=== PATIENT | male | born 1935 | race Caucasian/White ===

== ENCOUNTER 2019-11-30 08:57 | Outpatient (CLI) | payer MEDICARE, SELFPAY ==
[2019-11-30 09:27] LABS: Basophils Absolute Auto 0.01 K/mm3 (0.00-0.10); Basophils Percent Auto 0.2 % (0.0-1.0); Eosinophils Absolute Auto 0.15 K/mm3 (0.02-0.50); Eosinophils Percent Auto 2.6 % (1.0-6.0); Hematocrit 38.4 % (37.0-46.0); Hemoglobin 12.9 g/dL (12.4-15.3); Immature Granulocyte Absolute 0.02 K/mm3 (0.00-0.00); Immature Granulocyte Percent A 0.3 % (0.0-0.0); Immature Reticulocyte Fraction 14.8 % (2.0-16.52); Lymphocytes Absolute Auto 1.24 K/mm3 (1.10-4.50); Lymphocytes Percent Auto 21.1 % (18.0-42.0); Mean Corpuscular HGB Conc 33.6 g/dL (32.0-36.0); Mean Corpuscular Hemoglobin 32.3 pg (27.0-31.0); Mean Platelet Volume 9.5 fl (8.7-11.0); Monocytes Absolute Auto 0.65 K/mm3 (0.10-0.90); Monocytes Percent Auto 11.1 % (2.0-11.0); Neutrophils Absolute Auto 3.8 K/mm3 (1.7-7.2); Neutrophils Percent Auto 64.7 % (50.0-70.0); Platelet Count Result 236 K/mm3 (150-420); Red Cell Distribution Width 13.4 % (11.6-14.4); Reticulocyte Hemoglobin Conten 37.6 pg (28.0-35.0); Reticulocyte Percent 2.13 % (0.50-1.50); Reticulocytes Absolute 0.09 M/mm3 (0.02-0.1); White Blood Count 5.9 K/mm3 (4.8-10.8)
[2019-11-30 10:08] LABS: Anion Gap 14.8 mmol/L (7-16); Blood Urea Nitrogen 18 mg/dL (7-18); Calcium 8.7 mg/dL (8.5-10.1); Carbon Dioxide 24 mmol/L (21-32); Chloride 107 mmol/L (98-108); Estimated Glomerular Filt Rate > 60; Ferritin 73 ng/mL (26-388); Glucose 115 mg/dL (70-99); Iron 73 ug/dL (65-175); Osmolality Calculated 294 mOsm/kg (285-295); Percent Iron Saturation 25 % (12-57); Potassium 4.8 mmol/L (3.5-5.1); Sodium 141 mmol/L (136-145)
[2019-11-30 10:09] LABS: CRP < 0.2 mg/dL (0.0-0.9)
[2019-11-30 12:43] LABS: Erythrocyte Sedimentation Rate 25 mm/hr (0-20)
== END 2019-11-30 08:58 | disposition home or self-care (01) ==
LOC: CHSLAB 08:59
PROVIDERS: PCP Internal Medicine; Visit Provider Internal Medicine
DX: M10.9 Gout, unspecified (principal); D69.6 Thrombocytopenia, unspecified; N18.2 Chronic kidney disease, stage 2 (mild)
CPT/HCPCS: 36415; 80048; 82728; 83540; 83550; 84550; 85025; 85046; 85652; 86140

== ENCOUNTER 2019-12-17 11:05 | Outpatient (CLI) | payer MEDICARE, SELFPAY ==
[2019-12-17 11:57] LABS: Anion Gap 13.8 mmol/L (7-16); Blood Urea Nitrogen 24 mg/dL (7-18); Calcium 8.9 mg/dL (8.5-10.1); Carbon Dioxide 24 mmol/L (21-32); Chloride 108 mmol/L (98-108); Estimated Glomerular Filt Rate 60; Glucose 130 mg/dL (70-99); Osmolality Calculated 298 mOsm/kg (285-295); Potassium 4.8 mmol/L (3.5-5.1); Sodium 141 mmol/L (136-145); Uric Acid 5.2 mg/dL (3.5-7.2)
== END 2019-12-17 11:06 | disposition home or self-care (01) ==
PROVIDERS: PCP Internal Medicine; Visit Provider Internal Medicine
DX: E79.0 Hyperuricemia without signs of inflammatory arthritis and tophaceous disease (principal)
CPT/HCPCS: 36415; 80048; 84550

== ENCOUNTER 2020-01-08 17:45 | Observation (INO) | payer MEDICARE, OTHER, SELFPAY ==
--- NOTE | ~2020-01-08 | XR_ITS ---
EXAMINATION: XR chest 1V portable DATE: 01/08/2020 18:23 INDICATION: Fever TECHNIQUE: frontal view of the chest was obtained. COMPARISON: 08/15/2014 FINDINGS: Increased predominantly interstitial opacities in the bilateral lower lung zones. No pleural effusion or pneumothorax. Calcified pleural plaque projecting over the right lower lung zone. The cardiomedia stinal silhouette is normal. Atherosclerotic aorta. Mild scattered degenerative skeletal changes. IMPRESSION: 1. Mild increased opacities in the bilateral lower lung zones which could be due to bronchitis or ear ly pneumonia pneumonia, mild pulmonary edema or atelectasis. Reviewed, dictated and finalized at location A. IMPRESSION: 1. Mild increased opacities in the bilateral lower lung zones which could be du e to bronchitis or early pneumonia pneumonia, mild pulmonary edema or atelectas is.
--- NOTE | ~2020-01-08 | CT_ITS ---
EXAMINATION: CT chest high resolution wo co DATE: 01/08/2020 19:44 INDICATION: fever, Covid test pending possible pna on Cxr TECHNIQUE: Computed tomography (CT) of the chest was performed without intravenous contrast. Addition al 3D reconstructions utilizing coronal maximum intensity projection (MIP) were performed. Automated exposure control and iterative reconstruction technique were employed. The dose-length product was 23 4.82 mGy-cm. COMPARISON: None FINDINGS: There is some respiratory motion at the lung bases which limits evaluation of fine pulmonary parenchy mal detail. There is moderate emphysema with upper lung predominance which likely accounts for the re latively increased interstitial pattern in the lower lungs. No focal airspace disease to suggest pneu monia. No pulmonary edema, pleural effusion or pneumothorax. Unilateral calcified pleural plaques in the right hemithorax which suggests sequela of prior exudative effusion. Borderline heart size with a therosclerotic coronary artery calcifications. No pericardial lesion. Additional atherosclerotic calc ification is along the normal caliber thoracic aorta. No pathologically enlarged thoracic lymphadenop athy. Cholecystectomy clips the gallbladder fossa. Bridging syndesmophytes and bridging osteophytes a long the spinous processes throughout much of the thoracic spine consistent with ankylosing spondylit is. IMPRESSION: 1. Moderate emphysema. No evident acute cardiopulmonary disease. 2. Skeletal changes in the thoracic spine consistent with ankylosing spondylitis. Reviewed, dictated and finalized at location A. IMPRESSION: 1. Moderate emphysema. No evident acute cardiopulmonary disease. 2. Skeletal changes in the thoracic spine consistent with ankylosing spondyliti s.
--- NOTE | 2020-01-08 17:50 | ECG_ITS ---
Measurements Intervals [place] Rate: 103 P: 42 VT: 203 QRS: 55 QRSD: 141 T: 25 QT: 338 QTc: 444 Interpretive Statements SINUS TACHYCARDIA BORDERLINE AV CONDUCTION DELAY RIGHT BUNDLE BRANCH BLOCK BASELINE WANDER- II, III, AVR, AVF ABNORMAL ECG Electronically Signed On 01-10-2020 7:28:16 CDT by Elbert Golden D.O.
[2020-01-08 17:59] VITALS: BP 166/70; PULSE 106; RESP 18; TEMP 38; O2SAT 97
--- NOTE | 2020-01-08 18:40 | ED.GENADULT ---
HPI - General Adult General Chief complaint: Weakness Stated complaint: ambulance Source: family (Sons Dayday and Tom) Mode of arrival: EMS Limitations: altered mental status History of Present Illness HPI narrative: This 84-year-old male with a history of hypertension, type 2 diabetes, CVA, BPH, hyperlipidemia and gout lives at home by himself. He contacted his family this afternoon when he was not feeling well. At about 4:30 PM they arrived at his home finding him very weak, covered with a blanket shivering. He was confused and became more confused the longer they were with him, prompting his being brought to the E.D. He lives independently by himself, drives, cooks dresses himself etc.. His son Dayday spent an hour with him yesterday noticed no unusual behaviors or complaints. Tom knows he is at the hospital but does not know why. He denies complaints, but his confusion brings into question the reliability of ROS. Related Data Home Medications Medication Instructions Recorded Confirmed allopurinol 100 mg PO DAILY 01/08/20 01/08/20 aspirin [Adult Low Dose Aspirin] 81 mg PO DAILY 01/08/20 01/08/20 carvedilol 12.5 mg PO BID 01/08/20 01/08/20 clopidogrel [Plavix] 75 mg PO DAILY 01/08/20 01/08/20 enalapril maleate 20 mg PO BID 01/08/20 01/08/20 metformin 500 mg PO DAILY 01/08/20 01/08/20 pravastatin 80 mg PO DAILY 01/08/20 01/08/20 tamsulosin 0.4 mg PO DAILY 01/08/20 01/08/20 tamsulosin 0.4 mg PO DAILY 01/08/20 01/08/20 temazepam 15 mg PO HS PRN 01/08/20 01/08/20 Allergies Allergy/AdvReac Type Severity Reaction Status Date / Time No Known Allergies Allergy Verified 01/08/20 21:52 Review of Systems Review of Systems: Narrative: Review of systems is limited by patient's difficulty with recall. ENT: Denies sore throat Cardiovascular: Cardiovascular: Denies chest pain Respiratory: Respiratory: Denies no additional respiratory complaints and Denies cough Gastrointestinal: Gastrointestinal: Denies constipation and Denies diarrhea Comments: He states he vomited once earlier today Genitourinary: Genitourinary: Reports urinary incontinence Musculoskeletal: Comments: he states he had body aches earlier today but not presently Integumentary/Breasts: Skin/Breast: Denies rash Neurologic: Denies headache(s) Endocrine: Endocrine: Reports polydipsia Hematologic/Lymphatic: Hematologic/Lymphatic: Denies easy bleeding Allergic/Immunologic: Allergic/Immunologic: Denies lip swelling PMFSH Past Medical History Medical History (Updated 01/08/20 @ 20:29 by Dayday Banda MD) CVA (cerebral vascular accident) Diabetes Gout Hyperlipidemia Hypertension Family History Family History (Updated 01/08/20 @ 22:30 by Guido Maier RN) Father Parkinsons disease Mother Cancer Social History Social History (Updated 01/08/20 @ 18:58 by Dayday Banda MD) Social History: lives alone, . Sons live nearby, check on him regularly. No living will or designated MPOA Smoking status: Former smoker Tobacco type: cigarettes Second hand tobacco smoke exposure: No Alcohol intake: former Substance use: never Gender identity (if verbalized by the patient): Male Exam Const: General: no acute distress and alert; No diaphoretic Limitations: altered mental status Other: does not appear ill. Has trouble recalling recent events. HENMT: Head: no hematomas Face and sinus: sinuses nontender Mouth: Yes moist mucous membranes Eyes: EOM: EOMs intact bilaterally Neck: Neck: no lymphadenopathy Chest: Chest palpation & inspection: normal inspection of the chest Resp: Other: RR=24 respirations not labored Cardio: Rate: regular rate Rhythm: regular rhythm Heart sounds: no murmurs GI: GI Palp: Yes Soft to palpation, No Tenderness to palpation present (GI), No Guarding due to palpation present (GI) and No Rigid due to palpation Back/Spine/Pelvis: Back: no CVA tenderness Skin: General
[2020-01-08 18:45] LABS: Hematocrit 36.5 % (37.0-46.0); Hemoglobin 12.2 g/dL (12.4-15.3); Mean Corpuscular HGB Conc 33.4 g/dL (32.0-36.0); Mean Corpuscular Hemoglobin 32.5 pg (27.0-31.0); Mean Corpuscular Volume 97.3 fL (78.0-102.0); Mean Platelet Volume 9.8 fl (8.7-11.0); Platelet Count Result 246 K/mm3 (150-420); Red Blood Count 3.75 M/mm3 (4.70-6.10); Red Cell Distribution Width 14.2 % (11.6-14.4)
[2020-01-08 19:08] LABS: Appearance Urine Clear (Clear); Bilirubin Urine Negative (Negative); Color Urine Yellow (Yellow); Glucose Urine UA Negative (Negative); Ketones Urine Trace (Negative); Leukocyte Esterase Ur Negative LEU/UL (Negative); Nitrate Urine Negative (Negative); Protein Urine Trace (Negative); Specific Grav Ur 1.025 (1.010-1.020); Urobilinogen Urine 0.2 mg/dL (0.2-1.0); pH Urine 5.5 (5.0-8.0)
[2020-01-08 19:09] LABS: Alanine Aminotransferase 14 U/L (16-63); Albumin Level 3.4 g/dL (3.4-5.0); Alkaline Phosphatase 66 U/L (46-116); Anion Gap 17.3 mmol/L (7-16); Aspartate Amino Transferase 17 U/L (15-37); Bilirubin,Total 0.6 mg/dL (0.00-1.00); Blood Urea Nitrogen 24 mg/dL (7-18); Calcium 8.9 mg/dL (8.5-10.1); Carbon Dioxide 20 mmol/L (21-32); Chloride 107 mmol/L (98-108); Estimated Glomerular Filt Rate 58; Glucose 153 mg/dL (70-99); Osmolality Calculated 297 mOsm/kg (285-295); Potassium 4.3 mmol/L (3.5-5.1); Sodium 140 mmol/L (136-145); Total Protein 6.7 g/dL (6.4-8.2)
[2020-01-08 19:14] LABS: Add Urine Microscopic? YES; Blood Urine Trace-Intact (Negative); Magnesium 1.3 mg/dL (1.8-2.4); RBC Urine 0-2 /hpf (0-2); Troponin I 0.04 ng/mL (0.00-0.056); WBC Urine None seen /hpf (0-3)
[2020-01-08 19:15] LABS: Bacteria Urine Trace /hpf; Mucus Urine None seen /lpf; Squamous Epithelial Cell Urine None seen /hpf (Few)
[2020-01-08 19:27] LABS: BNP 100 pg/mL (0-100)
[2020-01-08 19:35] LABS: Lactic Acid 1.8 mmol/L (0.4-2.0)
[2020-01-08] MEDS: SODIUM CHLORIDE 0.9% IV 1,000 ML 125 ML IV CONT (19:40)
[2020-01-08 20:07] VITALS: BP 159/68; PULSE 100; O2SAT 98
[2020-01-08 21:19] VITALS: BP 131/61; PULSE 95; O2SAT 99
--- NOTE | 2020-01-08 21:25 | PC.NURSE ---
NURSE NOT READY FOR REPORT, PATIENT UPDATED ON PLAN OF CARE
[2020-01-08 21:53] VITALS: BP 143/59; PULSE 90; RESP 15; O2SAT 99
[2020-01-08 22:00] VITALS: BP 115/49; PULSE 92; RESP 16; TEMP 37.7; O2SAT 98
[2020-01-08 22:17] VITALS: BMI 26.4
--- NOTE | 2020-01-08 22:19 | PC.NURSE ---
[facility] [phone] AND [facility] [phone]
[2020-01-09] VITALS (11 sets, daily range): BP systolic 115–155; BP diastolic 49–66; PULSE 70–92; RESP 12–22; TEMP 36.9–37.7; O2SAT 92–98
[2020-01-09] MEDS: SODIUM CHLORIDE 0.9% IV 1,000 ML 125 ML IV CONT (04:24)
[2020-01-09] MEDS: MAGNESIUM SULF 2 GM/WATER 50ML 2 GM/50 ML BAG IVPB (06:27)
--- NOTE | 2020-01-09 08:55 | PM.IMHP ---
H&P: HPI History of Present Illness Chief complaint: ambulance Narrative: Tom Fontana is a 84 year old male admitted through the ED after the patient called his son Marin and his son called the ambulance. Tom is a 84-year-old male with a history of hypertension, type 2 diabetes, CVA, BPH, hyperlipidemia and gout. He lives at home by himself. He lives independently by himself, drives, cooks dresses himself etc.. He contacted his family yesterday afternoon when he was not feeling well. At about 4:30 PM they arrived at his home finding him very weak, covered with a blanket shivering. He was confused and became more confused the longer they were with him, prompting his being brought to the E.D. His son Dayday spent an hour with him yesterday noticed no unusual behaviors or complaints. The patient Tom knows he is at the hospital but does not know why. He denies complaints, but his confusion brings into question the reliability of ROS. He was admitted for weakness, fever, dehydration, and altered mental status. Today when I went to see the patient, he told me that he had gone downstairs in his basement to take a shower as that is the only basement that has a shower and he likes to use that. After the shower he had to go back up stairs, and was unable to do so, having trouble on the stairs, with severe pain in his legs that came on suddenly. At times he admits his right knee will give out, as he states that he needs knee replacement to the right side , and had a knee replacement to the left knee. He stated that for the most part his 2 sons Marin and Dayday are the children that frequently check on him and stop over to his house. He stated that Marin was his POA. The patient Tom currently denies any pain to his legs, while at rest, or with deep palpation, or with his physical therapy evaluation or home O2 study today. His son Marin told me that the patient has smoked for many years, but quit a little over 30 years ago when he had his heart attack. His son Marin also told me that the patient's smoked for many years and had severe emphysema. His white count was 10.0 at admission yesterday around 6:30 p.m., his UA was without concern, he was COVID tested and that remains pending since the machine broke at [facility] and his test has been sent to [facility] the results may take a few days. His magnesium admission was 1.3, today Mag level was 2.0. his troponin was within normal limits, EKG was normal sinus rhythm. I spoke with the radiologist today that read the patient's chest x-ray and high resolution CT scan. The radiologist confirmed after our discussion of both of those, the patient did not have pneumonia or atelectasis or pleural effusions, but did have moderate emphysema. Tom was alert and oriented times 3-4 with today, anxious to get home today, and felt like he was back to his baseline. I did inform him that I wanted physical therapist to evaluate him as well as a home O2 study completed today prior to discharge. He was agreeable. I then spoke to his son Jose over the phone and updated him as to the plan of care and the CT results. Physical therapy did recommend the patient participating outpatient therapy, so I have ordered that at discharge. Review of Systems Review of Systems: All systems reviewed & are unremarkable except as noted in HPI and below Constitutional: Constitutional: Reports as per HPI, Denies body ache(s), Reports chills, Denies fatigue, Denies lethargy and Reports weakness Eyes: Eyes: Reports as per HPI, Denies blurry vision and Denies photophobia ENT: Reports as per HPI, Reports Normal hearing present, Denies dysphagia, Denies epistaxis, Denies nasal congestion, Denies nasal discharge and Denies tinnitus Cardiovascular: Cardiovascular: Reports as per HPI, Denies chest pain, Denies diaphoresis, Reports pedal edema, Reports leg edema, Denies lightheadedness and Denies palpitations Respiratory: Respiratory: Reports as per HPI, Denies ch
[2020-01-09] MEDS: ENOXAPARIN 40 MG/0.4 ML SYRINGE SUB-Q (08:59)
[2020-01-09 09:52] LABS: Basophils Absolute Auto 0.01 K/mm3 (0.00-0.10); Basophils Percent Auto 0.1 % (0.0-1.0); Eosinophils Absolute Auto 0.04 K/mm3 (0.02-0.50); Eosinophils Percent Auto 0.4 % (1.0-6.0); Hematocrit 32.9 % (37.0-46.0); Hemoglobin 10.6 g/dL (12.4-15.3); Immature Granulocyte Absolute 0.02 K/mm3 (0.00-0.00); Immature Granulocyte Percent A 0.2 % (0.0-0.0); Lymphocytes Absolute Auto 0.74 K/mm3 (1.10-4.50); Lymphocytes Percent Auto 7.9 % (18.0-42.0); Mean Corpuscular HGB Conc 32.2 g/dL (32.0-36.0); Mean Corpuscular Hemoglobin 32.6 pg (27.0-31.0); Mean Corpuscular Volume 101.2 fL (78.0-102.0); Mean Platelet Volume 9.7 fl (8.7-11.0); Monocytes Absolute Auto 0.85 K/mm3 (0.10-0.90); Monocytes Percent Auto 9.1 % (2.0-11.0); Neutrophils Absolute Auto 7.7 K/mm3 (1.7-7.2); Neutrophils Percent Auto 82.3 % (50.0-70.0); Platelet Count Result 212 K/mm3 (150-420); Red Blood Count 3.25 M/mm3 (4.70-6.10); Red Cell Distribution Width 14.6 % (11.6-14.4); White Blood Count 9.3 K/mm3 (4.8-10.8)
[2020-01-09 10:07] LABS: Anion Gap 16.2 mmol/L (7-16); Blood Urea Nitrogen 19 mg/dL (7-18); Calcium 8.4 mg/dL (8.5-10.1); Carbon Dioxide 20 mmol/L (21-32); Chloride 109 mmol/L (98-108); Estimated CRCL calculation 53 ml/min; Estimated Glomerular Filt Rate > 60; Glucose 166 mg/dL (70-99); Osmolality Calculated 298 mOsm/kg (285-295); Potassium 4.2 mmol/L (3.5-5.1); Sodium 141 mmol/L (136-145)
[2020-01-09] MEDS: allopurinoL 100 MG TABLET PO ×2 (10:15→10:18)
[2020-01-09] MEDS: ASPIRIN 81 MG ENTERIC TABLET PO (10:15)
[2020-01-09] MEDS: TAMSULOSIN HCL 0.4 MG CAPSULE PO (10:15)
[2020-01-09] MEDS: ENALAPRIL MALEATE 5 MG TABLET 20 MG PO (10:16)
[2020-01-09] MEDS: CLOPIDOGREL BISULFATE 75 MG TABLET PO (10:17)
[2020-01-09] MEDS: PRAVASTATIN SODIUM 20 MG TABLET 80 MG PO (10:17)
[2020-01-09] MEDS: carvediloL 12.5 MG TABLET PO (10:18)
[2020-01-09] MEDS: metFORMIN HCL 500 MG TABLET PO (10:19)
[2020-01-09 11:48] LABS: Glucose Point of Care 126 (65-105)
[2020-01-09 12:33] LABS: Phosphorus 2.9 mg/dL (2.6-4.7)
[2020-01-09 12:45] LABS: Thyroid Stimulating Hormone Reflex 0.82 u/IU/mL (0.36-3.74)
[2020-01-09 14:35] LABS: Uric Acid 4.5 mg/dL (3.5-7.2)
[2020-01-09] MEDS: CEPHALEXIN 500 MG CAPSULE PO (14:37)
[2020-01-09] MEDS: SALMET XINAFT/FLUTIC PROPIN 250 MCG/50 MCG INH CAP 1 PUFF INHALATION (14:40)
--- NOTE | 2020-01-09 15:04 | PM.DS ---
DS: Diagnosis Admitting Diagnosis Admitting Diagnosis: Other instability, unspecified knee Discharge Diagnosis (1) Ankle cellulitis: Code(s): L03.119 - Cellulitis of unspecified part of limb Status: Acute Assessment and Plan: Left medial Ankle Abrasion with small scrap injury with scabs in place, no redness/drainage, pinkened area with warmth and tenderness, pt. withdrew to the touch due to pain. Fevers noted at admission 38.0, 37.7, 37.7, then no fevers after midnight. no drianage to culture blood cultures pending , UA clear. no redness noted. started on 500mg oral Keflex and continued at discharge Follow-up with his primary care physician Dr. Caruso may use Tylenol or ice for comfort elevate extremities to continue to avoid any inflammation (2) Fever and chills: Code(s): R50.9 - Fever, unspecified Status: Acute Assessment and Plan: Fevers noted at admission 38.0, 37.7, 37.7, then no fevers after midnight. possibly due to COVID, COVID testing pending possibly due to dehydration, resolved due to IV fluids possibly due to ankle cellulitis, treated with Keflex and he is to follow-up with his PCP Dr. Caruso within 1-14 days UA was completed and found to be clear blood cultures collected and pending discussed radiology studies including his chest x-ray and high resolution CT scan with the radiologist that read them to confirm there was indeed no pneumonia or acute disease at this time possibly due to COPD exacerbation or untreated COPD including moderate emphysema (3) COVID-19 ruled out: Code(s): Z03.818 - Encounter for observation for suspected exposure to other biological agents ruled out Status: Acute Assessment and Plan: COVID rule out due to fevers no cough, no chest congestion, Chest imaging without active pneumonia COVID testing machine at [facility] out of order, so testing sent to [facility] and will take an additional 24-48 hours so results remain pending. continue antibiotics for other diagnoses. (4) Acute dehydration: Code(s): E86.0 - Dehydration Status: Acute Assessment and Plan: fall precautions orthostatic blood pressures and vital signs checked and found to be without acute changes blood pressures are not low and patient is not tachycardic neuro checks ordered and completed without deficits receiving IV fluids renal labs normal encourage patient to stay hydrated encouraged to son Marin to monitor him by checking in at least once a day to visualize and assist him with ADLs as a way to monitor him for any changes or concerns (5) Acute alteration in mental status: Code(s): R41.82 - Altered mental status, unspecified Status: Acute Assessment and Plan: alert and oriented times 3-4 likely improved in the ED due to IV hydration COVID testing in process fall precautions orthostatic blood pressures and vital signs checked and found to be without acute changes home medications evaluated and vital signs checked after administered, especially blood pressure meds and blood pressures neuro checks ordered and completed without deficits no unilateral weakness or numbness her complaints of tingling at this time no sign of an acute stroke not requiring a DME at this time per PT evaluation patient tolerated his home oxygen study well which includes plenty of ambulating and is not requiring additional oxygen while at rest or with ambulation patient tolerated his physical therapy evaluation and is not requiring rehab at this time but would greatly benefit from outpatient physical therapy (6) Weakness generalized: Code(s): R53.1 - Weakness Status: Acute Assessment and Plan: fall precautions orthostatic blood pressures and vital signs checked and found to be without acute changes home medications evaluated and vital signs checked after administered, especially blood pressure meds and blood pressures neuro
--- NOTE | 2020-01-09 15:11 | PC.NURSE ---
numerical control programmer has finished discharge, son maria del carmen called and is bringing change of clothes and will take pt home, to be here in about 45 minutes
--- NOTE | 2020-01-10 00:06 | PM.EVENT ---
Event Note Event Note Event Note: Patient states he feels much better today. He denies shortness of breath, chills, fever and cough. Alert and oriented. No acute distress.Lungs are clear to auscultation. No rales or rhonchi. Regular rate and rhythm without murmur. Distal pulses are full and symmetric. No edema. Extremities are warm dry and pink. Responded well to hydration. May need some help at home to manage stairs etc. I have examined the patient reviewed the chart. I discussed the patient's care with A Valentino STINSON and agree with her assessment and plan.
== END 2020-01-09 16:15 | disposition home or self-care (01) ==
LOC: CHSED 20:29 → CHS2ND 20:33
PROVIDERS: Nurse Practitioner; Admitting Provider Family Medicine; Emergency Provider Family Medicine; PCP Internal Medicine; Visit Provider Family Medicine
DX: E86.0 Dehydration (principal); R53.1 Weakness; R50.9 Fever, unspecified; L03.116 Cellulitis of left lower limb; I10 Essential (primary) hypertension; E11.9 Type 2 diabetes mellitus without complications; E78.5 Hyperlipidemia, unspecified; N40.0 Benign prostatic hyperplasia without lower urinary tract symptoms; M10.9 Gout, unspecified; J44.9 Chronic obstructive pulmonary disease, unspecified; Z20.828 Contact with and (suspected) exposure to other viral communicable diseases; Z86.73 Personal history of transient ischemic attack (TIA), and cerebral infarction without residual deficits
CPT/HCPCS: 36415; 71045; 71250; 80048; 80053; 81001; 83605; 83735; 83880; 84100; 84443; 84484; 84550; 85025; 85027; 87040; 87635; 93005; 94618; 96361; 96365; 96372; 97161; 99283; 99285; A9270; C9803; G0378; J1650; J3475; J7030; U0003

== ENCOUNTER 2020-01-20 08:57 | Outpatient (CLI) | payer MEDICARE, SELFPAY ==
[2020-01-20 09:10] LABS: Basophils Absolute Auto 0.01 K/mm3 (0.00-0.10); Basophils Percent Auto 0.2 % (0.0-1.0); Eosinophils Absolute Auto 0.18 K/mm3 (0.02-0.50); Eosinophils Percent Auto 2.9 % (1.0-6.0); Hematocrit 38.8 % (37.0-46.0); Hemoglobin 12.8 g/dL (12.4-15.3); Immature Granulocyte Absolute 0.03 K/mm3 (0.00-0.00); Immature Granulocyte Percent A 0.5 % (0.0-0.0); Lymphocytes Absolute Auto 1.05 K/mm3 (1.10-4.50); Lymphocytes Percent Auto 16.9 % (18.0-42.0); Mean Corpuscular Hemoglobin 32.8 pg (27.0-31.0); Mean Corpuscular Volume 99.5 fL (78.0-102.0); Mean Platelet Volume 9.1 fl (8.7-11.0); Monocytes Absolute Auto 0.48 K/mm3 (0.10-0.90); Monocytes Percent Auto 7.7 % (2.0-11.0); Neutrophils Absolute Auto 4.5 K/mm3 (1.7-7.2); Neutrophils Percent Auto 71.8 % (50.0-70.0); Platelet Count Result 269 K/mm3 (150-420); Red Cell Distribution Width 14.4 % (11.6-14.4); White Blood Count 6.2 K/mm3 (4.8-10.8)
[2020-01-20 09:16] LABS: Add Urine Microscopic? NO; Appearance Urine Clear (Clear); Bilirubin Urine Negative (Negative); Blood Urine Negative (Negative); Color Urine Yellow (Yellow); Glucose Urine UA Negative (Negative); Ketones Urine Negative (Negative); Leukocyte Esterase Ur Negative (Negative); Nitrate Urine Negative (Negative); Protein Urine Negative (Negative); Urobilinogen Urine 0.2 mg/dL (0.2-1.0); pH Urine 5.5 (5.0-8.0)
[2020-01-20 09:25] LABS: Hemoglobin A1C 6.5 % (<5.7)
[2020-01-20 10:42] LABS: Alanine Aminotransferase 18 U/L (16-63); Albumin Level 3.6 g/dL (3.4-5.0); Alkaline Phosphatase 63 U/L (46-116); Anion Gap 15.9 mmol/L (7-16); Aspartate Amino Transferase 17 U/L (15-37); Bilirubin,Total 0.5 mg/dL (0.00-1.00); Blood Urea Nitrogen 16 mg/dL (7-18); Calcium 8.8 mg/dL (8.5-10.1); Carbon Dioxide 25 mmol/L (21-32); Chloride 106 mmol/L (98-108); Cholesterol 129 mg/dL (0-200); Creatine Kinase 42 U/L (39-308); Estimated Glomerular Filt Rate > 60; Glucose 123 mg/dL (70-99); HDL Direct 39 mg/dL (40-60); LDL Cholesterol Calculated 69 mg/dL (<130); Osmolality Calculated 296 mOsm/kg (285-295); Potassium 4.9 mmol/L (3.5-5.1); Prostate Specific Antigen 6.3 ng/mL (< OR = 4.0); Sodium 142 mmol/L (136-145); Total Protein 6.8 g/dL (6.4-8.2); Triglycerides 106 mg/dL (0-150); Uric Acid 4.8 mg/dL (3.5-7.2)
== END 2020-01-20 08:58 | disposition home or self-care (01) ==
LOC: CHSLAB 08:59
PROVIDERS: PCP Internal Medicine; Visit Provider Internal Medicine
DX: E79.0 Hyperuricemia without signs of inflammatory arthritis and tophaceous disease (principal); E11.59 Type 2 diabetes mellitus with other circulatory complications; E78.2 Mixed hyperlipidemia; R97.20 Elevated prostate specific antigen [PSA]
CPT/HCPCS: 36415; 80053; 80061; 81003; 82550; 83036; 84153; 84550; 85025

== ENCOUNTER 2020-02-16 13:07 | Outpatient (CLI) | payer MEDICARE, SELFPAY ==
[2020-02-16 13:23] LABS: Basophils Absolute Auto 0.01 K/mm3 (0.00-0.10); Basophils Percent Auto 0.1 % (0.0-1.0); Eosinophils Absolute Auto 0.16 K/mm3 (0.02-0.50); Eosinophils Percent Auto 1.5 % (1.0-6.0); Hematocrit 40.8 % (37.0-46.0); Hemoglobin 13.7 g/dL (12.4-15.3); Immature Granulocyte Absolute 0.03 K/mm3 (0.00-0.00); Immature Granulocyte Percent A 0.3 % (0.0-0.0); Lymphocytes Absolute Auto 0.92 K/mm3 (1.10-4.50); Lymphocytes Percent Auto 8.4 % (18.0-42.0); Mean Corpuscular HGB Conc 33.6 g/dL (32.0-36.0); Mean Corpuscular Hemoglobin 33.1 pg (27.0-31.0); Mean Corpuscular Volume 98.6 fL (78.0-102.0); Mean Platelet Volume 9.7 fl (8.7-11.0); Monocytes Absolute Auto 0.74 K/mm3 (0.10-0.90); Monocytes Percent Auto 6.8 % (2.0-11.0); Neutrophils Percent Auto 82.9 % (50.0-70.0); Platelet Count Result 219 K/mm3 (150-420); Red Blood Count 4.14 M/mm3 (4.70-6.10); Red Cell Distribution Width 13.8 % (11.6-14.4); White Blood Count 10.9 K/mm3 (4.8-10.8)
[2020-02-16 14:04] LABS: Anion Gap 15.5 mmol/L (7-16); Blood Urea Nitrogen 24 mg/dL (7-18); Carbon Dioxide 26 mmol/L (21-32); Chloride 104 mmol/L (98-108); Estimated Glomerular Filt Rate 50; Glucose 131 mg/dL (70-99); Osmolality Calculated 298 mOsm/kg (285-295); Potassium 4.5 mmol/L (3.5-5.1); Sodium 141 mmol/L (136-145)
== END 2020-02-16 13:08 | disposition home or self-care (01) ==
LOC: CHSLAB 13:09
PROVIDERS: PCP Internal Medicine; Visit Provider Internal Medicine
DX: L03.116 Cellulitis of left lower limb (principal)
CPT/HCPCS: 36415; 80048; 85025

== ENCOUNTER 2020-02-23 09:49 | Outpatient (CLI) | payer MEDICARE, SELFPAY ==
[2020-02-23 10:08] LABS: Add Urine Microscopic? NO; Appearance Urine Clear (Clear); Bilirubin Urine Negative (Negative); Blood Urine Negative (Negative); Color Urine Straw (Yellow); Glucose Urine UA Negative (Negative); Ketones Urine Negative (Negative); Leukocyte Esterase Ur Negative (Negative); Nitrate Urine Negative (Negative); Protein Urine Negative (Negative); Specific Grav Ur <= 1.005 (1.010-1.020); Urobilinogen Urine 0.2 mg/dL (0.2-1.0)
[2020-02-23 11:22] LABS: Alanine Aminotransferase 14 U/L (16-63); Albumin Level 3.5 g/dL (3.4-5.0); Alkaline Phosphatase 64 U/L (46-116); Anion Gap 12.7 mmol/L (7-16); Aspartate Amino Transferase 17 U/L (15-37); Bilirubin,Total 0.5 mg/dL (0.00-1.00); Blood Urea Nitrogen 21 mg/dL (7-18); Calcium 8.9 mg/dL (8.5-10.1); Carbon Dioxide 25 mmol/L (21-32); Chloride 106 mmol/L (98-108); Estimated Glomerular Filt Rate 60; Glucose 132 mg/dL (70-99); Osmolality Calculated 293 mOsm/kg (285-295); Potassium 4.7 mmol/L (3.5-5.1); Sodium 139 mmol/L (136-145); Total Protein 6.8 g/dL (6.4-8.2)
[2020-02-23 11:53] LABS: Prostate Specific Antigen 6.1 ng/mL (< OR = 4.0)
== END 2020-02-23 09:50 | disposition home or self-care (01) ==
LOC: CHSLAB 09:51
PROVIDERS: PCP Internal Medicine; Visit Provider Internal Medicine
DX: R97.20 Elevated prostate specific antigen [PSA] (principal); I10 Essential (primary) hypertension
CPT/HCPCS: 36415; 80053; 81003; 84153

== ENCOUNTER 2020-03-06 13:51 | Outpatient (CLI) | payer MEDICARE, OTHER, SELFPAY ==
--- NOTE | ~2020-03-06 | US_ITS ---
EXAMINATION: US venous doppler [facility] DATE: 03/06/2020 16:26 INDICATION: Left lower limb swelling. TECHNIQUE: Grayscale ultrasound images without and with compression and Doppler ultrasound images of the left lower extremity veins were obtained. COMPARISON: None. FINDINGS: The visualized portions of left common femoral vein, profunda (deep) femoral vein, femoral vein, popl iteal vein, peroneal veins, posterior tibial veins, and greater saphenous vein outflow are patent. IMPRESSION: 1. No deep venous thrombosis. Reviewed, dictated and finalized at location A.
--- NOTE | ~2020-03-06 | US_ITS ---
EXAMINATION: US arterial ankle brachial ind DATE: 03/06/2020 16:26 INDICATION: Peripheral arterial disease. TECHNIQUE: Segmental pressures and plethysmographic and Doppler waveforms of the brachial and lower e xtremity arteries were obtained. COMPARISON: None. FINDINGS: Right and left brachial artery pressures of 165 mm Hg and 156 mm Hg, respectively, are concordant (no rmal difference <= 30 mmHg). The right ankle-brachial index (PRINCE) is 0.80 (normal >= 0.9-1.0). The right great toe-brachial index (TBI) is 0.58 (normal >= 0.65). Arterial Doppler waveforms are biphasic in posterior tibial artery an d monophasic in dorsalis pedis. The left PRINCE is 0.84. The left TBI is 0.41. Arterial Doppler waveforms are monophasic at the ankle. IMPRESSION: 1. Mildly decreased ABIs, consistent with arterial occlusive disease. Reviewed, dictated and finalized at location A.
[2020-03-06 14:06] LABS: Basophils Absolute Auto 0.01 K/mm3 (0.00-0.10); Basophils Percent Auto 0.1 % (0.0-1.0); Eosinophils Absolute Auto 0.06 K/mm3 (0.02-0.50); Eosinophils Percent Auto 0.7 % (1.0-6.0); Hematocrit 37.2 % (37.0-46.0); Hemoglobin 12.4 g/dL (12.4-15.3); Immature Granulocyte Absolute 0.05 K/mm3 (0.00-0.00); Immature Granulocyte Percent A 0.6 % (0.0-0.0); Lymphocytes Absolute Auto 0.98 K/mm3 (1.10-4.50); Mean Corpuscular HGB Conc 33.3 g/dL (32.0-36.0); Mean Corpuscular Hemoglobin 33.6 pg (27.0-31.0); Mean Corpuscular Volume 100.8 fL (78.0-102.0); Mean Platelet Volume 9.7 fl (8.7-11.0); Monocytes Absolute Auto 0.95 K/mm3 (0.10-0.90); Monocytes Percent Auto 10.7 % (2.0-11.0); Neutrophils Absolute Auto 6.9 K/mm3 (1.7-7.2); Neutrophils Percent Auto 76.9 % (50.0-70.0); Platelet Count Result 205 K/mm3 (150-420); Red Blood Count 3.69 M/mm3 (4.70-6.10); White Blood Count 8.9 K/mm3 (4.8-10.8)
[2020-03-06 14:29] LABS: Alanine Aminotransferase 16 U/L (16-63); Albumin Level 3.5 g/dL (3.4-5.0); Alkaline Phosphatase 49 U/L (46-116); Anion Gap 11.4 mmol/L (7-16); Aspartate Amino Transferase 17 U/L (15-37); Blood Urea Nitrogen 35 mg/dL (7-18); Calcium 8.7 mg/dL (8.5-10.1); Carbon Dioxide 26 mmol/L (21-32); Chloride 101 mmol/L (98-108); Estimated Glomerular Filt Rate 43; Glucose 115 mg/dL (70-99); Osmolality Calculated 287 mOsm/kg (285-295); Potassium 4.4 mmol/L (3.5-5.1); Sodium 134 mmol/L (136-145); Total Protein 7.5 g/dL (6.4-8.2); Uric Acid 5.5 mg/dL (3.5-7.2)
== END 2020-03-06 13:52 | disposition home or self-care (01) ==
LOC: CHSLAB 13:54
PROVIDERS: PCP Internal Medicine; Visit Provider Internal Medicine
DX: I73.9 Peripheral vascular disease, unspecified (principal); L03.90 Cellulitis, unspecified; M10.9 Gout, unspecified; M79.89 Other specified soft tissue disorders
CPT/HCPCS: 36415; 80053; 84550; 85025; 93922; 93971

== ENCOUNTER 2020-03-21 09:26 | Outpatient (CLI) | payer MEDICARE, SELFPAY ==
[2020-03-21 10:17] LABS: Anion Gap 11.6 mmol/L (7-16); Blood Urea Nitrogen 21 mg/dL (7-18); Calcium 8.6 mg/dL (8.5-10.1); Carbon Dioxide 27 mmol/L (21-32); Chloride 107 mmol/L (98-108); Estimated Glomerular Filt Rate 46; Glucose 161 mg/dL (70-99); Osmolality Calculated 298 mOsm/kg (285-295); Potassium 4.6 mmol/L (3.5-5.1); Sodium 141 mmol/L (136-145)
== END 2020-03-21 09:27 | disposition home or self-care (01) ==
LOC: CHSLAB 09:27
PROVIDERS: PCP Internal Medicine; Visit Provider Internal Medicine
DX: N18.2 Chronic kidney disease, stage 2 (mild) (principal)
CPT/HCPCS: 36415; 80048

== ENCOUNTER 2020-04-04 09:20 | Outpatient (CLI) | payer MEDICARE, SELFPAY ==
[2020-04-04 10:00] LABS: Anion Gap 8 mmol/L (8-16); Blood Urea Nitrogen 19 mg/dL (7-18); Calcium 8.7 mg/dL (8.5-10.1); Carbon Dioxide 25 mmol/L (21-32); Chloride 107 mmol/L (98-108); Estimated Glomerular Filt Rate 55; Glucose 117 mg/dL (70-99); Osmolality Calculated 293 mOsm/kg (285-295); Potassium 4.6 mmol/L (3.5-5.1); Sodium 140 mmol/L (136-145)
== END 2020-04-04 09:21 | disposition home or self-care (01) ==
LOC: CHSLAB 09:21
PROVIDERS: PCP Internal Medicine; Visit Provider Internal Medicine
DX: R79.89 Other specified abnormal findings of blood chemistry (principal)
CPT/HCPCS: 36415; 80048

== ENCOUNTER 2020-05-10 10:02 | Outpatient (CLI) | payer MEDICARE, SELFPAY ==
[2020-05-10 11:40] LABS: Anion Gap 8 mmol/L (8-16); Blood Urea Nitrogen 24 mg/dL (7-18); Calcium 8.7 mg/dL (8.5-10.1); Carbon Dioxide 25 mmol/L (21-32); Chloride 107 mmol/L (98-108); Estimated Glomerular Filt Rate > 60; Glucose 111 mg/dL (70-99); Osmolality Calculated 295 mOsm/kg (285-295); Potassium 4.8 mmol/L (3.5-5.1); Sodium 140 mmol/L (136-145); Uric Acid 5.2 mg/dL (3.5-7.2)
== END 2020-05-10 10:03 | disposition home or self-care (01) ==
LOC: CHSLAB 10:03
PROVIDERS: PCP Internal Medicine; Visit Provider Internal Medicine
DX: E79.0 Hyperuricemia without signs of inflammatory arthritis and tophaceous disease (principal); I10 Essential (primary) hypertension; R97.20 Elevated prostate specific antigen [PSA]
CPT/HCPCS: 36415; 80048; 84153; 84550

== ENCOUNTER 2020-08-10 10:08 | Outpatient (CLI) | payer MEDICARE, SELFPAY ==
[2020-08-10 10:39] LABS: Add Urine Microscopic? YES; Appearance Urine Clear (Clear); Bilirubin Urine Negative (Negative); Blood Urine Negative (Negative); Color Urine Yellow (Yellow); Glucose Urine UA Negative (Negative); Ketones Urine Negative (Negative); Leukocyte Esterase Ur Negative (Negative); Nitrate Urine Negative (Negative); Protein Urine Trace (Negative); Specific Grav Ur >= 1.030 (1.010-1.020); Urobilinogen Urine 0.2 mg/dL (0.2-1.0); pH Urine 5.5 (5.0-8.0)
[2020-08-10 10:55] LABS: Hemoglobin A1C 6.2 % (<5.7)
[2020-08-10 10:58] LABS: Bacteria Urine Trace /hpf; RBC Urine 0-2 /hpf (0-2); WBC Urine 0-3 /hpf (0-3)
[2020-08-10 11:38] LABS: Alanine Aminotransferase 14 U/L (16-63); Albumin Level 3.6 g/dL (3.4-5.0); Alkaline Phosphatase 79 U/L (46-116); Anion Gap 9 mmol/L (8-16); Aspartate Amino Transferase 11 U/L (15-37); Blood Urea Nitrogen 27 mg/dL (7-18); Calcium 8.9 mg/dL (8.5-10.1); Carbon Dioxide 25 mmol/L (21-32); Chloride 104 mmol/L (98-108); Estimated Glomerular Filt Rate 51; Glucose 111 mg/dL (70-99); Osmolality Calculated 292 mOsm/kg (285-295); Potassium 4.5 mmol/L (3.5-5.1); Prostate Specific Antigen 7.4 ng/mL (< OR = 4.0); Sodium 138 mmol/L (136-145); Total Protein 6.9 g/dL (6.4-8.2); Uric Acid 5.3 mg/dL (3.5-7.2)
== END 2020-08-10 10:09 | disposition home or self-care (01) ==
LOC: CHSLAB 10:09
PROVIDERS: PCP Internal Medicine; Visit Provider Internal Medicine
DX: E79.0 Hyperuricemia without signs of inflammatory arthritis and tophaceous disease (principal); I10 Essential (primary) hypertension; E11.59 Type 2 diabetes mellitus with other circulatory complications; R97.20 Elevated prostate specific antigen [PSA]
CPT/HCPCS: 36415; 80053; 81001; 83036; 84153; 84550

== ENCOUNTER 2020-09-19 09:29 | Outpatient (CLI) | payer MEDICARE, SELFPAY ==
[2020-09-19 10:19] LABS: Anion Gap 7 mmol/L (8-16); Blood Urea Nitrogen 24 mg/dL (7-18); Calcium 8.6 mg/dL (8.5-10.1); Carbon Dioxide 29 mmol/L (21-32); Chloride 104 mmol/L (98-108); Estimated Glomerular Filt Rate 55; Glucose 116 mg/dL (70-99); Osmolality Calculated 295 mOsm/kg (285-295); Potassium 5.1 mmol/L (3.5-5.1); Sodium 140 mmol/L (136-145)
== END 2020-09-19 09:30 | disposition home or self-care (01) ==
LOC: CHSLAB 09:31
PROVIDERS: PCP Internal Medicine; Visit Provider Internal Medicine
DX: N18.2 Chronic kidney disease, stage 2 (mild) (principal)
CPT/HCPCS: 36415; 80048

== ENCOUNTER 2021-01-19 09:14 | Outpatient (CLI) | payer MEDICARE, SELFPAY ==
[2021-01-19 09:28] LABS: Basophils Absolute Auto 0.01 K/mm3 (0.00-0.10); Basophils Percent Auto 0.2 % (0.0-1.0); Eosinophils Absolute Auto 0.21 K/mm3 (0.02-0.50); Hematocrit 37.2 % (37.0-46.0); Hemoglobin 12.4 g/dL (12.4-15.3); Immature Granulocyte Absolute 0.01 K/mm3 (0.00-0.00); Immature Granulocyte Percent A 0.2 % (0.0-0.0); Lymphocytes Absolute Auto 1.15 K/mm3 (1.10-4.50); Lymphocytes Percent Auto 21.7 % (18.0-42.0); Mean Corpuscular HGB Conc 33.3 g/dL (32.0-36.0); Mean Corpuscular Hemoglobin 33.2 pg (27.0-31.0); Mean Corpuscular Volume 99.5 fL (78.0-102.0); Mean Platelet Volume 9.6 fl (8.7-11.0); Monocytes Absolute Auto 0.49 K/mm3 (0.10-0.90); Monocytes Percent Auto 9.3 % (2.0-11.0); Neutrophils Absolute Auto 3.4 K/mm3 (1.7-7.2); Neutrophils Percent Auto 64.6 % (50.0-70.0); Platelet Count Result 192 K/mm3 (150-420); Red Blood Count 3.74 M/mm3 (4.70-6.10); Red Cell Distribution Width 13.6 % (11.6-14.4); White Blood Count 5.3 K/mm3 (4.8-10.8)
[2021-01-19 09:36] LABS: Add Urine Microscopic? NO; Appearance Urine Clear (Clear); Bilirubin Urine Negative (Negative); Blood Urine Negative (Negative); Color Urine Yellow (Yellow); Glucose Urine UA Negative (Negative); Ketones Urine Negative (Negative); Leukocyte Esterase Ur Negative LEU/UL (Negative); Nitrate Urine Negative (Negative); Protein Urine Negative (Negative); Urobilinogen Urine 0.2 mg/dL (0.2-1.0)
[2021-01-19 09:50] LABS: Hemoglobin A1C 6.2 % (<5.7)
[2021-01-19 09:52] LABS: Creatinine Urine 71.96 mg/dL (40-278); MALB Creatinine Ratio 59.1 mg/g (0-30); Microalbumin Urine Random 42.6 mg/L
[2021-01-19 10:31] LABS: Alanine Aminotransferase 18 U/L (16-63); Albumin Level 3.6 g/dL (3.4-5.0); Alkaline Phosphatase 72 U/L (46-116); Anion Gap 8 mmol/L (8-16); Aspartate Amino Transferase 12 U/L (15-37); Bilirubin,Total 0.5 mg/dL (0.00-1.00); Blood Urea Nitrogen 24 mg/dL (7-18); Calcium 9.1 mg/dL (8.5-10.1); Carbon Dioxide 26 mmol/L (21-32); Chloride 107 mmol/L (98-108); Cholesterol 127 mg/dL (0-200); Creatine Kinase 26 U/L (39-308); Estimated Glomerular Filt Rate 59; Glucose 114 mg/dL (70-99); HDL Direct 46 mg/dL (40-60); LDL Cholesterol Calculated 69 mg/dL (<130); Osmolality Calculated 297 mOsm/kg (285-295); Sodium 141 mmol/L (136-145); Total Protein 6.6 g/dL (6.4-8.2); Triglycerides 62 mg/dL (0-150); Uric Acid 4.4 mg/dL (3.5-7.2)
== END 2021-01-19 09:15 | disposition home or self-care (01) ==
LOC: CHSLAB 09:16
PROVIDERS: PCP Internal Medicine; Visit Provider Internal Medicine
DX: E11.9 Type 2 diabetes mellitus without complications (principal); E78.5 Hyperlipidemia, unspecified; I10 Essential (primary) hypertension; E79.0 Hyperuricemia without signs of inflammatory arthritis and tophaceous disease; R97.20 Elevated prostate specific antigen [PSA]
CPT/HCPCS: 36415; 80053; 80061; 81003; 82043; 82550; 83036; 84153; 84550; 85025

== ENCOUNTER 2021-03-09 09:45 | Outpatient (CLI) | payer MEDICARE, SELFPAY ==
[2021-03-09 11:26] LABS: Alanine Aminotransferase 18 U/L (16-63); Albumin Level 3.7 g/dL (3.4-5.0); Alkaline Phosphatase 69 U/L (46-116); Anion Gap 11 mmol/L (8-16); Aspartate Amino Transferase 13 U/L (15-37); Bilirubin,Total 0.7 mg/dL (0.00-1.00); Blood Urea Nitrogen 24 mg/dL (7-18); Calcium 8.6 mg/dL (8.5-10.1); Carbon Dioxide 24 mmol/L (21-32); Chloride 108 mmol/L (98-108); Estimated Glomerular Filt Rate > 60; Glucose 113 mg/dL (70-99); Osmolality Calculated 301 mOsm/kg (285-295); Potassium 4.9 mmol/L (3.5-5.1); Prostate Specific Antigen 6.3 ng/mL (< OR = 4.0); Sodium 143 mmol/L (136-145); Total Protein 6.5 g/dL (6.4-8.2)
== END 2021-03-09 09:46 | disposition home or self-care (01) ==
PROVIDERS: PCP Internal Medicine; Visit Provider Urology
DX: R97.20 Elevated prostate specific antigen [PSA] (principal)
CPT/HCPCS: 36415; 80053; 84153

== ENCOUNTER 2021-07-18 09:10 | Outpatient (CLI) | payer MEDICARE, SELFPAY ==
[2021-07-18 09:31] LABS: Add Urine Microscopic? NO; Appearance Urine Clear (Clear); Bilirubin Urine Negative (Negative); Blood Urine Negative (Negative); Color Urine Light Yellow (Yellow); Glucose Urine UA Negative (Negative); Ketones Urine Negative (Negative); Leukocyte Esterase Ur Negative (Negative); Nitrate Urine Negative (Negative); Protein Urine Negative (Negative); Specific Grav Ur 1.025 (1.010-1.020); Urobilinogen Urine 0.2 mg/dL (0.2-1.0)
[2021-07-18 09:43] LABS: MALB Creatinine Ratio 47.6 mg/g (0-30); Microalbumin Urine Random 49.7 mg/L
[2021-07-18 09:45] LABS: Hemoglobin A1C 6.4 % (<5.7)
[2021-07-18 10:48] LABS: Alanine Aminotransferase 17 U/L (16-63); Albumin Level 3.3 g/dL (3.4-5.0); Alkaline Phosphatase 74 U/L (46-116); Anion Gap 9 mmol/L (8-16); Aspartate Amino Transferase 13 U/L (15-37); Bilirubin,Total 0.7 mg/dL (0.00-1.00); Blood Urea Nitrogen 24 mg/dL (7-18); Calcium 8.3 mg/dL (8.5-10.1); Carbon Dioxide 24 mmol/L (21-32); Chloride 107 mmol/L (98-108); Cholesterol 120 mg/dL (0-200); Creatine Kinase 27 U/L (39-308); Estimated Glomerular Filt Rate 55; Glucose 108 mg/dL (70-99); HDL Direct 46 mg/dL (40-60); LDL Cholesterol Calculated 57 mg/dL (<130); Osmolality Calculated 295 mOsm/kg (285-295); Sodium 140 mmol/L (136-145); Total Protein 6.2 g/dL (6.4-8.2); Triglycerides 84 mg/dL (0-150); Uric Acid 4.5 mg/dL (3.5-7.2)
== END 2021-07-18 09:11 | disposition home or self-care (01) ==
LOC: CHSLAB 09:12
PROVIDERS: PCP Internal Medicine; Visit Provider Internal Medicine
DX: E11.9 Type 2 diabetes mellitus without complications (principal); I10 Essential (primary) hypertension; E78.2 Mixed hyperlipidemia; E79.0 Hyperuricemia without signs of inflammatory arthritis and tophaceous disease; R97.20 Elevated prostate specific antigen [PSA]
CPT/HCPCS: 36415; 80053; 80061; 81003; 82043; 82550; 83036; 84153; 84550; G0103

== ENCOUNTER 2021-09-18 13:32 | Outpatient (CLI) | payer MEDICARE, SELFPAY ==
[2021-09-18 14:27] LABS: Alanine Aminotransferase 18 U/L (16-63); Albumin Level 3.6 g/dL (3.4-5.0); Alkaline Phosphatase 68 U/L (46-116); Anion Gap 7 mmol/L (8-16); Aspartate Amino Transferase 15 U/L (15-37); Bilirubin,Total 0.4 mg/dL (0.00-1.00); Blood Urea Nitrogen 25 mg/dL (7-18); Calcium 8.5 mg/dL (8.5-10.1); Carbon Dioxide 27 mmol/L (21-32); Chloride 103 mmol/L (98-108); Estimated Glomerular Filt Rate 59; Glucose 130 mg/dL (70-99); Osmolality Calculated 290 mOsm/kg (285-295); Potassium 4.8 mmol/L (3.5-5.1); Prostate Specific Antigen 8.4 ng/mL (< OR = 4.0); Sodium 137 mmol/L (136-145); Total Protein 6.7 g/dL (6.4-8.2)
== END 2021-09-18 13:33 | disposition home or self-care (01) ==
LOC: CHSLAB 13:35
PROVIDERS: PCP Internal Medicine; Visit Provider Urology
DX: R97.20 Elevated prostate specific antigen [PSA] (principal)
CPT/HCPCS: 36415; 80053; 84153

== ENCOUNTER 2022-01-14 09:16 | Outpatient (CLI) | payer MEDICARE, SELFPAY ==
[2022-01-14 09:36] LABS: Basophils Absolute Auto 0.01 K/mm3 (0.00-0.10); Basophils Percent Auto 0.2 % (0.0-1.0); Eosinophils Absolute Auto 0.26 K/mm3 (0.02-0.50); Eosinophils Percent Auto 4.7 % (1.0-6.0); Hematocrit 38.9 % (37.0-46.0); Hemoglobin 12.8 g/dL (12.4-15.3); Immature Granulocyte Absolute 0.01 K/mm3 (0.00-0.00); Immature Granulocyte Percent A 0.2 % (0.0-0.0); Lymphocytes Absolute Auto 0.96 K/mm3 (1.10-4.50); Lymphocytes Percent Auto 17.3 % (18.0-42.0); Mean Corpuscular HGB Conc 32.9 g/dL (32.0-36.0); Mean Corpuscular Hemoglobin 33.4 pg (27.0-31.0); Mean Corpuscular Volume 101.6 fL (78.0-102.0); Monocytes Absolute Auto 0.48 K/mm3 (0.10-0.90); Monocytes Percent Auto 8.6 % (2.0-11.0); Neutrophils Absolute Auto 3.8 K/mm3 (1.7-7.2); Platelet Count Result 215 K/mm3 (150-420); Red Blood Count 3.83 M/mm3 (4.70-6.10); Red Cell Distribution Width 13.9 % (11.6-14.4); White Blood Count 5.6 K/mm3 (4.8-10.8)
[2022-01-14 09:45] LABS: Hemoglobin A1C 6.1 % (<5.7)
[2022-01-14 10:00] LABS: Add Urine Microscopic? NO; Appearance Urine Clear (Clear); Bilirubin Urine Negative (Negative); Blood Urine Negative (Negative); Color Urine Light Yellow (Yellow); Glucose Urine UA Negative (Negative); Ketones Urine Negative (Negative); Leukocyte Esterase Ur Negative (Negative); Nitrate Urine Negative (Negative); Protein Urine Negative (Negative); Specific Grav Ur 1.015 (1.010-1.020); Urobilinogen Urine 0.2 mg/dL (0.2-1.0)
[2022-01-14 10:05] LABS: Alanine Aminotransferase 13 U/L (16-63); Albumin Level 3.5 g/dL (3.4-5.0); Alkaline Phosphatase 72 U/L (46-116); Anion Gap 6 mmol/L (8-16); Aspartate Amino Transferase 20 U/L (15-37); Bilirubin,Total 0.7 mg/dL (0.00-1.00); Blood Urea Nitrogen 20 mg/dL (7-18); Calcium 8.7 mg/dL (8.5-10.1); Carbon Dioxide 27 mmol/L (21-32); Chloride 106 mmol/L (98-108); Cholesterol 118 mg/dL (0-200); Creatine Kinase 25 U/L (39-308); Estimated Glomerular Filt Rate > 60; Glucose 118 mg/dL (70-99); HDL Direct 49 mg/dL (40-60); LDL Cholesterol Calculated 56 mg/dL (<130); Osmolality Calculated 291 mOsm/kg (285-295); Potassium 4.4 mmol/L (3.5-5.1); Prostate Specific Antigen 7.7 ng/mL (< OR = 4.0); Sodium 139 mmol/L (136-145); Total Protein 6.9 g/dL (6.4-8.2); Triglycerides 66 mg/dL (0-150); Uric Acid 4.5 mg/dL (3.5-7.2)
[2022-01-14 10:31] LABS: Creatinine Urine 87.87 mg/dL (40-278)
[2022-01-14 10:32] LABS: MALB Creatinine Ratio 129.3 mg/g (0-30); Microalbumin Urine Random 113.7 mg/L
== END 2022-01-14 09:17 | disposition home or self-care (01) ==
LOC: CHSLAB 09:18
PROVIDERS: PCP Internal Medicine; Visit Provider Internal Medicine
DX: E78.2 Mixed hyperlipidemia (principal); E79.0 Hyperuricemia without signs of inflammatory arthritis and tophaceous disease; R97.20 Elevated prostate specific antigen [PSA]; E11.22 Type 2 diabetes mellitus with diabetic chronic kidney disease; I12.9 Hypertensive chronic kidney disease with stage 1 through stage 4 chronic kidney disease, or unspecified chronic kidney disease; N18.2 Chronic kidney disease, stage 2 (mild)
CPT/HCPCS: 36415; 80053; 80061; 81003; 82043; 82550; 83036; 84153; 84550; 85025

== ENCOUNTER 2022-03-13 08:08 | Outpatient (CLI) | payer MEDICARE, SELFPAY ==
[2022-03-13 09:04] LABS: Alanine Aminotransferase 15 U/L (16-63); Albumin Level 3.4 g/dL (3.4-5.0); Alkaline Phosphatase 70 U/L (46-116); Anion Gap 9 mmol/L (8-16); Aspartate Amino Transferase 12 U/L (15-37); Bilirubin,Total 0.6 mg/dL (0.00-1.00); Blood Urea Nitrogen 22 mg/dL (7-18); Calcium 8.5 mg/dL (8.5-10.1); Carbon Dioxide 23 mmol/L (21-32); Chloride 109 mmol/L (98-108); Estimated Glomerular Filt Rate 58; Glucose 111 mg/dL (70-99); Osmolality Calculated 296 mOsm/kg (285-295); Potassium 4.8 mmol/L (3.5-5.1); Prostate Specific Antigen 7.2 ng/mL (< OR = 4.0); Sodium 141 mmol/L (136-145); Total Protein 6.3 g/dL (6.4-8.2)
== END 2022-03-13 08:09 | disposition home or self-care (01) ==
LOC: CHSLAB 08:11
PROVIDERS: PCP Internal Medicine; Visit Provider Urology
DX: R97.20 Elevated prostate specific antigen [PSA] (principal)
CPT/HCPCS: 36415; 80053; 84153

== ENCOUNTER 2022-07-09 08:47 | Outpatient (CLI) | payer MEDICARE, SELFPAY ==
[2022-07-09 09:00] LABS: Basophils Absolute Auto 0.01 K/mm3 (0.00-0.10); Basophils Percent Auto 0.2 % (0.0-1.0); Eosinophils Absolute Auto 0.21 K/mm3 (0.02-0.50); Eosinophils Percent Auto 4.1 % (1.0-6.0); Hematocrit 41.6 % (37.0-46.0); Hemoglobin 13.3 g/dL (12.4-15.3); Immature Granulocyte Absolute 0.01 K/mm3 (0.00-0.00); Immature Granulocyte Percent A 0.2 % (0.0-0.0); Lymphocytes Absolute Auto 1.07 K/mm3 (1.10-4.50); Lymphocytes Percent Auto 20.7 % (18.0-42.0); Mean Corpuscular Volume 100.2 fL (78.0-102.0); Mean Platelet Volume 9.1 fl (8.7-11.0); Monocytes Absolute Auto 0.45 K/mm3 (0.10-0.90); Monocytes Percent Auto 8.7 % (2.0-11.0); Neutrophils Absolute Auto 3.4 K/mm3 (1.7-7.2); Neutrophils Percent Auto 66.1 % (50.0-70.0); Platelet Count Result 198 K/mm3 (150-420); Red Blood Count 4.15 M/mm3 (4.70-6.10); Red Cell Distribution Width 13.6 % (11.6-14.4); White Blood Count 5.2 K/mm3 (4.8-10.8)
[2022-07-09 09:06] LABS: Appearance Urine Clear (Clear); Bilirubin Urine Negative (Negative); Glucose Urine UA Negative (Negative); Ketones Urine Negative (Negative); Leukocyte Esterase Ur Negative (Negative); Nitrate Urine Negative (Negative); Protein Urine Trace (Negative); Urobilinogen Urine 0.2 mg/dL (0.2-1.0)
[2022-07-09 09:17] LABS: Hemoglobin A1C 5.9 % (<5.7)
[2022-07-09 09:25] LABS: Add Urine Microscopic? YES; Blood Urine Trace-Intact (Negative); Color Urine Light Yellow (Yellow); RBC Urine None seen /hpf (0-2); WBC Urine None seen /hpf (0-3)
[2022-07-09 09:26] LABS: Bacteria Urine None seen /hpf
[2022-07-09 10:35] LABS: Alanine Aminotransferase 15 U/L (16-63); Albumin Level 3.8 g/dL (3.4-5.0); Alkaline Phosphatase 73 U/L (46-116); Anion Gap 8 mmol/L (8-16); Aspartate Amino Transferase 15 U/L (15-37); Bilirubin,Total 0.7 mg/dL (0.00-1.00); Blood Urea Nitrogen 21 mg/dL (7-18); Calcium 8.6 mg/dL (8.5-10.1); Carbon Dioxide 27 mmol/L (21-32); Chloride 107 mmol/L (98-108); Cholesterol 141 mg/dL (0-200); Creatine Kinase 26 U/L (39-308); Estimated Glomerular Filt Rate > 60; Glucose 113 mg/dL (70-99); HDL Direct 53 mg/dL (40-60); LDL Cholesterol Calculated 73 mg/dL (<130); Osmolality Calculated 298 mOsm/kg (285-295); Potassium 4.5 mmol/L (3.5-5.1); Sodium 142 mmol/L (136-145); Total Protein 6.9 g/dL (6.4-8.2); Triglycerides 75 mg/dL (0-150)
[2022-07-11 14:51] LABS: Uric Acid 4.4 mg/dL (3.5-7.2)
== END 2022-07-09 08:48 | disposition home or self-care (01) ==
LOC: CHSLAB 08:49
PROVIDERS: PCP Internal Medicine; Visit Provider Internal Medicine
DX: E79.0 Hyperuricemia without signs of inflammatory arthritis and tophaceous disease (principal); I10 Essential (primary) hypertension; E78.2 Mixed hyperlipidemia; E11.9 Type 2 diabetes mellitus without complications; R97.20 Elevated prostate specific antigen [PSA]
CPT/HCPCS: 36415; 80053; 80061; 81001; 82550; 83036; 84153; 84550; 85025

== ENCOUNTER 2022-12-23 08:22 | Outpatient (CLI) | payer MEDICARE, SELFPAY ==
[2022-12-23 08:38] LABS: Basophils Absolute Auto 0.02 K/mm3 (0.00-0.10); Basophils Percent Auto 0.3 % (0.0-1.0); Eosinophils Absolute Auto 0.26 K/mm3 (0.02-0.50); Eosinophils Percent Auto 4.5 % (1.0-6.0); Hematocrit 39.2 % (37.0-46.0); Hemoglobin 13.1 g/dL (12.4-15.3); Immature Granulocyte Absolute 0.01 K/mm3 (0.00-0.00); Immature Granulocyte Percent A 0.2 % (0.0-0.0); Lymphocytes Absolute Auto 1.01 K/mm3 (1.10-4.50); Lymphocytes Percent Auto 17.5 % (18.0-42.0); Mean Corpuscular HGB Conc 33.4 g/dL (32.0-36.0); Mean Corpuscular Hemoglobin 33.5 pg (27.0-31.0); Mean Corpuscular Volume 100.3 fL (78.0-102.0); Mean Platelet Volume 9.7 fl (8.7-11.0); Monocytes Absolute Auto 0.39 K/mm3 (0.10-0.90); Monocytes Percent Auto 6.7 % (2.0-11.0); Neutrophils Absolute Auto 4.1 K/mm3 (1.7-7.2); Neutrophils Percent Auto 70.8 % (50.0-70.0); Platelet Count Result 190 K/mm3 (150-420); Red Blood Count 3.91 M/mm3 (4.70-6.10); White Blood Count 5.8 K/mm3 (4.8-10.8)
[2022-12-23 08:42] LABS: Appearance Urine Clear (Clear); Bilirubin Urine Negative (Negative); Blood Urine Negative (Negative); Color Urine Yellow (Yellow); Glucose Urine UA Negative (Negative); Ketones Urine Negative (Negative); Leukocyte Esterase Ur Negative (Negative); Nitrate Urine Negative (Negative); Protein Urine 1+ (Negative); Urobilinogen Urine 0.2 mg/dL (0.2-1.0)
[2022-12-23 08:47] LABS: Add Urine Microscopic? YES; RBC Urine None seen /hpf (0-2); WBC Urine None seen /hpf (0-3)
[2022-12-23 08:48] LABS: Bacteria Urine None seen /hpf
[2022-12-23 08:49] LABS: Hemoglobin A1C 5.6 % (<5.7)
[2022-12-23 08:56] LABS: Creatinine Urine 105.21 mg/dL (40-278)
[2022-12-23 08:58] LABS: MALB Creatinine Ratio 331.5 mg/g (0-30); Microalbumin Urine Random 348.8 mg/L
[2022-12-23 09:12] LABS: Alanine Aminotransferase 17 U/L (16-63); Albumin Level 3.6 g/dL (3.4-5.0); Alkaline Phosphatase 64 U/L (46-116); Anion Gap 8 mmol/L (8-16); Aspartate Amino Transferase 13 U/L (15-37); Bilirubin,Total 0.8 mg/dL (0.00-1.00); Blood Urea Nitrogen 21 mg/dL (7-18); Calcium 8.6 mg/dL (8.5-10.1); Carbon Dioxide 26 mmol/L (21-32); Chloride 108 mmol/L (98-108); Cholesterol 133 mg/dL (0-200); Creatine Kinase 27 U/L (39-308); Estimated Glomerular Filt Rate 60; Glucose 122 mg/dL (70-99); HDL Direct 53 mg/dL (40-60); LDL Cholesterol Calculated 63 mg/dL (<130); Osmolality Calculated 298 mOsm/kg (285-295); Potassium 4.5 mmol/L (3.5-5.1); Prostate Specific Antigen 7.8 ng/mL (< OR = 4.0); Sodium 142 mmol/L (136-145); Total Protein 6.7 g/dL (6.4-8.2); Triglycerides 85 mg/dL (0-150); Uric Acid 4.3 mg/dL (3.5-7.2)
== END 2022-12-23 08:23 | disposition home or self-care (01) ==
LOC: CHSLAB 08:24
PROVIDERS: PCP Internal Medicine; Visit Provider Internal Medicine
DX: R97.20 Elevated prostate specific antigen [PSA] (principal); E11.9 Type 2 diabetes mellitus without complications; I10 Essential (primary) hypertension; E79.0 Hyperuricemia without signs of inflammatory arthritis and tophaceous disease; E78.2 Mixed hyperlipidemia
CPT/HCPCS: 36415; 80053; 80061; 81001; 82043; 82550; 83036; 84153; 84550; 85025

== ENCOUNTER 2023-06-25 08:38 | Outpatient (CLI) | payer MEDICARE, SELFPAY ==
[2023-06-25 08:58] LABS: Basophils Absolute Auto 0.01 K/mm3 (0.00-0.10); Basophils Percent Auto 0.2 % (0.0-1.0); Eosinophils Absolute Auto 0.24 K/mm3 (0.02-0.50); Hematocrit 39.6 % (37.0-46.0); Hemoglobin 12.9 g/dL (12.4-15.3); Immature Granulocyte Absolute 0.01 K/mm3 (0.00-0.00); Immature Granulocyte Percent A 0.2 % (0.0-0.0); Lymphocytes Absolute Auto 0.96 K/mm3 (1.10-4.50); Mean Corpuscular HGB Conc 32.6 g/dL (32.0-36.0); Mean Corpuscular Hemoglobin 32.7 pg (27.0-31.0); Mean Corpuscular Volume 100.5 fL (78.0-102.0); Mean Platelet Volume 9.3 fl (8.7-11.0); Monocytes Absolute Auto 0.39 K/mm3 (0.10-0.90); Monocytes Percent Auto 8.1 % (2.0-11.0); Neutrophils Absolute Auto 3.2 K/mm3 (1.7-7.2); Neutrophils Percent Auto 66.5 % (50.0-70.0); Platelet Count Result 193 K/mm3 (150-420); Red Blood Count 3.94 M/mm3 (4.70-6.10); Red Cell Distribution Width 13.7 % (11.6-14.4); White Blood Count 4.8 K/mm3 (4.8-10.8)
[2023-06-25 09:00] LABS: Appearance Urine Clear (Clear); Bilirubin Urine Negative (Negative); Blood Urine Negative (Negative); Color Urine Light Yellow (Yellow); Glucose Urine UA Negative (Negative); Ketones Urine Negative (Negative); Leukocyte Esterase Ur Negative (Negative); Nitrate Urine Negative (Negative); Protein Urine Trace (Negative); Specific Grav Ur 1.015 (1.010-1.020); Urobilinogen Urine 0.2 mg/dL (0.2-1.0)
[2023-06-25 09:07] LABS: Hemoglobin A1C 6.3 % (<5.7)
[2023-06-25 09:15] LABS: Add Urine Microscopic? YES; Bacteria Urine Rare /hpf; RBC Urine None seen /hpf (0-2); WBC Urine None seen /hpf (0-3)
[2023-06-25 09:17] LABS: MALB Creatinine Ratio 308.6 mg/g (0-30); Microalbumin Urine Random 182.7 mg/L
[2023-06-25 10:02] LABS: Alanine Aminotransferase 18 U/L (16-63); Albumin Level 3.4 g/dL (3.4-5.0); Alkaline Phosphatase 70 U/L (46-116); Anion Gap 9 mmol/L (8-16); Aspartate Amino Transferase 11 U/L (15-37); Bilirubin,Total 0.7 mg/dL (0.00-1.00); Blood Urea Nitrogen 25 mg/dL (7-18); Carbon Dioxide 25 mmol/L (21-32); Chloride 107 mmol/L (98-108); Cholesterol 131 mg/dL (0-200); Creatine Kinase 29 U/L (39-308); Estimated Glomerular Filt Rate > 60; Glucose 106 mg/dL (70-99); HDL Direct 53 mg/dL (40-60); LDL Cholesterol Calculated 66 mg/dL (<130); Osmolality Calculated 296 mOsm/kg (285-295); Potassium 4.9 mmol/L (3.5-5.1); Prostate Specific Antigen 9.1 ng/mL (< OR = 4.0); Sodium 141 mmol/L (136-145); Total Protein 6.5 g/dL (6.4-8.2); Triglycerides 58 mg/dL (0-150)
== END 2023-06-25 08:39 | disposition home or self-care (01) ==
LOC: CHSLAB 08:40
PROVIDERS: PCP Internal Medicine; Visit Provider Internal Medicine
DX: E11.59 Type 2 diabetes mellitus with other circulatory complications (principal); I10 Essential (primary) hypertension; E78.2 Mixed hyperlipidemia; E79.0 Hyperuricemia without signs of inflammatory arthritis and tophaceous disease; M18.2 Bilateral post-traumatic osteoarthritis of first carpometacarpal joints; R97.20 Elevated prostate specific antigen [PSA]
CPT/HCPCS: 36415; 80053; 80061; 81001; 82043; 82550; 83036; 84153; 85025

== ENCOUNTER 2023-09-29 13:39 | Outpatient (CLI) | payer MEDICARE, SELFPAY ==
[2023-09-29 14:35] LABS: Prostate Specific Antigen 9.4 ng/mL (< OR = 4.0)
== END 2023-09-29 13:40 | disposition home or self-care (01) ==
LOC: CHSLAB 13:40
PROVIDERS: PCP Internal Medicine; Visit Provider Internal Medicine
DX: R97.20 Elevated prostate specific antigen [PSA] (principal)
CPT/HCPCS: 36415; 84153

== ENCOUNTER 2023-12-29 08:36 | Outpatient (CLI) | payer MEDICARE, SELFPAY ==
[2023-12-29 08:54] LABS: Basophils Absolute Auto 0.01 K/mm3 (0.00-0.10); Basophils Percent Auto 0.2 % (0.0-1.0); Eosinophils Absolute Auto 0.11 K/mm3 (0.02-0.50); Eosinophils Percent Auto 1.7 % (1.0-6.0); Hematocrit 37.4 % (37.0-46.0); Hemoglobin 12.1 g/dL (12.4-15.3); Immature Granulocyte Absolute 0.01 K/mm3 (0.00-0.00); Immature Granulocyte Percent A 0.2 % (0.0-0.0); Lymphocytes Absolute Auto 0.94 K/mm3 (1.10-4.50); Lymphocytes Percent Auto 14.9 % (18.0-42.0); Mean Corpuscular HGB Conc 32.4 g/dL (32-36); Mean Corpuscular Hemoglobin 32.2 pg (27.0-31.0); Mean Corpuscular Volume 99.5 fL (78.0-102.0); Mean Platelet Volume 9.8 fl (8.7-11.0); Monocytes Absolute Auto 0.56 K/mm3 (0.10-0.90); Monocytes Percent Auto 8.9 % (2.0-11.0); Neutrophils Absolute Auto 4.66 K/mm3 (1.70-7.20); Neutrophils Percent Auto 74.1 % (50.0-70.0); Platelet Count Result 189 K/mm3 (150-420); Red Blood Count 3.76 M/mm3 (4.70-6.10); Red Cell Distribution Width 14.1 % (11.6-14.4); White Blood Count 6.3 K/mm3 (4.8-10.8)
[2023-12-29 08:55] LABS: Appearance Urine Clear (Clear); Bilirubin Urine Negative (Negative); Blood Urine Negative (Negative); Color Urine Light Yellow (Yellow); Glucose Urine UA Negative (Negative); Ketones Urine Negative (Negative); Leukocyte Esterase Ur Negative (Negative); Nitrate Urine Negative (Negative); Protein Urine 1+ (Negative); Specific Grav Ur 1.015 (1.010-1.020); Urobilinogen Urine 0.2 mg/dL (0.2-1.0)
[2023-12-29 09:02] LABS: Add Urine Microscopic? YES; Bacteria Urine Rare /hpf; Mucus Urine Rare /lpf; RBC Urine None seen /hpf (0-2); WBC Urine None seen /hpf (0-3)
[2023-12-29 09:20] LABS: Hemoglobin A1C 6.3 % (<5.7)
[2023-12-29 10:03] LABS: Alanine Aminotransferase 15 U/L (16-63); Albumin Level 3.4 g/dL (3.4-5.0); Alkaline Phosphatase 66 U/L (46-116); Anion Gap 11 mmol/L (4-12); Aspartate Amino Transferase 14 U/L (15-37); Bilirubin,Total 0.9 mg/dL (0.00-1.00); Blood Urea Nitrogen 20 mg/dL (7-18); Calcium 8.8 mg/dL (8.5-10.1); Carbon Dioxide 25 mmol/L (21-32); Chloride 104 mmol/L (98-108); Cholesterol 128 mg/dL (0-200); Creatine Kinase 24 U/L (39-308); Estimated Glomerular Filt Rate 59; Glucose 108 mg/dL (70-99); HDL Direct 51 mg/dL (40-60); LDL Cholesterol Calculated 62 mg/dL (<130); Osmolality Calculated 293 mOsm/kg (285-295); Potassium 4.6 mmol/L (3.5-5.1); Prostate Specific Antigen 10.5 ng/mL (< OR = 4.0); Sodium 140 mmol/L (136-145); Total Protein 6.5 g/dL (6.4-8.2); Triglycerides 73 mg/dL (0-150); Uric Acid 4.1 mg/dL (3.5-7.2)
== END 2023-12-29 08:37 | disposition home or self-care (01) ==
LOC: CHSLAB 08:38
PROVIDERS: PCP Internal Medicine; Visit Provider Internal Medicine
DX: E79.0 Hyperuricemia without signs of inflammatory arthritis and tophaceous disease (principal); I10 Essential (primary) hypertension; E11.59 Type 2 diabetes mellitus with other circulatory complications; E11.40 Type 2 diabetes mellitus with diabetic neuropathy, unspecified; E78.2 Mixed hyperlipidemia; R97.20 Elevated prostate specific antigen [PSA]
CPT/HCPCS: 36415; 80053; 80061; 81001; 82550; 83036; 84153; 84550; 85025

== ENCOUNTER 2023-12-30 13:51 | Outpatient (CLI) | payer MEDICARE, SELFPAY ==
[2023-12-30 14:09] LABS: Basophils Absolute Auto 0.01 K/mm3 (0.00-0.10); Basophils Percent Auto 0.2 % (0.0-1.0); Eosinophils Absolute Auto 0.16 K/mm3 (0.02-0.50); Eosinophils Percent Auto 3.3 % (1.0-6.0); Hematocrit 37.2 % (37.0-46.0); Immature Granulocyte Absolute 0.02 K/mm3 (0.00-0.00); Immature Granulocyte Percent A 0.4 % (0.0-0.0); Immature Reticulocyte Fraction 11.3 % (2.0-16.52); Lymphocytes Absolute Auto 1.05 K/mm3 (1.10-4.50); Lymphocytes Percent Auto 21.4 % (18.0-42.0); Mean Corpuscular HGB Conc 32.3 g/dL (32-36); Mean Corpuscular Hemoglobin 32.2 pg (27.0-31.0); Mean Corpuscular Volume 99.7 fL (78.0-102.0); Mean Platelet Volume 9.3 fl (8.7-11.0); Monocytes Absolute Auto 0.56 K/mm3 (0.10-0.90); Monocytes Percent Auto 11.4 % (2.0-11.0); Neutrophils Percent Auto 63.3 % (50.0-70.0); Platelet Count Result 191 K/mm3 (150-420); Red Blood Count 3.73 M/mm3 (4.70-6.10); Red Cell Distribution Width 14.2 % (11.6-14.4); Reticulocyte Hemoglobin Conten 36.3 pg (28.0-35.0); Reticulocyte Percent 1.37 % (0.50-1.50); Reticulocytes Absolute 0.05 M/mm3 (0.02-0.10); White Blood Count 4.9 K/mm3 (4.8-10.8)
[2023-12-30 15:19] LABS: Vitamin B12 272 pg/mL (193-986)
[2024-01-01 17:43] LABS: Red Blood Cell Folate 541 ng/mL RBC (>280)
== END 2023-12-30 13:52 | disposition home or self-care (01) ==
LOC: CHSLAB 13:53
PROVIDERS: PCP Internal Medicine; Visit Provider Internal Medicine
DX: D64.9 Anemia, unspecified (principal)
CPT/HCPCS: 36415; 82607; 82747; 85025; 85046

== ENCOUNTER 2024-01-03 09:42 | Outpatient (CLI) | payer MEDICARE, SELFPAY ==
[2024-01-03 09:57] LABS: Occult Blood Negative (Negative)
[2024-01-03 09:57] LABS: Occult Blood Negative (Negative)
[2024-01-03 09:57] LABS: Occult Blood Negative (Negative)
== END 2024-01-03 09:43 | disposition home or self-care (01) ==
LOC: CHSLAB 09:44
PROVIDERS: PCP Internal Medicine; Visit Provider Internal Medicine
DX: D64.9 Anemia, unspecified (principal)
CPT/HCPCS: 82272

== ENCOUNTER 2024-02-13 08:41 | Outpatient (CLI) | payer MEDICARE, OTHER, SELFPAY ==
[2024-02-13 09:07] LABS: Basophils Absolute Auto 0.01 K/mm3 (0.00-0.10); Basophils Percent Auto 0.2 % (0.0-1.0); Eosinophils Absolute Auto 0.17 K/mm3 (0.02-0.50); Eosinophils Percent Auto 3.2 % (1.0-6.0); Hematocrit 37.1 % (37.0-46.0); Hemoglobin 12.2 g/dL (12.4-15.3); Immature Granulocyte Absolute 0.02 K/mm3 (0.00-0.00); Immature Granulocyte Percent A 0.4 % (0.0-0.0); Lymphocytes Absolute Auto 0.99 K/mm3 (1.10-4.50); Lymphocytes Percent Auto 18.7 % (18.0-42.0); Mean Corpuscular HGB Conc 32.9 g/dL (32-36); Mean Corpuscular Hemoglobin 32.9 pg (27.0-31.0); Monocytes Absolute Auto 0.51 K/mm3 (0.10-0.90); Monocytes Percent Auto 9.6 % (2.0-11.0); Neutrophils Percent Auto 67.9 % (50.0-70.0); Platelet Count Result 207 K/mm3 (150-420); Red Blood Count 3.71 M/mm3 (4.70-6.10); Red Cell Distribution Width 14.1 % (11.6-14.4); White Blood Count 5.3 K/mm3 (4.8-10.8)
== END 2024-02-13 08:42 | disposition home or self-care (01) ==
LOC: CHSLAB 08:43
PROVIDERS: PCP Internal Medicine; Visit Provider Internal Medicine
DX: D64.9 Anemia, unspecified (principal)
CPT/HCPCS: 36415; 85025

== ENCOUNTER 2024-03-01 08:54 | Outpatient (CLI) | payer MEDICARE, SELFPAY ==
[2024-03-01 09:17] LABS: Hematocrit 36.3 % (37.0-46.0); Hemoglobin 11.8 g/dL (12.4-15.3); Mean Corpuscular HGB Conc 32.5 g/dL (32-36); Mean Corpuscular Hemoglobin 32.5 pg (27.0-31.0); Mean Platelet Volume 9.3 fl (8.7-11.0); Platelet Count Result 189 K/mm3 (150-420); Red Blood Count 3.63 M/mm3 (4.70-6.10)
== END 2024-03-01 08:55 | disposition home or self-care (01) ==
LOC: CHSLAB 08:56
PROVIDERS: PCP Internal Medicine; Visit Provider Internal Medicine
DX: D64.0 Hereditary sideroblastic anemia (principal)
CPT/HCPCS: 36415; 85027

== ENCOUNTER 2024-05-03 09:03 | Outpatient (CLI) | payer MEDICARE, SELFPAY ==
[2024-05-03 09:17] LABS: Basophils Absolute Auto 0.01 K/mm3 (0.00-0.10); Basophils Percent Auto 0.2 % (0.0-1.0); Eosinophils Absolute Auto 0.17 K/mm3 (0.02-0.50); Eosinophils Percent Auto 2.7 % (1.0-6.0); Hematocrit 37.9 % (37.0-46.0); Hemoglobin 12.6 g/dL (12.4-15.3); Immature Granulocyte Absolute 0.02 K/mm3 (0.00-0.00); Immature Granulocyte Percent A 0.3 % (0.0-0.0); Lymphocytes Absolute Auto 0.97 K/mm3 (1.10-4.50); Lymphocytes Percent Auto 15.2 % (18.0-42.0); Mean Corpuscular HGB Conc 33.2 g/dL (32-36); Mean Corpuscular Hemoglobin 33.7 pg (27.0-31.0); Mean Corpuscular Volume 101.3 fL (78.0-102.0); Mean Platelet Volume 9.4 fl (8.7-11.0); Monocytes Percent Auto 7.8 % (2.0-11.0); Neutrophils Absolute Auto 4.73 K/mm3 (1.70-7.20); Neutrophils Percent Auto 73.8 % (50.0-70.0); Platelet Count Result 215 K/mm3 (150-420); Red Blood Count 3.74 M/mm3 (4.70-6.10); Red Cell Distribution Width 14.8 % (11.6-14.4); Reticulocyte Hemoglobin Conten 35.8 pg (28.0-35.0); Reticulocyte Percent 1.57 % (0.50-1.50); Reticulocytes Absolute 0.06 M/mm3 (0.02-0.10); White Blood Count 6.4 K/mm3 (4.8-10.8)
[2024-05-03 17:47] LABS: Ferritin 58 ng/mL (26-388); Iron 82 ug/dL (65-175)
== END 2024-05-03 09:04 | disposition home or self-care (01) ==
LOC: CHSLAB 09:04
PROVIDERS: PCP Internal Medicine; Visit Provider Internal Medicine
DX: D50.9 Iron deficiency anemia, unspecified (principal)
CPT/HCPCS: 36415; 82728; 83540; 85025; 85046

== ENCOUNTER 2024-05-14 14:42 | Emergency (ER) | payer MEDICARE, OTHER, SELFPAY ==
[2024-05-14] VITALS (40 sets, daily range): BP systolic 94–169; BP diastolic 47–94; PULSE 56–81; RESP 17–30; TEMP 36.8; O2SAT 91–100
--- NOTE | ~2024-05-14 | XR_ITS ---
EXAMINATION: XR chest 1V portable DATE: 05/14/2024 15:20 INDICATION: Shortness of breath. Fall. TECHNIQUE: A single frontal view of the chest was obtained. COMPARISON: Chest single view 01/08/20, chest CT 01/08/2020 FINDINGS: There are lucencies in the lungs, consistent with emphysema. There are calcified pleural pl aques on the right. A calcified left lung nodule is consistent with old granulomatous disease. No ple ural effusion or pneumothorax. The heart size is normal. IMPRESSION: 1. Emphysema. Reviewed, dictated and finalized at location A. IMPRESSION: 1. Emphysema.
--- NOTE | ~2024-05-14 | CT_ITS ---
CT brain wo con Ordering provider: Miller Hooper MD History: 89 years Male with . Fall, denies headache . Comparison: None. Technique: CT of the head without contrast. Radiation reduction technique utilized.The dose-length product was 605.33 mGy FINDINGS: BRAIN PARENCHYMA AND CSF SPACES: Mild leukoaraiosis and diffuse cortical atrophy. Mild atheromatous d isease. No midline shift, mass effect or hemorrhage. The brain parenchyma and CSF spaces are otherwi se normal. VISUALIZED PARANASAL SINUSES: Well aerated. MASTOIDS: Well aerated. BONES: The bones appear intact. SOFT TISSUES: Visualized nasopharynx is normal. Superficial soft tissues are normal. IMPRESSION: No acute intracranial findings. Reviewed, dictated and finalized at location A.
--- NOTE | 2024-05-14 14:44 | ECG_ITS ---
Test Date: 2024-05-14 14:54:41 Measurements Intervals [place] Rate: 62 P: 76 NC: 205 QRS: 89 QRSD: 149 T: 59 QT: 440 QTc: 449 Interpretive Statements SINUS RHYTHM BORDERLINE AV CONDUCTION DELAY RIGHT BUNDLE BRANCH BLOCK MINIMAL Q WAVES- INFERIOR LEADS ABNORMAL ECG No previous ECG available for comparison Electronically Signed On 05-14-2024 18:54:47 CDT by Elbert Golden D.O.
--- NOTE | 2024-05-14 14:48 | ED.FALL ---
HPI - Fall General Chief Complaint: Weakness Stated Complaint: FALL/WEAKNESS Source: patient Mode of arrival: wheelchair Limitations: no limitations History of Present Illness HPI Narrative: 89 year old male presents to the Emergency Department with family. Patient states he got up in the night to go to the bathroom and apparently had a syncopal episode. He found himself on the floor. Unsure how long he was on the floor. He was incontinent of urine. He sustained skin tear to left arm, but denies any other injury. He denies headache, visual changes. Denies any chest pain or shortness of breath now or then. Denies palpitations. MD complaint: fall Onset (ago): day(s) (last night) Fall from: standing Fall witnessed: no Place fall occurred: home Loss of consciousness: unsure Length of LOC: minutes(s) (unknown) Prolonged down time: unclear Symptoms prior to fall: none Context: other (had just got out of bed to go to the bathroom) Location of injury: other (skin tear left forearm) Related Data Home Medications Medication Instructions Recorded Confirmed allopurinol 100 mg tablet 200 mg PO DAILY 01/08/20 05/14/24 aspirin 81 mg tablet,delayed 81 mg PO DAILY 01/08/20 05/14/24 release (Adult Low Dose Aspirin) carvedilol 12.5 mg tablet 12.5 mg PO BID 01/08/20 05/14/24 clopidogrel 75 mg tablet (Plavix) 75 mg PO DAILY 01/08/20 05/14/24 enalapril maleate 20 mg tablet 20 mg PO BID 01/08/20 05/14/24 metformin 500 mg tablet 500 mg PO DAILY 01/08/20 05/14/24 pravastatin 80 mg tablet 80 mg PO DAILY 01/08/20 05/14/24 tamsulosin 0.4 mg capsule 0.4 mg PO DAILY 01/08/20 05/14/24 temazepam 15 mg capsule 15 mg PO HS PRN Sleep 01/08/20 05/14/24 Allergies Allergy/AdvReac Type Severity Reaction Status Date / Time No Known Allergies Allergy Verified 04/27/20 13:48 Review of Systems Review of Systems: All systems reviewed & are unremarkable except as noted in HPI and below Constitutional: Constitutional: Reports as per HPI, Denies chills, Denies fever(s) and Denies weakness Eyes: Eyes: Reports as per HPI and Denies change in vision ENT: Reports system reviewed and no additional complaints, except as documented, Denies vertigo and Denies dizziness Cardiovascular: Cardiovascular: Reports as per HPI, Denies chest pain, Denies rapid heart rate and Denies slow heart rate Respiratory: Respiratory: Reports as per HPI, Denies chest congestion, Denies cough and Denies dyspnea Gastrointestinal: Gastrointestinal: Reports as per HPI, Denies abdominal pain, Denies diarrhea, Denies nausea and Denies vomiting Genitourinary: Genitourinary: Reports no additional male genitourinary complaints, Denies oliguria and Denies urinary frequency Musculoskeletal: Musculoskeletal: Reports no additional musculoskeletal complaints, Denies back pain, Denies myalgias, Denies arthralgias and Denies joint swelling Integumentary/Breasts: Skin/Breast: Reports system reviewed and no additional complaints, except as docu Comments: skin tear left forearm Neurologic: Reports system reviewed and no additional complaints, except as documented, Denies confusion, Denies dizziness, Reports syncope (possibly), Denies headache(s), Denies focal weakness, Denies numbness and Denies weakness Psychiatric: Psychiatric: Reports no additional psychiatric complaints Endocrine: Endocrine: Reports no additional endocrine complaints Hematologic/Lymphatic: Hematologic/Lymphatic: Reports no additional hematologic/lymphatic complaints Allergic/Immunologic: Allergic/Immunologic: Reports no additional allergic/immunologic complaints [facility] Past Medical History Medical History CVA (cerebral vascular accident) Diabetes Gout Hyperlipidemia Hypertension Family History Family History Father Parkinsons disease Mother Cancer Social History Social History (Reviewed
[2024-05-14 15:13] LABS: Basophils Absolute Auto 0.01 K/mm3 (0.00-0.10); Basophils Percent Auto 0.1 % (0.0-1.0); Eosinophils Absolute Auto 0.04 K/mm3 (0.02-0.50); Eosinophils Percent Auto 0.3 % (1.0-6.0); Hematocrit 34.1 % (37.0-46.0); Hemoglobin 11.3 g/dL (12.4-15.3); Immature Granulocyte Percent A 0.8 % (0.0-0.0); Lymphocytes Percent Auto 9.5 % (18.0-42.0); Mean Corpuscular HGB Conc 33.1 g/dL (32-36); Mean Corpuscular Hemoglobin 32.8 pg (27.0-31.0); Mean Corpuscular Volume 99.1 fL (78.0-102.0); Mean Platelet Volume 9.1 fl (8.7-11.0); Monocytes Absolute Auto 0.87 K/mm3 (0.10-0.90); Monocytes Percent Auto 6.9 % (2.0-11.0); Neutrophils Absolute Auto 10.44 K/mm3 (1.70-7.20); Neutrophils Percent Auto 82.4 % (50.0-70.0); Platelet Count Result 205 K/mm3 (150-420); Red Blood Count 3.44 M/mm3 (4.70-6.10); Red Cell Distribution Width 14.6 % (11.6-14.4); White Blood Count 12.7 K/mm3 (4.8-10.8)
[2024-05-14] MEDS: NEOMYCIN/POLYMYXIN/BACITRACIN OINTMENT 15 GM TUBE 1 APPLIC TOPICAL (15:16)
[2024-05-14 15:32] LABS: Lactic Acid Reflex 1.3 mmol/L (0.4-2.0)
[2024-05-14 15:33] LABS: Alanine Aminotransferase 23 U/L (16-63); Albumin Level 3.1 g/dL (3.4-5.0); Alkaline Phosphatase 67 U/L (46-116); Anion Gap 8 mmol/L (4-12); Aspartate Amino Transferase 15 U/L (15-37); Blood Urea Nitrogen 27 mg/dL (7-18); Calcium 8.5 mg/dL (8.5-10.1); Carbon Dioxide 26 mmol/L (21-32); Chloride 102 mmol/L (98-108); Estimated CRCL calculation 35 ml/min; Estimated Glomerular Filt Rate 46; Glucose 114 mg/dL (70-99); Magnesium 2.1 mg/dL (1.8-2.4); Osmolality Calculated 288 mOsm/kg (285-295); Potassium 4.4 mmol/L (3.5-5.1); Sodium 136 mmol/L (136-145); Total Protein 6.3 g/dL (6.4-8.2)
[2024-05-14 15:41] LABS: Creatine Kinase 73 U/L (39-308)
[2024-05-14] MEDS: SODIUM CHLORIDE 0.9% IV 1,000 ML 999 ML IV CONT (15:42)
[2024-05-14 15:54] LABS: SARS-CoV-2 RNA PCR Negative (Negative)
[2024-05-14 15:55] LABS: Influenza A QL RT-PCR Negative (Negative); Influenza B QL RT-PCR Negative (Negative); RSV RNA, RT-PCR Negative (Negative)
[2024-05-14 16:27] LABS: Add Urine Microscopic? YES; Appearance Urine Clear (Clear); Bilirubin Urine Negative (Negative); Blood Urine Negative (Negative); Color Urine Yellow (Yellow); Glucose Urine UA Negative (Negative); Ketones Urine Negative (Negative); Leukocyte Esterase Ur Negative (Negative); Nitrate Urine Negative (Negative); Protein Urine Trace (Negative); Urobilinogen Urine 0.2 mg/dL (0.2-1.0)
[2024-05-14 16:34] LABS: Bacteria Urine None seen /hpf; RBC Urine None seen /hpf (0-2); Squamous Epithelial Cell Urine Rare /hpf (Few); WBC Urine None seen /hpf (0-3)
[2024-05-14] MEDS: SODIUM CHLORIDE 0.9% IV 500 ML 999 ML IV CONT (17:39)
== END 2024-05-14 18:17 | disposition home or self-care (01) ==
PROVIDERS: Emergency Provider Emergency Medicine; PCP Internal Medicine
DX: E78.5 Hyperlipidemia, unspecified (principal); I10 Essential (primary) hypertension; E11.9 Type 2 diabetes mellitus without complications; Z86.73 Personal history of transient ischemic attack (TIA), and cerebral infarction without residual deficits; Z79.82 Long term (current) use of aspirin; Z79.899 Other long term (current) drug therapy; Z79.84 Long term (current) use of oral hypoglycemic drugs; I95.1 Orthostatic hypotension; S51.812A Laceration without foreign body of left forearm, initial encounter; Z20.822 Contact with and (suspected) exposure to COVID-19; Z87.891 Personal history of nicotine dependence; W18.30XA Fall on same level, unspecified, initial encounter; Y92.009 Unspecified place in unspecified non-institutional (private) residence as the place of occurrence of the external cause
CPT/HCPCS: 36415; 70450; 71045; 80053; 81001; 82550; 83605; 83735; 84484; 85025; 87637; 93005; 96360; 99284; A9270; J7030; J7040

== ENCOUNTER 2024-06-30 09:23 | Outpatient (CLI) | payer MEDICARE, SELFPAY ==
[2024-06-30 09:45] LABS: Basophils Absolute Auto 0.01 K/mm3 (0.00-0.10); Basophils Percent Auto 0.1 % (0.0-1.0); Eosinophils Absolute Auto 0.18 K/mm3 (0.02-0.50); Eosinophils Percent Auto 2.5 % (1.0-6.0); Hematocrit 35.2 % (37.0-46.0); Hemoglobin 11.5 g/dL (12.4-15.3); Immature Granulocyte Absolute 0.02 K/mm3 (0.00-0.00); Immature Granulocyte Percent A 0.3 % (0.0-0.0); Mean Corpuscular HGB Conc 32.7 g/dL (32-36); Mean Corpuscular Hemoglobin 32.8 pg (27.0-31.0); Mean Corpuscular Volume 100.3 fL (78.0-102.0); Mean Platelet Volume 9.3 fl (8.7-11.0); Monocytes Absolute Auto 0.68 K/mm3 (0.10-0.90); Monocytes Percent Auto 9.4 % (2.0-11.0); Neutrophils Absolute Auto 5.58 K/mm3 (1.70-7.20); Neutrophils Percent Auto 76.7 % (50.0-70.0); Platelet Count Result 181 K/mm3 (150-420); Red Blood Count 3.51 M/mm3 (4.70-6.10); Red Cell Distribution Width 14.2 % (11.6-14.4); White Blood Count 7.3 K/mm3 (4.8-10.8)
[2024-06-30 09:46] LABS: Add Urine Microscopic? YES; Appearance Urine Clear (Clear); Bilirubin Urine Negative (Negative); Blood Urine Negative (Negative); Color Urine Yellow (Yellow); Glucose Urine UA Negative (Negative); Ketones Urine Negative (Negative); Leukocyte Esterase Ur Negative LEU/UL (Negative); Nitrate Urine Negative (Negative); Protein Urine Trace (Negative); Specific Grav Ur 1.015 (1.010-1.020)
[2024-06-30 09:56] LABS: RBC Urine None seen /hpf (0-2)
[2024-06-30 09:57] LABS: Bacteria Urine Rare /hpf; Squamous Epithelial Cell Urine Few /hpf (Few); WBC Urine None seen /hpf (0-3)
[2024-06-30 09:58] LABS: Hemoglobin A1C 6.4 % (<5.7)
[2024-06-30 11:07] LABS: Alanine Aminotransferase 20 U/L (16-63); Albumin Level 3.1 g/dL (3.4-5.0); Alkaline Phosphatase 83 U/L (46-116); Anion Gap 8 mmol/L (4-12); Aspartate Amino Transferase 16 U/L (15-37); Bilirubin,Total 0.9 mg/dL (0.00-1.00); Blood Urea Nitrogen 25 mg/dL (7-18); Calcium 8.8 mg/dL (8.5-10.1); Carbon Dioxide 28 mmol/L (21-32); Chloride 103 mmol/L (98-108); Cholesterol 124 mg/dL (0-200); Creatine Kinase 26 U/L (39-308); Estimated Glomerular Filt Rate 58; Ferritin 129 ng/mL (26-388); Glucose 112 mg/dL (70-99); HDL Direct 47 mg/dL (40-60); Iron 32 ug/dL (65-175); LDL Cholesterol Calculated 66 mg/dL (<130); Osmolality Calculated 293 mOsm/kg (285-295); Potassium 4.7 mmol/L (3.5-5.1); Sodium 139 mmol/L (136-145); Total Protein 6.3 g/dL (6.4-8.2); Triglycerides 53 mg/dL (0-150); Uric Acid 4.4 mg/dL (3.5-7.2)
[2024-06-30 13:07] LABS: Prostate Specific Antigen 8.8 ng/mL (< OR = 4.0)
== END 2024-06-30 09:24 | disposition home or self-care (01) ==
LOC: CHSLAB 09:26
PROVIDERS: PCP Internal Medicine; Visit Provider Internal Medicine
DX: R97.20 Elevated prostate specific antigen [PSA] (principal); E11.65 Type 2 diabetes mellitus with hyperglycemia; N39.0 Urinary tract infection, site not specified; I10 Essential (primary) hypertension; E79.0 Hyperuricemia without signs of inflammatory arthritis and tophaceous disease; D50.9 Iron deficiency anemia, unspecified; E78.2 Mixed hyperlipidemia
CPT/HCPCS: 36415; 80053; 80061; 81001; 82550; 82728; 83036; 83540; 84153; 84550; 85025

== ENCOUNTER 2024-07-01 14:02 | Outpatient (CLI) | payer MEDICARE, OTHER, SELFPAY ==
--- NOTE | ~2024-07-01 | XR_ITS ---
Left foot Technique: AP, oblique, and lateral views were obtained. Clinical History: Cellulitis Findings: No acute fracture or dislocation is seen. Osseous alignment is anatomic. Joint spaces are p reserved without erosive or degenerative change. There is mild soft tissue swelling of the dorsal for efoot. Impression: Soft tissue swelling of the dorsal forefoot. No acute osseous or articular abnormality. Reviewed, dictated and finalized at location . COORDINATOR Impression: Soft tissue swelling of the dorsal forefoot. No acute osseous or articular abnormality.
== END 2024-07-01 14:03 | disposition home or self-care (01) ==
LOC: CHSIMG 14:03
PROVIDERS: PCP Internal Medicine; Visit Provider Internal Medicine
DX: L03.116 Cellulitis of left lower limb (principal); M79.89 Other specified soft tissue disorders
CPT/HCPCS: 73630

== ENCOUNTER 2024-07-06 09:37 | Outpatient (CLI) | payer MEDICARE, OTHER, SELFPAY ==
--- NOTE | ~2024-07-06 | US_ITS ---
LEFT LOWER EXTREMITY VENOUS ULTRASOUND Ordering provider: Tavo Caruso MD History: . CELLULITIS LEFT FOOT . Comparison: None. FINDINGS: --COMMON FEMORAL: Patent and free of thrombus. Normal compressibility, phasic flow and augmentation. --PROXIMAL SUPERFICIAL FEMORAL: Patent and free of thrombus. Normal compressibility, phasic flow and augmentation. --DISTAL SUPERFICIAL FEMORAL: Patent and free of thrombus. Normal compressibility, phasic flow and au gmentation. --POPLITEAL: Patent and free of thrombus. Normal compressibility, phasic flow and augmentation. --POSTERIOR TIBIAL: Patent and free of thrombus. Normal compressibility, phasic flow and augmentation . IMPRESSION: Negative left lower extremity venous US. No deep vein thrombosis. Reviewed, dictated and finalized at location A. H SHRINKING TESTER
--- NOTE | ~2024-07-06 | CT_ITS ---
EXAMINATION: CT abdomen pelvis w con DATE: 07/06/2024 10:48 INDICATION: Left inguinal hernia. Weight loss. TECHNIQUE: Computed tomography (CT) of the abdomen and pelvis was performed with 100 mL Omnipaque 350 intravenous contrast. Automated exposure control and iterative reconstruction technique were employe d. The dose-length product was 497.29 mGy-cm. COMPARISON: CT abdomen 08/10/2013 FINDINGS: The visualized portions of the lung bases demonstrate mild emphysema and mild atelectasis. There is a small right hydropneumothorax. There are calcified pleural plaques on the right. The heart size is normal. There are coronary artery calcifications. There is a trace pericardial effusion. The liver and spleen are normal. There are changes of cholecystectomy. There are calcifications in the p ancreas, consistent with chronic pancreatitis. There is a 9 mm cyst in the uncinate process of the pa ncreas, likely a sebaceous cyst. The adrenal glands are normal. There is cortical thinning of the kid neys. There is mild left hydronephrosis. There is a 2 mm stone at right ureterovesicular junction. Th e prostate is severely enlarged. There is diverticulosis of the colon without evidence of diverticuli tis. There are no dilated loops of bowel. The appendix is not visualized. There is calcified atherosc lerosis of the aorta and many of the other arteries. 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 There is a left inguinal hernia containing fat. There are chronic bilateral L5 pars defects. There is a 10 mm anterolisthesis of L5 on S1. There is severe lumbar spondylosis. IMPRESSION: 1. Small right hydropneumothorax. 2. Left inguinal hernia containing fat. 3. 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 Reviewed, dictated and finalized at location A. SERVICE CONSULTANT
== END 2024-07-06 09:38 | disposition home or self-care (01) ==
PROVIDERS: PCP Internal Medicine; Visit Provider Internal Medicine
DX: R63.0 Anorexia (principal); K40.90 Unilateral inguinal hernia, without obstruction or gangrene, not specified as recurrent; L03.116 Cellulitis of left lower limb; M79.89 Other specified soft tissue disorders; J94.8 Other specified pleural conditions; I71.43 Infrarenal abdominal aortic aneurysm, without rupture
CPT/HCPCS: 74177; 93971; Q9967

== ENCOUNTER 2024-08-16 09:05 | Outpatient (CLI) | payer MEDICARE, OTHER, SELFPAY ==
--- NOTE | ~2024-08-16 | XR_ITS ---
XR chest 2V Ordering provider: Tavo Caruso MD History: 89 years Male with . F/U Hydropneumothorax, SOB, Difficulty w/ deep inspiration . Comparison: May 14, 2024 FINDINGS: MEDIASTINUM: The cardiac silhouette is not enlarged. LUNGS: Minimal lucency in the right apical area which may indicate pneumothorax. Minimal opacificatio n in the lung bases. Minimal right pleural effusion. OTHER: No free air under the diaphragm. Degenerative changes of the spine. IMPRESSION: Possible minimal right apical pneumothorax. Right basilar atelectasis versus pneumonia with minimal right pleural effusion Reviewed, dictated and finalized at location A. ING MACHINE ADJUSTER
[2024-08-16 09:46] LABS: Basophils Absolute Auto 0.01 K/mm3 (0.00-0.10); Basophils Percent Auto 0.2 % (0.0-1.0); Eosinophils Absolute Auto 0.27 K/mm3 (0.02-0.50); Eosinophils Percent Auto 5.2 % (1.0-6.0); Hematocrit 37.2 % (37.0-46.0); Hemoglobin 12.2 g/dL (12.4-15.3); Immature Granulocyte Absolute 0.01 K/mm3 (0.00-0.00); Immature Granulocyte Percent A 0.2 % (0.0-0.0); Lymphocytes Absolute Auto 0.96 K/mm3 (1.10-4.50); Lymphocytes Percent Auto 18.6 % (18.0-42.0); Mean Corpuscular HGB Conc 32.8 g/dL (32-36); Mean Corpuscular Hemoglobin 33.1 pg (27.0-31.0); Mean Corpuscular Volume 100.8 fL (78.0-102.0); Monocytes Absolute Auto 0.53 K/mm3 (0.10-0.90); Monocytes Percent Auto 10.3 % (2.0-11.0); Neutrophils Absolute Auto 3.37 K/mm3 (1.70-7.20); Neutrophils Percent Auto 65.5 % (50.0-70.0); Platelet Count Result 165 K/mm3 (150-420); Red Blood Count 3.69 M/mm3 (4.70-6.10); Red Cell Distribution Width 15.3 % (11.6-14.4); White Blood Count 5.2 K/mm3 (4.8-10.8)
[2024-08-16 10:42] LABS: Ferritin 64 ng/mL (26-388); Iron 76 ug/dL (65-175)
== END 2024-08-16 09:06 | disposition home or self-care (01) ==
PROVIDERS: PCP Internal Medicine; Visit Provider Internal Medicine
DX: D64.9 Anemia, unspecified (principal); R92.8 Other abnormal and inconclusive findings on diagnostic imaging of breast
CPT/HCPCS: 36415; 71046; 82728; 83540; 85025

== ENCOUNTER 2024-09-01 15:14 | Outpatient (CLI) | payer MEDICARE, SELFPAY ==
[2024-09-01 15:55] LABS: Hematocrit 38.9 % (37.0-46.0); Hemoglobin 12.3 g/dL (12.4-15.3); Mean Corpuscular HGB Conc 31.6 g/dL (32-36); Mean Corpuscular Hemoglobin 31.9 pg (27.0-31.0); Mean Corpuscular Volume 100.8 fL (78.0-102.0); Mean Platelet Volume 9.2 fl (8.7-11.0); Platelet Count Result 296 K/mm3 (150-420); Red Blood Count 3.86 M/mm3 (4.70-6.10); Red Cell Distribution Width 14.9 % (11.6-14.4); White Blood Count 7.4 K/mm3 (4.8-10.8)
[2024-09-01 16:12] LABS: Anion Gap 7 mmol/L (4-12); Blood Urea Nitrogen 23 mg/dL (7-18); CRP 0.8 mg/dL (0.0-0.9); Carbon Dioxide 29 mmol/L (21-32); Chloride 105 mmol/L (98-108); Estimated Glomerular Filt Rate 51; Glucose 104 mg/dL (70-99); Osmolality Calculated 295 mOsm/kg (285-295); Potassium 5.2 mmol/L (3.5-5.1); Sodium 141 mmol/L (136-145)
[2024-09-01 17:18] LABS: Erythrocyte Sedimentation Rate 24 mm/hr (0-30)
[2024-09-02 09:35] LABS: Uric Acid 4.5 mg/dL (3.5-7.2)
== END 2024-09-01 15:15 | disposition home or self-care (01) ==
LOC: CHSLAB 15:16
PROVIDERS: PCP Internal Medicine; Visit Provider Internal Medicine
DX: I73.9 Peripheral vascular disease, unspecified (principal); M10.9 Gout, unspecified; L03.90 Cellulitis, unspecified
CPT/HCPCS: 36415; 80048; 84550; 85027; 85652; 86140

== ENCOUNTER 2024-09-06 12:43 | Outpatient (CLI) | payer MEDICARE, SELFPAY ==
--- NOTE | ~2024-09-06 | US_ITS ---
EXAMINATION: US arterial ankle brachial ind DATE: 09/06/2024 13:20 INDICATION: Peripheral arterial disease. TECHNIQUE: Segmental pressures and plethysmographic and Doppler waveforms of the brachial and lower e xtremity arteries were obtained. COMPARISON: None. FINDINGS: Right and left brachial artery pressures of 160 mm Hg and 157 mm Hg, respectively, are concordant (no rmal difference <= 30 mmHg). The right ankle-brachial index (PRINCE) is 1.21 (normal >= 0.9-1.0). The right great toe-brachial index (TBI) is 0.81 (normal >= 0.65). Arterial Doppler waveforms are biphasic at the ankle. The left PRINCE is 1.21. The left TBI is 0.81. Arterial Doppler waveforms are biphasic at the ankle. IMPRESSION: 1. No significant arterial occlusive disease. Reviewed, dictated and finalized at location A. ORM CAP OPERATOR
== END 2024-09-06 12:44 | disposition home or self-care (01) ==
LOC: CHSIMG 12:44
PROVIDERS: PCP Internal Medicine; Visit Provider Internal Medicine
DX: I73.9 Peripheral vascular disease, unspecified (principal); M10.9 Gout, unspecified; L03.90 Cellulitis, unspecified
CPT/HCPCS: 93922

== ENCOUNTER 2024-09-08 11:00 | Outpatient (CLI) | payer MEDICARE, OTHER, SELFPAY ==
[2024-09-08 13:20] LABS: INR 1.2; Prothrombin Time 15.7 Seconds (11.1-14.7)
[2024-09-08 13:21] LABS: Partial Thromboplastin Time 33.5 Seconds (22.3-36.8)
== END 2024-09-08 11:01 | disposition home or self-care (01) ==
PROVIDERS: Anesthesiology; PCP Internal Medicine; Visit Provider Surgery
DX: K40.90 Unilateral inguinal hernia, without obstruction or gangrene, not specified as recurrent (principal); N18.9 Chronic kidney disease, unspecified
CPT/HCPCS: 36415; 85610; 85730; 86850; 86900; 86901

== ENCOUNTER 2024-09-12 12:59 | Outpatient (RCR) | payer MEDICARE, OTHER, SELFPAY ==
[2024-09-11] MEDS: cefTRIAXone 1 GM, LIDOCAINE 1% LOCAL INJ 2.1 ML IM (13:30)
[2024-09-11 13:40] VITALS: BMI 22.9
[2024-09-11 13:43] VITALS: BP 172/64; PULSE 84; RESP 18; TEMP 36.6; O2SAT 95
[2024-09-12] MEDS: cefTRIAXone 1 GM, LIDOCAINE 1% LOCAL INJ 2.1 ML IM (13:13)
[2024-09-12 13:35] VITALS: BP 154/72; PULSE 78; RESP 18; TEMP 36.6; O2SAT 93; BMI 22.9
== END 2024-09-12 13:00 | disposition home or self-care (01) ==
LOC: CHSTREATRM 12:59
PROVIDERS: PCP Internal Medicine; Visit Provider Internal Medicine
DX: L03.90 Cellulitis, unspecified (principal)
CPT/HCPCS: 96372; J0696; J2003

== ENCOUNTER 2024-09-15 01:00 | Day surgery (SDC) | payer MEDICARE, OTHER, SELFPAY ==
[2024-09-03 11:24] VITALS: BMI 23.0
--- NOTE | 2024-09-03 11:46 | PC.NURSE ---
Report to the Outpatient Waiting Room, entrance under the green pavilion located off [facility], at time __0730am on date _09/15/24 . Planned Procedure Time: _0930am .? Time changes happen often and if your time is changed the preop area will call you the afternoon before. - You and your visitor will be asked to self-screen and do not enter if you have any COVID symptoms. Please call surgeon if you need to reschedule. - A mask is optional within the hospital at this time. Patients may have clear liquids (water, carbonated beverages, clear teas, apple juice) until 3 hours prior to surgery with a maximum of 20 ounces. - No food from midnight until time of surgery and no smoking. This includes no chewing gum, candy or mints.( 0630am) Take only the following medications with a SIP of water on the morning of surgery: ___Coreg, Amoxicillin, and Tylenol if needed DO NOT STOP ANY OF YOUR OTHER PRESCRIPTION MEDICATIONS PRIOR TO SURGERY EXCEPT THE FOLLOWING Medications to discontinue per physician Hold the Plavix for 7 days before per _- date to take last dose is 09/07/24 Hold all vitamins, supplements, Probiotics for 3 days prior per Anesthesia. Date to take last dose_09/11/24 Please no make-up, nail marshallese, hairspray, perfume, deodorant, or body powder the day of surgery.? No jewelry (including any body piercings) or valuables the day of surgery, leave them at home.? Please take a shower or bath the night before, or the morning of, surgery with an antibacterial soap.? Wear comfortable, loose fitting clothing.? Scrub per Dr Bennett. - Jewelry must be removed prior to entering the operating room.? Rings and piercings that are not removed may be cut off. - The hospital will not accept responsibility for valuables.? - Please leave all valuables, including medications, at home the day of surgery. If you are going home after surgery, a licensed tractor driver must drive you home.? - NO public transportation without another adult if you receive anesthesia. - We recommend that an adult stay with you for 24 hours following discharge. - We also recommend that you do not drive, make important decision, drink alcoholic beverages, or take any drugs that were not prescribed by your health care provider for at least 24 hours after your discharge time. Follow any additional instructions given to you from your surgeon. Dr Bennett office called by me and aware pt was seen by PCP yesterday with cellutitis of Right Big toe and started on Amoxicillin-They will notify and see if ok to proceed on same date/time .. Telephone instructions given to _Patient and asked if any additional questions and then verbalized understanding. Patient advised to call surgeon office or pre surgery nurse liaison [phone] if any additional questions.
[2024-09-15] VITALS (13 sets, daily range): BP systolic 116–178; BP diastolic 48–60; PULSE 54–74; RESP 12–18; TEMP 36.1–36.9; O2SAT 93–100
[2024-09-15] MEDS: ACETAMINOPHEN 500 MG TABLET 1000 MG PO (07:55)
[2024-09-15] MEDS: LACTATED RINGERS 1,000 ML 30 ML IV CONT ×2 (08:00→10:44)
[2024-09-15 08:02] LABS: Glucose Point of Care 108 mg/dl (65-105)
[2024-09-15] MEDS: KETOROLAC 15 MG/ML VIAL (*BKC) IV PUSH (08:05)
[2024-09-15 08:20] LABS: INR 1.3; Prothrombin Time 16.3 Seconds (11.1-14.7)
--- NOTE | 2024-09-15 08:36 | PM.IMHP ---
H&P: HPI History of Present Illness Date/Time: 09/15/24 08:36 Chief Complaint: Left inguinal hernia Narrative: This is an 89-year-old man who presents for left inguinal hernia repair. He denies any changes since last seen in the office. Review of Systems Review of Systems: All systems reviewed & are unremarkable except as noted in HPI and below Constitutional: Constitutional: Denies chills, Denies fever(s), Denies headache(s) and Denies weight loss Eyes: Eyes: Denies change in vision ENT: Denies dizziness, Denies headache(s), Denies neck mass and Denies throat swelling Cardiovascular: Cardiovascular: Denies chest pain, Denies lightheadedness and Denies dyspnea Respiratory: Respiratory: Denies cough, Denies dyspnea and Denies wheezing Gastrointestinal: Gastrointestinal: Denies abdominal pain, Denies change in bowel habits, Denies nausea and Denies vomiting Genitourinary: Genitourinary: Denies hematuria and Denies dysuria Musculoskeletal: Musculoskeletal: Reports as per HPI Integumentary/Breasts: Skin/Breast: Reports as per HPI Neurologic: Denies dizziness and Denies headache(s) Allergic/Immunologic: Allergic/Immunologic: Denies throat swelling and Denies wheezing [facility] Past Medical History Medical History (Updated 09/14/24 @ 15:30 by Deniz Quispe DO) AAA (abdominal aortic aneurysm) 3.3 cm CAD (coronary artery disease) History of [place] (myocardial infarction) Hyperlipidemia Gout CVA (cerebral vascular accident) Diabetes Hypertension Surgical History Surgical History (Updated 09/14/24 @ 15:30 by Deniz Quispe DO) History of coronary artery stent placement History of right inguinal hernia repair History of left knee replacement H/O cataract extraction History of carotid endarterectomy History of knee surgery History of cholecystectomy Family History Family History Father Parkinsons disease Mother Cancer Social History Social History Social History: lives alone, . Sons live nearby, check on him regularly. No living will or designated MPOA Smoking packs per day: 1 Smoking cigarettes per day: 20.0 Years smoked: 40 Smoking pack-years: 40.00 Smoking status: Former smoker Tobacco type: cigarettes Second hand tobacco smoke exposure: No Smoking end date: 09/08/92 Alcohol intake: former Substance use: never Do You Feel Safe in your Home?: Yes Lack of Transportation: No Lack of Food: Never True Current Housing: I Have Housing Concerned About Future Housing: No Difficulty Paying Gas/Electric Bills: No Difficulty Paying for Meds: No Currently Unemployed: No Education: High School Diploma/GED Difficulty w/ Childcare or Family Care: No Living arrangements: alone Occupation/Education: retired Gender identity (if verbalized by the patient): Male Spiritual care concerns: No Meds Home Medications and Allergies Home Medications ?Medication ?Instructions ?Recorded ?Confirmed ?Type allopurinol 100 mg tablet 200 mg PO DAILY 01/08/20 09/15/24 History aspirin 81 mg tablet,delayed 81 mg PO DAILY 01/08/20 09/15/24 History release (Adult Low Dose Aspirin) carvedilol 12.5 mg tablet 12.5 mg PO BID 01/08/20 09/15/24 History clopidogrel 75 mg tablet (Plavix) 75 mg PO DAILY 01/08/20 09/15/24 History enalapril maleate 20 mg tablet 20 mg PO BID 01/08/20 09/15/24 History metformin 500 mg tablet 500 mg PO DAILY 01/08/20 09/15/24 History pravastatin 80 mg tablet 80 mg PO DAILY 01/08/20 09/11/24 History tamsulosin 0.4 mg capsule 0.4 mg PO DAILY 01/08/20 09/15/24 History temazepam 15 mg capsule 15 mg PO HS PRN Sleep 01/08/20 09/15/24 History acetaminophen 650 mg 650 mg PO Q12H 07/29/24 09/11/24 History tablet,extended release (Tylenol Arthritis Pain) cinnamon bark 500 mg capsule 500 mg PO DAILY 07/29/24 09/15/24 History (Cinnamon) hydrocodone 5 mg-acetaminophen 325 1 tablet PO QHS PRN pain 07/29/24 09/11/24 History mg tablet Bacillus coagulans 10 billion cell 10 cell PO DAILY PRN supplement 09/03/24 09/15/24 History capsule,delayed release (Probiotic (B. coagulans)) docusate calcium 240 mg capsule 240 mg PO DAILY 09/03/24 09/11/24 History (Stool Softener (docusate calcium)) multivitamin with minerals-folic 1 tablet PO DAILY 09/03/24 09/15/24 History acid 80 mcg chewable tablet (Centrum Adult 50 Plus) omega 5-suk-wln-fish oil 1,000 mg 1 cap PO DAILY 09/03/24 09/15/24 History (120 mg-180 mg) capsule (Fish Oil) Allergies Allergy/AdvReac Type Severity Reaction Status Date / Time No Known Allergies Allergy Verified 09/15/24 08:07 Vital Signs Vital Signs - 24 hr 09/15/24 08:05 Temperature 98.2 F Pulse Rate 58 L Respiratory Rate 18 Blood Pressure 178/60 H Pulse Oximetry 93 Oxygen Delivery Room Air Exam Const: General: no acute distress and alert Orientation/consciousness: patient oriented x3 HENMT: Head: normocephalic and atraumatic Ears: hearing grossly normal bilaterally Face/Nose/Sinus: Normal nares present Mouth: Yes Normal oral and palatal mucosa present Eyes: Periorbital: periorbital findings normal Sclera: sclerae normal EOM: EOMs intact bilaterally Neck: Neck: normal visual inspection, no lymphadenopathy and trachea midline Chest: Chest palpation & inspection: normal inspection of the chest Resp: Effort & Inspection: normal respiratory effort Auscultation: clear to auscultation bilaterally Cardio: Jugular venous distension: no JVD Rate: regular rate Rhythm: regular rhythm Heart sounds: S1 normal heart sound present and S2 normal heart sound present Peripheral pulses: Peripheral pulses 2+ throughout GI: Inspection: normal to inspection GI Palp: Yes Soft to palpation, No Tenderness to palpation present (GI), No Guarding due to palpation present (GI) and No Rebound tenderness present Percussion: Yes normal to percussion Auscultation: normal bowel sounds : General: Yes no CVA tenderness Scrotum: inguinal hernia on the left Back/Spine/Pelvis: Back: no CVA tenderness Neuro: General: patient oriented x3, no focal motor deficits and CN's II-XI intact bilaterally Cognition (Neuro): normal cognition Speech: normal speech Motor exam (neuro): 5/5 motor strength present throughout Extrem: General: capillary refill normal and no clubbing, cyanosis or edema Assessment and Plan Assessment and plan (1) Inguinal hernia without obstruction or gangrene: Qualifiers: Laterality: unilateral Recurrence: non-recurrent Qualified Code(s): K40.90 - Unilateral inguinal hernia, without obstruction or gangrene, not specified as recurrent Code(s): K40.90 - Unilateral inguinal hernia, without obstruction or gangrene, not specified as recurrent Status: Acute Assessment and Plan: I have recommended laparoscopic left inguinal hernia repair with mesh, da Francois assisted. I have discussed the procedure, risks, benefits, and alternatives with the patient. All questions answered. No changes since last seen in office.
--- NOTE | 2024-09-15 08:38 | WPDHPUPDATE1 ---
History and Physical Update Update Date/Time: 09/15/24 08:38 History and Physical has been reviewed, including an updated exam of the patient. There are NO changes in the patient's condition. Risks, benefits, and alternatives have been discussed and questions answered. Patient agrees to proceed with procedure.
[2024-09-15] MEDS: ceFAZolin 2 GM/D5W 50 ML 2 GM/50 ML BAG IVPB (09:06)
[2024-09-15] MEDS: BUPIVACAINE/EPINEPHRINE 0.5% 50 ML VIAL 30 ML INFILTRATE (09:33)
--- NOTE | 2024-09-15 09:36 | WPDANESEPPF ---
Anes - Initial Pre Proc Eval Procedure: Operation Date: 09/15/24 09:30 Proposed Procedures p Laparoscopic Left Inguinal Hernia Repair with Mesh, Davinci Assisted - Miller Bennett DO Date/Time: 09/15/24 09:36 Surgeon: Miller Bennett DO Pre Op Diagnosis: left inguinal hernia Patient Data Age: 89 Gender: M Height: 1.83 m Weight: 76.9 kg Last Vital Signs Temp 98.2 F 09/15/24 08:05 Pulse 58 L 09/15/24 08:05 Resp 18 09/15/24 08:05 BP 178/60 H 09/15/24 08:05 Pulse Ox 93 09/15/24 08:05 O2 Del Method Room Air 09/15/24 08:05 Allergies Allergy/AdvReac Type Severity Reaction Status Date / Time No Known Allergies Allergy Verified 09/15/24 08:07 Home Medications ?Medication ?Instructions ?Recorded ?Confirmed ?Type allopurinol 100 mg tablet 200 mg PO DAILY 01/08/20 09/15/24 History aspirin 81 mg tablet,delayed 81 mg PO DAILY 01/08/20 09/15/24 History release (Adult Low Dose Aspirin) carvedilol 12.5 mg tablet 12.5 mg PO BID 01/08/20 09/15/24 History clopidogrel 75 mg tablet (Plavix) 75 mg PO DAILY 01/08/20 09/15/24 History enalapril maleate 20 mg tablet 20 mg PO BID 01/08/20 09/15/24 History metformin 500 mg tablet 500 mg PO DAILY 01/08/20 09/15/24 History pravastatin 80 mg tablet 80 mg PO DAILY 01/08/20 09/11/24 History tamsulosin 0.4 mg capsule 0.4 mg PO DAILY 01/08/20 09/15/24 History temazepam 15 mg capsule 15 mg PO HS PRN Sleep 01/08/20 09/15/24 History acetaminophen 650 mg 650 mg PO Q12H 07/29/24 09/11/24 History tablet,extended release (Tylenol Arthritis Pain) cinnamon bark 500 mg capsule 500 mg PO DAILY 07/29/24 09/15/24 History (Cinnamon) hydrocodone 5 mg-acetaminophen 325 1 tablet PO QHS PRN pain 07/29/24 09/11/24 History mg tablet Bacillus coagulans 10 billion cell 10 cell PO DAILY PRN supplement 09/03/24 09/15/24 History capsule,delayed release (Probiotic (B. coagulans)) docusate calcium 240 mg capsule 240 mg PO DAILY 09/03/24 09/11/24 History (Stool Softener (docusate calcium)) multivitamin with minerals-folic 1 tablet PO DAILY 09/03/24 09/15/24 History acid 80 mcg chewable tablet (Centrum Adult 50 Plus) omega 3-umq-lvs-fish oil 1,000 mg 1 cap PO DAILY 09/03/24 09/15/24 History (120 mg-180 mg) capsule (Fish Oil) Laboratory Tests 09/15/24 09/15/24 07:47 07:54 PT 16.3 H Seconds (11.1-14.7) INR 1.3 POC Capillary Glucose 108 H mg/dl (65-105) Patient hx anesthesia problems: none Family hx anesthesia problems: none Results Review: All pre-operative results and documents have been reviewed as part of the pre-operative evaluation. [facility] Past Medical History Medical History AAA (abdominal aortic aneurysm) 3.3 cm CAD (coronary artery disease) History of [place] (myocardial infarction) Hyperlipidemia Gout CVA (cerebral vascular accident) Diabetes Hypertension Surgical History Surgical History History of coronary artery stent placement History of right inguinal hernia repair History of left knee replacement H/O cataract extraction History of carotid endarterectomy History of knee surgery History of cholecystectomy Family History Family History Father Parkinsons disease Mother Cancer Social History Social History Social History: lives alone, . Sons live nearby, check on him regularly. No living will or designated MPOA Smoking packs per day: 1 Smoking cigarettes per day: 20.0 Years smoked: 40 Smoking pack-years: 40.00 Smoking status: Former smoker Tobacco type: cigarettes Second hand tobacco smoke exposure: No Smoking end date: 09/08/92 Alcohol intake: former Substance use: never Do You Feel Safe in your Home?: Yes Lack of Transportation: No Lack of Food: Never True Current Housing: I Have Housing Concerned About Future Housing: No Difficulty Paying Gas/Electric Bills: No Difficulty Paying for Meds: No Currently Unemployed: No Education: High School Diploma/GED Difficulty w/ Childcare or Family Care: No Living arrangements: alone Occupation/Education: retired Gender identity (if verbalized by the patient): Male Spiritual care concerns: No Anes - Eval Final PreProcedure Day of Procedure 09/15/24 09:36 Patient weight: normal and thin Heart: regular rate and rhythm Lungs: normal air movement Airway: Mallampati scale and special considerations (edentulous.) Neurological: alert and oriented Last oral intake: >/= 8 hours ASA classification: III Emergent: no Anesthetic plan: proceed Anesthesia type and monitoring: general ETT and standard monitoring Results Review: All pre-operative results and documents have been reviewed as part of the pre-operative evaluation. Informed Consent: The patient's anesthetic plan and its attendant risks and benefits were discussed with the patient/family/POA. Questions were solicited and answers provided to the satisfaction of the patient/family/POA.
--- NOTE | 2024-09-15 10:09 | W.PM.PROC2 ---
Procedure Note - Detailed Date of Procedure 09/15/24 Pre-op Diagnosis left inguinal hernia Post-op Diagnosis Same (Indirect left inguinal hernia) Procedure Performed Laparoscopic left inguinal hernia repair with mesh, da Francois assisted Surgeon Miller Bennett DO Anesthesia General and Local (0.5% bupivacaine with epinephrine) Indications This is an 89-year-old man who presented with a left inguinal hernia. He 1st noticed a bulge about 4 months ago. He denies any significant pain associated with it. He was found to have a moderate-sized reducible left inguinal hernia on exam. There was no evidence of a right inguinal hernia on exam. Discussions were made with the patient about treatment options and decision was made to proceed with robotic assisted laparoscopic her left inguinal hernia repair with mesh. Findings Robotic assisted laparoscopic left inguinal hernia repair with mesh was performed. The patient was found to have a moderate-sized indirect left inguinal hernia. There was no evidence of a right inguinal hernia. He had some omental adhesions in the upper abdomen from prior surgery, but these did not obstruct my ability to place the ports in the typical locations. A robotic transabdominal preperitoneal approach was utilized for left inguinal hernia repair. Once a wide enough preperitoneal pocket was created and the hernia sac was reduced, I then placed a large left 3DMax mid mesh overlying the entire left myopectineal orifice. No specimens were obtained for pathology. Description of Procedure Procedure as well as risks, benefits, and alternatives were discussed with the patient. Written consent was obtained and placed in chart prior to procedure. Patient was brought back to surgical suite. He was placed supine on operating table. Time-out was done to confirm patient and procedure. He was then intubated by Anesthesia Department. His abdomen was prepped and draped in sterile fashion using chlorhexidine prep. 0.5% bupivacaine with epinephrine was infiltrated at each location for incision. An 8 mm incision was made in the left lateral abdomen, and a 5 mm Optiview trocar was advanced through the abdominal layers under direct visualization. Once inside the abdominal cavity, carbon dioxide insufflation was used to create a pneumoperitoneum. A camera was inserted and the abdominal cavity was inspected. The patient was placed in slight Trendelenburg position. An 8 millimeter incision was made on the right lateral abdomen and an 8 millimeter trocar was inserted under direct visualization. Another 8 millimeter incision was made just superior to the umbilicus and an 8 millimeter trocar was inserted under direct visualization. The 5 mm port was then removed and this was replaced with another 8 mm robotic port. The robotic arms were brought up to the patient's bedside and secured to the ports. The camera and instruments were inserted. I then moved over to the robotic console and took control of the camera and instruments. After careful inspection of the abdominal cavity, I began scoring the peritoneum along the left lower quadrant using scissors with electrocautery. The preperitoneal plane was entered and this was carefully dissected caudally along the inferior epigastric vessels. Careful dissection with scissors with electrocautery and blunt dissection was used to continue this dissection. I dissected far enough laterally to allow for mesh placement, and also dissected medially to identify the pubic arch and Torres's ligament. The hernia sac was identified and carefully dissected posteriorly. The cord contents were also identified and the peritoneum was carefully dissected far enough posteriorly to allow for mesh placement. Once an adequate pocket was created, I then placed the mesh within the preperitoneal pocket and carefully unfolded it. The mesh was centered on the hernia defect with adequate overlap circumferentially. The inferior edge of the mesh was inspected to ensure that it was far enough away from the peritoneal edge. The mesh appeared in proper position overlying the entire myopectineal orifice. The mesh was secured using 3-0 Vicryl simple interrupted sutures in Torres's ligament, the superior medial edge, and superior lateral edge of the mesh. The peritoneum was then closed over the mesh using a 3-0 V-lock running absorbable suture. The robotic instruments were removed. The robotic arms were disengaged from the ports and moved away from the bedside. The patient was flattened out in bed, the ports were removed under direct visualization, and the pneumoperitoneum was released. The skin of the incisions was approximated using 4-0 Monocryl subcuticular suture, and Exofin glue was applied on top. The patient was awakened from anesthesia, extubated, and transferred to recovery. Implants Large left 3DMax mid mesh Estimated Blood Loss 5 Complications No immediate complications Condition Stable Disposition Observation [facility] Billing Surgery - Charge Forward: Surgery Billing
[2024-09-15 10:34] LABS: Glucose Point of Care 129 mg/dl (65-105)
[2024-09-15] MEDS: fentaNYL CITRATE INJ (*CRX) 100 MCG/2 ML VIAL 25 MCG IV PUSH (10:47)
--- NOTE | 2024-09-15 12:14 | ADMGEN ---
This patient, Tmo Fontana, was admitted to 3 [facility] Surg Room 319-01. Patient/family oriented to hospital policies and general routines including ID bracelet, bed and alarms, visiting hours, pain management, procedures, bathroom and other care routines, personal items, smoking policy, room service/diet, and visiting hours. Information on how to activate the Rapid Response Team has been discussed. Patient/Family are encouraged to report perceived risks to care and to ask questions if they do not understand what they are told or what they should do.
[2024-09-15] MEDS: LACTATED RINGERS 1,000 ML 100 ML IV CONT (15:16)
[2024-09-15] MEDS: ENALAPRIL MALEATE 10 MG TABLET 20 MG PO (16:46)
[2024-09-15 16:52] LABS: Glucose Point of Care 173 mg/dl (65-105)
[2024-09-15] MEDS: SENNA/DOCUSATE SODIUM TABLET 2 TAB PO (21:12)
[2024-09-15] MEDS: carvediloL 12.5 MG TABLET PO (21:20)
[2024-09-15 21:47] LABS: Glucose Point of Care 184 mg/dl (65-105)
[2024-09-16] VITALS (10 sets, daily range): BP systolic 152–178; BP diastolic 54–77; PULSE 64–77; RESP 16–18; TEMP 36.2–37.1; O2SAT 87–92
[2024-09-16 08:23] LABS: Glucose Point of Care 114 mg/dl (65-105)
[2024-09-16] MEDS: TAMSULOSIN HCL 0.4 MG CAPSULE PO (09:40)
[2024-09-16] MEDS: PRAVASTATIN SODIUM 20 MG TABLET 80 MG PO (09:40)
[2024-09-16] MEDS: allopurinoL 100 MG TABLET 200 MG PO (09:41)
[2024-09-16] MEDS: ASPIRIN 81 MG ENTERIC TABLET PO (09:41)
[2024-09-16] MEDS: metFORMIN HCL 500 MG TABLET PO (09:41)
[2024-09-16] MEDS: ENALAPRIL MALEATE 10 MG TABLET 20 MG PO (09:41)
[2024-09-16] MEDS: carvediloL 12.5 MG TABLET PO (09:42)
[2024-09-16 11:49] LABS: Glucose Point of Care 113 mg/dl (65-105)
--- NOTE | 2024-09-16 13:05 | PM.PNGS ---
Progress Note: A&P Assessment and Plan (1) Inguinal hernia without obstruction or gangrene: Qualifiers: Laterality: unilateral Recurrence: non-recurrent Qualified Code(s): K40.90 - Unilateral inguinal hernia, without obstruction or gangrene, not specified as recurrent Code(s): K40.90 - Unilateral inguinal hernia, without obstruction or gangrene, not specified as recurrent Status: Acute Assessment and Plan: Doing well on postop day 1. He is still on supplemental oxygen per nasal cannula but will continue working on weaning this and discharged today if no significant hypoxia is noted. Discussed postoperative restrictions and what to watch for. Follow-up in office in 2 weeks as scheduled. (2) Osteomyelitis of toe of left foot: Code(s): M86.9 - Osteomyelitis, unspecified Status: Acute Assessment and Plan: Will give dose of ceftriaxone today prior to being discharged. Follow up with Dr. Caruso for continued treatment. 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 Pain controlled. No nausea or vomiting. Exam Const: General: no acute distress and alert Orientation/consciousness: patient oriented x3 Resp: Effort & Inspection: normal respiratory effort Auscultation: clear to auscultation bilaterally Cardio: Rate: regular rate Rhythm: regular rhythm GI: Inspection: non-distended and incision (Intact with glue) GI Palp: Yes Soft to palpation, No Tenderness to palpation present (GI) and No Guarding due to palpation present (GI) : Scrotum: no inguinal hernias Objective Data Vital Signs Vital Signs: Vital Signs - 24 hr 09/15/24 13:25 09/15/24 15:48 09/15/24 17:02 Temperature 98.5 F 97.0 F L Pulse Rate 55 L 61 Respiratory Rate 16 18 Blood Pressure 156/54 H 165/60 H Pulse Oximetry 99 94 Oxygen Delivery Room Air Oxygen Flow Rate 09/15/24 21:02 09/15/24 21:20 09/16/24 00:00 Temperature 98.1 F Pulse Rate 74 68 Respiratory Rate 16 Blood Pressure 160/60 H Pulse Oximetry 95 88 L Oxygen Delivery Room Air Oxygen Flow Rate 09/16/24 00:05 09/16/24 00:29 09/16/24 01:02 Temperature 98.8 F 98.4 F Pulse Rate 69 71 Respiratory Rate 16 18 Blood Pressure 163/72 H 178/77 H Pulse Oximetry 92 88 L 90 Oxygen Delivery Nasal Cannula Oxygen Flow Rate 2 09/16/24 05:02 09/16/24 06:20 09/16/24 09:02 Temperature 98.2 F 97.2 F L Pulse Rate 77 65 Respiratory Rate 18 16 Blood Pressure 152/72 H 154/55 H Pulse Oximetry 87 L 92 92 Oxygen Delivery Nasal Cannula Oxygen Flow Rate 2 09/16/24 09:42 09/16/24 10:11 Temperature Pulse Rate 65 Respiratory Rate Blood Pressure Pulse Oximetry 92 Oxygen Delivery Nasal Cannula Oxygen Flow Rate 2 Intake/Output Intake/Output: Intake & Output 09/13/24 09/14/24 09/15/24 09/16/24 23:59 23:59 23:59 23:59 Intake Total 420 240 Output Total 350 Balance 420 -110 Meds/Results Medications: Active Medications Generic Name Dose Route Start Last Admin Trade Name Freq PRN Reason Stop Dose Admin Acetaminophen 500 mg 09/15/24 11:17 Acetaminophen 500 Mg Tablet PO Q6H PRN Pain Rated 1-3 Hydrocodone Bitart/Acetaminophen 1 tab 09/15/24 11:17 Hydrocodone/Acetaminophen (*Crx) 5-325 Mg Tablet PO Q4H PRN Pain Rated 4-6 Hydrocodone Bitart/Acetaminophen 1 tab 09/15/24 11:17 Hydrocodone/Acetaminophen (*Crx) 7.5-325 Mg Tablet PO Q4H PRN Pain Rated 7-10 Allopurinol 200 mg 09/16/24 09:00 09/16/24 09:41 Allopurinol 100 Mg Tablet PO 200 mg DAILY STELLA Administration Aspirin 81 mg 09/16/24 09:00 09/16/24 09:41 Aspirin 81 Mg Enteric Tablet PO 81 mg DAILY STELLA Administration Carvedilol 12.5 mg 09/15/24 21:00 09/16/24 09:42 Carvedilol 12.5 Mg Tablet PO 12.5 mg Q12HR STELLA Administration Enalapril Maleate 20 mg 09/15/24 17:00 09/16/24 09:41 Enalapril Maleate 10 Mg Tablet PO 20 mg BID STELLA Administration Ceftriaxone Sodium 1 gm in 50 mls @ 100 mls/hr 09/16/24 13:05 Rocephin 1 Gm/Ns 50 Ml IVPB 09/16/24 13:34 ONCE ONE Metformin HCl 500 mg 09/16/24 08:00 09/16/24 09:41 Metformin Hcl 500 Mg Tablet PO 500 mg DAILY@0800 STELLA Administration Morphine Sulfate 2 mg 09/15/24 11:17 Morphine Sulfate (*Crx) 2 Mg/Ml Inj IV PUSH Q2H PRN Breakthrough Pain Rated 4-6 or NPO Morphine Sulfate 4 mg 09/15/24 11:17 Morphine Sulfate (*Crx) 4 Mg/Ml Inj IV PUSH Q2H PRN Breakthrough Pain Rated 7-10 or NPO Naloxone HCl 0.1 mg 09/15/24 11:17 Naloxone Hcl 0.4 Mg/Ml Vial IV PUSH Q2M PRN Opiate Reversal Ondansetron HCl 4 mg 09/15/24 11:17 Ondansetron Inj 4 Mg/2 Ml Vial IV PUSH Q4H PRN Nausea And Vomiting Pravastatin Sodium 80 mg 09/16/24 09:00 09/16/24 09:40 Pravastatin Sodium 20 Mg Tablet PO 80 mg DAILY STELLA Administration Senna/Docusate Sodium 2 tab 09/15/24 21:00 09/15/24 21:12 Senna/Docusate Sodium Tablet PO 2 tab HS STELLA Administration Tamsulosin HCl 0.4 mg 09/16/24 09:00 09/16/24 09:40 Tamsulosin Hcl 0.4 Mg Capsule PO 0.4 mg DAILY STELLA Administration Temazepam 15 mg 09/15/24 11:17 Temazepam (*Crx) 15 Mg Capsule PO HS PRN Sleep Labs Labs: Laboratory Results - last 24 hr 09/15/24 09/15/24 09/16/24 16:37 20:52 08:08 POC Capillary Glucose 173 H 184 H 114 H 09/16/24 11:45 POC Capillary Glucose 113 H
--- OUTSIDE RECORDS SUMMARY | 2024-09-16 21:00 | XMS_ITS | Clinical Summary ---
Author Organization [facility] Address [address] [place] [address] [place] [address] Care Team Providers Care Manager Environmental Health And Safety Name Role Phone Tavo Caruso MD Primary Care Provider [phone] Bartolome Lynn MD Unavailable Mario Blankenship DPM Unavailable [phone] Allergies Active Allergy Reactions Criticality Noted Date Comments Tramadol Angioedema 03/13/2020 Medications ASPIRIN 81 OR Take 81 mg by mouth daily. 5 Active clopidogrel (PLAVIX) 75 MG tablet Take 75 mg by mouth daily. 4 Active enalapril 20 MG tablet Take 20 mg by mouth 2 (two) times daily. 0 Active HYDROcodone-sugar taminophen 5-325 MG tablet Take 1 tablet by mouth every 6 (six) hours as needed. 0 Active metFORMIN 500 MG tablet Take 500 mg by mouth 2 (two) times daily. 7 Active temazepam 15 MG capsule Take 15 mg by mouth nightly as needed. 0 Active allopurinol 100 MG tablet Take 200 mg by mouth daily. Active tamsulosin 0.4 MG Cap Take 0.4 mg by mouth daily. Active pravastatin 80 MG tablet Take 80 mg by mouth nightly at bedtime. Active Cinnamon 500 MG Tab Take 1,000 mg by mouth 2 (two) times a day. Active omega-3 fatty acid 1000 MG capsule Take 1 tablet by mouth daily. Active COMPRESSION STOCKINGS 15-20 mmhg Knee High Compresson stocking Dx I83.893 1 Container 6 0 Active carvedilol 12.5 MG tablet Take 12.5 mg by mouth 2 (two) times daily. Active acetaminophen 325 MG tablet Take 650 mg by mouth every 6 (six) hours as needed for Pain. Active COMPRESSION STOCKINGS 15-20 MMHg Compression Stocking Knee High open or closed toe Dx I83.893 1 Container 6 1 Active Active Problems Problem Noted Date Diagnosed Date Carotid artery disease without cerebral infarcti on 11/28/2020 Acute gout of right elbow, unspecified cause Rupture of proximal biceps tendon, right, initia l encounter 08/23/2020 PAD (peripheral artery disease) 03/14/2020 Ulcer of left lower extremit y with fat layer exposed ([facility]) 03/14/2020 Leg edema 03/14/2020 Essential hypertension 03/14/2020 Mixed hyperlipidemia Immunizations Name Administration Dates Next Due Fluzone High Dose - >Age 65 (Prefilled Syringe) 05/17/2022,06/02/2017 Influenza (Generic) 06/15/2018 Influenza Adult (Generic) 06/09/2020,06/03/2019 Pneumococcal (Prevnar 13) 06/15/2018,07/31/2015 Family History Medical History Relation Comments Heart Disease Brother 1 COPD Brother 2 Parkinson's Disease Father Cancer Mother Emphysema Sister Lung Disease Sister Relation Status Comments Brother 1 Brother 2 Father Mother Sister Social History Tobacco Use Types Packs/Day Years Used Date Smoking Tobacco: Former Cigarettes 1.5 40 1 3 - 1992 Smokeless Tobacco: Former Chew Quit: 1994 Tobacco Cessation:Counseling Given: Not Answered Alcohol Use Standard Drinks/Week Comments Not Currently 0 (1 standard drink = 0.6 oz pur e alcohol) Sex and Gender Information Value Date Recorded Sex Assigned at Not on file Legal Sex Male 8:46 PM CDT Gender Identity Not on file Sexual Orientation Not on file Occupation Industry Job Start Date Job End Date retired Not on file Not on file Not on file Last Filed Vital Signs Vital Sign Reading Time Taken Comments Blood Pressure 150/58 12/09/2023 12:38 PM CDT Pulse 64 12/09/2023 12:37 PM CDT Temperature - - Respiratory Rate 14 12/09/2023 12:37 PM CDT Oxygen Saturation 96% 12/09/2023 12:37 PM CDT Inhaled Oxygen Concentration - - Weight 83 kg (183 lb) 12/09/2023 12:37 PM CDT Height 182.9 cm (6') 12/09/2023 12:37 PM CDT Body Mass Index 24.82 12/09/2023 12:37 PM CDT Plan of Treatment Upcoming Encounters Date Type Department Care Team (Late st Contact Info) Description 12/21/2024 1:00 PM CDT Appointment [facility] [address] [place] [address] [place] [address] Bartolome Lynn MD [address] [place], [place] [address] 12/28/2024 1:00 PM CDT Office Visit [facility] [place] [phone] Bartolome Lynn MD [address] [place], [place] [phone] Health Maintenance Due Date Last Done Comments ASCVD Statin 1936 DTaP, Tdap and Td Vaccines (1 - Tdap) 1955 Zoster Vaccines (1 of 2) 1986 Annual Medicare Wellness Visit 2001 ASCVD LDL 02/23/2010 02/23/2009 RSV Immunization or 60+ Years (1 - 1-dose 75+ series) 2011 Pneumococcal Vaccine: 65+ Years (2 of 2 - PPSV23 or PCV20) 08/10/2018 06/15/2018, 07/31/2015 COVID-19 Vaccine ( - season) 2024 Influenza Adult (#1) 2024 05/17/2022, 06/09/2020, 06/03/2019, Additional history exists Meningococcal B Vaccine Aged Out No l onger eligible based on patient's age to complete this topic Meningococcal Vaccine Aged Out No jelena ty eligible based on patient's age to complete this topic RSV Immunizations Under 20 Months Aged Out No longer eligible based on patient's age to complete this topic Procedures Procedure Name Priority Date/Time Associated Diagnosis Comments LIPID PANEL Routine 02/23/2009 11:20 AM CDT from Last 3 Months or Most Recently Relevant to Health Maintenance Results * (ABNORMAL) LIPID PANEL (02/23/2009 11:20 AM CDT) CHOLESTEROL 132 <200 mg/dL MEDINFORMATIX TO EPIC CONVERSION HDL 35(L) >39 mg/dL MEDINFORMA TIX TO EPIC CONVERSION LDL CONVERSION 73 <100 mg/dL MEDINFORMATIX TO EPIC CONVERSION TRIGLYCERIDES 229(H) <150 mg/dL MEDINFORMATIX TO EPIC CONVERSION 02/23/2009 11:2 0 AM CDT 02/23/2009 11:20 AM CDT us Generic Conversion [facility] Final R esult MEDINFORMATIX TO EPIC CONVERSION from Last 3 Months or Most Recently Relevant to Health Maintenance Insurance MEDICARE [facility] MEDICARE [facility] MEDICARE [facility] Care Teams Manager Environmental Health And Safety Relationship Specialty Start Date End Date Tavo Caruso MD [address] [place] [phone] PCP - General INTERNAL MEDICINE 03/15/17 Bartolome Lynn MD [address] [place] [address] Vascular/Public Interviewer INTERNAL MEDICINE 03/10/20 Mario Blankenship DPKaren [address] [place] [address] Referring Physician PODIATRY/SURGERY 05/28/21
--- OUTSIDE RECORDS SUMMARY | 2024-09-16 21:00 | XMS_ITS | CONTINUITY OF CARE DOCUMENT ---
Author Name alice, lelaser Address Unknown Organization [facility] Address [address] [place] [address] Phone [phone] Care Team Providers Care Otr Owner Operator Name Role Phone David BROOKE, Benny Unavailable [phone] RINA BROOKE, SHAWNEE F Unavailable SHAWNEE FLYNN MD Unavailable PROBLEMS Condition Status Date Provider Notes HTN active Benny Hernandez MD Carotid artery disease - S/P carotid endarectomy 2002 active Benny Hernandez MD Hypercholesterolemia active Benny Hernandez MD Diabetes mellitus active Benny Hernandez MD Hx of Stroke - 2000 active Benny Emanuel CAD/[place] 1993, angioplasty, stents x2 2009 active Benny Hernandez MD ENCOUNTERS Date Type Provider Location Encounter Diag nosis 6 - 9 In-person encounter Office Visit Benny Hernandez MD [place] [facility] CAD/VT 1993, angioplasty, stents x2 2009Hx of Stroke - 2000Diabetes mellitusHypercholesterolemiaCarotid artery disease - S/P carotid endarectomy 2002HTN VITAL SIGNS Date Observation Value Provider pulse rate 70 /min Benny Hernandez MD oxygen saturation, oximetry 97 % Benny Hernandez MD respiratory rate E&M 18 /min Trixie Hernandez MD Body Mass Index (Ratio) 25.90 kg/m2 Marycarmen Hernandez MD weight E&M 191 [lb_av] Benny Hernandez MD height E&M 72 [in_i] Benny Hernandez MD ALLERGIES No Known Drug Allergies HISTORY OF MEDICATION USE Medication Status Instructions Dates Provider Indications Com ments TYLENOL 8 HOUR 650 MG ORAL TABLET EXTENDED RELEASE active prn Benny Hernandez MD HYDROCODONE-ACETA MINOPHEN 5-325 MG ORAL TABLET active prn Benny Hernandez MD FISH OIL CONCENTRATE 1000 MG ORAL CAPSULE active One tab. twice daily Benny Hernandez MD TEMAZEPAM 15 MG ORAL CAPSULE active twice daily Benny Hernandez MD PRAVASTATIN SODIUM 40 MG ORAL TABLET active ONE TAB. DAILY Benny Hernandez MD METFORMIN HCL 500 MG ORAL TABLET active Benny Hernandez MD ENALAPRIL MALEATE 20 MG ORAL TABLET active ONE TAB. TWICE DAILY Benny Hernandez MD METOPROLOL TARTRATE 50 MG ORAL TABLET active one tab. twice daily Benny Hernandez MD CLOPIDOGREL BISULFATE 75 MG ORAL TABLET active Benny Hernandez MD SOCIAL HISTORY Date Observation Value Provider social history E&M S moking History: U nknown if patient has ever smoked. Benny Hernandez MD smoking status Unknown if ever smoked Tom Hernandez MD social history reviewed E&M revi ewed - no changes required Benny Hernandez MD INSURANCE PROVIDERS Payer name Policy type / Coverage type [place] red green party ID CELY [facility] [employer] [id number] [place] MEDICARE Medicare [id number] TREATMENT PLAN Date Name Performer Cardiology Faxed 08/08 0825:No carotid bruits are audible. 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 As he is short of breath, we will arrange for him to have a stress test. Benny Hernandez MD Cardiology Faxed 06/05/15 0825:B lood pressure is stable. Benny Hernandez MD Cardiology Faxed 06/05/15 0825:O n statins. Benny Hernandez MD Cardiology Faxed 08/08 0825:On Metformin which he continues. Benny Hernandez MD Date Name STR - Adenosine HISTORY OF PROCEDURES Procedure Date Procedure Name Provider Procedure Notes S tatus SNOMED-CT: 822852160 817790 Current Medications Documented Benny Hernandez MD completed SNOMED-CT: 541589233 Smoking Cessation Counseling Benny Hernandez MD completed SNOMED-CT: 37625724 Physical Exam, Performed: Pulse Exam of Foot Benny Hernandez MD completed
== END 2024-09-16 13:12 | disposition home or self-care (01) ==
LOC: ANHSURGERY 07:15 → ANH3MEDSUR 11:23
PROVIDERS: Nurse Anesthetist, Certified Registered; PCP Internal Medicine; Visit Provider Surgery
PROC: 8E0Y4CZ Robotic Assisted Procedure of Lower Extremity, Percutaneous Endoscopic Approach (ICD-10-PCS; CPT 49650; principal; 2024-09-15 09:30)
DX: K40.90 Unilateral inguinal hernia, without obstruction or gangrene, not specified as recurrent (principal); I71.40 Abdominal aortic aneurysm, without rupture, unspecified; I10 Essential (primary) hypertension; E11.9 Type 2 diabetes mellitus without complications; I25.10 Atherosclerotic heart disease of native coronary artery without angina pectoris; I25.2 Old myocardial infarction; Z86.73 Personal history of transient ischemic attack (TIA), and cerebral infarction without residual deficits; Z95.5 Presence of coronary angioplasty implant and graft; Z87.891 Personal history of nicotine dependence; Z79.84 Long term (current) use of oral hypoglycemic drugs; Z79.02 Long term (current) use of antithrombotics/antiplatelets; Z79.82 Long term (current) use of aspirin
CPT/HCPCS: 49650; S2900; 36415; 82948; 85610; A9270; C1781; J0330; J0461; J0690; J0696; J1100; J1885; J2003; J2405; J2704; J3010; J7120

== ENCOUNTER 2024-09-23 09:58 | Outpatient (CLI) | payer MEDICARE, OTHER, SELFPAY ==
--- NOTE | ~2024-09-23 | MR_ITS ---
EXAMINATION: MR foot LT wo/w con DATE: 09/23/2024 11:49 INDICATION: Left foot cellulitis suspicion for osteomyelitis TECHNIQUE: Magnetic resonance imaging (MRI) of the left fore/mid foot was performed without and with 15 mL Multihance intravenous contrast. Sequences included axial, sagittal and coronal T1-weighted FSE and T2-weighted FS FSE, axial T1-weighted FS FSE and postcontrast axial, sagittal and coronal T1-robb ghted FS FSE . COMPARISON: Left foot radiographs dated 07/01/2024 FINDINGS: There is skin thickening and underlying soft tissue edema in the fat pad plantar to the first metatar sophalangeal joint. There appears be skin ulceration with mild peripheral enhancement surrounding a l ow signal intensity possible sinus tract which extends deeper to the region of the first metatarsal t ibial sesamoid. There is nonspecific minimal marrow enhancement and mild edema at the tibial sesamoid . There is however no evident loss of T1 marrow fat signal to more specifically suggest osteomyelitis . Bone alignment is normal. 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 Otherwise normal marrow signal with no fracture or pathologic marrow replacing proces s. There is soft tissue edema in the subcutaneous tissues and intrinsic musculature of the forefoot. No abscess, joint effusions or other abnormal fluid collections. IMPRESSION: 1. Cellulitis with suggestion of a sinus tract extending deep from the skin ulceration plantar to the first metatarsophalangeal joint. This extends to the first metatarsal tibial sesamoid which demonstr ates mild marrow edema and enhancement but no geographic loss of T1 fat signal to more specifically s uggest osteomyelitis. This remains equivocal for reactive change versus early osteomyelitis. Reviewed, dictated and finalized at location B. PERSON IMPRESSION: 1. Cellulitis with suggestion of a sinus tract extending deep from the skin ulc eration plantar to the first metatarsophalangeal joint. This extends to the fir st metatarsal tibial sesamoid which demonstrates mild marrow edema and enhancem ent but no geographic loss of T1 fat signal to more specifically suggest osteom yelitis. This remains equivocal for reactive change versus early osteomyelitis.
--- OUTSIDE RECORDS SUMMARY | 2024-09-23 10:39 | XMS_ITS | Clinical Summary ---
Author Organization [facility] Address [address] [place] [address] [place] [address] Care Team Providers Care Superintendent Sales Name Role Phone Tavo Caruso MD Primary Care Provider [phone] Bartolome Lynn MD Unavailable Mario Blankenship DPM Unavailable [phone] Allergies Active Allergy Reactions Criticality Noted Date [...] lower extremit y with fat layer exposed ([facility]) 03/14/2020 Leg edema 03/14/2020 Essential hypertension 03/14/2020 [...] Info) Description 12/21/2024 1:00 PM CDT Appointment [facility] [address] [place] [address] [place] [address] Bartolome Lynn MD [address] [place], [place] [address] 12/28/2024 1:00 PM CDT Office Visit [facility] [place] [phone] Bartolome Lynn MD [address] [place], [place] [phone] Health Maintenance Due Date Last Done Comments [...] Recently Relevant to Health Maintenance Insurance MEDICARE [facility] MEDICARE [facility] MEDICARE [facility] Care Teams Superintendent Sales Relationship Specialty Start Date End Date Tavo Caruso MD [address] [place] [phone] PCP - General INTERNAL MEDICINE 03/15/17 Bartolome Lynn MD [address] [place] [address] Vascular/Deep Well Contractor INTERNAL MEDICINE 03/10/20 Mario Blankenship DPKaren [address] [place] [address] Referring Physician PODIATRY/SURGERY 05/28/21
--- OUTSIDE RECORDS SUMMARY | 2024-09-23 10:39 | XMS_ITS | CONTINUITY OF CARE DOCUMENT ---
Author Name alice, lelaser Address Unknown Organization [facility] Address [address] [place] [address] Phone [phone] Care Team Providers Care Greenhouse Superintendent Name Role Phone David BROOKE, Benny Unavailable RINA BROOKE, SHAWNEE F Unavailable SHAWNEE FLYNN MD F Unavailable [phone] PROBLEMS Condition Status Date Provider Notes Carotid artery disease - S/P carotid endarectomy 2002 active Benny Hernandez MD HTN active Benny Hernandez MD Hypercholesterolemia active Benny Hernandez MD Diabetes mellitus active Benny Hernandez MD Hx of Stroke - 2000 active Benny Emanuel CAD/[place] 1993, angioplasty, stents x2 2009 active Benny Hernandez MD ENCOUNTERS Date Type Provider Location Encounter Diag nosis 6 - 9 In-person encounter Office Visit Benny Hernandez MD [place] [facility] CAD/[place] 1993, angioplasty, stents x2 2009Hx of Stroke - 2000Diabetes mellitusHypercholesterolemiaCarotid artery disease - S/P carotid endarectomy 2002HTN VITAL SIGNS Date Observation Value Provider pulse rate 70 /min Benny Hernandez MD oxygen saturation, oximetry 97 % Bneny Hernandez MD respiratory rate E&M 18 /min [...] Payer name Policy type / Coverage type [place] red republican ID CELY [facility] [employer] [id number] [place] MEDICARE Medicare [id number] TREATMENT PLAN Date Name Performer Cardiology Faxed [...] Name Provider Procedure Notes S tatus SNOMED-CT: 959684742 378888 Current Medications Documented Benny Hernandez MD completed SNOMED-CT: 840538327 Smoking Cessation Counseling Benny Hernandez MD completed SNOMED-CT: 19901809 Physical Exam, Performed: Pulse Exam of Foot Benny Hernandez MD completed
== END 2024-09-23 09:59 | disposition home or self-care (01) ==
LOC: CHSIMG 10:01
PROVIDERS: PCP Internal Medicine; Visit Provider Internal Medicine
DX: L03.116 Cellulitis of left lower limb (principal)
CPT/HCPCS: 73720; A9577

== ENCOUNTER 2024-10-04 09:08 | Outpatient (CLI) | payer MEDICARE, OTHER, SELFPAY ==
--- NOTE | ~2024-10-04 | XR_ITS ---
EXAMINATION: XR foot LT min 3V DATE: 10/04/2024 09:44 INDICATION: Left foot nonhealing wounds. TECHNIQUE: 4 views of left foot including weight-bearing views were obtained. COMPARISON: Left foot radiographs 07/01/2024 FINDINGS: Alignment is normal. No fracture. There is mild osteoarthritis of first metatarsophalangeal joint and some of the interphalangeal joints and midfoot joints. There are enthesophytes at the post erior and plantar aspects of calcaneal tuberosity. IMPRESSION: 1. No evidence of osteomyelitis. 2. Polyarticular osteoarthritis. Reviewed, dictated and finalized at location A. HEMICAL LABORATORY TECHNICIAN
--- OUTSIDE RECORDS SUMMARY | 2024-10-04 09:32 | XMS_ITS | Clinical Summary ---
Author Organization [facility] Address [address] [place] [address] Care Team Providers Care Fiber Product Cutting Machine Operator Name Role Phone Tavo Caruso MD Primary Care Provider [phone] Bartolome Lynn MD Unavailable Mario Blankenship DPM Unavailable [phone] Allergies Active Allergy Reactions Criticality Noted Date [...] lower extremit y with fat layer exposed ([facility]) 03/14/2020 Leg [...] Smoking Tobacco: Former Cigarettes 1.5 40 1 953 - 1992 Smokeless Tobacco: Former Chew Quit: [...] Info) Description 12/21/2024 1:00 PM CDT Appointment [facility] [address] [place], [place] [address] [address] Bartolome yLnn MD [address] [place], [place] [phone] 12/28/2024 1:00 PM CDT Office Visit [facility] [address] [place] [phone] Bartolome Lynn MD [address] [place], [place] [phone] Health Maintenance Due Date Last Done Comments [...] Recently Relevant to Health Maintenance Insurance MEDICARE [facility] MEDICARE [facility] MEDICARE [facility] Care Teams Fiber Product Cutting Machine Operator Relationship Specialty Start Date End Date Tavo Caruso MD [address] [place] [phone] PCP - General INTERNAL MEDICINE 03/15/17 Bartolome Lynn MD [address] [place] [phone] Vascular/Talend Etl Developer INTERNAL MEDICINE 03/10/20 Mario Blankenship DPKaren [address] [place] [phone] Referring Physician PODIATRY/SURGERY 05/28/21
--- OUTSIDE RECORDS SUMMARY | 2024-10-04 09:32 | XMS_ITS | CONTINUITY OF CARE DOCUMENT ---
Author Name alice, lelaser Address Unknown Organization [facility] Address [address] [place] [address] Phone [phone] Care Team Providers Care Obiee Obia Solution Architect Name Role Phone Benny Hernandez MD Unavailable [phone] HSAWNEE FLYNN MD Unavailable SHAWNEE FLYNN MD Unavailable PROBLEMS Condition Status Date Provider Notes CAD/[place] 1993, angioplasty, stents x2 2009 active Benny Hernandez MD Hx of Stroke - 2000 active Benny Emanuel Diabetes mellitus active Benny Hernandez MD Hypercholesterolemia active Benny Hernandez MD Carotid artery disease - S/P carotid endarectomy 2002 active Benny Hernandez MD HTN active Benny Hernandez MD ENCOUNTERS Date Type Provider Location Encounter Diag nosis 6 - 9 In-person encounter Office Visit Benny Hernandez MD [place] [facility] CAD/[place] 1993, angioplasty, stents x2 2009Hx of Stroke [...] Payer name Policy type / Coverage type [place] red libertarian ID CELY [facility] [employer] [id number] [place] MEDIC[place] Medicare [id number] TREATMENT PLAN Date Name Performer Cardiology Faxed [...] Name Provider Procedure Notes S tatus SNOMED-CT: 295596431 305235 Current Medications Documented Benny Hernandez MD completed SNOMED-CT: 976130719 Smoking Cessation Counseling Benny Hernandez MD completed SNOMED-CT: 42472247 Physical Exam, Performed: Pulse Exam of Foot Benny Hernandez MD completed
== END 2024-10-04 09:09 | disposition home or self-care (01) ==
LOC: CHSIMG 09:10
PROVIDERS: PCP Internal Medicine; Visit Provider Orthopaedic Surgery
DX: M79.672 Pain in left foot (principal); M19.072 Primary osteoarthritis, left ankle and foot
CPT/HCPCS: 73630

== ENCOUNTER 2024-10-18 08:25 | Outpatient (CLI) | payer MEDICARE, SELFPAY ==
--- OUTSIDE RECORDS SUMMARY | 2024-10-18 08:44 | XMS_ITS | Encounter Summary ---
Author Organization [facility] Address [address] [place] [address] Care Team Providers Care E Learning Manager Name Role Phone Tavo Caruso MD Primary Care Provider [phone] Bartolome Lynn MD Unavailable Mario Blankenship DPM Unavailable [phone] Reason for Visit * Reason Onset Date Comments Reschedule 10/18/2024 Encounter Details Date Type Department Care Team (Late st Contact Info) Description 10/18/2024 Telephone [facility] [address] [place] [address] Bartolome Lynn MD [address] [place], [place] [address] Reschedule Social History Tobacco Use Types Packs/Day Years Used Date Smoking Tobacco: Former Cigarettes 1.5 40 1 953 - 1992 Smokeless Tobacco: Former Chew Quit: 1994 Alcohol Use Standard Drinks/Week Comments Not Currently [...] file Not on file Not on file documented as of this encounter Progress Notes * Wayne Craigkatesherine - 10/18/2024 6:55 AM CST Patient is reassigned to Dr Parker Pham to be seen in [place]. Reassignment and reschedule letter have been mailed to patient. 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 encounter Plan of Treatment Upcoming Encounters Date Type Department Care Team (Late st Contact Info) Description 12/21/2024 1:00 PM CDT Appointment [address] [place] [address] Bartolome Lynn MD [address] [place], [place] [address] 01/11/2025 1:00 PM CDT Office Visit [facility] [id number] [facility] [place] [address] Parker Pham MD [address] [facility] [address] [place] [address] documented as of this encounter Visit Diagnoses Not on filedocumented in this encounter Care Teams E Learning Manager Relationship Specialty Start Date End Date Tavo Caruso MD [address] [place] [address] PCP - General INTERNAL MEDICINE 03/15/17 Bartolome Lynn MD [address] [place] [address] Vascular/Automatic Head Sawyer INTERNAL MEDICINE 03/10/20 5 Mario Blankenship DPM [address] [place] [address] Referring Physician PODIATRY/SURGERY 05/28/21 documented as of this encounter
--- OUTSIDE RECORDS SUMMARY | 2024-10-18 08:44 | XMS_ITS | CONTINUITY OF CARE DOCUMENT ---
Author Name alice, lelaser Address Unknown Organization [facility] Address [address] [place] [address] Phone [phone] Care Team Providers Care Floor Clerk Name Role Phone Benny Hernandez MD Unavailable RINA BROOKE, SHAWNEE F Unavailable [phone] SHAWNEE FLYNN MD Unavailable [phone] PROBLEMS Condition Status Date Provider Notes HTN active Benny Hernandez MD Carotid artery disease - S/P carotid endarectomy 2002 active Benny Hernandez MD Hypercholesterolemia active Benny Hernandez MD Diabetes mellitus active Benny Hernandez MD Hx of Stroke - 2000 active Benny Emanuel CAD/[place] 1993, angioplasty, stents x2 2009 active Benny Hernandez MD ENCOUNTERS Date Type Provider Location Encounter Diag nosis 6 - 9 In-person encounter Office Visit Benny Hernandez MD [place] [facility] CAD/[place] 1993, angioplasty, stents x2 2009Hx of Stroke [...] Payer name Policy type / Coverage type [place] red democrat ID CELY [facility] [employer] [id number] [place] MEDICARE Medicare [id number] TREATMENT PLAN Date Name Performer Cardiology Faxed [...] Name Provider Procedure Notes S tatus SNOMED-CT: 206830963 328453 Current Medications Documented Benny Hernandez MD completed SNOMED-CT: 539892091 Smoking Cessation Counseling Benny Hernandez MD completed SNOMED-CT: 54480597 Physical Exam, Performed: Pulse Exam of Foot Benny Hernandez MD completed
--- OUTSIDE RECORDS SUMMARY | 2024-10-18 08:44 | XMS_ITS | Clinical Summary ---
Author Organization [facility] Address [address] [place] [address] Care Team Providers Care Human Resource Intern Name Role Phone Tavo Caruso MD Primary Care Provider [phone] Bartolome Lynn MD Unavailable Mario Blankenship DPM Unavailable [phone] Allergies Active Allergy Reactions Criticality Noted Date [...] lower extremit y with fat layer exposed ([facility]) 03/14/2020 Leg edema 03/14/2020 Essential hypertension 03/14/2020 Mixed hyperlipidemia Encounters Date Type Department Care Team Description 10/18/2024 Telephone [facility] [address] [place] [address] Bartolome Lynn MD Reschedule from Last 3 Months Immunizations Name Administration Dates Next Due Fluzone [...] Info) Description 12/21/2024 1:00 PM CDT Appointment [facility] [address] [place] [address] [place] [address] Bartolome Lynn MD [address] [place], [place] [address] 01/11/2025 1:00 PM CDT Office Visit [facility] [address] [place] [address] Parker Pham MD [address] [facility] [address] [place], [place] [id number] Health Maintenance Due Date Last Done Comments ASCVD Statin 1935 DTaP, Tdap and Td Vaccines (1 - Tdap) 1955 Zoster Vaccines (1 of 2) 1986 Annual Medicare Wellness Visit 2001 ASCVD LDL 02/23/2010 02/23/2009 RSV Immunization or 60+ Years (1 - 1-dose 75+ series) 2011 Pneumococcal Vaccine: 65+ Years (2 of 2 - PPSV23 or PCV20) 08/10/2018 06/15/2018, 07/31/2015 COVID-19 Vaccine (1 - season) 2024 Influenza Adult (#1) 2024 [...] Recently Relevant to Health Maintenance Insurance MEDICARE [facility] MEDICARE [facility] MEDICARE [facility] Care Teams Human Resource Intern Relationship Specialty Start Date End Date Tavo Caruso MD [address] [place] [address] PCP - General INTERNAL MEDICINE 03/15/17 Bartolome Lynn MD [address] [place] [address] Vascular/Applications Intern INTERNAL MEDICINE 03/10/20 5 Mario Blankenship DPKaren [address] [place] [address] Referring Physician PODIATRY/SURGERY 05/28/21
[2024-10-18 08:49] LABS: Hematocrit 40.3 % (37.0-46.0); Hemoglobin 12.8 g/dL (12.4-15.3); Mean Corpuscular HGB Conc 31.8 g/dL (32-36); Mean Corpuscular Hemoglobin 32.3 pg (27.0-31.0); Mean Corpuscular Volume 101.8 fL (78.0-102.0); Platelet Count Result 189 K/mm3 (150-420); Red Blood Count 3.96 M/mm3 (4.70-6.10); Red Cell Distribution Width 14.3 % (11.6-14.4); White Blood Count 4.4 K/mm3 (4.8-10.8)
[2024-10-18 09:42] LABS: Ferritin 110 ng/mL (26-388); Iron 74 ug/dL (65-175)
== END 2024-10-18 08:26 | disposition home or self-care (01) ==
LOC: CHSLAB 08:27
PROVIDERS: PCP Internal Medicine; Visit Provider Internal Medicine
DX: D64.9 Anemia, unspecified (principal)
CPT/HCPCS: 36415; 82728; 83540; 85027

== ENCOUNTER 2024-11-15 09:21 | Outpatient (CLI) | payer MEDICARE, OTHER, SELFPAY ==
--- NOTE | ~2024-11-15 | XR_ITS ---
XR chest 2V Ordering provider: Tavo Caruso MD History: 89 years Male with . F/U hydropneumothorax, sob, coughing up phlegm . Comparison: August 16, 2024 FINDINGS: MEDIASTINUM: The cardiac silhouette is not enlarged. LUNGS: No definite pneumothorax. Bibasilar opacification which may indicate atelectasis versus pneumo mj. Underlying fibrotic changes are also noted. Right pleural effusion is seen. OTHER: No free air under the diaphragm. Degenerative changes of the spine. Evaluation for ankylosing spondylitis should be considered. IMPRESSION: Bibasilar opacification more on the right side suggestive of atelectasis versus pneumonia. Underlying fibrotic changes are possible. Right pleural effusion. Reviewed, dictated and finalized at location A.
--- OUTSIDE RECORDS SUMMARY | 2024-11-15 10:20 | XMS_ITS | Clinical Summary ---
Author Organization [facility] Address [address] [place] [address] Care Team Providers Care Brake Reliner Name Role Phone Tavo Caruso MD Primary Care Provider [phone] Mario Blankenship DPM Unavailable [phone] Parker Pham MD Unavailable [phone] Allergies Active Allergy Reactions Criticality Noted Date [...] exposed ([facility]) 03/14/2020 Leg edema 03/14/2020 Essential hypertension 03/14/2020 Mixed hyperlipidemia Encounters Date Type Department Care Team Description 10/18/2024 Telephone [facility] [address] [place] [address] Bartolome Lynn MD Reschedule from [...] Info) Description 12/21/2024 1:00 PM CDT [address]ointment [address] [place] [address] Bartolome Lynn MD [address] [facility] [place] [address] 01/11/2025 1:00 PM CDT Office Visit [facility] [address] [place] [address] Parker Pham MD [address] [address] Health Maintenance Due Date Last Done Comments [...] Recently Relevant to Health Maintenance Insurance MEDICARE [facility] MEDICARE [facility] MEDICARE [facility] Care Teams Brake Reliner Relationship Specialty Start Date End Date Tavo Caruso MD [address] [place] [address] PCP - General INTERNAL MEDICINE 03/15/17 Mario Blankenship DPM [address] [place] [address] Referring Physician PODIATRY/SURGERY 05/28/21 Parker Pham MD [address] [facility] [address] [address] Physician INTERVENTIONAL CARDIOLOGY 10/29/24
--- OUTSIDE RECORDS SUMMARY | 2024-11-15 10:20 | XMS_ITS | CONTINUITY OF CARE DOCUMENT ---
Author Name alice, lelaser Address Unknown Organization [facility] Address [address] [place] [address] Phone [phone] Care Team Providers Care Lens Blank Gauger Name Role Phone Benny Hernandez MD Unavailable SHAWNEE FLYNN MD Unavailable SHAWNEE FLYNN MD Unavailable PROBLEMS Condition Status Date Provider Notes CAD/[place] 1993, angioplasty, stents x2 2009 active Benny Hernandez MD Hx of Stroke - 2000 active Benny Emanuel Diabetes mellitus active Benny Hernandez MD Hypercholesterolemia active Benny Hernandez MD Carotid artery disease - S/P carotid endarectomy 2002 active Benny Hernandez MD HTN active Benny Hernandez MD ENCOUNTERS Date Type Provider Location Encounter Diag nosis 6 - 9 In-person encounter Office Visit Benny Hernandez MD [place] [facility] CAD/[place] 1993, angioplasty, stents x2 2009Hx of Stroke [...] Payer name Policy type / Coverage type [place] red green party ID CELY [facility] [employer] [id number] [place] MEDICARE Medicare [id number] TREATMENT PLAN Date Name Performer Cardiology Faxed [...] Name Provider Procedure Notes S tatus SNOMED-CT: [id number] 667193 Current Medications Documented Benny Hernandez MD completed SNOMED-CT: 728732969 Smoking Cessation Counseling Benny Hernandez MD completed SNOMED-CT: 31144521 Physical Exam, Performed: Pulse Exam of Foot Benny Hernandez MD completed
== END 2024-11-15 09:22 | disposition home or self-care (01) ==
LOC: CHSIMG 09:23
PROVIDERS: PCP Internal Medicine; Visit Provider Internal Medicine
DX: J94.2 Hemothorax (principal); J90 Pleural effusion, not elsewhere classified; R91.8 Other nonspecific abnormal finding of lung field
CPT/HCPCS: 71046

== ENCOUNTER 2024-12-27 09:09 | Outpatient (CLI) | payer MEDICARE, SELFPAY ==
[2024-12-27 09:26] LABS: Hematocrit 43.7 % (37.0-46.0); Hemoglobin 14.1 g/dL (12.4-15.3); Mean Corpuscular HGB Conc 32.3 g/dL (32-36); Mean Corpuscular Hemoglobin 32.3 pg (27.0-31.0); Mean Corpuscular Volume 100.2 fL (78.0-102.0); Mean Platelet Volume 9.8 fl (8.7-11.0); Platelet Count Result 184 K/mm3 (150-420); Red Blood Count 4.36 M/mm3 (4.70-6.10); Red Cell Distribution Width 15.7 % (11.6-14.4); White Blood Count 5.3 K/mm3 (4.8-10.8)
[2024-12-27 09:35] LABS: Add Urine Microscopic? NO; Appearance Urine Clear (Clear); Bilirubin Urine Negative (Negative); Blood Urine Negative (Negative); Color Urine Light Yellow (Yellow); Glucose Urine UA Negative (Negative); Ketones Urine Negative (Negative); Leukocyte Esterase Ur Negative (Negative); Nitrate Urine Negative (Negative); Protein Urine Negative (Negative); Urobilinogen Urine 0.2 mg/dL (0.2-1.0)
--- OUTSIDE RECORDS SUMMARY | 2024-12-27 09:39 | XMS_ITS | Clinical Summary ---
Author Organization [facility] Address [address] [place] [address] Care Team Providers Care Special Machine Operator Name Role Phone Tavo Caruso MD Primary Care Provider [phone] Mario Blankenship DPM Unavailable [phone] Parker Pham MD Unavailable [phone] Allergies Active Allergy Reactions Criticality Noted Date [...] lower extremit y with fat layer exposed ([facility]) 03/14/2020 Leg edema 03/14/2020 Essential hypertension 03/14/2020 Mixed hyperlipidemia Encounters Date Type Department Care Team Description 12/21/2024 12:30 PM CDT - 12/21/2024 11:59 PM CDT Hospital Encounter [facility] [address] [place] [address] Bartolome Lynn MD Discharge Disposition: Home or Self Care (Routine Discharge) 12/21/2024 Travel 10/18/2024 Telephone [facility] [address] [place] [address] Bartolome Lynn MD Reschedule from Last 3 Months Immunizations Immunization Administration Dates Next Due Fluzone High Dose [...] Information Value Date Recorded Sex Assigned at Male 12/21/2024 12:44 PM CDT Legal Sex Male 8:46 PM CDT Gender [...] Upcoming Encounters Date Type Department Care Team ([facility] st Contact Info) Description 01/11/2025 1:00 PM CDT Office Visit [facility] [place] [address] Parker Pham MD [address] [place] [address] [place] [address] Health Maintenance Due Date Last Done Comments ASCVD Statin 1935 DTaP, Tdap and Td Vaccines ( 1 - Tdap) 1955 Zoster Vaccines (1 of 2) 1986 Annual Medicare Wellness Visit 2001 ASCVD LDL 02/23/2010 02/23/2009 RSV Immunization or 60+ Years (1 - 1-dose 75+ series) 2011 Pneumococcal Vaccine: 50+ Years (2 of 2 - PPSV23) 08/10/2018 06/15/2018, 07/31/2015 COVID-19 Vaccine (1 - 2023-2 5 season) 2024 Meningococcal B Vaccine Aged Out No l onger eligible based on patient's age to complete this topic Meningococcal Vaccine Aged Out No jelena ty eligible based on patient's age to complete this topic RSV Immunizations Under 20 Months Aged Out No longer eligible b ased on patient's age to complete this topic Procedures Procedure Name Priority Date/Time Associated Diagnosis Comments [facility] Routine 12/21/2024 1:30 PM CDT PAD (peripheral artery disease) Mixed hyperlipidemia Leg edema LIPID PANEL Routine 02/23/2009 11:20 AM CDT from Last 3 Months or Most Recently Relevant to Health Maintenance Results * [facility] [place] (12/21/2024 1:30 PM CDT) Anatomical Region Laterality Modality Extremity Ultrasound 12/21/2024 1:11 PM CDT Narrative 12/26/2024 3:34 PM CDT Outreach Arterial Doppler PRINCE Vascular Report Pat.Name: Marizol Tom cuevas Pat.ID: [id number] St.Date: 12/21/2024 Refer.MD: Outreach, [facility] Exam Time: 1:11:00 PM Study Type:OUTREACH ART DOPPLER - PRINCE Height: 72 in Age: 8 1935,89Y Sex: M Sonogrphr: tom Velazquez rdms Pat. Stat.:Outpatient Reason for Study:PAD (peripheral artery disease), Mixed hyperlipidemia, PVD, Leg edema Procedures: Study performed at [facility], [place], [place] and interpreted by [facility]. ++++++++++++++++++++++++++++++++++++ SUMMARY: ++++++++++++++++++++++++++++++++++++ PRINCE Rt: The resting PRINCE is within normal range. PRINCE Rt: TBI is within normal range. PRINCE Lt: The resting PRINCE is within normal range. PRINCE Lt: TBI is within normal range. ++++++++++++++++++++++++++++++++++++ FINDINGS: ++++++++++++++++++++++++++++++++++++ PRINCE Rt: The resting PRINCE is 1.01. The resting PRINCE is within normal range. Pulse volume tracings suggest mild peripheral arterial occlusive disease. Pulse volume tracings suggest no peripheral arterial occlusive disease. The TBI is 0.73. TBI is within normal range. PRINCE Lt: The resting PRINCE is 0.98. The resting PRINCE is within normal range. Pulse volume tracings suggest no peripheral arterial occlusive disease. The TBI is 0.72. TBI is within normal range. ++++++++++++++++++++++++++++++++++++ MEASUREMENTS: ++++++++++++++++++++++++++++++++++++ PRESSURES Right Brachial Brach P 161 mmHg Right Ankle DP AnkleDP P 158 mmHg Right Ankle PT AnklePT P 163 mmHg Right Great Toe GreatToe P 119 mmHg Right PRINCE PT PRINCE PT 1.01 Right PRINCE DP PRINCE DP 0.975 Right TBI TBI 0.735 Left Brachial Brach P 162 mmHg Left Ankle DP AnkleDP P 156 mmHg Left Ankle PT AnklePT P 158 mmHg Left Great Toe GreatToe P 116 mmHg Left PRINCE PT PRINCE PT 0.975 Left PRINCE DP PRINCE DP 0.963 Left TBI TBI 0.716 <Electronic Signature> 12/26/2024 03:34 PM Parker Pham M.D. Procedure Note Parker Pham MD - 12/26/2024 Outreach Arterial Doppler PRINCE Vascular Report Pat.Name: Tom Fontana Pat.ID: [id number] .Date: 12/21/2024 Refer.MD: [place], [facility] Exam Time: 1:11:00 PM Study Type:OUTREACH ART DOPPLER - PRINCE Height: 72 in Age: 8 1935,89Y Sex: M Sonogrphr: tom Velazquez rdms Pat. Stat.:Outpatient Reason for Study:PAD (peripheral artery disease), Mixed hyperlipidemia, PVD, Leg edema Procedures: Study performed at [facility], [place], [place] and interpreted by [facility]. ++++++++++++++++++++++++++++++++++++ SUMMARY: ++++++++++++++++++++++++++++++++++++ PRINCE Rt: The resting PRINCE is within normal range. PRINCE Rt: TBI is within normal range. PRINCE Lt: The resting PRINCE is within normal range. PRINCE Lt: TBI is within normal range. ++++++++++++++++++++++++++++++++++++ FINDINGS: ++++++++++++++++++++++++++++++++++++ PRINCE Rt: The resting PRINCE is 1.01. The resting PRINCE is within normal range. Pulse volume tracings suggest mild peripheral arterial occlusive disease. Pulse volume tracings suggest no peripheral arterial occlusive disease. The TBI is 0.73. TBI is within normal range. PRINCE Lt: The resting PRINCE is 0.98. The resting PRINCE is within normal range. Pulse volume tracings suggest no peripheral arterial occlusive disease. The TBI is 0.72. TBI is within normal range. ++++++++++++++++++++++++++++++++++++ MEASUREMENTS: ++++++++++++++++++++++++++++++++++++ PRESSURES Right Brachial Brach P 161 mmHg Right Ankle DP AnkleDP P 158 mmHg Right Ankle PT AnklePT P 163 mmHg Right Great Toe GreatToe P 119 mmHg Right PRINCE PT PRINCE PT 1.01 Right PRINCE DP PRINCE DP 0.975 Right TBI TBI 0.735 Left Brachial Brach P 162 mmHg Left Ankle DP AnkleDP P 156 mmHg Left Ankle PT AnklePT P 158 mmHg Left Great Toe GreatToe P 116 mmHg Left PRINCE PT PRINCE PT 0.975 Left PRINCE DP PRINCE DP 0.963 Left TBI TBI 0.716 <Electronic Signature> 12/26/2024 03:34 PM Parker Pham M.D. Bartolome Lynn MD [facility] Final Result * (ABNORMAL) LIPID PANEL (02/23/2009 11:20 AM [...] Recently Relevant to Health Maintenance Insurance MEDICARE [facility] MEDICARE [facility] MEDICARE [facility] Care Teams Special Machine Operator Relationship Specialty Start Date End Date Tavo Caruso MD [address] [place] [phone] PCP - General INTERNAL MEDICINE 03/15/17 Mario Blankenship DPM [address] [place] [address] Referring Physician PODIATRY/SURGERY 05/28/21 Parker Pham MD [address] [facility] [address] [address] Physician INTERVENTIONAL CARDIOLOGY 10/29/24
--- OUTSIDE RECORDS SUMMARY | 2024-12-27 09:39 | XMS_ITS | CONTINUITY OF CARE DOCUMENT ---
Author Name alice, lelaser Address Unknown Organization [facility] Address [address] [place] [address] Phone [phone] Care Team Providers Care Quality Control Chemist Name Role Phone Benny Hernandez MD Unavailable SHAWNEE FLYNN MD Unavailable SHAWNEE FLYNN MD Unavailable PROBLEMS Condition Status Date Provider Notes CAD/[place] 1993, angioplasty, stents x2 2009 active Benny Hernandez MD Hx of Stroke - 2000 active Benny Emanuel Diabetes mellitus active Benny Hernandez MD Hypercholesterolemia active Benny Hernandez MD Carotid artery disease - S/P carotid endarectomy 2002 active Benny Hernandez MD HTN active Benny Hernandez MD ENCOUNTERS Date Type Provider Location Encounter Diag nosis 6 - 9 In-person encounter Office Visit Benny Hernandez MD [place] [facility] CAD/[place] 1993, angioplasty, stents x2 2009Hx of Stroke [...] Payer name Policy type / Coverage type [place] red green party ID [facility]CL[facility] [employer] [id number] [place] MEDICARE Medicare [id number] TREATMENT PLAN Date Name Performer Cardiology Faxed [...] Name Provider Procedure Notes S tatus SNOMED-CT: 942206689 606343 Current Medications Documented Benny Hernandez MD completed SNOMED-CT: 101405206 Smoking Cessation Counseling Benny Hernandez MD completed SNOMED-CT: 92049734 Physical Exam, Performed: Pulse Exam of Foot Benny Hernandez MD completed
[2024-12-27 09:40] LABS: Hemoglobin A1C 6.6 % (<5.7)
[2024-12-27 10:44] LABS: Alanine Aminotransferase 23 U/L (16-63); Albumin Level 3.5 g/dL (3.4-5.0); Alkaline Phosphatase 82 U/L (46-116); Anion Gap 9 mmol/L (4-12); Aspartate Amino Transferase 19 U/L (15-37); Blood Urea Nitrogen 23 mg/dL (7-18); Carbon Dioxide 29 mmol/L (21-32); Chloride 96 mmol/L (98-108); Cholesterol 117 mg/dL (0-200); Creatine Kinase 23 U/L (39-308); Estimated Glomerular Filt Rate 55; Ferritin 63 ng/mL (26-388); Free T4 Free Thyroxine 1.28 ng/dL (0.76-1.46); Glucose 100 mg/dL (70-99); HDL Direct 59 mg/dL (40-60); Iron 72 ug/dL (65-175); LDL Cholesterol Calculated 46 mg/dL (<130); NT Pro B Type Natriuretic Pept 2359 pg/mL (0-450); Osmolality Calculated 281 mOsm/kg (285-295); Potassium 4.6 mmol/L (3.5-5.1); Prostate Specific Antigen 8.4 ng/mL (< OR = 4.0); Sodium 134 mmol/L (136-145); Total Protein 6.7 g/dL (6.4-8.2); Triglycerides 59 mg/dL (0-150); Uric Acid 4.4 mg/dL (3.5-7.2)
== END 2024-12-27 09:10 | disposition home or self-care (01) ==
LOC: CHSLAB 09:11
PROVIDERS: PCP Internal Medicine; Visit Provider Internal Medicine
DX: I10 Essential (primary) hypertension (principal); D64.9 Anemia, unspecified; E78.2 Mixed hyperlipidemia; E79.0 Hyperuricemia without signs of inflammatory arthritis and tophaceous disease; I25.10 Atherosclerotic heart disease of native coronary artery without angina pectoris; E11.59 Type 2 diabetes mellitus with other circulatory complications; N18.2 Chronic kidney disease, stage 2 (mild); R97.20 Elevated prostate specific antigen [PSA]; R06.00 Dyspnea, unspecified
CPT/HCPCS: 36415; 80053; 80061; 81003; 82550; 82728; 83036; 83540; 83880; 84153; 84439; 84443; 84550; 85027

== ENCOUNTER 2024-12-30 10:52 | Outpatient (CLI) | payer MEDICARE, SELFPAY ==
--- NOTE | ~2024-12-30 | XR_ITS ---
Clinical Indication: Dyspnea PA and lateral views of the chest: Comparison: 11/15/2024 Findings: Moderate right pleural effusion and minimal left pleural effusion present. Process is mild bibasilar pulmonary/atelectasis.. Cardiomediastinal silhouette is within normal limits. Bones and so ft tissues are unremarkable. Impression: Moderate right effusion and minimal left pleural effusion. Probable associated bibasilar pulmonary ed dagoberto/atelectasis. Reviewed, dictated and finalized at location M. Impression: Moderate right effusion and minimal left pleural effusion. Probable associated bibasilar pulmonary edema/atelectasis.
--- OUTSIDE RECORDS SUMMARY | 2024-12-30 11:08 | XMS_ITS | CONTINUITY OF CARE DOCUMENT ---
Author Name alice, lelaser Address Unknown Organization [facility] Address [address] [facility] [address] [place] [address] Phone [phone] Care Team Providers Care Talent Acquisition Project Manager Name Role Phone Benny Hernandez MD Unavailable RINA BROOKE, SHAWNEE F Unavailable SHAWNEE FLYNN MD Unavailable [phone] PROBLEMS Condition Status Date Provider Notes Hx of Stroke - 2000 active Benny Emanuel Diabetes mellitus active Benny Hernandez MD Hypercholesterolemia active Benny Hernandez MD Carotid artery disease - S/P carotid endarectomy 2002 active Benny Hernandez MD HTN active Benny Hernandez MD CAD/[place] 1993, angioplasty, stents x2 2009 active Benny Hernandez MD ENCOUNTERS Date Type Provider Location Encounter Diag nosis 6 - 9 In-person encounter Office Visit Benny Hernandez MD [place] [facility] CAD/[place] 1993, angioplasty, stents x2 2009Hx of Stroke [...] Payer name Policy type / Coverage type [place] red republican ID CELY [facility] [employer] [id number] [place] MEDICARE Medicare [id number] TREATMENT PLAN Date Name Performer Cardiology Faxed [...] Name Provider Procedure Notes S tatus SNOMED-CT: 120399269 496080 Current Medications Documented Benny Hernandez MD completed SNOMED-CT: 879914006 Smoking Cessation Counseling Benny Hernandez MD completed SNOMED-CT: 23617947 Physical Exam, Performed: Pulse Exam of Foot Benny Hernandez MD completed
--- OUTSIDE RECORDS SUMMARY | 2024-12-30 11:08 | XMS_ITS | Clinical Summary ---
Author Organization [facility] Address [address] [place] [address] Care Team Providers Care Fur Glosser Name Role Phone Tavo Caruso MD Primary Care Provider [phone] Mario Blankenship DPM Unavailable [phone] Parker Pham MD Unavailable [phone] Allergies Active Allergy Reactions Criticality Noted Date [...] lower extremit y with fat layer exposed ([facility]HCC [facility]) 03/14/2020 Leg edema 03/14/2020 Essential hypertension 03/14/2020 Mixed hyperlipidemia Encounters Date Type Department Care Team Description 12/21/2024 12:30 PM CDT - 12/21/2024 11:59 PM CDT Hospital Encounter [facility] [address] [place] [address] Bartolome Lynn MD Discharge Disposition: Home or Self Care (Routine Discharge) 12/21/2024 Travel 10/18/2024 Telephone [facility] [address] [place] [address] Bartolome Lynn MD Reschedule from [...] Upcoming Encounters Date Type Department Care Team ([facility] st Contact Info) Description 01/11/2025 1:00 PM CDT Office Visit [facility] [place] [phone] Parker Pham MD [address] [place] [address] Health Maintenance Due Date Last Done Comments [...] Vascular Report Pat.Name: Marizol Tom cuevas Pat.ID: [id number] St.Date: 12/21/2024 Refer.MD: Outreach, [facility] Exam Time: 1:11:00 PM Study Type:OUTREACH ART DOPPLER - PRINCE Height: 72 in Age: 8 1935,89Y Sex: M Sonogrphr: tom Velazquez rdms Pat. Stat.:Outpatient Reason for Study:PAD (peripheral artery disease), Mixed hyperlipidemia, PVD, Leg edema Procedures: Study performed at [facility], [place], [place] and interpreted by [facility]. ++++++++++++++++++++++++++++++++++++ SUMMARY: ++++++++++++++++++++++++++++++++++++ PRINCE Rt: [...] PRINCE Vascular Report Pat.Name: Tom Fontana Pat.ID: [id number] .Date: 12/21/2024 Refer.MD: Delmis, [facility] Exam Time: 1:11:00 PM Study Type:OUTREACH ART DOPPLER - PRINCE Height: 72 in Age: 8 1935,89Y Sex: M Sonogrphr: tom Velazquez rdms Pat. Stat.:Outpatient Reason for Study:PAD (peripheral artery disease), Mixed hyperlipidemia, PVD, Leg edema Procedures: Study performed at [facility], [place], [place] and interpreted by [facility]. ++++++++++++++++++++++++++++++++++++ SUMMARY: ++++++++++++++++++++++++++++++++++++ PRINCE Rt: [...] PM Parker Pham M.D. Bartolome Lynn MD [facility] Final Result * (ABNORMAL) LIPID PANEL (02/23/2009 [...] Recently Relevant to Health Maintenance Insurance MEDICARE [facility] MEDICARE [facility] MEDICARE [facility] Care Teams Fur Glosser Relationship Specialty Start Date End Date Tavo Caruso MD [address] [place] [phone] PCP - General INTERNAL MEDICINE 03/15/17 Mario Blankenship DPM [address] [place] [phone] Referring Physician PODIATRY/SURGERY 05/28/21 Parker Pham MD [address] [facility] [address] [address] Physician INTERVENTIONAL CARDIOLOGY 10/29/24
--- NOTE | 2024-12-30 11:26 | ECG_ITS ---
Test Date: 2024-12-30 11:51:30 Measurements Intervals Ewing Rate: 56 P: 61 MA: 207 QRS: 122 QRSD: 161 T: -5 QT: 460 QTc: 445 Interpretive Statements SINUS BRADYCARDIA RIGHT BUNDLE BRANCH BLOCK [120+ ms QRS DURATION, UPRIGHT V1, 40+ ms S IN I/aVL/V4/V5/V6] LEFT POSTERIOR FASCICULAR BLOCK [QRS AXIS > 109, INFERIOR Q] Compared to ECG 05/14/2024 14:54:41 NO SIGNIFICANT CHANGES Electronically Signed On 12-31-2024 12:00:57 CDT by Neel Adrian M.D.
[2024-12-30 12:07] LABS: NT Pro B Type Natriuretic Pept 2659 pg/mL (0-450)
== END 2024-12-30 10:53 | disposition home or self-care (01) ==
LOC: CHSLAB 10:55
PROVIDERS: PCP Internal Medicine; Visit Provider Internal Medicine
DX: R06.00 Dyspnea, unspecified (principal); R00.1 Bradycardia, unspecified; I45.10 Unspecified right bundle-branch block; I44.5 Left posterior fascicular block; J90 Pleural effusion, not elsewhere classified
CPT/HCPCS: 36415; 71046; 83880; 93005

== ENCOUNTER 2025-01-05 10:07 | Outpatient (CLI) | payer MEDICARE, SELFPAY ==
--- NOTE | ~2025-01-05 | CT_ITS ---
CT Scan of the Chest without Contrast: Clinical Indication: Pleural effusion, dyspnea Technique: Contiguous sections were acquired throughout the chest without intravenous contrast. Dose reduction technique was used on this scan by utilizing automated exposure control and iterative recon struction technique. The dose-length product (DLP) was 155.75 mGy-cm. Findings: There is no evidence of any significant mediastinal, hilar or axillary lymphadenopathy. There are ext ensive atherosclerotic ossifications of the aorta and coronary arteries. No pericardial effusion. Moderate to large right pleural effusion present. No left pleural effusion. There is severe emphysema. Several areas of irregular peripheral scarring in the left upper lobe. The re is probable focal scarring in the anterior right upper lobe. Calcified pleural plaque noted in the right middle lobe and right lower lobe. 3 mm lingular nodule noted. Images through the upper abdomen reveal no abnormalities. Impression: Moderate to large right pleural effusion, uncertain etiology. Consider fluid sampling as indicated. Advanced emphysema. Probable areas of irregular peripheral scarring left upper lobe and anterior right upper lobe. As the se findings are new since 2019, recommend follow-up CT scan in 6 months to assure stability. Calcified pleural plaques, as above. Reviewed, dictated and finalized at location . Impression: Moderate to large right pleural effusion, uncertain etiology. Consider fluid sa mpling as indicated. Advanced emphysema. Probable areas of irregular peripheral scarring left upper lobe and anterior ri ght upper lobe. As these findings are new since 2019, recommend follow-up CT sc an in 6 months to assure stability. Calcified pleural plaques, as above.
--- OUTSIDE RECORDS SUMMARY | 2025-01-05 10:28 | XMS_ITS | Clinical Summary ---
Author Organization [facility] Address [address] [place] [address] Care Team Providers Care Director Of Culture Name Role Phone Tavo Caruso MD Primary Care Provider Mario Blankenship DPM Unavailable [phone] Parker Pham MD Unavailable [phone] Allergies Active Allergy Reactions Criticality Noted Date [...] lower extremit y with fat layer exposed ([facility]/H[facility]) 03/14/2020 Leg edema 03/14/2020 Essential hypertension 03/14/2020 Mixed hyperlipidemia Encounters Date Type Department Care Team Description 12/21/2024 12:30 PM CDT - 12/21/2024 11:59 PM CDT Hospital Encounter [facility] [address] [place] [address] Bartolome Lynn MD Discharge Disposition: Home or Self Care (Routine Discharge) 12/21/2024 Travel 10/18/2024 Telephone [facility] [address] [place] [address] Bartolome Lynn MD Reschedule from [...] Upcoming Encounters Date Type Department Care Team ([facility] st Contact Info) Description 01/11/2025 1:00 PM CDT Office Visit [facility] [place] [phone] Parker Pham MD [address] [id number] [place] [address] Health Maintenance Due Date Last Done Comments [...] Vascular Report Pat.Name: Marizol Tom cuevas Pat.ID: [id number] St.Date: 12/21/2024 Refer.MD: Outreach, [facility] Exam Time: 1:11:00 PM Study Type:OUTREACH ART DOPPLER - PRINCE Height: 72 in Age: 8 1935,89Y Sex: M Sonogrphr: tom Velazquez rdms Pat. Stat.:Outpatient Reason for Study:PAD (peripheral artery disease), Mixed hyperlipidemia, PVD, Leg edema Procedures: Study performed at [facility], [place], [place] and interpreted by [facility]. ++++++++++++++++++++++++++++++++++++ SUMMARY: ++++++++++++++++++++++++++++++++++++ PRINCE Rt: [...] PRINCE Vascular Report Pat.Name: Tom Fontana Pat.ID: [id number] .Date: 12/21/2024 Refer.MD: Delmis, [facility] Exam Time: 1:11:00 PM Study Type:OUTREACH ART DOPPLER - PRINCE Height: 72 in Age: 8 1935,89Y Sex: M Sonogrphr: tom Velazquez rdms Pat. Stat.:Outpatient Reason for Study:PAD (peripheral artery disease), Mixed hyperlipidemia, PVD, Leg edema Procedures: Study performed at [facility], [place], [place] and interpreted by [facility]. ++++++++++++++++++++++++++++++++++++ SUMMARY: ++++++++++++++++++++++++++++++++++++ PRINCE Rt: [...] PM Parker Pham M.D. Bartolome Lynn MD [facility] Final Result * (ABNORMAL) LIPID PANEL (02/23/2009 [...] Recently Relevant to Health Maintenance Insurance MEDICARE [facility] MEDICARE [facility] MEDICARE [facility] Care Teams Director Of Culture Relationship Specialty Start Date End Date Tavo Caruso MD [address] [place] [phone] PCP - General INTERNAL MEDICINE 03/15/17 Mario Blankenship DPM [address] [place] [phone] Referring Physician PODIATRY/SURGERY 05/28/21 Parker Pham MD [address] [facility] [address] [address] Physician INTERVENTIONAL CARDIOLOGY 10/29/24
--- OUTSIDE RECORDS SUMMARY | 2025-01-05 10:28 | XMS_ITS | CONTINUITY OF CARE DOCUMENT ---
Author Name alice, lelaser Address Unknown Organization [facility] Address [address] [address] [place] [address] Phone [phone] Care Team Providers Care Immigration Specialist Name Role Phone Benny Hernandez MD Unavailable [phone] RINA BROOKE, SHAWNEE F Unavailable [phone] SHAWNEE FLYNN MD Unavailable PROBLEMS Condition Status Date Provider Notes Hx of Stroke - 2000 active Benny Emanuel Diabetes mellitus active Benny Hernandez MD Hypercholesterolemia active Benny Hernandez MD Carotid artery disease - S/P carotid endarectomy 2002 active Benny Hernandez MD HTN active Benny Hernandez MD CAD/SD 1993, angioplasty, stents x2 2009 active Benny Hernandez MD ENCOUNTERS Date Type Provider Location Encounter Diag nosis 6 - 9 In-person encounter Office Visit Benny Hernandez MD [facility] CAD/SD 1993, angioplasty, stents x2 2009Hx of Stroke [...] Payer name Policy type / Coverage type [place] red alliance party ID CELY [facility] [employer] [place] [id number] [place] MED[place] Medicare [id number] TREATMENT PLAN Date Name Performer Cardiology Faxed [...] Name Provider Procedure Notes S tatus SNOMED-CT: 975978361 014853 Current Medications Documented Benny Hernandez MD completed SNOMED-CT: 990248681 Smoking Cessation Counseling Benny Hernandez MD completed SNOMED-CT: 28393996 Physical Exam, Performed: Pulse Exam of Foot Benny Hernandez MD completed
[2025-01-05 12:10] LABS: Anion Gap 8 mmol/L (4-12); Blood Urea Nitrogen 42 mg/dL (9-20); Calcium 8.7 mg/dL (8.4-10.2); Carbon Dioxide 26 mmol/L (22-30); Chloride 99 mmol/L (98-107); Estimated Glomerular Filt Rate 51; Glucose 124 mg/dL (65-110); Osmolality Calculated 287 mOsm/kg (285-295); Potassium 4.3 mmol/L (3.4-5.0); Sodium 133 mmol/L (137-145)
[2025-01-05 12:18] LABS: NT Pro B Type Natriuretic Pept 5020 pg/mL (19.9-100)
== END 2025-01-05 10:08 | disposition home or self-care (01) ==
PROVIDERS: PCP Internal Medicine; Visit Provider Internal Medicine
DX: J90 Pleural effusion, not elsewhere classified (principal); I50.9 Heart failure, unspecified
CPT/HCPCS: 36415; 71250; 80048; 83880

== ENCOUNTER 2025-01-10 09:01 | Outpatient (CLI) | payer MEDICARE, SELFPAY ==
[2025-01-10 09:19] LABS: Hematocrit 41.6 % (37.0-46.0); Hemoglobin 13.5 g/dL (12.4-15.3); Mean Corpuscular HGB Conc 32.5 g/dL (32-36); Mean Corpuscular Hemoglobin 32.4 pg (27.0-31.0); Mean Corpuscular Volume 99.8 fL (78.0-102.0); Mean Platelet Volume 9.4 fl (8.7-11.0); Platelet Count Result 209 K/mm3 (150-420); Red Blood Count 4.17 M/mm3 (4.70-6.10); Red Cell Distribution Width 15.5 % (11.6-14.4); White Blood Count 4.1 K/mm3 (4.8-10.8)
--- OUTSIDE RECORDS SUMMARY | 2025-01-10 09:22 | XMS_ITS | Clinical Summary ---
Author Organization [facility] Address [address] [place] [address] Care Team Providers Care Health And Wellness Sales Consultant Name Role Phone Tavo Caruso MD Primary Care Provider Mario Blankenship DPM Unavailable [phone] Parker Pham MD Unavailable [phone] Allergies Active Allergy Reactions Criticality Noted Date [...] lower extremit y with fat layer exposed ([facility]) 03/14/2020 Leg edema 03/14/2020 Essential hypertension 03/14/2020 Mixed hyperlipidemia Encounters Date Type Department Care Team Description 01/07/2025 Orders Only [facility] [address] [place] [address] Parker Pham MD 01/05/2025 Telephone [facility] [address] [place] [address] Parker Pham MD Appointment Request 12/21/2024 12:30 PM CDT - 12/21/2024 11:59 PM CDT Hospital Encounter [facility] [address] [place] [address] Bartolome Lynn MD Discharge Disposition: Home or Self Care (Routine Discharge) 12/21/2024 Travel 10/18/2024 Telephone [facility] [place] [address] [place] [address] Bartolome Lynn MD Reschedule from Last 3 [...] Care Team (Late st Contact Info) Description 01/11/2025 1:00 PM CDT Office Visit [facility] [address] Parker Pham MD [address] [facility] [address] [place] [address] 01/14/2025 4:00 PM CDT [place] [address] [address] Tavo Caruso MD [address] [place] [address] Health Maintenance Due Date Last Done Comments [...] Vascular Report Pat.Name: Marizol Tom cuevas Pat.ID: [id number] .Date: 12/21/2024 Refer.MD: Delmis, [facility] Exam Time: 1:11:00 PM Study Type:OUTREACH ART DOPPLER - PRINCE Height: 72 in Age: 8 1935,89Y Sex: M Sonogrphr: tom Velazquez rdms Pat. Stat.:Outpatient Reason for Study:PAD (peripheral artery disease), Mixed hyperlipidemia, PVD, Leg edema Procedures: Study performed at [place], [place] and interpreted by [facility]. ++++++++++++++++++++++++++++++++++++ SUMMARY: ++++++++++++++++++++++++++++++++++++ PRINCE Rt: [...] PRINCE Vascular Report Pat.Name: Tom Fontana Pat.ID: [id number] .Date: 12/21/2024 Refer.MD: Delmis, [facility] Exam Time: 1:11:00 PM Study Type:OUTREACH ART DOPPLER - PRINCE Height: 72 in Age: 8 1935,89Y Sex: M Sonogrphr: tom Velazquez [address] Pat. Stat.:Outpatient Reason for Study:PAD (peripheral artery disease), Mixed hyperlipidemia, PVD, Leg edema Procedures: Study performed at [place], [place] and interpreted by [facility]. ++++++++++++++++++++++++++++++++++++ SUMMARY: ++++++++++++++++++++++++++++++++++++ PRINCE Rt: [...] PM Parker Pham M.D. Bartolome Lynn MD [facility] Final Result * (ABNORMAL) LIPID PANEL (02/23/2009 11:20 AM CDT) CHOLESTEROL 132 <200 mg/dL MEDIN[employer] TO EPIC CONVERSION HDL 35(L) >39 mg/dL MEDINFORMA TIX TO EPIC CONVERSION LDL CONVERSION 73 <100 mg/dL [facility]IN[facility] TO EPIC CONVERSION TRIGLYCERIDES 229(H) <150 mg/dL [facility] TO EPIC CONVERSION 02/23/2009 11:2 0 AM CDT 02/23/2009 11:20 AM CDT Generic Conversion [facility] Final R esult MEDINFORMAT[facility] TO EPIC CONVERSION from Last 3 Months or Most Recently Relevant to Health Maintenance Insurance MEDICARE [facility] MEDICARE [facility] MEDICARE [employer] Care Teams Health And Wellness Sales Consultant Relationship Specialty Start Date End Date Tavo Caruso MD [address] [place] [address] PCP - General INTERNAL MEDICINE 03/15/17 Mario Blankenship DPM [address] [place] [address] Referring Physician PODIATRY/SURGERY 05/28/21 Parker Pham MD [address] [facility] [address] [address] Physician INTERVENTIONAL CARDIOLOGY 10/29/24
--- OUTSIDE RECORDS SUMMARY | 2025-01-10 09:22 | XMS_ITS | CONTINUITY OF CARE DOCUMENT ---
Author Name alice, lelaser Address Unknown Organization [facility] Address [address] [place] [address] Phone [phone] Care Team Providers Care Handkerchief Cutter Name Role Phone David BROOKE, Benny Unavailable RINA BROOKE, SHAWNEE F Unavailable [phone] SHAWNEE FLYNN MD F Unavailable PROBLEMS Condition Status Date Provider Notes Carotid artery disease - S/P carotid endarectomy 2002 active Benny Hernandez MD HTN active Benny Hernandez MD Hypercholesterolemia active Benny Hernandez MD Diabetes mellitus active Benny Hernandez MD Hx of Stroke - 2000 active Benny Emanuel CAD/CA 1993, angioplasty, stents x2 2009 active Benny Hernandez MD ENCOUNTERS Date Type Provider Location Encounter Diag nosis 6 - 9 In-person encounter Office Visit Benny Hernandez MD [facility] CAD/CA 1993, angioplasty, stents x2 2009Hx of Stroke [...] ORAL TABLET active ONE TAB. DAILY Benny eHrnandez MD METFORMIN HCL 500 MG ORAL TABLET [...] Payer name Policy type / Coverage type [place] red democrat ID CELY [facility] [employer] [id number] [place] MEDICARE Medicare [id number] TREATMENT PLAN Date Name Performer Cardiology Faxed [...] Name Provider Procedure Notes S tatus SNOMED-CT: 443512643 207476 Current Medications Documented Benny Hernandez MD completed SNOMED-CT: 181028628 Smoking Cessation Counseling Benny Hernandez MD completed SNOMED-CT: 76473508 Physical Exam, Performed: Pulse Exam of Foot Benny Hernandez MD completed
[2025-01-10 10:03] LABS: Anion Gap 6 mmol/L (4-12); Blood Urea Nitrogen 36 mg/dL (7-18); Calcium 9.2 mg/dL (8.5-10.1); Carbon Dioxide 31 mmol/L (21-32); Chloride 101 mmol/L (98-108); Estimated Glomerular Filt Rate 48; Glucose 125 mg/dL (70-99); NT Pro B Type Natriuretic Pept 3841 pg/mL (0-450); Osmolality Calculated 295 mOsm/kg (285-295); Potassium 4.5 mmol/L (3.5-5.1); Sodium 138 mmol/L (136-145)
== END 2025-01-10 09:02 | disposition home or self-care (01) ==
LOC: CHSLAB 09:03
PROVIDERS: PCP Internal Medicine; Visit Provider Internal Medicine
DX: I50.9 Heart failure, unspecified (principal)
CPT/HCPCS: 36415; 80048; 83880; 85027

== ENCOUNTER 2025-01-19 12:27 | Emergency (ER) | payer MEDICARE, OTHER, SELFPAY ==
[2025-01-19] VITALS (34 sets, daily range): BP systolic 110–141; BP diastolic 45–66; PULSE 69–94; RESP 13–29; TEMP 36.5–36.7; O2SAT 87–100
--- NOTE | ~2025-01-19 | CT_ITS ---
History: Remote history of a fall PROCEDURE: CT cervical spine without intravenous contrast. COMPARISON: None TECHNIQUE: Multiple contiguous axial images of the cervical spine were performed without the administration of i ntravenous contrast. DLP: 380 mGy-cm FINDINGS: Severe degenerative disease within the cervical spine is identified, with osteophyte formation, endpl ate changes, disc space narrowing and significant facet arthropathy. Heterotopic ossification surroun ding the dens is also identified, with a crown like configuration. No acute fractures are present. Large right-sided pleural effusion is again noted, extending to the level of the right apex. Severe emphysematous change is noted within the bilateral lung apices. No soft tissue abnormality is appreciated. The airway is patent. Impression: Severe degenerative disease, without acute fracture, as detailed above. Reviewed, dictated and finalized at location A. Impression: Severe degenerative disease, without acute fracture, as detailed above.
--- NOTE | ~2025-01-19 | CT_ITS ---
History: Remote history of a fall PROCEDURE: CT head without contrast. COMPARISON: 05/14/2024 TECHNIQUE: Axial imaging of the head performed from the skull base to the vertex without IV contrast. Sagittal a nd coronal reformations obtained. DLP: 605 mGy-cm FINDINGS: The ventricles are enlarged. The dilatation of the ventricles is proportional to the degree of sulcal prominence, not uncommon in the senescent brain. Decreased attenuation is identified within the periventricular white matter, likely secondary to micr ovascular ischemic disease, in a patient of this age. There is no mass, mass effect or midline shift. There is no abnormal extra-axial fluid collection or intracranial hemorrhage. Visualized paranasal sinuses are clear. The mastoid air cells are well aerated. No acute displaced fractures within the overlying cranium. Impression: No acute intracranial hemorrhage or suspicious mass effect. Reviewed, dictated and finalized at location A. Impression: No acute intracranial hemorrhage or suspicious mass effect.
--- NOTE | ~2025-01-19 | XR_ITS ---
CHEST RADIOGRAPH CLINICAL HISTORY: shortness of breath,WEAKNESS . Remote history of a fall COMPARISON: 12/30/2024 TECHNIQUE: Single portable view of the chest. FINDINGS Redemonstration of a large right-sided pleural effusion with adjacent compressive atelectasis. Blunting of the left costophrenic sulcus is also noted, suggesting a small left-sided pleural effusio n. The remainder of the lungs are clear. Cardiomediastinal silhouette is unremarkable. IMPRESSION: Large right and small left-sided pleural effusion, similar in appearance to previous examination perf ormed 12/30/2024. Reviewed, dictated and finalized at location A. IMPRESSION: Large right and small left-sided pleural effusion, similar in appearance to pre vious examination performed 12/30/2024.
--- OUTSIDE RECORDS SUMMARY | 2025-01-19 12:31 | XMS_ITS | CONTINUITY OF CARE DOCUMENT ---
Author Name alice, lelaser Address Unknown Organization [facility] Address [address] [address] [place] [address] Phone [phone] Care Team Providers Care Installation Technician Name Role Phone Benny Hernandez MD Unavailable SHAWNEE FLYNN MD Unavailable SHAWNEE FLYNN MD Unavailable PROBLEMS Condition Status Date Provider Notes CAD/HI 1993, angioplasty, stents x2 2009 active Benny Hernandez MD Hx of Stroke - 2000 active Benny Emanuel Diabetes mellitus active Benny Hernandez MD Hypercholesterolemia active Benny Hernandez MD Carotid artery disease - S/P carotid endarectomy 2002 active Benny Hernandez MD HTN active Benny Hernandez MD ENCOUNTERS Date Type Provider Location Encounter Diag nosis 6 - 9 In-person encounter Office Visit Benny Hernandez MD [place] [facility] CAD/HI 1993, angioplasty, stents x2 2009Hx of Stroke [...] Payer name Policy type / Coverage type [place] red alliance party ID CELY [facility] [employer] [id number] [place] MEDICARE Medicare [id number] TREATMENT PLAN Date Name Performer Cardiology Faxed [...] Name Provider Procedure Notes S tatus SNOMED-CT: 378990475 082890 Current Medications Documented Benny Hernandez MD completed SNOMED-CT: 481126172 Smoking Cessation Counseling Benny Hernandez MD completed SNOMED-CT: 43682297 Physical Exam, Performed: Pulse Exam of Foot Benny Hernandez MD completed
--- NOTE | 2025-01-19 12:42 | ED_ITS ---
HPI - Fall General Chief Complaint: Weakness Stated Complaint: fall Time Seen by Provider: 01/19/25 12:29 Source: patient and EMS Mode of arrival: ambulatory Limitations: no limitations History of Present Illness HPI Narrative: 89-year-old male, ex-smoker with a history of hypertension, dyslipidemia, diabetes mellitus, CKD, AAA, CAD status post stents in 2008, CHF, recurrent right pleural effusion, right carotid endarterectomy,CVA, arthritis status post knee replacement, chronic arthralgia presents to the ED with -- accidental fall yesterday. Patient uses a cane for walking. No loss of consciousness. No headache or vomiting. -- Forehead contusion No other injuries noted. No neck pain or back pain patient is on aspirin and Plavix. MD complaint: fall Onset (ago): day(s) ( fell yesterday) Fall from: standing Fall witnessed: no Place fall occurred: home Loss of consciousness: none Prolonged down time: yes Symptoms prior to fall: none Location of injury: head Associated symptoms (after fall): denies Related Data Home Medications ?Medication ?Instructions ?Recorded ?Confirmed ?Last Taken ?Type allopurinol 100 mg tablet 200 mg PO DAILY 01/08/20 12/31/24 09/15/24 History aspirin 81 mg tablet,delayed 81 mg PO DAILY 01/08/20 12/31/24 09/10/24 History release (Adult Low Dose Aspirin) carvedilol 12.5 mg tablet 12.5 mg PO BID 01/08/20 12/31/24 09/15/24 History clopidogrel 75 mg tablet (Plavix) 75 mg PO DAILY 01/08/20 12/31/24 09/10/24 History enalapril maleate 20 mg tablet 20 mg PO BID 01/08/20 12/31/24 09/15/24 History metformin 500 mg tablet 500 mg PO DAILY 01/08/20 12/31/24 09/14/24 History pravastatin 80 mg tablet 80 mg PO DAILY 01/08/20 12/31/24 09/11/24 History tamsulosin 0.4 mg capsule 0.4 mg PO DAILY 01/08/20 12/31/24 09/14/24 History temazepam 15 mg capsule 15 mg PO HS PRN Sleep 01/08/20 12/31/24 09/14/24 History acetaminophen 650 mg 650 mg PO Q12H 07/29/24 12/31/24 Unknown History tablet,extended release (Tylenol Arthritis Pain) cinnamon bark 500 mg capsule 500 mg PO DAILY 07/29/24 12/31/24 09/11/24 History (Cinnamon) hydrocodone 5 mg-acetaminophen 325 1 tablet PO QHS PRN pain 07/29/24 12/31/24 09/11/24 History mg tablet Bacillus coagulans 10 billion cell 10 cell PO DAILY PRN supplement 09/03/24 12/31/24 09/11/24 History capsule,delayed release (Probiotic (B. coagulans)) multivitamin with minerals-folic 1 tablet PO DAILY 09/03/24 12/31/24 09/11/24 History acid 80 mcg chewable tablet (Centrum Adult 50 Plus) omega 5-bpn-cwc-fish oil 1,000 mg 1 cap PO DAILY 09/03/24 12/31/24 09/11/24 History (120 mg-180 mg) capsule (Fish Oil) Allergies Allergy/AdvReac Type Severity Reaction Status Date / Time tramadol Allergy Mild Rash Verified 01/19/25 12:33 Review of Systems 2 Review of Systems: All systems reviewed & are unremarkable except as noted in HPI and below ROS unobtainable: Yes unobtainable due to endotracheal tube Constitutional: Constitutional: Reports as per HPI, Reports no additional constitutional complaints and Reports weakness Eyes: Eyes: Reports as per HPI and Reports no additional eye complaints ENT: Reports system reviewed and no additional complaints, except as documented and Reports as per HPI Cardiovascular: Cardiovascular: Reports as per HPI and Reports no additional cardiovascular complaints Respiratory: Respiratory: Reports as per HPI, Reports no additional respiratory complaints, Reports cough and Reports dyspnea Gastrointestinal: Gastrointestinal: Reports as per HPI and Reports no additional gastrointestinal complaints Genitourinary: Genitourinary: Reports no additional male genitourinary complaints and Reports as per HPI Musculoskeletal: Musculoskeletal: Reports no additional musculoskeletal complaints, Reports as per HPI and Reports arthralgias Integumentary/Breasts: Skin/Breast: Reports system reviewed and no additional complaints, except as docu and Reports as per HPI Comments: Forehead contusion Neurologic: Reports system reviewed and no additional complaints, except as documented and Reports as per HPI Psychiatric: Psychiatric: Reports no additional psychiatric complaints and Reports as per HPI Endocrine: Endocrine: Reports no additional endocrine complaints and Reports as per HPI Hematologic/Lymphatic: Hematologic/Lymphatic: Reports no additional hematologic/lymphatic complaints and Reports as per HPI Allergic/Immunologic: Allergic/Immunologic: Reports no additional allergic/immunologic complaints and Reports as per HPI [facility] Past Medical History Medical History Diabetic ulcer of left foot AAA (abdominal aortic aneurysm) 3.3 cm CAD (coronary artery disease) History of IA (myocardial infarction) Hyperlipidemia Gout CVA (cerebral vascular accident) Diabetes Hypertension Surgical History Surgical History H/O inguinal hernia repair 09/15/24 Laparoscopic left inguinal hernia repair with mesh, da Francois assisted Dr. eBnnett History of coronary artery stent placement History of right inguinal hernia repair History of left knee replacement H/O cataract extraction History of carotid endarterectomy History of knee surgery History of cholecystectomy Family History Family History Father Parkinsons disease Mother Cancer Social History Social History Social History: lives alone, . Sons live nearby, check on him regularly. No living will or designated MPOA Smoking packs per day: 1 Smoking cigarettes per day: 20.0 Years smoked: 40 Smoking pack-years: 40.00 Smoking status: Former smoker Tobacco type: cigarettes Second hand tobacco smoke exposure: No Smoking end date: 09/08/92 Alcohol intake: never Substance use: never Substance use type: does not use Do You Feel Safe in your Home?: Yes Lack of Transportation: No Lack of Food: Never True Current Housing: I Have Housing Concerned About Future Housing: No Difficulty Paying Gas/Electric Bills: No Difficulty Paying for Meds: No Currently Unemployed: No Education: Don't Know Difficulty w/ Childcare or Family Care: No Living arrangements: alone Occupation/Education: retired Gender identity (if verbalized by the patient): Male Spiritual care concerns: No Exam 2 Narrative: vitals are stable. Const: General: no acute distress Orientation/consciousness: patient oriented x3 Limitations: no limitations HENMT: Head: normal to inspection Head images: 1. Forehead contusion 2. nose bridge contusion Ears: external ears normal, TM's normal bilaterally and EAC's normal F sugar/Nose/Sinus: Normal external nose present Face and sinus: normal facial exam Mouth: Yes Normal oral and palatal mucosa present Throat: posterior oropharynx normal Eyes: Conjunctivae: conjunctivae normal Pupils: Equal, round and reactive pupils present EOM: EOMs intact bilaterally Direct Ophthalmoscopy: no photophobia Neck: Neck: normal visual inspection, no lymphadenopathy and no meningeal signs Chest: Chest palpation & inspection: normal inspection of the chest Resp: Effort & Inspection: normal respiratory effort Auscultation: clear to auscultation bilaterally Cardio: Rate: regular rate Rhythm: regular rhythm GI: Auscultation: normal bowel sounds Rectal Exam: normal sphincter tone Other: patient has bloody stool. Stool guaiac is pending : General: Yes no CVA tenderness Back/Spine/Pelvis: Back: no CVA tenderness Skin: General skin exam: normal color Other: forehead and nose bridge contusion Neuro: General: patient oriented x3, moves all extremities, no meningeal signs, no focal motor deficits and CN's II-XI intact bilaterally Cranial nerves: Yes Nystagmus not present Speech: normal speech Extrem: General: normal to inspection and no clubbing, cyanosis or edema O ther: left sole callosity over the head of the 1st metatarsal Psych: Mental Status: mental status grossly normal Affect: normal affect Attitude: cooperative Course Course Emergency Course: accidental fall/ head injury-- CT of the head did not show any acute findings. Acute anemia with an H&H of 7.3/22.6 which is 13.5/41.6 on 01/10/2025. GI bleeding.Stool is frankly bloody. Patient is on aspirin and Plavix for 16 years after his stents in 2008 compensated CHF/ recurrent right pleural effusion for the past 6 months. currently on Lasix 20 a COPD/ emphysema/ questionable asbestos exposure with pleural Plaques . oxygen saturation is 88-90%. CKD- BUN/ creatinine of 81/1.20 up from his baseline of 36/1.4. Vital Signs Vital signs: Vital Signs Pulse Rate 83 01/19/25 12:28 Respiratory Rate 20 01/19/25 12:28 Pulse Oximetry 87 L 01/19/25 12:28 Temperature 36.7 C 01/19/25 12:29 Pulse Rate 74 01/19/25 14:16 Respiratory Rate 21 H 01/19/25 14:16 Blood Pressure 138/53 L 01/19/25 14:16 Pulse Oximetry 92 01/19/25 14:16 Oxygen Delivery Room Air 01/19/25 12:29 MDM - Fall MDM Narrative Medical decision making narrative: upper GI bleeding acute blood loss anemia compensated CHF CKD Differential Diagnosis Differential diagnosis: Likely syncope Medical Records Attestation: I reviewed the patient's medical records. Lab Data Attestation: I reviewed the patient's lab results. 01/19/25 13:24 01/19/25 13:24 Labs: Lab Results 01/19/25 01/19/25 01/19/25 Range/Units 13:24 13:57 14:15 WBC 7.7 (4.8-10.8) K/mm3 RBC 2.22 L (4.70-6.10) M/mm3 Hgb 7.3 L (12.4-15.3) g/dL Hct 22.6 L (37.0-46.0) % MCV 101.8 (78.0-102.0) fL MCH 32.9 H (27.0-31.0) pg MCHC 32.3 (32-36) g/dL RDW 16.4 H (11.6-14.4) % Plt Count 195 (150-420) K/mm3 MPV 9.2 (8.7-11.0) fl Immature Gran % (Auto) 0.5 H (0.0-0.0) % Neut % (Auto) 83.1 H (50.0-70.0) % Lymph % (Auto) 10.6 L (18.0-42.0) % Marshall % (Auto) 5.7 (2.0-11.0) % Eos % (Auto) 0.1 L (1.0-6.0) % Baso % (Auto) 0.0 (0.0-1.0) % Lymph # (Auto) 0.82 L (1.10-4.50) K/mm3 Marshall # (Auto) 0.44 (0.10-0.90) K/mm3 Eos # (Auto) 0.01 L (0.02-0.50) K/mm3 Baso # (Auto) 0.00 (0.00-0.10) K/mm3 Abs Immat Gran (auto) 0.04 H (0.00-0.00) K/mm3 Absolute Neuts (auto) 6.42 (1.70-7.20) K/mm3 Absolute Nucleated RBC 0.00 (0.00-0.00) K/mm3 Nucleated RBC % 0.0 (0-0.0) % PT 13.0 H (9.50-12.1) Seconds INR 1.2 APTT 27.2 (23.9-30.70) Sec Sodium 138 (137-145) mmol/L Potassium 4.8 (3.4-5.0) mmol/L Chloride 105 (98-107) mmol/L Carbon Dioxide 31 H (22-30) mmol/L Anion Gap 2 L (4-12) mmol/L BUN 81 H D (9-20) mg/dL Creatinine 1.20 (0.7-1.3) mg/dL Estim Creat Clear Calc 41 ml/min Estimated GFR 57 L (59 - ) Glucose 134 H (65-110) mg/dL Calculated Osmolality 312 H (285-295) mOsm/kg Uric Acid 5.2 (3.5-8.5) mg/dL Calcium 8.6 (8.4-10.2) mg/dL Magnesium 2.2 (1.6-2.3) mg/dL Total Bilirubin 0.5 (0.2-1.3) mg/dL AST 21 (17-59) U/L ALT 13 (6-50) U/L Alkaline Phosphatase 43 (38-126) U/L Troponin I 0.018 (0.000-0.034) ng/mL NT-Pro-B Natriuret Pep 2490 H (19.9-100) pg/mL Total Protein 5.2 L (6.3-8.2) g/dL Albumin 2.9 L (3.5-5.1) g/dL Stool Occult Blood Positive A (Negative) Discharge Plan Discharge Clinical Impression: Acute blood loss anemia, Acute upper GI bleed, Compensated heart failure COPD (chronic obstructive pulmonary disease) with emphysema Qualifiers: Emphysema type: unspecified Qualified Code(s): J43.9 - Emphysema, unspecified Patient Disposition: Still a Patient Condition: Stable Additional Instructions: transfer patient to [facility] in [facility]. Patient has been accepted by Patient Language: Croatian Prescriptions: No Action metformin 500 mg Tablet 500 mg PO DAILY carvedilol 12.5 mg Tablet 12.5 mg PO BID enalapril maleate 20 mg Tablet 20 mg PO BID clopidogrel [Plavix] 75 mg Tablet 75 mg PO DAILY Patient Comments: Pt to hold it a week prior last dose 09/07/24 allopurinol 100 mg Tablet 200 mg PO DAILY aspirin [Adult Low Dose Aspirin] 81 mg Tablet,Delayed Release (Dr/Ec) 81 mg PO DAILY Patient Comments: OK to cont per Dr Bennett pravastatin 80 mg Tablet 80 mg PO DAILY temazepam 15 mg Capsule 15 mg PO HS PRN (Reason: Sleep) tamsulosin 0.4 mg Capsule 0.4 mg PO DAILY cinnamon bark [Cinnamon] 500 mg capsule 500 mg PO DAILY acetaminophen [Tylenol Arthritis Pain] 650 mg tablet extended release 650 mg PO Q12H hydrocodone-acetaminophen 5-325 mg tablet 1 tablet PO QHS PRN (Reason: pain) furosemide 20 mg tablet 20 mg PO QAM 21 Days Qty: 21 0RF omega 2-toq-lpt-fish oil [Fish Oil] 1,000 (120-180) mg capsule 1 cap PO DAILY Centrum Adult 50 Plus 80 mcg tablet,chewable 1 tablet PO DAILY Probiotic (B. coagulans) 10 billion cell capsule,delayed release(DR/EC) 10 cell PO DAILY PRN (Reason: supplement) doxycycline hyclate 100 mg capsule 100 mg PO DAILY Qty: 30 3RF Follow-up/Referrals: UNKNOWN,DOCTOR [Non-Staff] - Time of Disposition: 14:46
--- NOTE | 2025-01-19 13:12 | ECG_ITS ---
Test Date: 2025-01-19 13:18:50 Measurements Intervals [place] Rate: 75 P: 77 GA: 167 QRS: 92 QRSD: 150 T: -46 QT: 401 QTc: 451 Interpretive Statements SINUS RHYTHM WITH FREQUENT VENTRICULAR PREMATURE COMPLEXES RIGHT BUNDLE BRANCH BLOCK [120+ ms QRS DURATION, UPRIGHT V1, 40+ ms S IN I/aVL/V4/V5/V6] ST DEPRESSION, CONSIDER SUBENDOCARDIAL INJURY [0.1+ mV ST DEPRESSION] Compared to ECG 12/30/2024 11:51:30 Ventricular premature complex(es) now present ST (T wave) deviation now present Sinus bradycardia no longer present Left posterior fascicular block no longer present Electronically Signed On 01-20-2025 15:07:45 CDT by Jacobo Cadena M.D.
--- OUTSIDE RECORDS SUMMARY | 2025-01-19 13:15 | XMS_ITS | CONTINUITY OF CARE DOCUMENT ---
Author Name alice, lelaser Address Unknown Organization [facility] Address [address] [place] [address] Phone [phone] Care Team Providers Care Licensed Mortgage Loan Officer Name Role Phone Benny Hernandez MD Unavailable [phone] SHAWNEE FLYNN MD Unavailable SHAWNEE FLYNN MD Unavailable [phone] PROBLEMS Condition Status Date Provider Notes CAD/OK 1993, angioplasty, stents x2 2009 active Benny Hernandez MD Hx of Stroke - 2000 active Benny Emanuel Diabetes mellitus active Benny Hernandez MD Hypercholesterolemia active Benny Hernandez MD Carotid artery disease - S/P carotid endarectomy 2002 active Benny Hernandez MD HTN active Benny Hernandez MD ENCOUNTERS Date Type Provider Location Encounter Diag nosis 6 - 9 In-person encounter Office Visit Benny Hernandez MD [facility] CAD/OK 1993, angioplasty, stents x2 2009Hx of Stroke [...] Payer name Policy type / Coverage type [place] red green party ID [facility] 10sec [id number] [place] [employer] Medicare [id number] TREATMENT PLAN Date Name Performer Cardiology Faxed [...] Name Provider Procedure Notes S tatus SNOMED-CT: 135094352 602589 Current Medications Documented Benny Hernandez MD completed SNOMED-CT: 821732612 Smoking Cessation Counseling Benny Hernandez MD completed SNOMED-CT: 64511800 Physical Exam, Performed: Pulse Exam of Foot Benny Hernandez MD completed
[2025-01-19 13:28] LABS: Eosinophils Absolute Auto 0.01 K/mm3 (0.02-0.50); Eosinophils Percent Auto 0.1 % (1.0-6.0); Hematocrit 22.6 % (37.0-46.0); Hemoglobin 7.3 g/dL (12.4-15.3); Immature Granulocyte Absolute 0.04 K/mm3 (0.00-0.00); Immature Granulocyte Percent A 0.5 % (0.0-0.0); Lymphocytes Absolute Auto 0.82 K/mm3 (1.10-4.50); Lymphocytes Percent Auto 10.6 % (18.0-42.0); Mean Corpuscular HGB Conc 32.3 g/dL (32-36); Mean Corpuscular Hemoglobin 32.9 pg (27.0-31.0); Mean Corpuscular Volume 101.8 fL (78.0-102.0); Mean Platelet Volume 9.2 fl (8.7-11.0); Monocytes Absolute Auto 0.44 K/mm3 (0.10-0.90); Monocytes Percent Auto 5.7 % (2.0-11.0); Neutrophils Absolute Auto 6.42 K/mm3 (1.70-7.20); Neutrophils Percent Auto 83.1 % (50.0-70.0); Platelet Count Result 195 K/mm3 (150-420); Red Blood Count 2.22 M/mm3 (4.70-6.10); Red Cell Distribution Width 16.4 % (11.6-14.4); White Blood Count 7.7 K/mm3 (4.8-10.8)
[2025-01-19 13:40] LABS: Alanine Aminotransferase 13 U/L (6-50); Albumin Level 2.9 g/dL (3.5-5.1); Alkaline Phosphatase 43 U/L (38-126); Anion Gap 2 mmol/L (4-12); Aspartate Amino Transferase 21 U/L (17-59); Bilirubin,Total 0.5 mg/dL (0.2-1.3); Blood Urea Nitrogen 81 mg/dL (9-20); Calcium 8.6 mg/dL (8.4-10.2); Carbon Dioxide 31 mmol/L (22-30); Chloride 105 mmol/L (98-107); Estimated CRCL calculation 41 ml/min; Estimated Glomerular Filt Rate 57; Glucose 134 mg/dL (65-110); Osmolality Calculated 312 mOsm/kg (285-295); Potassium 4.8 mmol/L (3.4-5.0); Sodium 138 mmol/L (137-145); Total Protein 5.2 g/dL (6.3-8.2)
[2025-01-19 13:41] LABS: Magnesium 2.2 mg/dL (1.6-2.3); Uric Acid 5.2 mg/dL (3.5-8.5)
[2025-01-19 13:51] LABS: NT Pro B Type Natriuretic Pept 2490 pg/mL (19.9-100)
[2025-01-19 13:53] LABS: Troponin I 0.018 ng/mL (0.000-0.034)
[2025-01-19 14:09] LABS: INR 1.2; Partial Thromboplastin Time 27.2 Sec (23.9-30.70)
[2025-01-19 14:22] LABS: Occult Blood Positive (Negative)
[2025-01-19] MEDS: PANTOPRAZOLE SODIUM IV 40 MG VIAL IV PUSH (14:29)
== END 2025-01-19 16:15 | disposition short-term general hospital (02) ==
PROVIDERS: Emergency Provider Internal Medicine Critical Care Medicine; PCP Internal Medicine
DX: J43.9 Emphysema, unspecified (principal); D50.0 Iron deficiency anemia secondary to blood loss (chronic); K92.2 Gastrointestinal hemorrhage, unspecified; I13.0 Hypertensive heart and chronic kidney disease with heart failure and stage 1 through stage 4 chronic kidney disease, or unspecified chronic kidney disease; E11.22 Type 2 diabetes mellitus with diabetic chronic kidney disease; N18.9 Chronic kidney disease, unspecified; I50.9 Heart failure, unspecified; E78.5 Hyperlipidemia, unspecified; I25.10 Atherosclerotic heart disease of native coronary artery without angina pectoris; Z79.82 Long term (current) use of aspirin; Z79.01 Long term (current) use of anticoagulants; Z87.891 Personal history of nicotine dependence; Z86.73 Personal history of transient ischemic attack (TIA), and cerebral infarction without residual deficits; W19.XXXA Unspecified fall, initial encounter
CPT/HCPCS: 36415; 70450; 71045; 72125; 80053; 82272; 83735; 83880; 84484; 84550; 85025; 85610; 85730; 93005; 96374; 99285; J2470

== ENCOUNTER 2025-01-25 14:57 | Inpatient (IN) | payer MEDICARE, OTHER, SELFPAY ==
--- OUTSIDE RECORDS SUMMARY | 2025-01-25 15:01 | XMS_ITS | CONTINUITY OF CARE DOCUMENT ---
Author Name alice, lealser Address Unknown Organization [facility] Address [address] [place] [address] Phone [phone] Care Team Providers Care Ordnance Engineer Name Role Phone Benny Hernandez MD Unavailable SHAWNEE FLYNN MD Unavailable SHAWNEE FLYNN MD Unavailable PROBLEMS Condition Status Date Provider Notes CAD/[place] 1993, angioplasty, stents x2 2009 active Benny Hernandez MD Hx of Stroke - 2000 active Benny Emanuel Diabetes mellitus active Benny Hernandez MD Hypercholesterolemia active Benny Hernandez MD Carotid artery disease - S/P carotid endarectomy 2002 active Benny Hernandez MD HTN active Benny Hernandez MD ENCOUNTERS Date Type Provider Location Encounter Diag nosis 6 - 9 In-person encounter Office Visit Benny Hernandez MD [place] CAD/[place] 1993, angioplasty, stents x2 2009Hx of Stroke [...] Payer name Policy type / Coverage type [place] red constitution party ID [facility]ELY [facility] [employer] [id number] [place] MEDIC[employer] Medicare [id number] TREATMENT PLAN Date Name Performer Cardiology Faxed [...] 08/08 0825:On Metformin which he continues. Benny Hernanedz MD Date Name STR - Adenosine HISTORY OF PROCEDURES Procedure Date Procedure Name Provider Procedure Notes S tatus SNOMED-CT: 268107065 [id number] Current Medications Documented Benny Hernandez MD completed SNOMED-CT: 741009959 Smoking Cessation Counseling Benny Hernandez MD completed SNOMED-CT: 25951900 Physical Exam, Performed: Pulse Exam of Foot Benny Hernandez MD completed
[2025-01-25 15:21] VITALS: BMI 18.7
[2025-01-25 16:00] VITALS: BP 138/74; PULSE 78; RESP 20; TEMP 36.6; O2SAT 94
--- NOTE | 2025-01-25 16:59 | ADMGEN ---
1520 This patient, Tom Fontana, was admitted to 2nd Floor Room 209-1. Patient/family oriented to hospital policies and general routines including ID bracelet, bed and alarms, visiting hours, pain management, procedures, bathroom and other care routines, personal items, smoking policy, room service/diet, and visiting hours. Information on how to activate the Rapid Response Team has been discussed. Patient/Family are encouraged to report perceived risks to care and to ask questions if they do not understand what they are told or what they should do.
[2025-01-25 17:08] VITALS: PULSE 74; RESP 18; O2SAT 88
[2025-01-25 18:26] LABS: Add Urine Microscopic? YES; Appearance Urine Sl Cloudy (Clear); Bilirubin Urine Negative (Negative); Blood Urine 3+ (Negative); Color Urine Light Yellow (Yellow); Glucose Urine UA Negative (Negative); Ketones Urine Negative (Negative); Leukocyte Esterase Ur 1+ LEU/UL (Negative); Nitrate Urine Negative (Negative); Protein Urine Trace (Negative); Urobilinogen Urine 0.2 mg/dL (0.2-1.0); pH Urine 5.5 (5.0-8.0)
[2025-01-25 18:42] LABS: Bacteria Urine Trace /hpf; RBC Urine >75 /hpf (0-2)
--- NOTE | 2025-01-25 18:44 | PC.NURSE ---
multi attempts to to elayne meds. can not get any words in. not sure if wants to take them. was given blocks and choked on them . did finally get that blocks were K+ tabs. explained these are not that big showed meds. still not sure if if he will take. will let me know later if he will.
[2025-01-25 20:00] VITALS: PULSE 76; RESP 18; O2SAT 91
--- NOTE | 2025-01-25 20:38 | PC.NURSE ---
Selin Waldron, CRUSHER TENDER/Hospitalist, notified of [id number]'s UA results. No new orders at this time.
[2025-01-25] MEDS: TEMAZEPAM (*CRX) 15 MG CAPSULE PO (20:56)
[2025-01-25] MEDS: PANTOPRAZOLE 40 MG TABLET PO (21:01)
[2025-01-25] MEDS: PRAVASTATIN SODIUM 20 MG TABLET 80 MG PO (21:01)
[2025-01-25] MEDS: ACETAMINOPHEN 325 MG TABLET 650 MG PO (21:04)
--- NOTE | 2025-01-25 21:43 | PC.NURSE ---
Selin Waldron, ENGLISH FACULTY MEMBER/Hospitalist, notified that patient's Coreg was held due to low pulse and blood pressure.
[2025-01-26] VITALS: BP 93/36; PULSE 65; RESP 18; TEMP 36.7; O2SAT 99
[2025-01-26 07:50] VITALS: BP 138/49; PULSE 66; RESP 14; TEMP 35.9; O2SAT 99
[2025-01-26 08:31] VITALS: PULSE 78; RESP 16; O2SAT 99
[2025-01-26] MEDS: PANTOPRAZOLE 40 MG TABLET PO ×2 (09:07→21:28)
[2025-01-26] MEDS: TAMSULOSIN HCL 0.4 MG CAPSULE PO (09:07)
[2025-01-26] MEDS: OMEGA 3 POLYUNSAT FATTY ACIDS 1 GM CAP PO (09:07)
[2025-01-26] MEDS: ACETAMINOPHEN 325 MG TABLET 650 MG PO ×2 (09:07→21:28)
[2025-01-26 09:08] VITALS: PULSE 66
[2025-01-26] MEDS: allopurinoL 100 MG TABLET 200 MG PO (09:08)
[2025-01-26] MEDS: metFORMIN HCL 500 MG TABLET PO ×2 (09:08→17:53)
[2025-01-26] MEDS: carvediloL 12.5 MG TABLET PO (09:08)
[2025-01-26] MEDS: ASPIRIN 81 MG ENTERIC TABLET PO (09:08)
[2025-01-26] MEDS: CLOPIDOGREL BISULFATE 75 MG TABLET PO (09:09)
[2025-01-26 10:24] LABS: Hematocrit 29.4 % (37.0-46.0); Mean Corpuscular HGB Conc 30.6 g/dL (32-36); Mean Corpuscular Hemoglobin 32.5 pg (27.0-31.0); Mean Corpuscular Volume 106.1 fL (78.0-102.0); Mean Platelet Volume 9.4 fl (8.7-11.0); Platelet Count Result 189 K/mm3 (150-420); Red Blood Count 2.77 M/mm3 (4.70-6.10); Red Cell Distribution Width 18.6 % (11.6-14.4); White Blood Count 5.3 K/mm3 (4.8-10.8)
[2025-01-26 10:36] LABS: Alanine Aminotransferase 16 U/L (6-50); Albumin Level 3.2 g/dL (3.5-5.1); Alkaline Phosphatase 57 U/L (38-126); Anion Gap 0 mmol/L (4-12); Aspartate Amino Transferase 25 U/L (17-59); Bilirubin,Total 0.8 mg/dL (0.2-1.3); Blood Urea Nitrogen 36 mg/dL (9-20); Calcium 8.6 mg/dL (8.4-10.2); Carbon Dioxide 37 mmol/L (22-30); Chloride 101 mmol/L (98-107); Estimated CRCL calculation 27 ml/min; Estimated Glomerular Filt Rate 44; Glucose 170 mg/dL (65-110); Osmolality Calculated 298 mOsm/kg (285-295); Potassium 4.5 mmol/L (3.4-5.0); Sodium 138 mmol/L (137-145); Total Protein 5.8 g/dL (6.3-8.2)
--- NOTE | 2025-01-26 10:48 | P.HP_ITS ---
H&P: HPI History of Present Illness Date/Time: 01/26/25 10:48 Chief Complaint: Physically deconditioned/SOB Narrative: patient is an 81-year-old male who was a direct admit from [facility] for [facility] swing bed program following extended hospitalization and physically deconditioned state. patient was treated at [facility] for GI bleed and heart failure. Patient reports past medical history diabetic foot ulcer, AAA, CAD, mi, HLD, gout, CVA, diabetes, and hypertension. during his hospitalization patient was found to an duodenal ulcer was continued on PPI b.i.d. and to follow-up with GI hemoglobin stable at time of discharge and his Plavix resumed. during his hospitalization patient had acute respiratory failure with hypoxia requiring new 2 L of supplemental oxygen due to his Bilateral effusions likely secondary to congestive heart failure and severe aortic stenosis, he also had urinary retention and has a Prado catheter placed does follow with a urologist for his BPH. Patient on assessment in no acute distress on 2 L nasal cannula of supplemental oxygen denied any chest pain, nausea, vomiting did endorse shortness breath and worse with exertion. patient will continue admission for [facility] swing bed for rehab to increase strength and endurance. Review of Systems Review of Systems: All systems reviewed & are unremarkable except as noted in HPI and below PMFSH Past Medical History Medical History (Updated 01/26/25 @ 11:11 by Leyla Rebolledo APRN) BPH (benign prostatic hyperplasia) Diabetic ulcer of left foot AAA (abdominal aortic aneurysm) 3.3 cm CAD (coronary artery disease) History of ID (myocardial infarction) Hyperlipidemia Gout CVA (cerebral vascular accident) Diabetes Hypertension Surgical History Surgical History H/O inguinal hernia repair 09/15/24 Laparoscopic left inguinal hernia repair with mesh, da Francois assisted Dr. Bennett History of coronary artery stent placement History of right inguinal hernia repair History of left knee replacement H/O cataract extraction History of carotid endarterectomy History of knee surgery History of cholecystectomy Family History Family History Father Parkinsons disease Mother Cancer Social History Social History Social History: lives alone, . Sons live nearby, check on him regularly. No living will or designated MPOA Smoking packs per day: 1 Smoking cigarettes per day: 20.0 Years smoked: 40 Smoking pack-years: 40.00 Smoking status: Former smoker Tobacco type: cigarettes Second hand tobacco smoke exposure: Yes Smoking end date: 08/25/89 Alcohol intake: former Substance use: never Substance use type: does not use Do You Feel Safe in your Home?: Yes Lack of Transportation: No Lack of Food: Never True Current Housing: I Have Housing Concerned About Future Housing: No Difficulty Paying Gas/Electric Bills: No Difficulty Paying for Meds: Decline to Answer Currently Unemployed: No Education: Decline to Answer Difficulty w/ Childcare or Family Care: Decline to Answer Living arrangements: alone Occupation/Education: retired Gender identity (if verbalized by the patient): Male Spiritual care concerns: No Meds Home Medications and Allergies Home Medications ?Medication ?Instructions ?Recorded ?Confirmed ?Type allopurinol 100 mg tablet 200 mg PO DAILY 01/08/20 01/25/25 History aspirin 81 mg tablet,delayed 81 mg PO DAILY 01/08/20 01/25/25 History release (Adult Low Dose Aspirin) carvedilol 12.5 mg tablet 12.5 mg PO BID 01/08/20 01/25/25 History clopidogrel 75 mg tablet (Plavix) 75 mg PO DAILY 01/08/20 01/25/25 History enalapril maleate 20 mg tablet 20 mg PO BID 01/08/20 01/25/25 History metformin 500 mg tablet 500 mg PO BID 01/08/20 01/25/25 History pravastatin 80 mg tablet 80 mg PO HS 01/08/20 01/25/25 History tamsulosin 0.4 mg capsule 0.4 mg PO DAILY 01/08/20 01/25/25 History temazepam 15 mg capsule 15 mg PO HS PRN Sleep 01/08/20 01/25/25 History acetaminophen 650 mg 650 mg PO Q12H 07/29/24 01/25/25 History tablet,extended release (Tylenol Arthritis Pain) cinnamon bark 500 mg capsule 1,000 mg PO BID 07/29/24 01/25/25 History (Cinnamon) hydrocodone 5 mg-acetaminophen 325 1 tablet PO Q6H PRN pain 07/29/24 01/25/25 History mg tablet omega 3-siv-gjn-fish oil 1,000 mg 1 cap PO DAILY 09/03/24 01/25/25 History (120 mg-180 mg) capsule (Fish Oil) pantoprazole 40 mg granules 40 mg PO BID 01/25/25 01/25/25 History delayed-release for susp in packet (Protonix) Allergies Allergy/AdvReac Type Severity Reaction Status Date / Time tramadol Allergy Mild Rash Verified 01/19/25 12:33 Vital Signs Vital Signs - 24 hr 01/25/25 16:00 01/25/25 17:08 01/25/25 20:00 Temperature 98 F Pulse Rate 78 74 76 Respiratory Rate 20 18 18 Blood Pressure 138/74 Pulse Oximetry 94 88 L 91 Oxygen Delivery Nasal Cannula Nasal Cannula Nasal Cannula Oxygen Flow Rate 2 2 2 01/26/25 00:00 01/26/25 07:50 01/26/25 08:31 Temperature 98.1 F 96.7 F L Pulse Rate 65 66 78 Respiratory Rate 18 14 16 Blood Pressure 93/36 L 138/49 L Pulse Oximetry 99 99 99 Oxygen Delivery Nasal Cannula Nasal Cannula Nasal Cannula Oxygen Flow Rate 2 2 2 01/26/25 09:08 Temperature Pulse Rate 66 Respiratory Rate Blood Pressure Pulse Oximetry Oxygen Delivery Oxygen Flow Rate Exam Const: General: comfortable and no acute distress Other: Frail elderly gentlemen with family at bedside HENMT: Ears: TM's normal bilaterally Face/Nose/Sinus: Normal nares present Mouth: Yes moist mucous membranes Eyes: General: appearance normal, both eyes and all related structures Sclera: sclerae normal Pupils: Equal, round and reactive pupils present Neck: Neck: supple and no JVD Resp: Auscultation: diminished lung sounds (Throughout) bilateral Other: on 2L supplemetal oxygen Cardio: Rate: regular rate Rhythm: regular rhythm GI: GI Palp: Yes Soft to palpation Auscultation: normal bowel sounds : General: Yes bladder normal to palpation Urinary Catheter: Urinary Catheter: patent and draining, urine dark and other ( sedimentation) Skin: General skin exam: normal color and no rashes or lesions noted Other: Small healing ulceration to the ball of the Left foot Neuro: Speech: normal speech Motor exam (neuro): Abnormal motor strength present Other: Unsteady gait Extrem: General: normal to inspection Psych: Mental Status: mental status grossly normal Affect: normal affect H&P: Results Labs Labs: Short CBC 01/26/25 Range/Units 10:18 WBC 5.3 (4.8-10.8) K/mm3 Hgb 9.0 L (12.4-15.3) g/dL Hct 29.4 L (37.0-46.0) % Plt Count 189 (150-420) K/mm3 BMP 01/26/25 10:18 Sodium 138 Potassium 4.5 Chloride 101 Carbon Dioxide 37 H BUN 36 H D Creatinine 1.51 H Glucose 170 H Calcium 8.6 Liver Function 01/26/25 Range/Units 10:18 Total Bilirubin 0.8 (0.2-1.3) mg/dL AST 25 (17-59) U/L ALT 16 (6-50) U/L Alkaline Phosphatase 57 (38-126) U/L Albumin 3.2 L (3.5-5.1) g/dL Urine 01/25/25 Range/Units 18:17 Urine Color Light yellow (Yellow) Urine Appearance Sl cloudy A (Clear) Urine pH 5.5 (5.0-8.0) Ur Specific [place] 1.010 (1.010-1.020) Urine Protein Trace H (Negative) Urine Glucose (UA) Negative (Negative) Assessment and Plan Assessment and plan (1) Physical debility: Code(s): R53.81 - Other malaise Status: Acute Assessment and Plan: swing bed rehab after deconditioned state from hospitalization * PT/OT * encourage mobility and activity with staff * up at a bed with all meals (2) Hypertension: Code(s): I10 - Essential (primary) hypertension Status: Acute Assessment and Plan: * resume patient's carvedilol and Vasotec * BP per unit protocol (3) CAD (coronary artery disease): Code(s): I25.10 - Atherosclerotic heart disease of [place] coronary artery without angina pectoris Status: Acute Assessment and Plan: patient with history of ID and stent placement * resume patient's statin and ASA, Plavix (4) Hyperlipidemia: Code(s): E78.5 - Hyperlipidemia, unspecified Status: Acute Assessment and Plan: * continue statin (5) Diabetes: Qualifiers: Diabetes mellitus type: type 2 Diabetes mellitus group home insulin use: without lobsterman use Diabetes mellitus complication status: with neurologic complications Diabetes mellitus complication detail: with polyneuropathy Qualified Code(s): 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thy Code(s): E11.9 - Type 2 diabetes mellitus without complications Status: Acute Assessment and Plan: * resume patient's metformin * Accu-Cheks a.c. HS * low-dose SSI * hypoglycemic protocol * diabetic diet (6) Diabetic ulcer of left foot: Qualifiers: Diabetic foot ulcer location: toe Diabetes mellitus type: type 2 Non- pressure ulcer stage: with fat layer exposed Qualified Code(s): E11.621 - Type 2 diabetes mellitus with foot ulcer; L97.522 - Non-pressure chronic ulcer of other part of left foot with fat layer exposed Code(s): E11.621 - Type 2 diabetes mellitus with foot ulcer; L97.529 - Non-pressure chronic ulcer of other part of left foot with unspecified severity Status: Acute Assessment and Plan: wound is healing with no drainage or signs of infection * patient follows with a wound clinic and broadcast field supervisor outpatient * encourage offloading and elevation of feet when at rest (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: Code(s): J44.9 - Chronic obstructive pulmonary disease, unspecified Status: Acute Assessment and Plan: patient with new supplemental oxygen requirement from previous hospitalization at 2 L nasal cannula * wean if tolerated (8) Pleural effusion: Code(s): J90 - Pleural effusion, not elsewhere classified Status: Acute Assessment and Plan: 01/19/2025 showed bilateral pleural effusions prior to transfer to [facility] currently on 2 L supplemental oxygen * initiate incentive spirometer * monitor for fluid overload can add spironolactone or Lasix not currently on either (9) BPH (benign prostatic hyperplasia): Code(s): N40.0 - Benign prostatic hyperplasia without lower urinary tract symptoms Status: Acute Assessment and Plan: patient with history of BPH reports Flomax was stopped during his hospitalization and he started having urinary retention currently has a urinary catheter placed * resumed patient's Flomax * will attempt bladder trials in 2-3 days * patient does follow with a urologist outpatient (10) UTI (urinary tract infection): Code(s): N39.0 - Urinary tract infection, site not specified Status: Acute Assessment and Plan: a UA was performed on admission due to sedimentation in the urine some suspicion for UTI * IV Rocephin pending cultures (11) Anemia: Code(s): D64.9 - Anemia, unspecified Status: Acute Assessment and Plan: Patient with recent hospitalization due to ulceration since has resolved hemog lobin stable at 9.4 today * continue with PPI b.i.d. * labs p.r.n. trend hemoglobin and monitor for any signs of overt GIB Plan Code status: Full code per patient DVT prophylaxis: SCd's Stress ulcer prophylaxis: Protonix 40 BID PT/OT notes: SWING Bed Disposition: patient continues admission to [facility] for rehab patient previously living alone and wants to and plans to return back to home once he can perform his own ADLs and care for himself with home health and caregiver. Patient with new oxygen requirement after discharge from hospital will attempt to wean but if unable to may need oxygen at discharge. Prado catheter is also new if unable to pass a voiding trial will need to go home with chronic indwelling Prado catheter and follow up outpatient with his urologist. Quality VTE Prophylaxis VTE prophylaxis: mechanical ordered -Patient's previous records reviewed on admission -ER notes reviewed in detail on admission -discussed all findings and current treatment plan with patient/Family/POA -Consultations reviewed for recommendations -Patient's disposition for safe discharge discussed with outsole caser Dictation performed by [employer] direct speech recognition software, therefore rn wellness variants and typographical errors may occur. Hospitalist MIPS Advance Care Plan I have confirmed that the patient's Advanced Care Plan is present, code status is documented, or surrogate decision maker is listed in patient medical record.: Yes Medication Reconciliation I have utilized all available resources to obtain, update and review the patients current medications (includes all prescriptions, OTC, herbals, cannabis, and nutritional supplements).: Yes The patient is not eligible for med reconciliation; the patient is in a emergent medical situation where delaying treatment would jeopardize the patients health.: No
[2025-01-26 11:48] LABS: Glucose Point of Care 151 mg/dl (65-105)
--- NOTE | 2025-01-26 12:15 | PC.NURSE ---
Spoke with ROOF BOLTING COAL MINER r/t low blood pressure. Patient is asymptomatic at this time. Informed ROOF BOLTING COAL MINER patient is up in chair eating and has been talking. Firer Glost Kiln informs to lay patient in bed with feet up and she will look at medications.
[2025-01-26] MEDS: SODIUM CHLORIDE 0.9% IV 500 ML 999 ML IVPB (13:20)
--- NOTE | 2025-01-26 13:50 | PC.NURSE ---
New ordered received from CRITICAL CARE NURSE r/t LBP. NS 500ml bolus then 75mls/hr. Orders read back and confirmed.
[2025-01-26] MEDS: SODIUM CHLORIDE 0.9% IV 1,000 ML 75 ML IVPB (15:00)
[2025-01-26 16:00] VITALS: BP 118/68; PULSE 66; RESP 18; TEMP 36.6; O2SAT 97
[2025-01-26 16:38] LABS: Glucose Point of Care 126 mg/dl (65-105)
--- NOTE | 2025-01-26 18:50 | PC.NURSE ---
1500 ns started by prior nurse @ 75ml/hr after she ran 500ml bolus.. this nurse scanned bag so it can be charted against has approx 200ml ns in bag at this time.. runs @ 75ml/hr.
[2025-01-26 20:00] VITALS: PULSE 66; RESP 18; O2SAT 94
[2025-01-26 21:27] LABS: Glucose Point of Care 125 mg/dl (65-105)
[2025-01-26] MEDS: PRAVASTATIN SODIUM 20 MG TABLET 80 MG PO (21:27)
[2025-01-26] MEDS: TEMAZEPAM (*CRX) 15 MG CAPSULE PO (21:28)
[2025-01-27] VITALS (8 sets, daily range): BP systolic 128–140; BP diastolic 46–60; PULSE 60–80; RESP 12–16; TEMP 36.2–36.7; O2SAT 93–98
[2025-01-27 07:51] LABS: Glucose Point of Care 112 mg/dl (65-105)
[2025-01-27] MEDS: TAMSULOSIN HCL 0.4 MG CAPSULE PO (09:43)
[2025-01-27] MEDS: CLOPIDOGREL BISULFATE 75 MG TABLET PO (09:43)
[2025-01-27] MEDS: PANTOPRAZOLE 40 MG TABLET PO ×2 (09:43→20:44)
[2025-01-27] MEDS: carvediloL 3.125 MG TABLET PO ×2 (09:44→20:44)
[2025-01-27] MEDS: metFORMIN HCL 500 MG TABLET PO ×2 (09:44→17:45)
[2025-01-27] MEDS: allopurinoL 100 MG TABLET 200 MG PO (09:44)
[2025-01-27] MEDS: ACETAMINOPHEN 325 MG TABLET 650 MG PO ×2 (09:46→20:44)
[2025-01-27 12:03] LABS: Glucose Point of Care 158 mg/dl (65-105)
[2025-01-27 16:55] LABS: Glucose Point of Care 118 mg/dl (65-105)
[2025-01-27] MEDS: ENALAPRIL MALEATE 5 MG TABLET 10 MG PO (17:45)
[2025-01-27 20:44] LABS: Glucose Point of Care 130 mg/dl (65-105)
[2025-01-27] MEDS: TEMAZEPAM (*CRX) 15 MG CAPSULE PO (20:44)
[2025-01-27] MEDS: PRAVASTATIN SODIUM 20 MG TABLET 80 MG PO (20:44)
[2025-01-28] VITALS: BP 119/60; PULSE 80; RESP 17; TEMP 36.9; O2SAT 94
[2025-01-28 07:54] LABS: Glucose Point of Care 124 mg/dl (65-105)
[2025-01-28 08:00] VITALS: BP 130/57; PULSE 80; RESP 14; TEMP 36.2; O2SAT 94
[2025-01-28] MEDS: ENALAPRIL MALEATE 5 MG TABLET 10 MG PO ×2 (08:56→17:44)
[2025-01-28] MEDS: ACETAMINOPHEN 325 MG TABLET 650 MG PO ×2 (08:57→20:37)
[2025-01-28] MEDS: TAMSULOSIN HCL 0.4 MG CAPSULE PO (08:57)
[2025-01-28] MEDS: PANTOPRAZOLE 40 MG TABLET PO ×2 (08:57→20:38)
[2025-01-28] MEDS: OMEGA 3 POLYUNSAT FATTY ACIDS 1 GM CAP PO (08:57)
[2025-01-28] MEDS: metFORMIN HCL 500 MG TABLET PO ×2 (08:57→17:45)
[2025-01-28] MEDS: allopurinoL 100 MG TABLET 200 MG PO (08:57)
[2025-01-28] MEDS: CLOPIDOGREL BISULFATE 75 MG TABLET PO (08:57)
[2025-01-28 08:58] VITALS: PULSE 80
[2025-01-28] MEDS: ASPIRIN 81 MG ENTERIC TABLET PO (08:58)
[2025-01-28] MEDS: carvediloL 3.125 MG TABLET PO ×2 (08:58→20:37)
[2025-01-28 11:39] LABS: Glucose Point of Care 135 mg/dl (65-105)
[2025-01-28 16:35] VITALS: BP 126/54; PULSE 75; RESP 16; TEMP 36.6; O2SAT 93
[2025-01-28 16:50] LABS: Glucose Point of Care 135 mg/dl (65-105)
[2025-01-28] MEDS: CARBAMIDE PEROXIDE 6.5% OT SOLN 15 ML BTL 5 DROP RIGHT EAR (17:45)
[2025-01-28] MEDS: PRAVASTATIN SODIUM 20 MG TABLET 80 MG PO (20:38)
[2025-01-28] MEDS: LORATADINE/PSEUDOEPHEDRINE (*CRX) 10/240 MG TABLET ER 24 HR 1 TAB PO (20:38)
[2025-01-28] MEDS: TEMAZEPAM (*CRX) 15 MG CAPSULE PO (20:38)
[2025-01-28 20:53] LABS: Glucose Point of Care 135 mg/dl (65-105)
[2025-01-29] VITALS: BP 133/58; PULSE 78; RESP 20; TEMP 36.3; O2SAT 92
[2025-01-29 08:00] VITALS: BP 135/63; PULSE 77; RESP 20; TEMP 36.2; O2SAT 91
[2025-01-29 08:27] LABS: Glucose Point of Care 113 mg/dl (65-105)
[2025-01-29] MEDS: ACETAMINOPHEN 325 MG TABLET 650 MG PO ×2 (09:15→21:20)
[2025-01-29] MEDS: OMEGA 3 POLYUNSAT FATTY ACIDS 1 GM CAP PO (09:16)
[2025-01-29] MEDS: CLOPIDOGREL BISULFATE 75 MG TABLET PO (09:16)
[2025-01-29] MEDS: PANTOPRAZOLE 40 MG TABLET PO ×2 (09:16→21:21)
[2025-01-29] MEDS: TAMSULOSIN HCL 0.4 MG CAPSULE PO (09:16)
[2025-01-29] MEDS: metFORMIN HCL 500 MG TABLET PO ×2 (09:16→17:10)
[2025-01-29 09:17] VITALS: PULSE 76
[2025-01-29] MEDS: ASPIRIN 81 MG ENTERIC TABLET PO (09:17)
[2025-01-29] MEDS: ENALAPRIL MALEATE 5 MG TABLET 10 MG PO ×2 (09:17→17:10)
[2025-01-29] MEDS: carvediloL 3.125 MG TABLET PO ×2 (09:17→21:20)
[2025-01-29] MEDS: allopurinoL 100 MG TABLET 200 MG PO (09:17)
[2025-01-29] MEDS: CARBAMIDE PEROXIDE 6.5% OT SOLN 15 ML BTL 5 DROP RIGHT EAR ×2 (09:18→16:04)
[2025-01-29 12:00] LABS: Glucose Point of Care 118 mg/dl (65-105)
[2025-01-29 16:00] VITALS: BP 144/91; PULSE 71; RESP 18; TEMP 36.4; O2SAT 94
[2025-01-29 17:15] LABS: Glucose Point of Care 116 mg/dl (65-105)
[2025-01-29 20:00] VITALS: PULSE 79; RESP 17; O2SAT 91
[2025-01-29 21:20] VITALS: PULSE 79
[2025-01-29] MEDS: TEMAZEPAM (*CRX) 15 MG CAPSULE PO (21:20)
[2025-01-29] MEDS: PRAVASTATIN SODIUM 20 MG TABLET 80 MG PO (21:20)
[2025-01-29] MEDS: LORATADINE/PSEUDOEPHEDRINE (*CRX) 10/240 MG TABLET ER 24 HR 1 TAB PO (21:21)
[2025-01-30] VITALS: BP 128/56; PULSE 79; RESP 16; TEMP 36.5; O2SAT 91
[2025-01-30 00:13] LABS: Glucose Point of Care 114 mg/dl (65-105)
[2025-01-30 08:00] VITALS: BP 113/56; PULSE 94; RESP 20; TEMP 36.1; O2SAT 93
[2025-01-30 08:04] LABS: Glucose Point of Care 107 mg/dl (65-105)
[2025-01-30] MEDS: OMEGA 3 POLYUNSAT FATTY ACIDS 1 GM CAP PO (08:50)
[2025-01-30] MEDS: ACETAMINOPHEN 325 MG TABLET 650 MG PO ×2 (08:50→21:07)
[2025-01-30] MEDS: CLOPIDOGREL BISULFATE 75 MG TABLET PO (08:50)
[2025-01-30] MEDS: allopurinoL 100 MG TABLET 200 MG PO (08:50)
[2025-01-30] MEDS: ASPIRIN 81 MG ENTERIC TABLET PO (08:50)
[2025-01-30] MEDS: metFORMIN HCL 500 MG TABLET PO ×2 (08:50→16:43)
[2025-01-30] MEDS: ENALAPRIL MALEATE 5 MG TABLET 10 MG PO ×2 (08:50→16:43)
[2025-01-30] MEDS: TAMSULOSIN HCL 0.4 MG CAPSULE PO (08:50)
[2025-01-30 08:51] VITALS: PULSE 68
[2025-01-30] MEDS: CARBAMIDE PEROXIDE 6.5% OT SOLN 15 ML BTL 5 DROP RIGHT EAR ×2 (08:51→17:00)
[2025-01-30] MEDS: carvediloL 3.125 MG TABLET PO ×2 (08:51→21:07)
[2025-01-30] MEDS: PANTOPRAZOLE 40 MG TABLET PO ×2 (08:51→21:07)
[2025-01-30 12:10] LABS: Glucose Point of Care 127 mg/dl (65-105)
[2025-01-30 16:00] VITALS: BP 107/70; PULSE 80; RESP 16; TEMP 36.2; O2SAT 95
[2025-01-30 16:53] LABS: Glucose Point of Care 116 mg/dl (65-105)
[2025-01-30 20:00] VITALS: PULSE 84; RESP 16; O2SAT 92
[2025-01-30] MEDS: PRAVASTATIN SODIUM 20 MG TABLET 80 MG PO (21:06)
[2025-01-30 21:07] VITALS: PULSE 84
[2025-01-30 21:07] LABS: Glucose Point of Care 115 mg/dl (65-105)
[2025-01-30] MEDS: TEMAZEPAM (*CRX) 15 MG CAPSULE PO (21:07)
[2025-01-30] MEDS: LORATADINE/PSEUDOEPHEDRINE (*CRX) 10/240 MG TABLET ER 24 HR 1 TAB PO (21:07)
[2025-01-31] VITALS: BP 117/45; PULSE 84; RESP 16; TEMP 36.7; O2SAT 92
[2025-01-31 07:55] LABS: Glucose Point of Care 103 mg/dl (65-105)
[2025-01-31 08:00] VITALS: BP 125/62; PULSE 94; RESP 18; TEMP 36.7; O2SAT 91
[2025-01-31 09:59] VITALS: PULSE 78
[2025-01-31] MEDS: ASPIRIN 81 MG ENTERIC TABLET PO (09:59)
[2025-01-31] MEDS: carvediloL 3.125 MG TABLET PO ×2 (09:59→21:15)
[2025-01-31] MEDS: OMEGA 3 POLYUNSAT FATTY ACIDS 1 GM CAP PO (09:59)
[2025-01-31] MEDS: PANTOPRAZOLE 40 MG TABLET PO ×2 (09:59→21:14)
[2025-01-31] MEDS: allopurinoL 100 MG TABLET 200 MG PO (09:59)
[2025-01-31] MEDS: CLOPIDOGREL BISULFATE 75 MG TABLET PO (09:59)
[2025-01-31] MEDS: TAMSULOSIN HCL 0.4 MG CAPSULE PO (09:59)
[2025-01-31] MEDS: metFORMIN HCL 500 MG TABLET PO ×2 (09:59→16:52)
[2025-01-31] MEDS: ACETAMINOPHEN 325 MG TABLET 650 MG PO ×2 (10:00→21:15)
[2025-01-31] MEDS: CARBAMIDE PEROXIDE 6.5% OT SOLN 15 ML BTL 5 DROP RIGHT EAR ×2 (10:00→16:51)
[2025-01-31] MEDS: ENALAPRIL MALEATE 5 MG TABLET 10 MG PO ×2 (10:00→16:52)
[2025-01-31 12:04] LABS: Glucose Point of Care 122 mg/dl (65-105)
[2025-01-31 16:00] VITALS: BP 117/56; PULSE 92; RESP 20; TEMP 36.6; O2SAT 94
[2025-01-31 16:56] LABS: Glucose Point of Care 105 mg/dl (65-105)
[2025-01-31 20:00] VITALS: PULSE 92; RESP 20; O2SAT 94
[2025-01-31] MEDS: TEMAZEPAM (*CRX) 15 MG CAPSULE PO (21:14)
[2025-01-31] MEDS: PRAVASTATIN SODIUM 20 MG TABLET 80 MG PO (21:14)
[2025-01-31] MEDS: LORATADINE/PSEUDOEPHEDRINE (*CRX) 10/240 MG TABLET ER 24 HR 1 TAB PO (21:14)
[2025-01-31 21:15] VITALS: PULSE 88
[2025-01-31 21:19] LABS: Glucose Point of Care 109 mg/dl (65-105)
[2025-02-01] VITALS: BP 129/57; PULSE 88; RESP 16; TEMP 36.2; O2SAT 93
[2025-02-01 08:00] VITALS: BP 131/58; PULSE 102; RESP 17; TEMP 36.3; O2SAT 93
[2025-02-01 08:05] LABS: Glucose Point of Care 106 mg/dl (65-105)
[2025-02-01] MEDS: ASPIRIN 81 MG ENTERIC TABLET PO (09:25)
[2025-02-01] MEDS: allopurinoL 100 MG TABLET 200 MG PO (09:25)
[2025-02-01] MEDS: CARBAMIDE PEROXIDE 6.5% OT SOLN 15 ML BTL 5 DROP RIGHT EAR ×2 (09:25→18:02)
[2025-02-01] MEDS: PANTOPRAZOLE 40 MG TABLET PO ×2 (09:25→20:44)
[2025-02-01] MEDS: ENALAPRIL MALEATE 5 MG TABLET 10 MG PO ×2 (09:25→17:51)
[2025-02-01 09:26] VITALS: PULSE 102
[2025-02-01] MEDS: carvediloL 3.125 MG TABLET PO ×2 (09:26→20:44)
[2025-02-01] MEDS: TAMSULOSIN HCL 0.4 MG CAPSULE PO (09:26)
[2025-02-01] MEDS: metFORMIN HCL 500 MG TABLET PO ×2 (09:26→17:51)
[2025-02-01] MEDS: ACETAMINOPHEN 325 MG TABLET 650 MG PO ×2 (09:26→20:44)
[2025-02-01] MEDS: OMEGA 3 POLYUNSAT FATTY ACIDS 1 GM CAP PO (09:26)
[2025-02-01] MEDS: CLOPIDOGREL BISULFATE 75 MG TABLET PO (09:26)
--- NOTE | 2025-02-01 09:49 | PM.EVENT ---
Event Note Event Note Event Note: Will attempt a voiding trial today
[2025-02-01 16:00] VITALS: BP 153/81; PULSE 88; RESP 17; TEMP 36.6; O2SAT 96
[2025-02-01 20:00] VITALS: PULSE 88; RESP 17; O2SAT 96
[2025-02-01 20:44] VITALS: PULSE 83
[2025-02-01] MEDS: PRAVASTATIN SODIUM 20 MG TABLET 80 MG PO (20:44)
[2025-02-01] MEDS: TEMAZEPAM (*CRX) 15 MG CAPSULE PO (20:44)
[2025-02-01] MEDS: LORATADINE/PSEUDOEPHEDRINE (*CRX) 10/240 MG TABLET ER 24 HR 1 TAB PO (20:44)
[2025-02-01 20:48] LABS: Glucose Point of Care 101 mg/dl (65-105)
[2025-02-02] VITALS: BP 127/52; PULSE 83; RESP 16; TEMP 36.3; O2SAT 94
[2025-02-02 05:22] LABS: Hematocrit 27.2 % (37.0-46.0); Hemoglobin 8.6 g/dL (12.4-15.3); Mean Corpuscular HGB Conc 31.6 g/dL (32-36); Mean Corpuscular Hemoglobin 33.1 pg (27.0-31.0); Mean Corpuscular Volume 104.6 fL (78.0-102.0); Mean Platelet Volume 9.3 fl (8.7-11.0); Platelet Count Result 172 K/mm3 (150-420); White Blood Count 3.4 K/mm3 (4.8-10.8)
[2025-02-02 05:35] LABS: Alanine Aminotransferase 15 U/L (6-50); Albumin Level 2.8 g/dL (3.5-5.1); Alkaline Phosphatase 62 U/L (38-126); Anion Gap 1 mmol/L (4-12); Aspartate Amino Transferase 27 U/L (17-59); Bilirubin,Total 0.5 mg/dL (0.2-1.3); Blood Urea Nitrogen 24 mg/dL (9-20); Calcium 8.3 mg/dL (8.4-10.2); Carbon Dioxide 28 mmol/L (22-30); Chloride 107 mmol/L (98-107); Estimated CRCL calculation 36 ml/min; Estimated Glomerular Filt Rate 57; Glucose 85 mg/dL (65-110); Osmolality Calculated 285 mOsm/kg (285-295); Potassium 4.3 mmol/L (3.4-5.0); Sodium 136 mmol/L (137-145); Total Protein 4.9 g/dL (6.3-8.2)
[2025-02-02 07:55] VITALS: BP 122/85; PULSE 90; RESP 17; TEMP 36.1; O2SAT 94
--- NOTE | 2025-02-02 09:43 | P.PNIM_ITS ---
Progress Note: A&P Assessment and Plan (1) Physical debility: Code(s): R53.81 - Other malaise Status: Acute Assessment and Plan: swing bed rehab after deconditioned state from hospitalization * PT/OT * encourage mobility and activity with staff * up at a bed with all meals (2) Hypertension: Code(s): I10 - Essential (primary) hypertension Status: Acute Assessment and Plan: * resume patient's carvedilol and Vasotec * BP per unit protocol (3) CAD (coronary artery disease): Code(s): I25.10 - Atherosclerotic heart disease of [place] coronary artery without angina pectoris Status: Acute Assessment and Plan: patient with history of AL and stent placement * resume patient's statin and ASA, Plavix (4) Hyperlipidemia: Code(s): E78.5 - Hyperlipidemia, unspecified Status: Acute Assessment and Plan: * continue statin (5) Diabetes: Qualifiers: Diabetes mellitus type: type 2 Diabetes mellitus retirement insulin use: without retirement use Diabetes mellitus complication status: with neurologic complications Diabetes mellitus complication detail: with polyneuropathy Qualified Code(s): 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thy Code(s): E11.9 - Type 2 diabetes mellitus without complications Status: Acute Assessment and Plan: * resume patient's metformin * Accu-Cheks a.c. HS * low-dose SSI * hypoglycemic protocol * diabetic diet (6) Diabetic ulcer of left foot: Qualifiers: Diabetic foot ulcer location: toe Diabetes mellitus type: type 2 Non- pressure ulcer stage: with fat layer exposed Qualified Code(s): E11.621 - Type 2 diabetes mellitus with foot ulcer; L97.522 - Non-pressure chronic ulcer of other part of left foot with fat layer exposed Code(s): E11.621 - Type 2 diabetes mellitus with foot ulcer; L97.529 - Non-pressure chronic ulcer of other part of left foot with unspecified severity Status: Acute Assessment and Plan: wound is healing with no drainage or signs of infection * patient follows with a wound clinic and stripper printed circuit boards outpatient * encourage offloading and elevation of feet when at rest (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: Code(s): J44.9 - Chronic obstructive pulmonary disease, unspecified Status: Acute Assessment and Plan: patient with new supplemental oxygen requirement from previous hospitalization at 2 L nasal cannula * wean if tolerated ____ Patient on room air now (8) Pleural effusion: Code(s): J90 - Pleural effusion, not elsewhere classified Status: Acute Assessment and Plan: 01/19/2025 showed bilateral pleural effusions prior to transfer to tertiary hospital currently on 2 L supplemental oxygen * initiate incentive spirometer * monitor for fluid overload can add spironolactone or Lasix not currently on either Weaned to room air, using incentive spirometer (9) BPH (benign prostatic hyperplasia): Code(s): N40.0 - Benign prostatic hyperplasia without lower urinary tract symptoms Status: Acute Assessment and Plan: patient with history of BPH reports Flomax was stopped during his hospitalization and he started having urinary retention currently has a urinary catheter placed * resumed patient's Flomax * will attempt bladder trials in 2-3 days * patient does follow with a urologist outpatient Patient failed voiding trial, catheter reinserted with difficulty per RN (10) UTI (urinary tract infection): Code(s): N39.0 - Urinary tract infection, site not specified Status: Resolved Assessment and Plan: a UA was performed on admission due to sedimentation in the urine some suspicion for UTI * IV Rocephin pending cultures Completed treatment (11) Anemia: Code(s): D64.9 - Anemia, unspecified Status: Acute Assessment and Plan: Patient with recent hospitalization due to ulceration since has resolved hemoglobin stable at 9.4 today * continue with PPI b.i.d. * labs p.r.n. trend hemoglobin and monitor for any signs of overt GIB Hemoglobin 8.6 on 02/02/25 Plan Code status: Full code per patient DVT prophylaxis: SCd's Stress ulcer prophylaxis: Protonix 40 BID PT/OT notes: SWING Bed Disposition: patient continues admission to [facility] for rehab patient previously living alone and wants to and plans to return back to home once he can perform his own ADLs and care for himself with home health and caregiver. Patient weaned from oxygen, failed void trial and will need Urology follow up after discharge Time Spent With Patient Time with patient: 25 - 35 minutes Subjective Date/time seen: 02/02/25 09:43 Interval history: Patient is now on room air, still having shortness of breath with activity. Patient failed voiding trial yesterday and catheter had to be reinserted. Patient still working with therapy for strengthening. Review of Systems Review of Systems: All systems reviewed & are unremarkable except as noted in HPI and below Exam Const: General: comfortable and no acute distress HENMT: Ears: TM's normal bilaterally Face/Nose/Sinus: Normal nares present Mouth: Yes moist mucous membranes Eyes: General: appearance normal, both eyes and all related structures Sclera: sclerae normal Pupils: Equal, round and reactive pupils present Neck: Neck: supple and no JVD Resp: Auscultation: diminished lung sounds (Throughout) bilateral Cardio: Rate: regular rate Rhythm: regular rhythm GI: Auscultation: normal bowel sounds : General: Yes bladder normal to palpation Urinary Catheter: Urinary Catheter: patent and draining, urine dark and other ( sedimentation) Skin: General skin exam: normal color and no rashes or lesions noted Other: Small healing ulceration to the ball of the Left foot Neuro: Cranial nerves: Yes Equal, round and reactive pupils present Speech: normal speech Motor exam (neuro): Abnormal motor strength present Other: Unsteady gait Extrem: General: normal to inspection Psych: Mental Status: mental status grossly normal Affect: normal affect Objective Data Vital Signs Vital Signs: Vital Signs - 24 hr 02/01/25 16:00 02/01/25 20:00 02/01/25 20:44 Temperature 36.6 C Pulse Rate 88 88 83 Respiratory Rate 17 17 Blood Pressure 153/81 H Pulse Oximetry 96 96 Oxygen Delivery Room Air Room Air 02/02/25 00:00 02/02/25 07:55 Temperature 36.3 C L 36.1 C L Pulse Rate 83 90 Respiratory Rate 16 17 Blood Pressure 127/52 L 122/85 Pulse Oximetry 94 94 Oxygen Delivery Room Air Room Air Intake/Output Intake/Output: Intake & Output 01/30/25 01/31/25 02/01/25 02/02/25 23:59 23:59 23:59 23:59 Intake Total 1530 1870 2370 350 Output Total 1500 1750 1450 1300 Balance 30 120 920 -950 Meds/Results Medications: Active Medications Generic Name Dose Route Start Last Admin Trade Name Elliottq PRN Reason Stop Dose Admin Acetaminophen 650 mg 01/25/25 21:00 02/01/25 20:44 Acetaminophen 325 Mg Tablet PO 650 mg Q12HR STELLA Administration Hydrocodone Bitart/Acetaminophen 1 tab 01/25/25 15:47 Hydrocodone/Acetaminophen (*Crx) 5-325 Mg Tablet PO Q6H PRN pain 4-6 Allopurinol 200 mg 01/26/25 09:00 02/01/25 09:25 Allopurinol 100 Mg Tablet PO 200 mg DAILY STELLA Administration Aspirin 81 mg 01/26/25 09:00 02/01/25 09:25 Aspirin 81 Mg Enteric Tablet PO 81 mg DAILY STELLA Administration Carbamide Peroxide 5 drop 01/28/25 17:00 02/01/25 18:02 Carbamide Peroxide 6.5% Ot Soln 15 Ml Btl RIGHT EAR 5 drop BID STELLA Administration Carvedilol 3.125 mg 01/27/25 09:00 02/01/25 20:44 Carvedilol 3.125 Mg Tablet PO 3.125 mg Q12HR STELLA Administration Clopidogrel Bisulfate 75 mg 01/26/25 09:00 02/01/25 09:26 Clopidogrel Bisulfate 75 Mg Tablet PO 75 mg DAILY STELLA Administration Dextrose 12.5 gm 01/26/25 09:39 Dextrose 50% 25 Gm/50 Ml Syringe IV PUSH PRN PRN Hypoglycemia Protocol Enalapril Maleate 10 mg 01/27/25 17:00 02/01/25 17:51 Enalapril Maleate 5 Mg Tablet PO 10 mg BID STELLA Administration Fish Oil 1 gm 01/26/25 09:00 02/01/25 09:26 [place] 3 Polyunsat Fatty Acids 1 Gm Cap PO 1 gm DAILY STELLA Administration Glucagon 1 mg 01/26/25 09:39 Glucagon For Inj 1 Mg Vial IM PRN PRN Hypoglycemia Protocol Glucose 15 gm 01/26/25 09:39 Glucose Oral Gel 15 Gm Of Glucse In 37.5 Gm Tube PO PRN PRN Hypoglycemia Protocol Dextrose 1,000 mls @ 100 mls/hr 01/26/25 09:39 Dextrose 5% 1,000 Ml IVPB PRN PRN Hypoglycemia Protocol Loratadine/Pseudoephedrine Sulfate 1 tab 01/28/25 21:00 02/01/25 20:44 Loratadine/Pseudoephedrine (*Crx) 10/240 Mg Tablet Er 24 Hr PO 1 tab QHS STELLA Administration Metformin HCl 500 mg 01/25/25 17:00 02/01/25 17:51 Metformin Hcl 500 Mg Tablet PO 500 mg BID STELLA Administration Pantoprazole Sodium 40 mg 01/25/25 21:00 02/01/25 20:44 Pantoprazole 40 Mg Tablet PO 40 mg Q12HR STELLA Administration Pravastatin Sodium 80 mg 01/25/25 21:00 02/01/25 20:44 Pravastatin Sodium 20 Mg Tablet PO 80 mg HS STELLA Administration Tamsulosin HCl 0.4 mg 01/26/25 09:00 02/01/25 09:26 Tamsulosin Hcl 0.4 Mg Capsule PO 0.4 mg DAILY STELLA Administration Temazepam 15 mg 01/25/25 15:47 02/01/25 20:44 Temazepam (*Crx) 15 Mg Capsule PO 15 mg HS PRN Administration Sleep Labs Labs: Laboratory Results - last 24 hr 02/01/25 02/02/25 20:43 05:17 WBC 3.4 L RBC 2.60 L Hgb 8.6 L Hct 27.2 L MCV 104.6 H MCH 33.1 H MCHC 31.6 L RDW 19.0 H Plt Count 172 MPV 9.3 Sodium 136 L Potassium 4.3 Chloride 107 Carbon Dioxide 28 Anion Gap 1 L BUN 24 H D Creatinine 1.20 Estim Creat Clear Calc 36 Estimated GFR 57 L Glucose 85 POC Capillary Glucose 101 Calculated Osmolality 285 Calcium 8.3 L Total Bilirubin 0.5 AST 27 ALT 15 Alkaline Phosphatase 62 Total Protein 4.9 L Albumin 2.8 L Pulse Oximetry SpO2 results: 94-96% on room air Attestation: I personally reviewed and interpreted this pulse oximetry as follows: Interpretation: No need for supplemental oxygenation at this time Quality VTE Prophylaxis VTE prophylaxis: mechanical ordered Hospitalist [facility] Advance Care Plan I have confirmed that the patient's Advanced Care Plan is present, code status is documented, or surrogate decision maker is listed in patient medical record.: Yes Medication Reconciliation I have utilized all available resources to obtain, update and review the patients current medications (includes all prescriptions, OTC, herbals, cannabis, and nutritional supplements).: Yes
[2025-02-02 09:46] VITALS: PULSE 90
[2025-02-02] MEDS: carvediloL 3.125 MG TABLET PO ×2 (09:46→20:34)
[2025-02-02] MEDS: CLOPIDOGREL BISULFATE 75 MG TABLET PO (09:46)
[2025-02-02] MEDS: CARBAMIDE PEROXIDE 6.5% OT SOLN 15 ML BTL 5 DROP RIGHT EAR ×2 (09:46→16:23)
[2025-02-02] MEDS: ASPIRIN 81 MG ENTERIC TABLET PO (09:46)
[2025-02-02] MEDS: ENALAPRIL MALEATE 5 MG TABLET 10 MG PO ×2 (09:46→16:20)
[2025-02-02] MEDS: ACETAMINOPHEN 325 MG TABLET 650 MG PO ×2 (09:46→20:33)
[2025-02-02] MEDS: OMEGA 3 POLYUNSAT FATTY ACIDS 1 GM CAP PO (09:46)
[2025-02-02] MEDS: metFORMIN HCL 500 MG TABLET PO ×2 (09:46→16:20)
[2025-02-02] MEDS: allopurinoL 100 MG TABLET 200 MG PO (09:46)
[2025-02-02] MEDS: TAMSULOSIN HCL 0.4 MG CAPSULE PO (09:47)
[2025-02-02] MEDS: PANTOPRAZOLE 40 MG TABLET PO ×2 (09:47→20:35)
[2025-02-02 16:00] VITALS: BP 134/77; PULSE 95; RESP 15; TEMP 36.9; O2SAT 95
--- NOTE | 2025-02-02 18:45 | PC.NURSE ---
ASSUMED CARE. REPORT RECEIVED FROM JOAO MASON
[2025-02-02 20:34] VITALS: PULSE 93
[2025-02-02] MEDS: PRAVASTATIN SODIUM 20 MG TABLET 80 MG PO (20:34)
[2025-02-02] MEDS: LORATADINE/PSEUDOEPHEDRINE (*CRX) 10/240 MG TABLET ER 24 HR 1 TAB PO (20:35)
[2025-02-02 20:38] LABS: Glucose Point of Care 105 mg/dl (65-105)
[2025-02-03] VITALS: BP 123/60; PULSE 93; RESP 18; TEMP 36.4; O2SAT 93
--- NOTE | 2025-02-03 07:10 | PC.NURSE ---
REPORT GIVEN TO JAELYN MASON
[2025-02-03 08:00] VITALS: BP 121/62; PULSE 94; RESP 20; TEMP 36.7; O2SAT 94
[2025-02-03 08:15] LABS: Glucose Point of Care 94 mg/dl (65-105)
[2025-02-03] MEDS: TAMSULOSIN HCL 0.4 MG CAPSULE PO (09:43)
[2025-02-03] MEDS: allopurinoL 100 MG TABLET 200 MG PO (09:43)
[2025-02-03] MEDS: ACETAMINOPHEN 325 MG TABLET 650 MG PO ×2 (09:43→21:13)
[2025-02-03] MEDS: metFORMIN HCL 500 MG TABLET PO ×2 (09:43→16:56)
[2025-02-03] MEDS: ENALAPRIL MALEATE 5 MG TABLET 10 MG PO ×2 (09:43→16:57)
[2025-02-03 09:44] VITALS: PULSE 92
[2025-02-03] MEDS: HYDROcodone/acetaminophen (*CRX) 5-325 MG TABLET 1 TAB PO (09:44)
[2025-02-03] MEDS: ASPIRIN 81 MG ENTERIC TABLET PO (09:44)
[2025-02-03] MEDS: carvediloL 3.125 MG TABLET PO ×2 (09:44→21:13)
[2025-02-03] MEDS: CLOPIDOGREL BISULFATE 75 MG TABLET PO (09:44)
[2025-02-03] MEDS: PANTOPRAZOLE 40 MG TABLET PO ×2 (09:44→21:13)
[2025-02-03] MEDS: OMEGA 3 POLYUNSAT FATTY ACIDS 1 GM CAP PO (09:44)
--- NOTE | 2025-02-03 11:00 | P.PNIM_ITS ---
Progress Note: A&P Assessment and Plan (1) Physical debility: Code(s): R53.81 - Other malaise Status: Acute Assessment and Plan: Debility related to recent hospitalizations. Continue PT/OT Encourage mobility and activity with staff Up at a bed with all meals (2) Hypertension: Code(s): I10 - Essential (primary) hypertension Status: Acute Assessment and Plan: Patient's blood pressure was reviewed on 02/03 Blood pressure remains well controlled. Will continue to monitor (3) CAD (coronary artery disease): Code(s): I25.10 - Atherosclerotic heart disease of [place] coronary artery without angina pectoris Status: Acute Assessment and Plan: CAD with history of VA and stent placement Continue Coreg, statin and ASA, Plavix (4) Diabetes: Qualifiers: Diabetes mellitus complication detail: with polyneuropathy Diabetes mellitus complication status: with neurologic complications Diabetes mellitus detention insulin use: without buttermilk drier operator use Diabetes mellitus type: type 2 Qualified Code(s): 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thy Code(s): E11.9 - Type 2 diabetes mellitus without complications Status: Acute Assessment and Plan: The patient's blood glucose was reviewed on 02/03 Glucose remains well controlled. No acidosis. Continue AccuCheks covering with sliding scale. Hypoglycemia protocol available as needed. 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 Code(s): E11.621 - Type 2 diabetes mellitus with foot ulcer; L97.529 - Non-pressure chronic ulcer of other part of left foot with unspecified severity Status: Acute Assessment and Plan: Wound is healing with no drainage or signs of infection Patient follows with a wound clinic and sandwich board carrier outpatient Encourage offloading and elevation of feet when at rest (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 Follow (7) Pleural effusion: Code(s): J90 - Pleural effusion, not elsewhere classified Status: Acute Assessment and Plan: Chest CT January 06 - moderate to large right pleural effusion and advanced emphysema. Also with irregular peripheral scarring left upper lobe and anterior right upper lobe which are new. Calcified pleural plaques noted. CXR January 19 - large right pleural effusion similar in finding to December 30 CXR. Followed by pulmonary clinic. He will need thoracentesis given hx of asbestos and tobacco exposure. Continue incentive spirometer Weaned to room air Check Echo. (8) BPH (benign prostatic hyperplasia): Code(s): N40.0 - Benign prostatic hyperplasia without lower urinary tract symptoms Status: Acute Assessment and Plan: Patient with history of BPH and mildly elevated PSA values. He reported that he was on Flomax but was stopped during his hospitalization and he started having urinary retention requiring Prado Prado catheter remains in place. Flomax resumed. Patient follows with Urology Attempted bladder trial but patient failed voiding trial; catheter reinserted with difficulty per RN Continue Prado and have patietn follow up with urology. (9) Anemia: Code(s): D64.9 - Anemia, unspecified Status: Acute Assessment and Plan: Patient with recent hospitalization and found to have gastric ulceration by EGD Hgb 7.3 (01/19/25) and 9.0 on admission (01/26/25) Hgb yesterday 8.6 Continue with PPI b.i.d. Monitor HH. Macrocytosis noted and B12 level 272 in December. Start B12 replacement (10) Hyperlipidemia: Code(s): E78.5 - Hyperlipidemia, unspecified Status: Acute Assessment and Plan: LFTs normal. Continue statin (11) UTI (urinary tract infection): Code(s): N39.0 - Urinary tract infection, site not specified Status: Resolved Assessment and Plan: UA noted on admission. Rocephin started but UCx negative. UTI ruled out. Plan Code status: Full code DVT prophylaxis: SCDs PT/OT notes: SWING Bed Disposition: patient continues admission to [facility] for rehab patient previously living alone and wants to and plans to return back to home once he can perform his own ADLs and care for himself with home health and caregiver. Patient weaned from oxygen, failed void trial and will need Urology follow up after discharge Subjective Date/time seen: 02/03/25 11:00 Interval history: 89yo male with BPH, AAA, CAD and DM here for rehab. Didn't sleep well due to pain to the right knee (which is chronic). No CP or SOB. Having VARGAS but his dypnea is much better overall. He also having nasal congestion and rhinorrhea. LE edema much better. He is using the IS and reaching 1500mL at times. In the end of December, he had an EGD showing small gastric ulcers. Son in the room and discussed with patient's permission. Exam Narrative: AF 98.1 121/62 92 20 94% ra Gen - NARD sitting up chair HEENT -ear canals clear of cerumen. Mildly sclerotic TMs Chest -he is breath sounds right mid and lower lung field and dull to percussion. Left lung field is clear CV - RRR S1/S2 Abd - Soft, NT/ND, Positive BS -Prado catheter secured draining yellow. Ext -trace-1+ ranjit ankle edema bilaterally. Negative Homans sign. Neuro - Alert and appropriate Psych - Nml mood and affect Skin - Warm and dry Objective Data Vital Signs Vital Signs: Vital Signs - 24 hr 02/02/25 16:00 02/02/25 20:34 02/03/25 00:00 Temperature 98.4 F 97.5 F L Pulse Rate 95 93 93 Respiratory Rate 15 18 Blood Pressure 134/77 123/60 Pulse Oximetry 95 93 Oxygen Delivery Room Air Room Air 02/03/25 08:00 02/03/25 09:44 Temperature 98.1 F Pulse Rate 94 92 Respiratory Rate 20 Blood Pressure 121/62 Pulse Oximetry 94 Oxygen Delivery Room Air Intake/Output Intake/Output: Intake & Output 01/31/25 02/01/25 02/02/25 02/03/25 23:59 23:59 23:59 23:59 Intake Total 1870 2370 2000 440 Output Total 1750 1450 2050 520 Balance 120 920 -50 -80 Meds/Results Medications: Active Medications Generic Name Dose Route Start Last Admin Trade Name Freq PRN Reason Stop Dose Admin Acetaminophen 650 mg 01/25/25 21:00 02/03/25 09:43 Acetaminophen 325 Mg Tablet PO 650 mg Q12HR STELLA Administration Hydrocodone Bitart/Acetaminophen 1 tab 01/25/25 15:47 02/03/25 09:44 Hydrocodone/Acetaminophen (*Crx) 5-325 Mg Tablet PO 1 tab Q6H PRN Administration pain 4-6 Al Hydrox/Mg Hydrox/Simethicone 30 ml 02/02/25 09:44 Mag Hydrox/Al Hydrox/Simeth 30 Ml Udc PO Q6H PRN Constipation or Indigestion Allopurinol 200 mg 01/26/25 09:00 02/03/25 09:43 Allopurinol 100 Mg Tablet PO 200 mg DAILY STELLA Administration Aspirin 81 mg 01/26/25 09:00 02/03/25 09:44 Aspirin 81 Mg Enteric Tablet PO 81 mg DAILY STELLA Administration Bisacodyl 10 mg 02/02/25 09:44 Bisacodyl 10 Mg Suppository RECTAL QAM PRN Constipation Carvedilol 3.125 mg 01/27/25 09:00 02/03/25 09:44 Carvedilol 3.125 Mg Tablet PO 3.125 mg Q12HR STELLA Administration Clopidogrel Bisulfate 75 mg 01/26/25 09:00 02/03/25 09:44 Clopidogrel Bisulfate 75 Mg Tablet PO 75 mg DAILY STELLA Administration Dextrose 12.5 gm 01/26/25 09:39 Dextrose 50% 25 Gm/50 Ml Syringe IV PUSH PRN PRN Hypoglycemia Protocol Enalapril Maleate 10 mg 01/27/25 17:00 02/03/25 09:43 Enalapril Maleate 5 Mg Tablet PO 10 mg BID STELLA Administration Fish Oil 1 gm 01/26/25 09:00 02/03/25 09:44 [place] 3 Polyunsat Fatty Acids 1 Gm Cap PO 1 gm DAILY STELLA Administration Fluticasone Propionate 2 spray 02/03/25 10:40 Fluticasone Propionate 0.05% Na Spr 16 Gm Btl (*Bkc) NASAL QAM STELLA Glucagon 1 mg 01/26/25 09:39 Glucagon For Inj 1 Mg Vial IM PRN PRN Hypoglycemia Protocol Glucose 15 gm 01/26/25 09:39 Glucose Oral Gel 15 Gm Of Glucse In 37.5 Gm Tube PO PRN PRN Hypoglycemia Protocol Dextrose 1,000 mls @ 100 mls/hr 01/26/25 09:39 Dextrose 5% 1,000 Ml IVPB PRN PRN Hypoglycemia Protocol Loratadine/Pseudoephedrine Sulfate 1 tab 01/28/25 21:00 02/02/25 20:35 Loratadine/Pseudoephedrine (*Crx) 10/240 Mg Tablet Er 24 Hr PO 1 tab QHS STELLA Administration Magnesium Hydroxide 30 ml 02/03/25 10:36 Magnesium Hydroxide Susp 30 Ml Udc PO QAM PRN Constipation Metformin HCl 500 mg 01/25/25 17:00 02/03/25 09:43 Metformin Hcl 500 Mg Tablet PO 500 mg BID STELLA Administration Pantoprazole Sodium 40 mg 01/25/25 21:00 02/03/25 09:44 Pantoprazole 40 Mg Tablet PO 40 mg Q12HR STELLA Administration Pravastatin Sodium 80 mg 01/25/25 21:00 02/02/25 20:34 Pravastatin Sodium 20 Mg Tablet PO 80 mg HS STELLA Administration Tamsulosin HCl 0.4 mg 01/26/25 09:00 02/03/25 09:43 Tamsulosin Hcl 0.4 Mg Capsule PO 0.4 mg DAILY STELLA Administration Temazepam 15 mg 01/25/25 15:47 02/01/25 20:44 Temazepam (*Crx) 15 Mg Capsule PO 15 mg HS PRN Administration Sleep Labs Labs: Laboratory Results - last 24 hr 02/02/25 02/03/25 20:34 08:10 POC Capillary Glucose 105 94
[2025-02-03] MEDS: MAGNESIUM HYDROXIDE SUSP 30 ML UDC PO (11:25)
[2025-02-03] MEDS: FLUTICASONE PROPIONATE 0.05% NA SPR 16 GM BTL (*BKC) 2 SPRAY NASAL (11:25)
[2025-02-03] MEDS: CYANOCOBALAMIN 1,000 MCG TABLET 1000 MCG PO (11:56)
[2025-02-03 16:00] VITALS: BP 111/86; PULSE 88; RESP 20; TEMP 36.3; O2SAT 98
[2025-02-03 20:00] VITALS: PULSE 81; RESP 18; O2SAT 94
[2025-02-03 21:13] VITALS: PULSE 82
[2025-02-03 21:13] LABS: Glucose Point of Care 116 mg/dl (65-105)
[2025-02-03] MEDS: LORATADINE/PSEUDOEPHEDRINE (*CRX) 10/240 MG TABLET ER 24 HR 1 TAB PO (21:13)
[2025-02-03] MEDS: PRAVASTATIN SODIUM 20 MG TABLET 80 MG PO (21:13)
[2025-02-03] MEDS: TEMAZEPAM (*CRX) 15 MG CAPSULE PO (21:13)
[2025-02-04] VITALS: BP 123/65; PULSE 81; RESP 18; TEMP 36.4; O2SAT 94
[2025-02-04 05:32] LABS: Hematocrit 27.6 % (37.0-46.0); Hemoglobin 8.8 g/dL (12.4-15.3); Mean Corpuscular HGB Conc 31.9 g/dL (32-36); Mean Corpuscular Hemoglobin 33.5 pg (27.0-31.0); Mean Corpuscular Volume 104.9 fL (78.0-102.0); Mean Platelet Volume 9.8 fl (8.7-11.0); Platelet Count Result 189 K/mm3 (150-420); Red Blood Count 2.63 M/mm3 (4.70-6.10); Red Cell Distribution Width 18.6 % (11.6-14.4); White Blood Count 3.3 K/mm3 (4.8-10.8)
[2025-02-04 08:00] VITALS: BP 124/84; PULSE 84; RESP 18; TEMP 36.2; O2SAT 96
[2025-02-04] MEDS: ENALAPRIL MALEATE 5 MG TABLET 10 MG PO ×2 (08:27→18:03)
[2025-02-04] MEDS: OMEGA 3 POLYUNSAT FATTY ACIDS 1 GM CAP PO (08:27)
[2025-02-04] MEDS: allopurinoL 100 MG TABLET 200 MG PO (08:27)
[2025-02-04] MEDS: metFORMIN HCL 500 MG TABLET PO ×2 (08:27→18:04)
[2025-02-04] MEDS: PANTOPRAZOLE 40 MG TABLET PO ×2 (08:27→20:56)
[2025-02-04] MEDS: ACETAMINOPHEN 325 MG TABLET 650 MG PO ×2 (08:28→20:56)
[2025-02-04 08:29] VITALS: PULSE 84
[2025-02-04] MEDS: carvediloL 3.125 MG TABLET PO ×2 (08:29→20:54)
[2025-02-04] MEDS: CYANOCOBALAMIN 1,000 MCG TABLET 1000 MCG PO (08:29)
[2025-02-04] MEDS: TAMSULOSIN HCL 0.4 MG CAPSULE PO (08:29)
[2025-02-04] MEDS: ASPIRIN 81 MG ENTERIC TABLET PO (08:30)
[2025-02-04] MEDS: CLOPIDOGREL BISULFATE 75 MG TABLET PO (08:30)
[2025-02-04] MEDS: FLUTICASONE PROPIONATE 0.05% NA SPR 16 GM BTL (*BKC) 2 SPRAY NASAL (08:30)
[2025-02-04] MEDS: [UNRECOGNIZED DRUG - REMARK] 1 EACH XX (08:30)
[2025-02-04] MEDS: MAGNESIUM HYDROXIDE SUSP 30 ML UDC PO (08:35)
[2025-02-04 11:38] LABS: Glucose Point of Care 96 mg/dl (65-105)
[2025-02-04] MEDS: polyethylene glycoL 3350 17 GM POWD.PACK PO (13:41)
[2025-02-04 16:00] VITALS: BP 124/54; PULSE 84; RESP 18; TEMP 36.1; O2SAT 97
[2025-02-04 20:54] VITALS: PULSE 72
[2025-02-04] MEDS: TEMAZEPAM (*CRX) 15 MG CAPSULE PO (20:55)
[2025-02-04] MEDS: PRAVASTATIN SODIUM 20 MG TABLET 80 MG PO (20:55)
[2025-02-04] MEDS: LORATADINE/PSEUDOEPHEDRINE (*CRX) 10/240 MG TABLET ER 24 HR 1 TAB PO (20:56)
[2025-02-04 21:11] LABS: Glucose Point of Care 100 mg/dl (65-105)
[2025-02-05] VITALS: BP 134/57; PULSE 84; RESP 20; TEMP 36.2; O2SAT 94
--- NOTE | 2025-02-05 00:05 | PC.NURSE ---
Pt asleep and no signs of shortness of breath or discomfort noted.
--- NOTE | 2025-02-05 02:05 | PC.NURSE ---
Pt asleep and no signs of respiratory distress noted.
--- NOTE | 2025-02-05 04:20 | PC.NURSE ---
Pt asleep and no signs of discomfort noted.
--- NOTE | 2025-02-05 05:00 | PC.NURSE ---
600 ml of clear, yellow urine emptied from keyes.
[2025-02-05 07:54] LABS: Glucose Point of Care 87 mg/dl (65-105)
[2025-02-05 08:00] VITALS: BP 121/67; PULSE 90; RESP 18; TEMP 36.3; O2SAT 97
[2025-02-05] MEDS: FLUTICASONE PROPIONATE 0.05% NA SPR 16 GM BTL (*BKC) 2 SPRAY NASAL (08:46)
[2025-02-05 08:47] VITALS: PULSE 84
[2025-02-05] MEDS: metFORMIN HCL 500 MG TABLET PO ×2 (08:47→16:55)
[2025-02-05] MEDS: ACETAMINOPHEN 325 MG TABLET 650 MG PO ×2 (08:47→20:59)
[2025-02-05] MEDS: ASPIRIN 81 MG ENTERIC TABLET PO (08:47)
[2025-02-05] MEDS: CLOPIDOGREL BISULFATE 75 MG TABLET PO (08:47)
[2025-02-05] MEDS: OMEGA 3 POLYUNSAT FATTY ACIDS 1 GM CAP PO (08:47)
[2025-02-05] MEDS: allopurinoL 100 MG TABLET 200 MG PO (08:47)
[2025-02-05] MEDS: carvediloL 3.125 MG TABLET PO ×2 (08:47→20:58)
[2025-02-05] MEDS: TAMSULOSIN HCL 0.4 MG CAPSULE PO (08:47)
[2025-02-05] MEDS: PANTOPRAZOLE 40 MG TABLET PO ×2 (08:47→20:59)
[2025-02-05] MEDS: CYANOCOBALAMIN 1,000 MCG TABLET 1000 MCG PO (08:47)
[2025-02-05] MEDS: ENALAPRIL MALEATE 5 MG TABLET 10 MG PO ×2 (08:47→16:55)
[2025-02-05 16:00] VITALS: BP 136/58; PULSE 81; RESP 15; TEMP 36.1; O2SAT 94
--- NOTE | 2025-02-05 20:13 | PC.NURSE ---
Patient alert and oriented. Able to verbalize needs. Patient assisted to bathroom, chair, bed. Patient uses gait belt and walker. Gait steady. Continent of bowel. Prado cath in place and draining clear yellow urine. Call light and belongings within reach.
[2025-02-05 20:58] VITALS: PULSE 72
[2025-02-05] MEDS: LORATADINE/PSEUDOEPHEDRINE (*CRX) 10/240 MG TABLET ER 24 HR 1 TAB PO (20:59)
[2025-02-05] MEDS: PRAVASTATIN SODIUM 20 MG TABLET 80 MG PO (20:59)
[2025-02-05] MEDS: TEMAZEPAM (*CRX) 15 MG CAPSULE PO (20:59)
[2025-02-05 21:21] LABS: Glucose Point of Care 113 mg/dl (65-105)
[2025-02-06] VITALS: BP 136/63; PULSE 82; RESP 20; TEMP 36.4; O2SAT 92
--- NOTE | 2025-02-06 00:05 | PC.NURSE ---
Pt resting quietly in bed and doesnt voice any c/o discomfort.
--- NOTE | 2025-02-06 02:00 | PC.NURSE ---
Pt asleep and no signs of shortness of breath noted.
--- NOTE | 2025-02-06 04:10 | PC.NURSE ---
Pt asleep and no signs of discomfort noted.
--- NOTE | 2025-02-06 05:05 | PC.NURSE ---
225 ml of clear, yellow urine emptied from keyes catheter.
--- NOTE | 2025-02-06 06:11 | PC.NURSE ---
Pt resting quietly in bed and doesnt voice any c/o discomfort.
[2025-02-06 08:00] VITALS: BP 140/76; PULSE 107; RESP 18; TEMP 36.2; O2SAT 97
[2025-02-06] MEDS: OMEGA 3 POLYUNSAT FATTY ACIDS 1 GM CAP PO (09:39)
[2025-02-06] MEDS: allopurinoL 100 MG TABLET 200 MG PO (09:39)
[2025-02-06] MEDS: ENALAPRIL MALEATE 5 MG TABLET 10 MG PO ×2 (09:39→16:54)
[2025-02-06 09:40] VITALS: PULSE 88
[2025-02-06] MEDS: TAMSULOSIN HCL 0.4 MG CAPSULE PO (09:40)
[2025-02-06] MEDS: ACETAMINOPHEN 325 MG TABLET 650 MG PO ×2 (09:40→21:12)
[2025-02-06] MEDS: PANTOPRAZOLE 40 MG TABLET PO ×2 (09:40→21:12)
[2025-02-06] MEDS: FLUTICASONE PROPIONATE 0.05% NA SPR 16 GM BTL (*BKC) 2 SPRAY NASAL (09:40)
[2025-02-06] MEDS: CYANOCOBALAMIN 1,000 MCG TABLET 1000 MCG PO (09:40)
[2025-02-06] MEDS: ASPIRIN 81 MG ENTERIC TABLET PO (09:40)
[2025-02-06] MEDS: CLOPIDOGREL BISULFATE 75 MG TABLET PO (09:40)
[2025-02-06] MEDS: carvediloL 3.125 MG TABLET PO ×2 (09:40→21:12)
[2025-02-06] MEDS: metFORMIN HCL 500 MG TABLET PO ×2 (09:40→16:54)
[2025-02-06 16:00] VITALS: BP 158/78; PULSE 87; RESP 16; TEMP 36.2; O2SAT 94
--- NOTE | 2025-02-06 20:38 | PC.NURSE ---
Patient noted to have red blood with small clots in urine which was previously clear 2 hours prior. Patient noted adjusting on tubing. SN instructed on keyes cath and not to pull on tubing. Patient stated understanding.
[2025-02-06] MEDS: TEMAZEPAM (*CRX) 15 MG CAPSULE PO (21:11)
[2025-02-06 21:12] VITALS: PULSE 72
[2025-02-06] MEDS: PRAVASTATIN SODIUM 20 MG TABLET 80 MG PO (21:12)
[2025-02-06] MEDS: LORATADINE/PSEUDOEPHEDRINE (*CRX) 10/240 MG TABLET ER 24 HR 1 TAB PO (21:12)
[2025-02-06 21:29] LABS: Glucose Point of Care 117 mg/dl (65-105)
--- NOTE | 2025-02-06 21:48 | PC.NURSE ---
Patient in bed watching TV. Denies pain, SOB. Prado cath patent and hematuria resolving and clear kemar urine seen. Call light within reach.
[2025-02-07] VITALS: BP 136/72; PULSE 93; RESP 20; TEMP 36.6; O2SAT 93
--- NOTE | 2025-02-07 00:10 | PC.NURSE ---
Pt resting quietly in bed and doesnt voice any c/o shortness of breath or discomfort.
--- NOTE | 2025-02-07 02:20 | PC.NURSE ---
Pt asleep and no signs of respiratory distress noted.
--- NOTE | 2025-02-07 04:10 | PC.NURSE ---
Pt asleep and no signs of discomfort noted.
[2025-02-07 08:00] VITALS: BP 130/63; PULSE 94; RESP 20; TEMP 36.6; O2SAT 95
[2025-02-07 08:32] LABS: Glucose Point of Care 102 mg/dl (65-105)
[2025-02-07] MEDS: MAGNESIUM HYDROXIDE SUSP 30 ML UDC PO (09:21)
[2025-02-07] MEDS: CYANOCOBALAMIN 1,000 MCG TABLET 1000 MCG PO (09:32)
[2025-02-07] MEDS: metFORMIN HCL 500 MG TABLET PO ×2 (09:32→16:54)
[2025-02-07] MEDS: OMEGA 3 POLYUNSAT FATTY ACIDS 1 GM CAP PO (09:32)
[2025-02-07] MEDS: FLUTICASONE PROPIONATE 0.05% NA SPR 16 GM BTL (*BKC) 2 SPRAY NASAL (09:32)
[2025-02-07] MEDS: allopurinoL 100 MG TABLET 200 MG PO (09:32)
[2025-02-07] MEDS: TAMSULOSIN HCL 0.4 MG CAPSULE PO (09:32)
[2025-02-07] MEDS: ENALAPRIL MALEATE 5 MG TABLET 10 MG PO ×2 (09:32→16:54)
[2025-02-07] MEDS: ASPIRIN 81 MG ENTERIC TABLET PO (09:32)
[2025-02-07 09:33] VITALS: PULSE 94
[2025-02-07] MEDS: CLOPIDOGREL BISULFATE 75 MG TABLET PO (09:33)
[2025-02-07] MEDS: PANTOPRAZOLE 40 MG TABLET PO ×2 (09:33→21:03)
[2025-02-07] MEDS: ACETAMINOPHEN 325 MG TABLET 650 MG PO ×2 (09:33→21:02)
[2025-02-07] MEDS: carvediloL 3.125 MG TABLET PO ×2 (09:33→21:02)
[2025-02-07 16:00] VITALS: BP 156/75; PULSE 81; RESP 20; TEMP 36.3; O2SAT 98
[2025-02-07 21:02] VITALS: PULSE 70
[2025-02-07] MEDS: PRAVASTATIN SODIUM 20 MG TABLET 80 MG PO (21:02)
[2025-02-07] MEDS: LORATADINE/PSEUDOEPHEDRINE (*CRX) 10/240 MG TABLET ER 24 HR 1 TAB PO (21:02)
[2025-02-07 21:31] LABS: Glucose Point of Care 99 mg/dl (65-105)
[2025-02-08] VITALS: BP 137/46; PULSE 98; RESP 20; TEMP 36.4; O2SAT 93
[2025-02-08 07:54] VITALS: BP 121/61; PULSE 100; RESP 20; TEMP 36.9; O2SAT 92
[2025-02-08] MEDS: TAMSULOSIN HCL 0.4 MG CAPSULE PO (08:42)
[2025-02-08] MEDS: ENALAPRIL MALEATE 5 MG TABLET 10 MG PO ×2 (08:42→16:52)
[2025-02-08] MEDS: ACETAMINOPHEN 325 MG TABLET 650 MG PO ×2 (08:43→21:08)
[2025-02-08 08:44] VITALS: PULSE 82
[2025-02-08] MEDS: CLOPIDOGREL BISULFATE 75 MG TABLET PO (08:44)
[2025-02-08] MEDS: CYANOCOBALAMIN 1,000 MCG TABLET 1000 MCG PO (08:44)
[2025-02-08] MEDS: allopurinoL 100 MG TABLET 200 MG PO (08:44)
[2025-02-08] MEDS: carvediloL 3.125 MG TABLET PO ×2 (08:44→21:08)
[2025-02-08] MEDS: OMEGA 3 POLYUNSAT FATTY ACIDS 1 GM CAP PO (08:44)
[2025-02-08] MEDS: metFORMIN HCL 500 MG TABLET PO ×2 (08:44→16:52)
[2025-02-08] MEDS: ASPIRIN 81 MG ENTERIC TABLET PO (08:44)
[2025-02-08] MEDS: PANTOPRAZOLE 40 MG TABLET PO ×2 (08:44→21:09)
[2025-02-08] MEDS: FLUTICASONE PROPIONATE 0.05% NA SPR 16 GM BTL (*BKC) 2 SPRAY NASAL (08:47)
--- NOTE | 2025-02-08 10:06 | PM.IMPN ---
Progress Note: A&P Assessment and Plan (1) Physical debility: Code(s): R53.81 - Other malaise Status: Acute Assessment and Plan: Debility related to recent hospitalizations. Continue PT/OT Encourage mobility and activity with staff Up at a bed with all meals (2) Hypertension: Code(s): I10 - Essential (primary) hypertension Status: Acute Assessment and Plan: Patient's blood pressure was reviewed on 02/08 Blood pressure remains well controlled. 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 Continue AccuCheks covering with sliding scale. Hypoglycemia protocol available as needed. 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 Follow (7) Pleural effusion: Code(s): J90 - Pleural effusion, not elsewhere classified Status: Acute Assessment and Plan: Patient seen by pulmonary 12/31/24 and Lasix 20mg daily x [address] January 06 - moderate to large right pleural effusion and advanced emphysema. Also with irregular peripheral scarring left upper lobe and anterior right upper lobe which are new. Calcified pleural plaques noted. CXR January 19 - large right pleural effusion similar in finding to December 30 CXR. Per HnP: During his hospitalization, patient had acute respiratory failure with hypoxia requiring new 2 L of supplemental oxygen due to his bilateral effusions likely secondary to CHF and severe aortic stenosis. Echo 01/14 showing normal LV systolic fxn with EF 55-60%, abnormal diastolic dysfunction, no aortic stenosis. He will need thoracentesis given hx of asbestos and tobacco exposure. Followed by pulmonary clinic. Continue incentive spirometer Room air at rest but use supplemental O2 with exertion as needed. (8) BPH (benign prostatic hyperplasia): Code(s): N40.0 - Benign prostatic hyperplasia without lower urinary tract symptoms Status: Acute Assessment and Plan: Patient with history of BPH and mildly elevated PSA values. He reported that he was on Flomax but was stopped during his hospitalization and he started having urinary retention requiring Prado Prado catheter remains in place. Flomax resumed. Attempted bladder trial but patient failed voiding trial; catheter reinserted with difficulty per RN Continue Prado and have patient follow up with urology. (9) Anemia: Code(s): D64.9 - Anemia, unspecified Status: Acute Assessment and Plan: Patient with recent hospitalization and found to have gastric ulceration by EGD Hgb 7.3 (01/19/25) and 9.0 on admission (01/26/25) Hgb 8.8 on 02/04 Continue with PPI b.i.d. Monitor HH. Macrocytosis noted and B12 level 272 in December. Continue B12 replacement (10) Hyperlipidemia: Code(s): E78.5 - Hyperlipidemia, unspecified Status: Acute Assessment and Plan: LFTs normal. Continue statin (11) UTI (urinary tract infection): Code(s): N39.0 - Urinary tract infection, site not specified Status: Resolved Assessment and Plan: UA noted on admission. Rocephin started but UCx negative. UTI ruled out. Plan Code status: Full code DVT prophylaxis: SCDs PT/OT notes: SWING Bed Recertification: Patient needs continued therapy at [facility] to improve his changes of success at home. Subjective Date/time seen: 02/08/25 10:06 Interval history: 89yo male with BPH, AAA, CAD and DM here for rehab. He slept poorly last night. He feels SOB with activity but more chronic in nature. Appetite 'not great' but eating okay. No CP. RN states patient with SpO2 high 80% with exertion. Exam Narrative: AF 98.4 121/61 82 20 92% ra Gen - NARD sitting up chair Chest -decreased BS involving a majority of the right lung field. Left lung base crackles. CV - RRR S1/S2 Abd - Soft, NT/ND, Positive BS -Prado catheter secured draining yellow. Ext -trace-1+ ranjit ankle edema bilaterally. Psych - Nml mood and affect Skin - Warm and dry. 2 dried eschars left plantar surface Objective Data Vital Signs Vital Signs: Vital Signs - 24 hr 02/07/25 16:00 02/07/25 20:00 02/07/25 21:02 Temperature 97.3 F L Pulse Rate 81 70 Respiratory Rate 20 Blood Pressure 156/75 H Pulse Oximetry 98 Oxygen Delivery Room Air Room Air 02/08/25 00:00 02/08/25 07:54 02/08/25 08:44 Temperature 97.6 F 98.4 F Pulse Rate 98 100 82 Respiratory Rate 20 20 Blood Pressure 137/46 L 121/61 Pulse Oximetry 93 92 Oxygen Delivery Room Air Room Air Intake/Output Intake/Output: Intake & Output 02/05/25 02/06/25 02/07/25 02/08/25 23:59 23:59 23:59 23:59 Intake Total 2060 1460 1770 1040 Output Total 0194 821 2239 1475 Balance 660 885 170 -435 Meds/Results Medications: Active Medications Generic Name Dose Route Start Last Admin Trade Name Freq PRN Reason Stop Dose Admin Acetaminophen 650 mg 01/25/25 21:00 02/08/25 08:43 Acetaminophen 325 Mg Tablet PO 650 mg Q12HR STELLA Administration Hydrocodone Bitart/Acetaminophen 1 tab 01/25/25 15:47 02/03/25 09:44 Hydrocodone/Acetaminophen (*Crx) 5-325 Mg Tablet PO 1 tab Q6H PRN Administration pain 4-6 Al Hydrox/Mg Hydrox/Simethicone 30 ml 02/02/25 09:44 Mag Hydrox/Al Hydrox/Simeth 30 Ml Udc PO Q6H PRN Constipation or Indigestion Allopurinol 200 mg 01/26/25 09:00 02/08/25 08:44 Allopurinol 100 Mg Tablet PO 200 mg DAILY STELLA Administration Aspirin 81 mg 01/26/25 09:00 02/08/25 08:44 Aspirin 81 Mg Enteric Tablet PO 81 mg DAILY STELLA Administration Bisacodyl 10 mg 02/02/25 09:44 Bisacodyl 10 Mg Suppository RECTAL QAM PRN Constipation Carvedilol 3.125 mg 01/27/25 09:00 02/08/25 08:44 Carvedilol 3.125 Mg Tablet PO 3.125 mg Q12HR STELLA Administration Clopidogrel Bisulfate 75 mg 01/26/25 09:00 02/08/25 08:44 Clopidogrel Bisulfate 75 Mg Tablet PO 75 mg DAILY STELLA Administration Cyanocobalamin 1,000 mcg 02/03/25 11:25 02/08/25 08:44 Cyanocobalamin 1,000 Mcg Tablet PO 1,000 mcg QAM STELLA Administration Dextrose 12.5 gm 01/26/25 09:39 Dextrose 50% 25 Gm/50 Ml Syringe IV PUSH PRN PRN Hypoglycemia Protocol Enalapril Maleate 10 mg 01/27/25 17:00 02/08/25 08:42 Enalapril Maleate 5 Mg Tablet PO 10 mg BID STELLA Administration Fish Oil 1 gm 01/26/25 09:00 02/08/25 08:44 Mineral 3 Polyunsat Fatty Acids 1 Gm Cap PO 1 gm DAILY STELLA Administration Fluticasone Propionate 2 spray 02/03/25 10:40 02/08/25 08:47 Fluticasone Propionate 0.05% Na Spr 16 Gm Btl (*Bkc) NASAL 2 spray QAM STELLA Administration Glucagon 1 mg 01/26/25 09:39 Glucagon For Inj 1 Mg Vial IM PRN PRN Hypoglycemia Protocol Glucose 15 gm 01/26/25 09:39 Glucose Oral Gel 15 Gm Of Glucse In 37.5 Gm Tube PO PRN PRN Hypoglycemia Protocol Dextrose 1,000 mls @ 100 mls/hr 01/26/25 09:39 Dextrose 5% 1,000 Ml IVPB PRN PRN Hypoglycemia Protocol Loratadine/Pseudoephedrine Sulfate 1 tab 01/28/25 21:00 02/07/25 21:02 Loratadine/Pseudoephedrine (*Crx) 10/240 Mg Tablet Er 24 Hr PO 1 tab QHS STELLA Administration Magnesium Hydroxide 30 ml 02/03/25 10:36 02/07/25 09:21 Magnesium Hydroxide Susp 30 Ml Udc PO 30 ml QAM PRN Administration Constipation Metformin HCl 500 mg 01/25/25 17:00 02/08/25 08:44 Metformin Hcl 500 Mg Tablet PO 500 mg BID STELLA Administration Pantoprazole Sodium 40 mg 01/25/25 21:00 02/08/25 08:44 Pantoprazole 40 Mg Tablet PO 40 mg Q12HR STELLA Administration Polyethylene Glycol 17 gm 02/04/25 13:15 02/04/25 13:41 Polyethylene Glycol 3350 17 Gm Powd.Pack PO 17 gm QAM PRN Administration Constipation Pravastatin Sodium 80 mg 01/25/25 21:00 02/07/25 21:02 Pravastatin Sodium 20 Mg Tablet PO 80 mg HS STELLA Administration Tamsulosin HCl 0.4 mg 01/26/25 09:00 02/08/25 08:42 Tamsulosin Hcl 0.4 Mg Capsule PO 0.4 mg DAILY STELLA Administration Temazepam 15 mg 01/25/25 15:47 02/06/25 21:11 Temazepam (*Crx) 15 Mg Capsule PO 15 mg HS PRN Administration Sleep Labs Labs: Laboratory Results - last 24 hr 02/07/25 21:26 POC Capillary Glucose 99
[2025-02-08 11:41] LABS: Glucose Point of Care 100 mg/dl (65-105)
[2025-02-08] MEDS: MAG HYDROX/AL HYDROX/SIMETH 30 ML UDC PO (13:40)
[2025-02-08 16:00] VITALS: BP 156/77; PULSE 97; RESP 16; TEMP 36.4; O2SAT 93
[2025-02-08 21:06] LABS: Glucose Point of Care 120 mg/dl (65-105)
[2025-02-08 21:08] VITALS: PULSE 89
[2025-02-08] MEDS: LORATADINE/PSEUDOEPHEDRINE (*CRX) 10/240 MG TABLET ER 24 HR 1 TAB PO (21:08)
[2025-02-08] MEDS: TEMAZEPAM (*CRX) 15 MG CAPSULE PO (21:09)
[2025-02-08] MEDS: PRAVASTATIN SODIUM 20 MG TABLET 80 MG PO (21:09)
[2025-02-09] VITALS: BP 154/73; PULSE 89; RESP 16; TEMP 36.4; O2SAT 96
[2025-02-09 08:00] VITALS: BP 134/74; PULSE 74; RESP 18; TEMP 37.3; O2SAT 96
[2025-02-09] MEDS: FLUTICASONE PROPIONATE 0.05% NA SPR 16 GM BTL (*BKC) 2 SPRAY NASAL (08:50)
[2025-02-09] MEDS: ENALAPRIL MALEATE 5 MG TABLET 10 MG PO ×2 (08:51→17:13)
[2025-02-09] MEDS: OMEGA 3 POLYUNSAT FATTY ACIDS 1 GM CAP PO (08:52)
[2025-02-09] MEDS: ASPIRIN 81 MG ENTERIC TABLET PO (08:52)
[2025-02-09] MEDS: TAMSULOSIN HCL 0.4 MG CAPSULE PO (08:52)
[2025-02-09] MEDS: allopurinoL 100 MG TABLET 200 MG PO (08:52)
[2025-02-09] MEDS: ACETAMINOPHEN 325 MG TABLET 650 MG PO ×2 (08:53→21:09)
[2025-02-09] MEDS: metFORMIN HCL 500 MG TABLET PO ×2 (08:53→17:13)
[2025-02-09] MEDS: FUROSEMIDE 20 MG TABLET PO (08:53)
[2025-02-09] MEDS: CYANOCOBALAMIN 1,000 MCG TABLET 1000 MCG PO (08:53)
[2025-02-09] MEDS: PANTOPRAZOLE 40 MG TABLET PO ×2 (08:53→21:09)
[2025-02-09 08:54] VITALS: PULSE 78
[2025-02-09] MEDS: carvediloL 3.125 MG TABLET PO ×2 (08:54→21:09)
[2025-02-09] MEDS: CLOPIDOGREL BISULFATE 75 MG TABLET PO (08:54)
[2025-02-09] MEDS: polyethylene glycoL 3350 17 GM POWD.PACK PO (13:03)
[2025-02-09 16:00] VITALS: BP 134/74; PULSE 84; RESP 20; TEMP 36.6; O2SAT 96
[2025-02-09 17:01] LABS: Glucose Point of Care 103 mg/dl (65-105)
[2025-02-09 21:09] LABS: Glucose Point of Care 112 mg/dl (65-105)
[2025-02-09] MEDS: PRAVASTATIN SODIUM 20 MG TABLET 80 MG PO (21:09)
[2025-02-09] MEDS: LORATADINE/PSEUDOEPHEDRINE (*CRX) 10/240 MG TABLET ER 24 HR 1 TAB PO (21:09)
[2025-02-09] MEDS: TEMAZEPAM (*CRX) 15 MG CAPSULE PO (21:09)
[2025-02-10] VITALS: BP 144/71; PULSE 89; RESP 17; TEMP 36.4; O2SAT 96
[2025-02-10 08:00] VITALS: BP 137/69; PULSE 101; RESP 18; TEMP 36.1; O2SAT 99
[2025-02-10] MEDS: CYANOCOBALAMIN 1,000 MCG TABLET 1000 MCG PO (09:47)
[2025-02-10] MEDS: TAMSULOSIN HCL 0.4 MG CAPSULE PO (09:47)
[2025-02-10] MEDS: FLUTICASONE PROPIONATE 0.05% NA SPR 16 GM BTL (*BKC) 2 SPRAY NASAL (09:47)
[2025-02-10] MEDS: OMEGA 3 POLYUNSAT FATTY ACIDS 1 GM CAP PO (09:47)
[2025-02-10] MEDS: ACETAMINOPHEN 325 MG TABLET 650 MG PO ×2 (09:47→20:47)
[2025-02-10] MEDS: CLOPIDOGREL BISULFATE 75 MG TABLET PO (09:47)
[2025-02-10 09:48] VITALS: PULSE 90
[2025-02-10] MEDS: ENALAPRIL MALEATE 5 MG TABLET 10 MG PO ×2 (09:48→17:37)
[2025-02-10] MEDS: metFORMIN HCL 500 MG TABLET PO ×2 (09:48→17:37)
[2025-02-10] MEDS: ASPIRIN 81 MG ENTERIC TABLET PO (09:48)
[2025-02-10] MEDS: allopurinoL 100 MG TABLET 200 MG PO (09:48)
[2025-02-10] MEDS: carvediloL 3.125 MG TABLET PO ×2 (09:48→20:47)
[2025-02-10] MEDS: PANTOPRAZOLE 40 MG TABLET PO ×2 (09:48→20:47)
[2025-02-10] MEDS: FUROSEMIDE 20 MG TABLET PO (09:55)
[2025-02-10 16:00] VITALS: BP 138/70; PULSE 81; RESP 17; TEMP 36.6; O2SAT 97
[2025-02-10] MEDS: PRAVASTATIN SODIUM 20 MG TABLET 80 MG PO (20:47)
[2025-02-10] MEDS: LORATADINE/PSEUDOEPHEDRINE (*CRX) 10/240 MG TABLET ER 24 HR 1 TAB PO (20:47)
[2025-02-10] MEDS: TEMAZEPAM (*CRX) 15 MG CAPSULE PO (20:47)
[2025-02-10 20:51] LABS: Glucose Point of Care 116 mg/dl (65-105)
[2025-02-11] VITALS: BP 142/68; PULSE 89; RESP 17; TEMP 36.4; O2SAT 98
[2025-02-11 08:00] VITALS: BP 132/67; PULSE 88; RESP 17; TEMP 36.6; O2SAT 97
[2025-02-11] MEDS: FLUTICASONE PROPIONATE 0.05% NA SPR 16 GM BTL (*BKC) 2 SPRAY NASAL (09:47)
[2025-02-11] MEDS: ENALAPRIL MALEATE 5 MG TABLET 10 MG PO (09:47)
[2025-02-11 09:48] VITALS: PULSE 80
[2025-02-11] MEDS: carvediloL 3.125 MG TABLET PO (09:48)
[2025-02-11] MEDS: ACETAMINOPHEN 325 MG TABLET 650 MG PO (09:48)
[2025-02-11] MEDS: OMEGA 3 POLYUNSAT FATTY ACIDS 1 GM CAP PO (09:48)
[2025-02-11] MEDS: metFORMIN HCL 500 MG TABLET PO (09:48)
[2025-02-11] MEDS: CLOPIDOGREL BISULFATE 75 MG TABLET PO (09:48)
[2025-02-11] MEDS: TAMSULOSIN HCL 0.4 MG CAPSULE PO (09:48)
[2025-02-11] MEDS: FUROSEMIDE 20 MG TABLET PO (09:48)
[2025-02-11] MEDS: PANTOPRAZOLE 40 MG TABLET PO (09:49)
[2025-02-11] MEDS: ASPIRIN 81 MG ENTERIC TABLET PO (09:49)
[2025-02-11] MEDS: CYANOCOBALAMIN 1,000 MCG TABLET 1000 MCG PO (09:49)
[2025-02-11] MEDS: allopurinoL 100 MG TABLET 200 MG PO (09:49)
--- NOTE | 2025-02-11 12:24 | P.DS_ITS ---
DS: Admitting Diagnosis Discharge Date 02/11/2025 Admitting Diagnosis Rehab/Physically deconditioned DS: Discharge Diagnosis Discharge Diagnosis (1) Physical debility: Code(s): R53.81 - Other malaise Status: Acute (2) Hypertension: Code(s): I10 - Essential (primary) hypertension Status: Acute (3) CAD (coronary artery disease): Code(s): I25.10 - Atherosclerotic heart disease of [place] coronary artery without angina pectoris Status: Acute (4) Diabetes: Qualifiers: Diabetes mellitus complication detail: with polyneuropathy Diabetes mellitus complication status: with neurologic complications Diabetes mellitus termite control technician insulin use: without termite control technician use Diabetes mellitus type: type 2 Qualified Code(s): 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thy Code(s): E11.9 - Type 2 diabetes mellitus without complications Status: Acute (5) Diabetic ulcer of left foot: Qualifiers: Diabetes mellitus type: type 2 Diabetic foot ulcer location: toe Non-pressure ulcer stage: with fat layer exposed Qualified Code(s): E11.621 - Type 2 diabetes mellitus with foot ulcer; L97.522 - Non-pressure chronic ulcer of other part of left foot with fat layer exposed Code(s): E11.621 - Type 2 diabetes mellitus with foot ulcer; L97.529 - Non-pressure chronic ulcer of other part of left foot with unspecified severity Status: Acute (6) COPD with chronic bronchitis and emphysema: Code(s): J44.9 - Chronic obstructive pulmonary disease, unspecified Status: Acute (7) Pleural effusion: Code(s): J90 - Pleural effusion, not elsewhere classified Status: Acute (8) BPH (benign prostatic hyperplasia): Code(s): N40.0 - Benign prostatic hyperplasia without lower urinary tract symptoms Status: Acute (9) Anemia: Code(s): D64.9 - Anemia, unspecified Status: Acute (10) Hyperlipidemia: Code(s): E78.5 - Hyperlipidemia, unspecified Status: Acute (11) UTI (urinary tract infection): Code(s): N39.0 - Urinary tract infection, site not specified Status: Resolved DS: Summary Hospital Course Reason for hospitalization: Rehab/Physically deconditioned Hospital Course: Admission: patient was a 81-year-old male who was a direct admit from [facility] for [place] swing bed program following extended hospitalization and physically deconditioned state. patient was treated at [facility] for GI bleed and heart failure. Patient reports past medical history diabetic foot ulcer, AAA, CAD, mi, HLD, gout, CVA, diabetes, and hypertension. during his hospitalization patient was found to an duodenal ulcer was continued on PPI b.i.d. and to follow-up with GI hemoglobin stable at time of discharge and his Plavix resumed. during his hospitalization patient had acute respiratory failure with hypoxia requiring new 2 L of supplemental oxygen due to his Bilateral effusions likely secondary to congestive heart failure and severe aortic stenosis, he also had urinary retention and has a Keyes catheter placed does follow with a urologist for his BPH. Hospital Course: Patient progresses well with PT/OT during his admission as expected. We did attempt a voiding trial while inpatient however patient failed and a new keyes was placed at discharge nursing staff provided guided education on exchanging out the leg bag. Patient has follow-up with his urologist for further voiding trials. Patient was also weaned of any oxygen use while inpatient and saturation remained stable. Patient was discharged home with family plans for continued home health with PT/OT and a set-up caregiver to assist with further ADLS. Patient seen and assessed at time of discharge in no acute distress and no complaints. Status at Discharge Functional status at discharge: uses cane/walker Overall status at discharge: patient is progressing back to baseline Time Spent with Patient Time attestation: Total time spent providing and/or coordinating discharge services: Time spent: Greater than 30 minutes Exam Narrative: Gen - NARD sitting up chair Chest -Diminished lung bender R>L CV - RRR S1/S2 Abd - Soft, NT/ND, Positive BS -Keyes catheter secured draining yellow. Ext -trace-1+ ranjit ankle edema bilaterally. Psych - Nml mood and affect Skin - Warm and dry. 2 dried eschars left plantar surface DS: Data Data Completed and Pending Labs on day of discharge: Labs from last 24 hours 02/10/25 20:51 POC Capillary Glucose 116 H Discharge Plan Discharge Attending physician on discharge: Antelmo Bazzi Consulting providers: Leyla Rebolledo Discharging Clinician: Leyla Rebolledo Anticipated Discharge Date/Time: 02/11/25 12:13 Patient Disposition: Home with Home Health Service Activity: as tolerated Diet: heart healthy Discharge Instructions: 1). Per Care Coordination: [facility] follow you at discharge for long term, home health aide, and physical therapy. They will call you to schedule a date and time. 2). Foot Wound: * Continue to offload on heels with elevation * follow-up with branch examiner/wound care outpatient as scheduled 3). Pleural effusion * continue with diuretics as prescribed * follow-up with pulmonary clinic as scheduled * continue with incentive spirometer at home * Oxygen PRN 4). BPH/urinary retention * Keyes catheter care instructions attached * Follow-up with Urology as scheduled How can you care for yourself at home? ? Keep track of any new symptoms or changes in your symptoms. ? Rest until you feel better. ? Be safe with medicines. Take your medicines exactly as prescribed. Call your doctor if you think you are having a problem with your medicine. ? Do not drive after taking a prescription pain medicine. ? Ensure to follow-up with primary care physician as indicated and provide updated medication list provided to you at discharge. When should you call for help? Call 911 anytime you think you may need emergency care. For example, call if: ? You passed out (lost consciousness). Call your doctor now or seek immediate medical care if: ? You have new symptoms like fever, difficulty breathing, Chest pain, vomiting, or rash. ? You have new or different pain. ? You are confused and are having trouble thinking clearly. ? Your symptoms are getting worse. Watch closely for changes in your health, and be sure to contact your doctor if: ? You do not get better as expected. Patient Instructions: Enlarged Prostate (BPH) (DC), Keyes Catheter Placement and Care (DC), Fall Prevention for Older Adults (DC), Using Oxygen at Home (DC), Pleural Effusion (DC), Urinary Leg Bag (GEN), Keyes Catheter Removal (DC), How to Change a Catheter Drainage Bag (DC) Patient Language: Kazakh Stand Alone Forms: General Discharge Information Follow-up/Referrals: Tavo Caruso MD [Primary Care Provider] - 2 weeks Discharge Medications: New cyanocobalamin (vitamin B-12) [Vitamin B-12] 1,000 mcg Tablet 1,000 mcg PO QAM Qty: 30 0RF furosemide 20 mg Tablet 20 mg PO DAILY Qty: 30 0RF Continued metformin 500 mg Tablet 500 mg PO BID carvedilol 12.5 mg Tablet 12.5 mg PO BID enalapril maleate 20 mg Tablet 20 mg PO BID clopidogrel [Plavix] 75 mg Tablet 75 mg PO DAILY Patient Comments: Pt to hold it a week prior last dose 09/07/24 allopurinol 100 mg Tablet 200 mg PO DAILY aspirin [Adult Low Dose Aspirin] 81 mg Tablet,Delayed Release (Dr/Ec) 81 mg PO DAILY Patient Comments: OK to cont per Dr Bennett pravastatin 80 mg Tablet 80 mg PO HS temazepam 15 mg Capsule 15 mg PO HS PRN (Reason: Sleep) tamsulosin 0.4 mg Capsule 0.4 mg PO DAILY pantoprazole [Protonix] [address] for susp in packet 40 mg PO BID Rx Instructions: Before meals hydrocodone-acetaminophen 5-325 mg tablet 1 tablet PO Q6H PRN (Reason: pain) Qty: 20 0RF cinnamon bark [Cinnamon] 500 mg capsule 1,000 mg PO BID acetaminophen [Tylenol Arthritis Pain] 650 mg tablet extended release 650 mg PO Q12H omega [id number] oil [Fish Oil] 1,000 (120-180) mg capsule 1 cap PO DAILY Date of admission: 01/25/25 14:57 Primary Care Provider: Tavo Caruso Admitting Provider: Antelmo Bazzi Attending physician on admission: Antelmo Bazzi Condition: Stable Quality VTE Prophylaxis VTE prophylaxis: mechanical ordered Hospitalist MIPS Heart Failure (Exclusion) Patient has history of Heart Transplant or Left Ventricular Assistive Device?: No IF YES, STOP HERE Heart Failure (Qualifier) Patient has current or prior documentation of LVEF less than or equal to 40%, or mod/servere depressed LVSF?: No IF NO, STOP HERE
--- NOTE | 2025-02-11 13:00 | PC.NURSE ---
Discharge instructions reviewed with patients sons. All questions answered. Pt and family given teaching about keyes catheter and changing to leg bag. Pt transporting via wheelchair for discharge.
--- NOTE | 2025-02-15 08:32 | PC.NURSE ---
Discharge call back made. Spoke with Tom who informs he is wore out from doing his exercises. Informs to do execises in moderation but to continue with the good work. He informs his son is there but outside and they understood all discharge instructions. He has no concerns or questions about discharge at this time.
== END 2025-02-11 13:30 | disposition home health service (06) | DRG 948 ==
PROVIDERS: Internal Medicine; Nurse Practitioner Family; Admitting Provider Internal Medicine; PCP Internal Medicine; Visit Provider Internal Medicine
DX: R53.81 Other malaise (principal); N39.0 Urinary tract infection, site not specified; J90 Pleural effusion, not elsewhere classified; I11.0 Hypertensive heart disease with heart failure; I50.9 Heart failure, unspecified; I25.10 Atherosclerotic heart disease of native coronary artery without angina pectoris; I35.0 Nonrheumatic aortic (valve) stenosis; I71.40 Abdominal aortic aneurysm, without rupture, unspecified; E78.5 Hyperlipidemia, unspecified; E11.42 Type 2 diabetes mellitus with diabetic polyneuropathy; E11.621 Type 2 diabetes mellitus with foot ulcer; L97.522 Non-pressure chronic ulcer of other part of left foot with fat layer exposed; J43.9 Emphysema, unspecified; J44.89 Other specified chronic obstructive pulmonary disease; N40.1 Benign prostatic hyperplasia with lower urinary tract symptoms; R33.8 Other retention of urine; D64.9 Anemia, unspecified; K26.9 Duodenal ulcer, unspecified as acute or chronic, without hemorrhage or perforation; M10.9 Gout, unspecified; Z96.652 Presence of left artificial knee joint; Z20.822 Contact with and (suspected) exposure to COVID-19; I25.2 Old myocardial infarction; Z95.5 Presence of coronary angioplasty implant and graft; Z79.84 Long term (current) use of oral hypoglycemic drugs; Z99.81 Dependence on supplemental oxygen; Z90.49 Acquired absence of other specified parts of digestive tract; Z86.73 Personal history of transient ischemic attack (TIA), and cerebral infarction without residual deficits; Z79.82 Long term (current) use of aspirin; Z79.02 Long term (current) use of antithrombotics/antiplatelets; Z79.891 Long term (current) use of opiate analgesic; Z87.891 Personal history of nicotine dependence
CPT/HCPCS: 36415; 80053; 81001; 82948; 85027; 87086; 97110; 97161; 97166; 97530; 97535; A9270; J0696; J7030; J7040

== ENCOUNTER 2025-02-24 13:32 | Outpatient (CLI) | payer MEDICARE, OTHER, SELFPAY ==
--- OUTSIDE RECORDS SUMMARY | 2025-02-24 13:35 | XMS_ITS | Clinical Summary ---
Author Organization [facility] Address [address] [place] [address] Care Team Providers Care Chute Worker Name Role Phone Tavo Caruso MD Primary Care Provider [phone] Maroi Blankenship DPM Unavailable [phone] Parker Pham MD Unavailable [phone] Allergies Active Allergy Reactions Criticality Noted Date Comments Tramadol Angioedema 03/13/2020 Medications ASPIRIN 81 OR Take 81 mg by mouth daily. 5 Active clopidogrel (PLAVIX) 75 MG tablet Take 1 tablet (75 mg total) by mouth daily. 4 Active enalapril 20 MG tablet Take 1 tablet (20 mg total) by mouth 2 (two) times daily. 0 Active HYDROcodone-acet aminophen 5-325 MG tablet Take 1 tablet by mouth every 6 (six) hours as needed. 0 Active metFORMIN 500 MG tablet Take 1 tablet (500 mg total) by mouth 2 (two) times daily. 7 Active temazepam 15 MG capsule Take 1 capsule (15 mg total) by mouth nightly as needed. 0 Active allopurinol 100 MG tablet Take 2 tablets (200 mg total) by mouth daily. Active tamsulosin 0.4 MG Cap Take 1 capsule (0.4 mg total) by mouth daily. Active pravastatin 80 MG tablet Take 1 tablet (80 mg total) by mouth nightly at bedtime. Active Cinnamon 500 MG Tab Take 1,000 mg by mouth 2 (two) times a day. Active omega-3 fatty acid 1000 MG capsule Take 1 tablet by mouth daily. Active COMPRESSION STOCKINGS 15-20 mmhg Knee High Compresson stocking Dx I83.893 1 Container 6 0 Active carvedilol 12.5 MG tablet Take 1 tablet (12.5 mg total) by mouth 2 (two) times daily. Active acetaminophen 325 MG tablet Take 2 tablets (650 mg total) by mouth every 6 (six) hours as needed for Pain. Active COMPRESSION STOCKINGS 15-20 MMHg Compression Stocking Knee High open or closed toe Dx I83.893 1 Container 6 1 Active OXYGEN CONCENTRATOR SUPPLY, DME,Indications: (HFpEF) heart failure with preserved ejection fraction ([facility]),Emphyse ma lung ([facility]) 1 Device by Nasal route continuous. Nasal Cannula. 2L continuous. Portable Oxygen Tanks. Stationary Concentrator. 1 Device 5 Active pantoprazole EC (PROTONIX) 40 MG tablet Take 1 tablet (40 mg total) by mouth 2 (two) times daily before meals. 30 tablet 5 Active Active Problems Problem Noted Date Diagnosed Date GI bleed 01/19/2025 (HFpEF) heart failure with p reserved ejection fraction ([facility]) 01/19/2025 Acute anemia 01/19/2025 Coronary artery disease invo lving [place] coronary artery of [place] heart without angina pectoris 01/11/2025 Dyspnea, unspecified type 01/11/2025 Carotid artery disease without cerebral infarcti on 11/28/2020 Acute gout of right elbow, unspecified cause Rupture of proximal biceps tendon, right, initia l encounter 08/23/2020 PAD (peripheral artery disease) 03/14/2020 Ulcer of left lower extremit y with fat layer exposed ([facility]) 03/14/2020 Leg edema 03/14/2020 Essential hypertension 03/14/2020 Mixed hyperlipidemia Encounters Date Type Department Care Team Description 02/24/2025 [facility] [address] [place] [address] Parker Pham MD Reschedule 01/24/2025 Telephone [facility] Care Management Critical access hospital[address] [place] [address] 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 vet tech (Swing bed referral to SFL from S/) 01/21/2025 10:45 AM CDT - 01/21/2025 11:18 AM CDT Surgery [facility] Endo/GI [address] [place] [address] Shahzad Kauffman MD EGD 01/21/2025 10:31 AM CDT Anesthesia Event [facility] Endo/GI [address] [place] [address] Nasim Ren MD Bracco, Kendra A, RN 01/19/2025 5:06 PM CDT - 01/25/2025 1:40 PM CDT Hospital Encounter [facility] Medical [address] [place] [address] Tadeo Arenas MD Mahmoud, Anas, MD Rajendran, Nagesan, MD Singanallur, Prashanth M, MD Discharge Disposition: Long-Term Facility 01/19/2025 Travel 01/14/2025 3:20 PM CDT - 01/14/2025 11:59 PM CDT Hospital Encounter [facility] [address] [place] [address] Tavo Caruso MD Discharge Disposition: Home or Self Care (Routine Discharge) 01/14/2025 Travel 01/12/2025 Telephone [facility] [address] [place] [address] Parker Pham MD Appointment Request 01/11/2025 1:00 PM CDT [facility] [address] [place] [address] Parker Pham MD Heart Problem 01/11/2025 12:34 PM CDT - 01/11/2025 11:59 PM CDT Hospital Encounter [facility] [address] [place] [place] [address] Parker Pham MD Discharge Disposition: Home or Self Care (Routine Discharge) 01/11/2025 Travel 01/11/2025 Abstract [facility] [address] [place] [address] Abstract, Doc Pccl 01/10/2025 Telephone [facility] [address] [place] [address] Parker Pham MD Lab Results (BMP, BNP) 01/07/2025 Orders Only [facility] [address] [place] [address] Parker Pham MD 01/05/2025 Telephone [facility] [address] [place] [address] Parker Pham MD Appointment Request 12/21/2024 12:30 PM CDT - 12/21/2024 11:59 PM CDT Hospital Encounter [facility] [address] [place] [address] Bartolome Lynn MD Discharge Disposition: Home or Self Care (Routine Discharge) 12/21/2024 Travel from Last 3 Months Immunizations Immunization Administration [...] drink = 0.6 oz pur e alcohol) [facility] Utilities Answer Date Recorded In the past 12 months has [employer], gas, oil, or water [employer] threatened to shut off services in your home? No 01/19/2025 Humiliation, Afraid, Rape, and Kick questionnair e Answer Date Recorded Within the last year, have y ou been afraid of your partner or ex-partner? No 01/19/2025 Within the last year, have y ou been humiliated or emotionally abused in other ways by your partner or ex-partner? No Within the last year, have y ou been kicked, hit, slapped, or otherwise physically hurt by your partner or ex-partner? No 01/19/2025 Within the last year, have y ou been raped or forced to have any kind of sexual activity by your partner or ex-partner? No 01/19/2025 Overall Financial Resource Strain (CARDIA) Answe r Date Recorded How hard is it for you to pa y for the very basics like food, housing, medical care, and heating? Not hard at all 01/19/2025 Hunger Vital Sign Answer Date Recorded Within the past 12 months, y ou worried that your food would run out before you got the money to buy more. Never true 01/20/20 25 Within the past 12 months, t he food you bought just didn't last and you didn't have money to get more. Never true 01/19/2025 PRAPARE - Transportation Answer Date Re corded In the past 12 months, has l ack of transportation kept you from medical appointments or from getting medications? No 12/24 In the past 12 months, has l ack of transportation kept you from meetings, work, or from getting things needed for daily living? No 01/19/2025 Housing Stability Vital Sign Answer Jesus e Recorded In the last 12 months, was t here a time when you were not able to pay the mortgage or rent on time? No 01/19/2025 In the past 12 months, how m any times have you moved where you were living? 0 01/19/2025 At any time in the past 12 m [facility], were you homeless or living in a mcc (including now)? No 01/19/2025 Sex and Gender Information Value Date Recorded Sex Assigned at Male 12/21/2024 12:44 PM CDT Legal Sex Male 8:46 PM CDT Gender Identity Not on file Sexual Orientation Not on file Occupation Industry Job Start Date Job End Date retired Not on file Not on file Not on file Last Filed Vital Signs Vital Sign Reading Time Taken Comments Blood Pressure 125/90 01/25/2025 11:46 AM CDT Pulse 64 01/25/2025 11:34 AM CDT Temperature 36.7 C (98.1 F) 01/25/2025 11:32 AM CDT Respiratory Rate 17 01/25/2025 11:32 AM CDT Oxygen Saturation 98% 01/25/2025 11:32 AM CDT Inhaled Oxygen Concentration - - Weight 72.4 kg (159 lb 9.8 oz) 01/20/2025 4:00 A M CDT Height 182.9 cm (6') 01/19/2025 5:39 PM CDT Body Mass Index 21.65 01/19/2025 5:39 PM CDT Plan of Treatment Upcoming Encounters Date Type Department Care Team (Late st Contact Info) Description 03/02/2025 12:30 PM CDT Appointment [address] [place] [address] Parker Pham MD [address] [place] [address] 04/12/2025 12:45 PM CDT Office Visit [facility] [place] [address] Parker Pham MD [address] [place] [address] Health Maintenance Due Date Last Done Comments ASCVD Statin 1936 DTaP, Tdap and Td Vaccines ( 1 - Tdap) 1955 Zoster Vaccines (1 of 2) 1986 Annual Medicare Wellness Visit 2001 ASCVD LDL 02/23/2010 02/23/2009 RSV Immunization or 60+ Years (1 - 1-dose 75+ series) 2011 Pneumococcal Vaccine: 50+ Years (2 of 2 - PPSV23) 08/10/2018 06/15/2018, 07/31/2015 COVID-19 Vaccine (2023-2 5 season) 2024 Meningococcal B Vaccine Aged Out No l onger eligible based on patient's age to complete this topic Meningococcal Vaccine Aged Out No jelena ty eligible based on patient's age to complete this topic RSV Immunizations Under 20 Months Aged Out No longer eligible b ased on patient's age to complete this topic Goals Goal Patient Goal Type Associated Problems Recent Progress Patient-Stated? 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 Procedure Name Priority Date/Time Associated Diagnosis Comments BASIC METABOLIC PANEL Routine 01/25/2025 5:44 AM CDT CBC, AUTO, NO DIFF Routine 01/25/2025 5: 44 AM CDT HC URINALYSIS AUTO W/MICRO Nurse Collected Priority 01/24/2025 10:54 AM CDT HOME O2 EVAL Routine 01/24/2025 8:38 AM CDT COMPREHENSIVE METABOLIC PANEL Routine 01/24/2025 4:36 AM CDT CBC W/DIFF AUTOMATED Routine 01/24/2025 4:36 AM CDT CBC W/DIFF AUTOMATED Routine 01/23/2025 4:51 AM CDT BASIC METABOLIC PANEL Routine 01/23/2025 4:51 AM CDT XR CHEST PORTABLE Today 01/22/2025 8:2 8 AM CDT CBC W/DIFF AUTOMATED Routine 01/22/2025 6:06 AM CDT BASIC METABOLIC PANEL Routine 01/22/2025 6:06 AM CDT HEMOGLOBIN AND HEMATOCRIT TIMED 01/21/2025 11:50 PM CDT HEMOGLOBIN AND HEMATOCRIT TIMED 01/21/2025 6:15 PM CDT HEMOGLOBIN AND HEMATOCRIT TIMED 01/21/2025 11:55 AM CDT EGD 01/21/2025 10:21 AM CDT Acute anemia Gastrointestinal hemorrhage with melena ENDOSCOPY (SCAN ORDER) 01/21/2025 10:08 AM CDT IRON SAT PANEL (IRON,IBC,%SAT) Routine 01/21/2025 6:45 AM CDT CBC W/DIFF AUTOMATED Routine 01/21/2025 6:45 AM CDT BASIC METABOLIC PANEL Routine 01/21/2025 6:45 AM CDT HEMOGLOBIN AND HEMATOCRIT TIMED 01/20/2025 11:46 PM CDT HEMOGLOBIN AND HEMATOCRIT TIMED 01/20/2025 5:41 PM CDT POCT GLUCOSE - DOCKED DEVICE Routine 01/20/2025 4:10 PM CDT USE ECHO 2D FU LTD Today 01/20/2025 1: 42 PM CDT CBC W/DIFF AUTOMATED Routine 01/20/2025 12:24 PM CDT POCT GLUCOSE - DOCKED DEVICE Routine 01/20/2025 11:47 AM CDT EGD Routine 01/20/2025 11:04 AM CDT COMPREHENSIVE METABOLIC PANEL Routine 01/20/2025 6:49 AM CDT HEMOGLOBIN AND HEMATOCRIT TIMED 01/20/2025 6:49 AM CDT POCT GLUCOSE - DOCKED DEVICE Routine 01/20/2025 6:23 AM CDT TRANSFUSE RED BLOOD CELLS Routine 01/20/2025 1:22 AM CDT POCT GLUCOSE - DOCKED DEVICE Routine 01/20/2025 12:00 AM CDT TYPE & SCREEN STAT 01/20/2025 12:00 AM CDT PHOSPHORUS, INORGANIC PHOSPHATE Routine 01/19/2025 10:22 PM CDT MAGNESIUM Routine 01/19/2025 10:22 PM CDT HEMOGLOBIN AND HEMATOCRIT TIMED 01/19/2025 10:22 PM CDT HEMOGLOBIN AND HEMATOCRIT TIMED 01/19/2025 6:15 PM CDT USE ECHOCARDIOGRAM Routine 01/14/2025 4: 38 PM CDT CHF (congestive heart failure) ([facility]) ECG 12-LEAD Routine 01/11/2025 12:44 PM CDT Carotid artery disease without cerebral infarction PAD (peripheral artery disease) COMPREHENSIVE METABOLIC PANEL Routine 01/05/2025 BNP Routine 01/05/2025 [employer] [place] Routine 12/21/2024 1:30 PM CDT PAD (peripheral artery disease) Mixed hyperlipidemia Leg edema LIPID PANEL Routine 02/23/2009 11:20 AM CDT from Last 3 Months or Most Recently Relevant to Health Maintenance Results * (ABNORMAL) BASIC METABOLIC PANEL (01/25/2025 5:44 AM CDT) Only the most recent of4 resultswithin the time period is included. SODIUM S/P/B 142 136 - 145 MMOL/L 01/25/2025 6:35 AM CDT [facility] POTASSIUM S/P/B 3.3(L) 3.5 - 5.1 MMOL/L 01/25/2025 6:35 AM CDT [facility] CHLORIDE S/P/B 103 97 - 115 MMOL/L 01/25/2025 6:35 AM CDT [facility] CO2 32.5(H) 21.0 - 32.0 MMOL/L 01/25/2025 6:35 AM CDT [facility] GLUCOSE 119(H) 74 - 106 MG/DL 01/25/2025 6:35 AM CDT [facility] BUN 29(H) 7 - 18 MG/DL 01/25/2025 6:35 AM CDT [facility] CREATININE S/P/B 1.18 0.70 - 1.30 MG/DL 01/25/2025 6:35 AM CDT [facility] CALCIUM S/P/B 9.2 8.5 - 10.1 MG/DL 01/25/2025 6:35 AM CDT [facility] ANION GAP 6.5 2.0 - 10.0 MMOL/L 01/25/2025 6:35 AM CDT [facility] OSMOLALITY (CALC) 301 MOSM/KG 025 6:35 AM T [facility] Comment:REFERENCE RANGE NOT ESTABLISHED GFR ESTIMATE 59(L) >90 ML/MIN/1. 73 M2 01/25/2025 6:35 AM CDT [facility] GFR NOTES GFR REFERENCE S: 01/25/2025 6:35 AM T [facility] Comment: THE ESTIMATED GFR IS CALCULATED USING THE 2020 CKD-EPI EQUATION. THE FOLLOWING CATEGORIES FOR GRADING RENAL FUNCTION ARE RECOMMENDED BY THE INTERNATIONAL SOCIETY OF NEPHROLOGY (KDIGO 2012 CLINICAL PRACTICE GUIDELINE). G1,NORMAL OR HIGH: >89 ml/min/1.73 m2 G2,MILDLY DECREASED: 60-89 ml/min/1.73 m2 G3A,MILDLY TO MODERATELY DECREASED: 45-59 ml/min/1.73 m2 G3B,MODERATELY TO SEVERELY DECREASED: 30-44 ml/min/1.73 m2 G4,SEVERELY DECREASED: 15-29 ml/min/1.73 m2 G5,KIDNEY FAILURE: <15 ml/min/1.73 m2 01/25/2025 5:44 AM CDT Andrew Ariza MD LABORATORY Final Result [facility] [address] [place] [address], [id number] * (ABNORMAL) CBC, AUTO, NO DIFF (01/25/2025 5:44 AM CDT) WBC 7.98 4.00 - 10.80 x10'3/uL 01/25/2025 6:13 AM CDT [facility] RBC 2.50(L) 4.50 - 6.10 x10'6/uL 01/25/2025 6:13 AM CDT [facility] HGB 8.2(L) 13.0 - 18.0 G/DL 01/25/2025 6:13 AM CDT [facility] HCT 25.5(L) 37.0 - 52.0 % 01/25/2025 6:13 AM CDT [facility] MCV 102.0(H) 78.0 - 100.0 FL 01/25/2025 6:13 AM CDT [facility] MCH 32.8(H) 27.0 - 31.0 PG 01/25/2025 6:13 AM CDT [facility] MCHC 32.2(L) 33.0 - 36.0 G/DL 01/25/2025 6:13 AM CDT [facility] RDW 18.0(H) 11.5 - 14.5 % 01/25/2025 6:13 AM CDT [facility] PLT 190 150 - 350 x10'3/uL 01/25/2025 6:13 AM CDT [facility] MPV 10.0 7.4 - 10.4 FL 01/25/2025 6:13 AM CDT [facility] 01/25/2025 5:44 AM CDT Andrew Ariza MD LABORATORY Final Result [facility] [address] [place] [address], [id number] * (ABNORMAL) URINALYSIS (01/24/2025 10:54 AM CDT) COLOR (U) LIGHT YELLOW 01/24/2025 11:08 AM CDT [facility] TRANSPARENCY CLEAR 01/24/2025 11:08 AM CDT [facility] SPECIFIC GRAVITY (U) 1.008 1.002 - 1.035 01/24/2025 11:08 AM CDT [facility] U PH 5.5 5 - 8 01/24/2025 11:08 AM CDT [facility] PROTEIN RANDOM (U) NEGATIVE NEGATIVE 01/24/2025 11:08 AM CDT [facility] GLUCOSE (U) NEGATIVE NEGATIVE MG/DL 01/24/2025 11:08 AM CDT [facility] KETONES MG/DL (U) NEGATIVE NEGATIVE 01/24/2025 11:08 AM CDT [facility] BILIRUBIN (U) NEGATIVE NEGATIVE 01/24/2025 11:08 AM CDT [facility] BLOOD (U) 3+(A) NEGATIVE 01/24/2025 11:08 AM CDT [facility] NITRITES NEGATIVE NEGATIVE 01/24/2025 11:08 AM CDT [facility] UROBILINOGEN NORMAL 0 - 1 EU/DL 01/24/2025 11:08 AM CDT [facility] LEUKOCYTES (U) NEGATIVE NEGATIVE 01/24/2025 11:08 AM CDT [facility] RBC/HPF 36(H) 0 - 3 /HPF 01/24/2025 11:08 AM CDT [facility] WBC/HPF 1 0 - 6 /HPF 01/24/2025 11:08 AM CDT [facility] BACTERIA (U) NONE /HPF 01/24/2025 11:08 AM CDT [facility] SQUAMOUS EPITHELIALS <1 01/24/2025 11:08 AM CDT [facility] URINE SPECIMEN OBTAINED BY CLEAN CATCH PROCEDURE / Unknown 01/24/2025 10:54 AM CDT us Andrew Ariza MD URINE ORDERABLES Trinity thao Result [facility] [address] [place] [address], [place] [phone] [id number] * (ABNORMAL) COMPREHENSIVE METABOLIC PANEL (01/24/2025 4:36 AM CDT) Only the most recent of3 resultswithin the time period is included. SODIUM S/P/B 142 136 - 145 MMOL/L 01/24/2025 5:34 AM CDT [facility] POTASSIUM S/P/B 3.6 3.5 - 5.1 MMOL/L 01/24/2025 5:34 AM CDT [facility] CHLORIDE S/P/B 105 97 - 115 MMOL/L 01/24/2025 5:34 AM CDT [facility] CO2 32.2(H) 21.0 - 32.0 MMOL/L 01/24/2025 5:34 AM CDT [facility] GLUCOSE 145(H) 74 - 106 MG/DL 01/24/2025 5:34 AM CDT [facility] BUN 34(H) 7 - 18 MG/DL 01/24/2025 5:34 AM CDT [facility] CREATININE S/P/B 1.22 0.70 - 1.30 MG/DL 01/24/2025 5:34 AM CDT [facility] CALCIUM S/P/B 8.9 8.5 - 10.1 MG/DL 01/24/2025 5:34 AM CDT [facility] BILIRUBIN TOTAL S/P/B 1.1(H) 0.2 - 1.0 MG/DL 01/24/2025 5:34 AM T [facility] ALKALINE PHOSPHATASE S/P/B 58 45 - 115 U/L 01/24/2025 5:34 AM [facility] AST 10(L) 15 - 37 U/L 01/24/2025 5:34 AM T [facility] ALT 13(L) 16 - 61 U/L 01/24/2025 5:34 AM [facility] TOTAL PROTEIN S/P/B 5.3(L) 6.4 - 8.2 G/DL 01/24/2025 5:34 AM [facility] ALBUMIN S/P/B 2.7(L) 3.4 - 5.0 G/DL 01/24/2025 5:34 AM [facility] ANION GAP 4.8 2.0 - 10.0 MMOL/L 01/24/2025 5:34 AM [facility] OSMOLALITY (CALC) 304 MOSM/KG 025 5:34 AM [facility] Comment:REFERENCE RANGE NOT ESTABLISHED GFR ESTIMATE 57(L) >90 ML/MIN/1. 73 M2 01/24/2025 5:34 AM [facility] GFR NOTES GFR REFERENCE S: 01/24/2025 5:34 AM [facility] Comment: THE ESTIMATED GFR IS CALCULATED USING THE 2020 CKD-EPI EQUATION. THE FOLLOWING CATEGORIES FOR GRADING RENAL FUNCTION ARE RECOMMENDED BY THE INTERNATIONAL SOCIETY OF NEPHROLOGY (KDIGO 2012 CLINICAL PRACTICE GUIDELINE). G1,NORMAL OR HIGH: >89 ml/min/1.73 m2 G2,MILDLY DECREASED: 60-89 ml/min/1.73 m2 G3A,MILDLY TO MODERATELY DECREASED: 45-59 ml/min/1.73 m2 G3B,MODERATELY TO SEVERELY DECREASED: 30-44 ml/min/1.73 m2 G4,SEVERELY DECREASED: 15-29 ml/min/1.73 m2 G5,KIDNEY FAILURE: <15 ml/min/1.73 m2 01/24/2025 4:36 AM CDT us Andrew Ariza MD LABORATORY Final Result [facility] [address] [place] [address], [place] [phone] * (ABNORMAL) CBC W/DIFF AUTOMATED (01/24/2025 4:36 AM CDT) Only the most recent of5 resultswithin the time period is included. WBC 5.52 4.00 - 10.80 x10'3/uL 01/24/2025 5:10 AM CDT [facility] RBC 2.47(L) 4.50 - 6.10 x10'6/uL 01/24/2025 5:10 AM CDT [facility] HGB 8.1(L) 13.0 - 18.0 G/DL 01/24/2025 5:10 AM CDT [facility] HCT 25.4(L) 37.0 - 52.0 % 01/24/2025 5:10 AM CDT [facility] MCV 102.8(H) 78.0 - 100.0 FL 01/24/2025 5:10 AM CDT [facility] MCH 32.8(H) 27.0 - 31.0 PG 01/24/2025 5:10 AM CDT [facility] MCHC 31.9(L) 33.0 - 36.0 G/DL 01/24/2025 5:10 AM CDT [facility] RDW 17.6(H) 11.5 - 14.5 % 01/24/2025 5:10 AM CDT [facility] PLT 197 150 - 350 x10'3/uL 01/24/2025 5:10 AM CDT [facility] MPV 10.1 7.4 - 10.4 FL 01/24/2025 5:10 AM CDT [facility] DIFFERENTIAL TYPE AUTOMATED DIFFERENTIAL 01/24/2025 5:10 AM CDT [facility] SEG NEUTROPHILS 77.3 % 5:10 AM CDT [facility] LYMPHOCYTES 12.0 % 01/24/2025 5:10 AM CDT [facility] MONOCYTES 8.3 % 01/24/2025 5:10 AM CDT [facility] EOSINOPHILS 2.2 % 01/24/2025 5:10 AM CDT [facility] BASOPHILS 0.0 % 01/24/2025 5:10 AM CDT [facility] IMMATURE GRANS % 0.2 % 01/25/20 5:10 AM CDT [facility] ABS. NEUTROPHILS 4.27 1.60 - 8.30 x10'3/uL 01/24/2025 5:10 AM CDT [facility] ABS. LYMPHOCYTES 0.66(L) 0.80 - 4.70 x10'3/uL 01/24/2025 5:10 AM CDT [facility] ABS. MONOCYTES 0.46 0.00 - 1.50 x10'3/uL 01/24/2025 5:10 AM CDT [facility] ABS. EOSINOPHILS 0.12 0.00 - 0.40 x10'3/uL 01/24/2025 5:10 AM CDT [facility] ABS. BASOPHILS 0.00 0.00 - 0.20 x10'3/uL 01/24/2025 5:10 AM CDT [facility] ABS. IMMATURE GRANULOCYTES 0.01 0.00 - 0.03 x10'3/uL 01/24/2025 5:10 AM CDT [facility] ABS. NUCLEATED RBC'S 0.00 0.00 - 0.01 x10'3/uL 01/24/2025 5:10 AM CDT [facility] NRBC % 0.0 % 01/24/2025 5:10 AM CDT [facility] 01/24/2025 4:36 AM CDT Andrew Ariza MD LABORATORY Final Result [facility] [address] [place] [id number], [id number] * XR CHEST PORTABLE (01/22/2025 8:28 AM CDT) Anatomical Region Laterality Modality Chest Radiographic Renetta ging 01/22/2025 9:23 AM CDT Impressions 01/22/2025 9:27 AM CDT IMPRESSION:===== 1. Chronic COPD changes. 2. Extensive right mid and lower lung field patchy airspace opacities nonspecific. Differential includes multifocal infection among other etiologies. 3. Suspect some component of right pleural effusion with a degree of underlying chronic pleural diaphragmatic process not excluded. 4. Left basilar chronic mild CP angle blunting and likely element of chronic interstitial change. Referred By: PROVIDER NON-STAFF Interpreted By: Raz Fink MD, 01/22/2025 9:23 AM Narrative 01/22/2025 9:27 AM CDT [address] [address] Examination: Chest x-ray 1 view Exam date/time: 01/22/2025 8:25 AM Reason For Exam: 89 male. Hypoxia. GI bleed Comparison: Chest x-ray 02/23/2009 Technique: Portable semiupright AP view of the chest . Findings: Normal cardiac size. Normal position of the trachea. Aortic arch atherosclerotic calcification. Hilar mediastinal contours are within normal limits. Bilateral right upper lung field lucency which can be seen with COPD. Chronic appearing left CP angle blunting with the probable some degree of chronic interstitial changes of left lung base. Extensive right basilar patchy groundglass opacities involving the mid and lower lung bender silhouetting of the diaphragm. Likely pleural effusion with airspace process. No pneumothorax. Right upper quadrant cholecystectomy clips. Prominent splenic artery vascular calcifications ===== Procedure Note Raz Fink MD - 01/22/2025 [facility] [address] [place], [place] [address] Examination: Chest x-ray 1 view Exam date/time: 01/22/2025 8:25 AM Reason For Exam: 89 male. Hypoxia. GI bleed Comparison: Chest x-ray 02/23/2009 Technique: Portable semiupright AP view of the chest . Findings: Normal cardiac size. Normal position of the trachea. Aorticarch atherosclerotic calcification. Hilar mediastinal contours are within normal limits. Bilateral right upper lung field lucency which can be seen with COPD.Chronic appearing left CP angle blunting with the probable some degree ofchronic interstitial changes of left lung base. Extensive right basilar patchy groundglass opacities involving the mid andlower lung bender silhouetting of the diaphragm. Likely pleural effusionwith airspace process. No pneumothorax. Right upper quadrant cholecystectomy clips. Prominent splenic arteryvascular calcifications ===== IMPRESSION:===== 1. Chronic COPD changes. 2. Extensive right mid and lower lung field patchy airspace opacitiesnonspecific. Differential includes multifocal infection among otheretiologies. 3. Suspect some component of right pleural effusion with a degree ofunderlying chronic pleural diaphragmatic process not excluded. 4. Left basilar chronic mild CP angle blunting and likely element ofchronic interstitial change. Referred By: PROVIDER NON-STAFF Interpreted By: Raz Fink MD, 01/22/2025 9:23 AM us Dominick Brown MD GENERAL IMAGING Final Resul t * (ABNORMAL) HEMOGLOBIN AND HEMATOCRIT (01/21/2025 11:50 PM CDT) Only the most recent of8 resultswithin the time period is included. HGB 7.1(L) 13.0 - 18.0 G/DL 01/21/2025 11:55 PM CDT [facility] HCT 21.9(L) 37.0 - 52.0 % 01/21/2025 11:55 PM CDT [facility] 01/21/2025 11:5 0 PM CDT Aditya Cho SAFETY AND SKILL BASED PAY MANAGER LABORATORY Final Result Performing Organization Address [facility] de Phone Number [facility] [address] [place] [address], [id number] * ENDOSCOPY (SCAN ORDER) (01/21/2025 10:08 AM CDT) Shahzad Kauffman MD SCANNING Final Result * (ABNORMAL) IRON SATURATION PANEL (FE,IBC,%SAT) (01/21/2025 6:45 AM CDT) IRON 21(L) 65 - 175 MCG/DL 01/21/2025 7:23 AM CDT [facility] IRON BINDING CAPACITY 228(L) 250 - 450 MCG/DL 01/21/2025 7:23 AM CDT [facility] IRON SATURATION 9 % 7:23 AM CDT [facility] Comment:REFERENCE RANGE NOT ESTABLISHED 01/21/2025 6:45 AM CDT Mary Jensen SAFETY AND SKILL BASED PAY MANAGER LABORATORY Final Res ult Performing Organization Address [facility] de Phone Number [facility] [address] [place] [address], [id number] * (ABNORMAL) POCT glucose (01/20/2025 4:10 PM CDT) Only the most recent of4 resultswithin the time period is included. GLUCOSE POC 182(H) 70 - 109 01/20/2025 4:18 PM CDT [facility] Comment:Will Repeat Test 01/20/2025 4:10 PM CDT Dominick Brown MD POCT ORDERABLES - DEVICE Fi nal Result [facility] [address] [place] [address], [id number] * USE ECHO 2D FU LTD (01/20/2025 1:42 PM CDT) Anatomical Region Laterality Modality Cardiac Echocardiogram 01/20/2025 1:06 PM CDT Narrative 01/21/2025 3:40 PM CDT Echocardiography Report Pat.Name: ADY FONTANA Pat.ID: [id number] St.Date: 01/20/2025 Refer.MD: [id number] NON-STAFF PROVIDER EWDPAYAN EWDPROYaneli Exam Time: 1:06:00 PM Study Type:ECHO WITH CARDIAC DOPPLER COMP Height: 72 in Weight: 159 lb BSA: 1.93 m2 Age: 8 1935,89Y Sex: M HR: 61 bpm Sonogrphr: Kadi Clement Pat. Stat.:Inpatient Room: 744 CPT - 4: 94026 [id number] Reason for Study:Pleural effusion Procedures: 2D, M-mode, Doppler, Color Flow ++++++++++++++++++++++++++++++++++++ SUMMARY: ++++++++++++++++++++++++++++++++++++ The rhythm is sinus with frequent PVCs. The left ventricular size is normal. The left ventricular systolic function is normal. Estimated left ventricular ejection fraction is 60-65%. The right ventricular size is moderately enlarged. Right ventricular systolic function is severely depressed. Small Pericardial effusion. Pleural effusions (likely bilateral). Severe pulmonary hypertension. ---The peak pulmonary artery systolic pressure is estimated to be 55mmHg + RA pressure. Moderate tricuspid regurgitation. ++++++++++++++++++++++++++++++++++++ FINDINGS: ++++++++++++++++++++++++++++++++++++ LV: The left ventricular size is normal. The left ventricular systolic function is normal. Estimated left ventricular ejection fraction is 60-65%. WM: Wall motion appears normal in all segments. RV: The right ventricular size is moderately enlarged. Right ventricular systolic function is severely depressed. IAS: Atrial septum appears intact. ALIVIA: Small Pericardial effusion. PLE: Pleural effusion is present. PA: The peak pulmonary artery systolic pressure is estimated to be 55mmHg + RA pressure. SVn: Inferior vena cava is not reliably assessed. Other: Technically difficult exam due to body habitus and lung artifact. AV: Structurally normal aortic valve. No evidence of aortic valve stenosis. No evidence of aortic valve regurgitation. MV: Structurally normal mitral valve. No evidence of mitral regurgitation. No evidence of mitral stenosis. PV: Structurally normal pulmonic valve. No evidence of pulmonic regurgitation. TV: Structurally normal tricuspid valve. Moderate tricuspid regurgitation. ++++++++++++++++++++++++++++++++++++ MEASUREMENTS: ++++++++++++++++++++++++++++++++++++ 2D Left Ventricle LVIDd 3.97 cm (3.6-5.2) Relative Wall T 0.463 LVIDs 2.69 cm (2.3-3.9) LV RWT 0.463 % LV%fs 32.2 % (25-46) LVPW LVPWd 0.92 cm Ventricular Septum IVSd 1 cm LVOT LVOT 2.15 cm Ratios IVS Inferior vena cava IVC Diam 2.6 cm LV Left Ventricle Mass by M-mode LV Mass 119 g Right Ventricle Right Ventricle 4.2 cm Major Luke 7.9 cm Right Ventricul 15.1 cm2/m2 Right Ventricle 3.8 cm Right Ventricul 8.86 cm2/m2 Right Ventricul 41.4 % MMODE TA Tricuspid Annul 3.28 cm DOPPLER TV Regurg Flow TV pkPG 55 mmHg TV pkVel 372 cm/s (30-70)* LV Mass 2D Value 119 g LV Mass [id number] Value 61.7 g/m2 RA Volume Atrial Patterson 5.97 cm Atrial Patterson 22.5 cm2 Atrial Patterson 69 ml <Electronic Signature> 01/21/2025 03:40 PM Chad Dior M.D. Procedure Note Chad Dior MD - 01/21/2025 Echocardiography Report Pat.Name: ADY FONTANA Pat.ID: [id number] .Date: 01/20/2025 Refer.MD: [id number] NON-STAFF PROVIDER EWDPROV EWDPROV Exam Time: 1:06:00 PM Study Type:ECHO WITH CARDIAC DOPPLER COMP Height: 72 in Weight: 159 lb BSA: 1.93 m2 Age: 8 1935,89Y Sex: M HR: 61 bpm Sonogrphr: Kadi Clement Pat. Stat.:Inpatient Room: 4 CPT - 4: 82026 [id number] Reason for Study:Pleural effusion Procedures: 2D, M-mode, Doppler, Color Flow ++++++++++++++++++++++++++++++++++++ SUMMARY: ++++++++++++++++++++++++++++++++++++ The rhythm is sinus with frequent PVCs. The left ventricular size is normal. The left ventricular systolic function is normal. Estimated left ventricular ejection fraction is 60-65%. The right ventricular size is moderately enlarged. Right ventricular systolic function is severely depressed. Small Pericardial effusion. Pleural effusions (likely bilateral). Severe pulmonary hypertension. ---The peak pulmonary artery systolic pressure is estimated to be 55mmHg + RA pressure. Moderate tricuspid regurgitation. ++++++++++++++++++++++++++++++++++++ FINDINGS: ++++++++++++++++++++++++++++++++++++ LV: The left ventricular size is normal. The left ventricular systolic function is normal. Estimated left ventricular ejection fraction is 60-65%. WM: Wall motion appears normal in all segments. RV: The right ventricular size is moderately enlarged. Right ventricular systolic function is severely depressed. IAS: Atrial septum appears intact. ALIVIA: Small Pericardial effusion. PLE: Pleural effusion is present. PA: The peak pulmonary artery systolic pressure is estimated to be 55mmHg + RA pressure. SVn: Inferior vena cava is not reliably assessed. Other: Technically difficult exam due to body habitus and lung artifact. AV: Structurally normal aortic valve. No evidence of aortic valve stenosis. No evidence of aortic valve regurgitation. MV: Structurally normal mitral valve. No evidence of mitral regurgitation. No evidence of mitral stenosis. PV: Structurally normal pulmonic valve. No evidence of pulmonic regurgitation. TV: Structurally normal tricuspid valve. Moderate tricuspid regurgitation. ++++++++++++++++++++++++++++++++++++ MEASUREMENTS: ++++++++++++++++++++++++++++++++++++ 2D Left Ventricle LVIDd 3.97 cm (3.6-5.2) Relative Wall T 0.463 LVIDs 2.69 cm (2.3-3.9) LV RWT 0.463 % LV%fs 32.2 % (25-46) LVPW LVPWd 0.92 cm Ventricular Septum IVSd 1 cm LVOT LVOT 2.15 cm Ratios IVS Inferior vena cava IVC Diam 2.6 cm LV Left Ventricle Mass by M-mode LV Mass 119 g Right Ventricle Right Ventricle 4.2 cm Major Luke 7.9 cm Right Ventricul 15.1 cm2/m2 Right Ventricle 3.8 cm Right Ventricul 8.86 cm2/m2 Right Ventricul 41.4 % MMODE TA Tricuspid Annul 3.28 cm DOPPLER TV Regurg Flow TV pkPG 55 mmHg TV pkVel 372 cm/s (30-70)* LV Mass 2D Value 119 g LV Mass Konir7O Value 61.7 g/m2 RA Volume Atrial Patterson 5.97 cm Atrial Patterson 22.5 cm2 Atrial Patterson 69 ml <Electronic Signature> 01/21/2025 03:40 PM Chad Dior M.D. us Alysha Quiros MD ECHO Final Result * TRANSFUSE RED BLOOD CELLS (01/20/2025 5:22 AM CDT) us Eileen Walton MD NURSING TREATMENT ORDERABLES - BLOOD ADMIN Final Result * TYPE & SCREEN (01/20/2025 12:00 AM CDT) UNITS ORDERED 1 01/20/2025 12:19 AM CDT [facility] ABO/RH A NEGATIVE 01/20/2025 12:57 AM CDT [facility] ANTIBODY SCREEN NEGATIVE 12:57 AM CDT [facility] SAMPLE EXPIRATION 01/23/2025,2359 01/20/2025 12:19 AM CDT [facility] BLOOD UNIT NUMBER [id number] 01/20/2025 1:16 AM CDT [facility] PRODUCT: PC LEUKOPOOR 01/20/2025 1:16 AM CDT [facility] UNIT DIVISION 00 01/20/2025 1:16 AM CDT [facility] BLOOD UNIT STATUS TRANSFUSED,FINAL 01/21/2025 7:27 AM CDT [facility] ISSUE DATE/TIME [id number] 025 7:27 AM CDT [facility] PRODUCT CODE [id number] 01/21/2025 7:27 AM CDT [facility] ABO/RH Unit A NEG 01/21/2025 7:27 AM CDT [facility] ABO/RH UNIT ISBT CODE 0600 01/21/2025 7:27 AM CDT [facility] BLOOD UNIT EXPIRATION DATE [id number] 01/21/2025 7:27 AM CDT [facility] TRANSFUSION STATUS OK TO TRANSFUSE 01/20/2025 1:16 AM CDT [facility] CROSSMATCH COMPATIBLE-EXM 01/20/2025 1:16 AM CDT [facility] 01/20/2025 Eileen Walton MD BLOOD BANK TEST ORDERABLES Fin al Result Performing Organization Address [facility] de Phone Number [facility] [address] [place] [address], [id number] * PHOSPHORUS, INORGANIC PHOSPHATE (01/19/2025 10:22 PM CDT) PHOSPHORUS 4.6 2.5 - 4.9 MG/DL 01/19/2025 11:02 PM CDT [facility] 01/19/2025 10:2 2 PM CDT Alysha Quiros MD LABORATORY Final Result Performing Organization Address [facility] de Phone Number [facility] [address] [place] [address], [place] [phone] * MAGNESIUM (01/19/2025 10:22 PM CDT) MAGNESIUM 2.2 1.6 - 2.6 MG/DL 01/19/2025 11:02 PM CDT [facility] 01/19/2025 10:2 2 PM CDT Alysha Quiros MD LABORATORY Final Result Performing Organization Address [facility] de Phone Number [facility] [address] [place] [address], [id number] * USE ECHOCARDIOGRAM (01/14/2025 4:38 PM CDT) Anatomical Region Laterality Modality Cardiac Ultrasound 01/14/2025 3:40 PM CDT Narrative 01/19/2025 6:11 AM CDT Echocardiography Report Pat.Name: Ady Fontana Pat.ID: [id number] .Date: 01/14/2025 Refer.MD: Celestino, [facility] Exam Time: 3:40:00 PM Study Type:CELESTINO Height: 72 in Weight: 160 lb BSA: 1.94 m2 Age: 8 1935,89Y Sex: M Sonogrphr: Sf Pat. Stat.:Outpatient Reason for Study:Congestive heart failure Procedures: 2D, M-mode, Doppler, Color Flow, Study performed at [place], [place] and interpreted by [facility]. ++++++++++++++++++++++++++++++++++++ SUMMARY: ++++++++++++++++++++++++++++++++++++ The left ventricular systolic function is normal. The right ventricular function is normal. Pleural effusion is present. There is trace mitral regurgitation. ++++++++++++++++++++++++++++++++++++ FINDINGS: ++++++++++++++++++++++++++++++++++++ LV: The left ventricular size is normal. The left ventricular systolic function is normal. Estimated left ventricular ejection fraction is 55-60%. Left ventricular diastolic function is abnormal. RV: The right ventricle size is normal. The right ventricular function is normal. LA: Left atrial size is normal. RA: The right atrial size is normal. ALIVIA: Trivial pericardial effusion, without tamponade physiology. PLE: Pleural effusion is present. AO: Aorta is normal. PA: Unable to reliably quantitate pulmonary systolic pressure. SVn: Inferior vena cava is normal. AV: The aortic valve is trileaflet. There is no aortic stenosis. There is no evidence of aortic regurgitation. MV: The mitral valve is structurally normal. There is trace mitral regurgitation. PV: The pulmonic valve is normal There is trace pulmonic regurgitation TV: The tricuspid valve appears structurally normal. There is trace tricuspid regurgitation. <Electronic Signature> 01/19/2025 06:11 AM Parker Pham M.D. Procedure Note Parker Pham MD - 01/19/2025 Echocardiography Report Pat.Name: Ady Fontana Pat.ID: [id number] .Date: 01/14/2025 Refer.MD: Celestino, [facility] Exam Time: 3:40:00 PM Study Type:OUTREACH Height: 72 in Weight: 160 lb BSA: 1.94 m2 Age: 8 1935,89Y Sex: M Sonogrphr: Pat. Stat.:Outpatient Reason for Study:Congestive heart failure Procedures: 2D, M-mode, Doppler, Color Flow, Study performed at [place], [place] and interpreted by [facility]. ++++++++++++++++++++++++++++++++++++ SUMMARY: ++++++++++++++++++++++++++++++++++++ The left ventricular systolic function is normal. The right ventricular function is normal. Pleural effusion is present. There is trace mitral regurgitation. ++++++++++++++++++++++++++++++++++++ FINDINGS: ++++++++++++++++++++++++++++++++++++ LV: The left ventricular size is normal. The left ventricular systolic function is normal. Estimated left ventricular ejection fraction is 55-60%. Left ventricular diastolic function is abnormal. RV: The right ventricle size is normal. The right ventricular function is normal. LA: Left atrial size is normal. RA: The right atrial size is normal. ALIVIA: Trivial pericardial effusion, without tamponade physiology. PLE: Pleural effusion is present. AO: Aorta is normal. PA: Unable to reliably quantitate pulmonary systolic pressure. SVn: Inferior vena cava is normal. AV: The aortic valve is trileaflet. There is no aortic stenosis. There is no evidence of aortic regurgitation. MV: The mitral valve is structurally normal. There is trace mitral regurgitation. PV: The pulmonic valve is normal There is trace pulmonic regurgitation TV: The tricuspid valve appears structurally normal. There is trace tricuspid regurgitation. <Electronic Signature> 01/19/2025 06:11 AM Parker Pham M.D. us Tavo Caruso MD ECHO Final Result * ECG 12 lead (HOSPITAL PERFORMED ONLY) (01/11/2025 12:44 PM CDT) 01/11/2025 12:4 4 PM CDT Narrative [facility] - 01/12/2025 9:46 AM CDT [address] 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 [address] Test Date: 2025-01-11 Pat Name: ADY FONTANA Department: 3 Room: Gender: Male Certified Ski Patroller: : 1935 Requested By: PARKER PHAM Order Number: [id number] Reading AROLDO Pham Measurements Intervals Luke Rate: 57 P: 77 MD: 195 QRS: 93 QRSD: 167 T: -27 QT: 439 QTc: 430 Interpretive Statements SINUS BRADYCARDIA WITH OCCASIONAL VENTRICULAR PREMATURE COMPLEXES RIGHT BUNDLE BRANCH BLOCK [120+ ms QRS DURATION, UPRIGHT V1, 40+ ms SIN I/aVL/V4/V5/V6] Parker Pham MD ECG ORDERABLES Final Result [facility] * BNP (01/05/2025) B TYPE NATRIURETIC PEPTIDE 5,020 Narrative Resulting Agency Comment [facility] Tavo Caruso MD LABORATORY Final Result * [facility] [place] (12/21/2024 1:30 PM CDT) Anatomical Region Laterality Modality Extremity Ultrasound 12/21/2024 1:11 PM CDT Narrative 12/26/2024 3:34 PM CDT Outreach Arterial Doppler [facility] Vascular Report Pat.Name: Ady Fontana Pat.ID: [id number] .Date: 12/21/2024 Refer.MD: Outreach, [facility] Exam Time: 1:11:00 PM Study Type:OUTREACH ART DOPPLER - [facility] Height: 72 in Age: 8 1935,89Y Sex: M Sonogrphr: tom Velazquez rdms Pat. Stat.:Outpatient Reason for Study:PAD (peripheral artery disease), Mixed hyperlipidemia, PVD, Leg edema Procedures: Study performed at [facility], [place], [place] and interpreted by [facility]. ++++++++++++++++++++++++++++++++++++ SUMMARY: ++++++++++++++++++++++++++++++++++++ PRINCE Rt: [...] Outreach Arterial Doppler [facility] Vascular Report Pat.Name: Ady Fontana Pat.ID: [id number] .Date: 12/21/2024 [facility]: 1:11:00 PM Study Type:OUTREACH ART DOPPLER - [facility]INCE Height: 72 in Age: 8 1935,89Y Sex: M Sonogrphr: tom Velazquez rdms Pat. Stat.:Outpatient Reason for Study:PAD (peripheral artery disease), Mixed hyperlipidemia, PVD, Leg edema Procedures: Study performed at [facility], [place], [place] and interpreted by [facility]. ++++++++++++++++++++++++++++++++++++ SUMMARY: ++++++++++++++++++++++++++++++++++++ PRINCE Rt: [...] Parker Pham M.D. Bartolome Lynn MD [facility] Final Result * (ABNORMAL) LIPID [...] Recently Relevant to Health Maintenance Insurance MEDICARE [facility] MEDICARE [facility] MEDICARE [facility] Advance Directives * DNR (Latest Code Status on File) Date Activated Date Inactivated Comments 01/20/2025 11:38 AM 01/25/2025 3:45 PM * Full Code Date Activated Date Inactivated Comments 01/20/2025 8:29 AM 01/20/2025 11:38 AM Care Teams Chute Worker Relationship Specialty Start Date End Date Tavo Caruso MD [address] [place] [address] PCP - General INTERNAL MEDICINE 03/15/17 Mario Blankenship DPM [address] [place] [phone] Referring Physician PODIATRY/SURGERY 05/28/21 Parker Pham MD [address] [facility] [address] [address] Physician INTERVENTIONAL CARDIOLOGY 10/29/24
--- OUTSIDE RECORDS SUMMARY | 2025-02-24 13:35 | XMS_ITS | Encounter Summary ---
Author Organization [facility] Address [address] [place] [address] Care Team Providers Care Mimeographer Name Role Phone Tavo Caruso MD Primary Care Provider [phone] Mario Blankenship DPM Unavailable [phone] Parker Pham MD Unavailable [phone] Reason for Visit * Reason Onset Date Comments Reschedule 02/24/2025 Encounter Details Date Type Department Care Team ([facility] Contact Info) Description 02/24/2025 Telephone [facility] [address] [place] [address] Parker Pham MD [address] [facility] [address] [place] [address] Reschedule Social History Tobacco Use Types Packs/Day Years Used Date Smoking Tobacco: Former Cigarettes 1.5 40 1 953 - 1992 Smokeless Tobacco: Former Chew Quit: 1994 Alcohol Use Standard Drinks/Week Comments Not Currently 0 (1 standard drink = 0.6 oz pur e alcohol) [facility] Utilities Answer Date Recorded In the past 12 months has [employer], gas, oil, or water company threatened to shut off services in your [...] any time in the past 12 m [facility], were you homeless or living in a [place] health care facility (including now)? No 01/19/2025 Sex and Gender Information Value Date Recorded Sex Assigned at Male 12/21/2024 12:44 PM CDT Legal Sex Male 8:46 PM CDT Gender Identity Not on file Sexual Orientation Not on file Occupation Industry Job Start Date Job End Date retired Not on file Not on file Not on file documented as of this encounter Functional Status * Are you deaf or do you have serious difficulty hearing Answer Date of Assessment Author Status No 01/19/2025 5:44 PM CDT Cydney Willard, [place] N Active * Are you blind or do you have serious difficulty seeing, even when wearing glasses? Answer Date of Assessment Author Status No 01/19/2025 5:44 PM CDT Cydney Willard R N Active * Do you have serious difficulty walking or climbing stairs? Answer Date of Assessment Author Status No 01/19/2025 5:44 PM CDT Cydney Willard R N Active * Do you have difficulty dressing or bathing? Answer Date of Assessment Author Status No 01/19/2025 5:44 PM CDT Cydney Willard R N Active * Because of a physical, mental, or emotional condition, do you have difficulty doing errands alone such as visiting a doctor's office or shopping? Answer Date of Assessment Author Status No 01/19/2025 5:44 PM CDT Cydney Willard R N Active documented as of this encounter Mental Status * Because of a physical, mental, or emotional condition, do you have serious difficulty concentrating, remembering, or making decisions? Answer Entry Date Author Status No 01/19/2025 5:44 PM CDT Cydney Willard R N Active documented in this encounter Progress Notes * Rosanne Xiong - 02/24/2025 9:38 AM CDT Reschedule Old appointment : 01/25/25 New appointment : 03/02/25 @ 12:30 Caller : Tom pt son Reason for reschedule : pt missed appt documented in this encounter Plan of Treatment Upcoming Encounters Date Type Department Care Team (Late st Contact Info) Description 03/02/2025 12:[address] [facility] [address] [place] [address] Parker Pham MD [address] [facility] [address] [place] [address] 04/12/2025 12:45 PM CDT Office Visit [facility] [address] [place] [address] Parker Pham MD [address] [facility] [address] [place] [address] documented as of this encounter Goals Goal Patient Goal Type Associated Problems Recent Progress Patient-Stated? 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 RN documented as of this encounter Visit Diagnoses Not on filedocumented in this encounter Care Teams Mimeographer Relationship Specialty Start Date End Date Tavo Caruso MD [address] [place] [phone] PCP - General INTERNAL MEDICINE 03/15/17 Mario Blankenship DPM [address] [place] [address] Referring Physician PODIATRY/SURGERY 05/28/21 Parker Pham MD [address] [facility] [address] [place] [address] Physician INTERVENTIONAL CARDIOLOGY 10/29/24 documented as of this encounter
[2025-02-24 13:46] LABS: Hematocrit 31.6 % (37.0-46.0); Hemoglobin 10.0 g/dL (12.4-15.3); Mean Corpuscular HGB Conc 31.6 g/dL (32-36); Mean Corpuscular Hemoglobin 33.7 pg (27.0-31.0); Mean Corpuscular Volume 106.4 fL (78.0-102.0); Platelet Count Result 207 K/mm3 (150-420); Red Blood Count 2.97 M/mm3 (4.70-6.10); White Blood Count 5.9 K/mm3 (4.8-10.8)
[2025-02-24 14:07] LABS: Alanine Aminotransferase 23 U/L (6-50); Albumin Level 3.2 g/dL (3.5-5.1); Alkaline Phosphatase 81 U/L (38-126); Anion Gap 5 mmol/L (4-12); Aspartate Amino Transferase 30 U/L (17-59); Bilirubin,Total 0.4 mg/dL (0.2-1.3); Blood Urea Nitrogen 34 mg/dL (9-20); Calcium 8.7 mg/dL (8.4-10.2); Carbon Dioxide 28 mmol/L (22-30); Chloride 101 mmol/L (98-107); Estimated Glomerular Filt Rate 59; Glucose 96 mg/dL (65-110); Iron 46 ug/dL (49-181); Osmolality Calculated 285 mOsm/kg (285-295); Potassium 4.6 mmol/L (3.4-5.0); Sodium 134 mmol/L (137-145); Total Protein 5.7 g/dL (6.3-8.2)
[2025-02-24 14:18] LABS: NT Pro B Type Natriuretic Pept 3020 pg/mL (19.9-100)
[2025-02-24 14:44] LABS: Ferritin 175.00 ng/mL (11.1-264)
[2025-02-24 15:04] LABS: Add Urine Microscopic? YES; Appearance Urine Clear (Clear); Glucose Urine UA Negative (Negative); Leukocyte Esterase Ur 1+ (Negative); Nitrate Urine Negative (Negative); Specific Grav Ur 1.010 (1.010-1.020)
== END 2025-02-24 13:33 | disposition home or self-care (01) ==
LOC: CHSLAB 13:33
PROVIDERS: PCP Internal Medicine; Visit Provider Internal Medicine
DX: D64.9 Anemia, unspecified (principal); R06.09 Other forms of dyspnea; I50.9 Heart failure, unspecified; N39.0 Urinary tract infection, site not specified
CPT/HCPCS: 36415; 80053; 81001; 82728; 83540; 83880; 85027; 87086

== ENCOUNTER 2025-03-14 10:27 | Outpatient (CLI) | payer MEDICARE, OTHER, SELFPAY ==
[2025-03-10 15:56] VITALS: BMI 20.3
--- NOTE | 2025-03-10 15:58 | PC.NURSE ---
Pre Radiology instructions Report to the outpatient [email or web address] on date __03/14/25___ at time _1100am for procedure Time: _1300pm___ YOU MAY BE MONITORED AT HOSPITAL FOR UP TO 4 HOURS AFTER YOUR PROCEDURE. A visitor will be allowed to accompany the patient into the hospital. You and your visitor will be asked to self-screen and do not enter if you have any COVID symptoms. A mask is OPTIONAL within the hospital. Patients are to have no food or drink 6 hours prior to procedure time Driving will be restricted after the procedure, you must have a person to drive you home. Labs will be drawn in preop area and once reviewed, you will be taken to radiology area for procedure. When the procedure is completed, you will be taken to outpatient where you will be monitored for several hours. You may have one visitor in this area. Other than holding anti-coagulants, patient may take other medication(s) as scheduled. Prior to your appointment date patients are instructed to hold anti-coagulants after discussing with ordering provider to stop. If unable to discontinue anti-coagulants please notify radiologist. ? No aspirin or warfarin (Coumadin) for 7 days prior to the procedure. ? No clopidogrel (Plavix), ticagrelor (Brilinta), prasugrel (Effient) or dabigatran (Pradaxa) for 5 days prior to the procedure. ? No rivaroxaban (Xarelto), apixaban (Eliquis), dipyridamole (Aggrenox or Persantine) or cilostazol (Pletal) for 2 days prior to the procedure. Medications to discontinue per physician: ___Both ASA and Plavix Date to take last dose: __Plavix was stopped few days ago, but pt took ASA today, so NO MORE ASA till post procedure. Pulm Office [facility] office aware pt did not get instructions on ASA, but I told pt to HOLD till Post op. Please leave all valuables, including medications, at home the day of procedure. The hospital will not accept responsibility for valuables. Wear comfortable, loose fitting clothing.? Follow any additional instructions given to you from ordering provider. Telephone instructions given to __Pt and Son Tom and asked if any additional questions and then verbalized understanding. Patient advised to call scheduling provider office or registration scheduling [phone] if any additional questions.
[2025-03-14] VITALS (8 sets, daily range): BP systolic 126–156; BP diastolic 47–67; PULSE 51–64; RESP 18–20; TEMP 36.8; O2SAT 94–97; BMI 20.6
--- NOTE | ~2025-03-14 | XR_ITS ---
CHEST RADIOGRAPH CLINICAL HISTORY: post R thora . COMPARISON: 01/19/2025 TECHNIQUE: Single portable view of the chest. FINDINGS The cardiomediastinal silhouette is enlarged, unchanged. Small right-sided pleural effusion persists. Scar formation projecting over the lateral left upper lobe. The remainder of the lungs are clear. Biapical scarring. IMPRESSION: No focal infiltrate or effusion. No pneumothorax following right-sided thoracentesis. Reviewed, dictated and finalized at location A.
--- NOTE | ~2025-03-14 | US_ITS ---
EXAMINATION: US thoracentesis DATE: 03/14/2025 14:23 INDICATION: Right-sided TECHNIQUE: The procedure and its risks, benefits, and alternatives were discussed with the patient. The patient understood the risks and agreed to proceed. A timeout was then performed as per protocol. The skin was prepped and draped in sterile fashion. 1% lidocaine was used for local anesthesia. Under ultrasound guidance, a 5 Fr catheter with trocar was advanced into the large right-sided pleura l effusion, and the trocar needle removed. The catheter was then attached to vacuum suction. The pleural effusion was evacuated nearly in its entirety. Fluid was sent for the requested studies. The catheter was then removed, and a sterile dressing was applied. There were no immediate complications. FINDINGS: Ultrasound images demonstrate a large right-sided pleural effusion and the catheter within the fluid. IMPRESSION: 1. Successful ultrasound-guided thoracentesis yielding 1600 mL of tea colored fluid. Postprocedure x-ray without pneumothorax. The patient tolerated the procedure without difficulty and was transported to the recovery area in st able condition. Reviewed, dictated and finalized at location A. IMPRESSION: 1. Successful ultrasound-guided thoracentesis yielding 1600 mL of tea colored fluid. Postprocedure x-ray without pneumothorax. The patient tolerated the procedure without difficulty and was transported to [facility] in stable condition.
--- OUTSIDE RECORDS SUMMARY | 2025-03-14 10:40 | XMS_ITS | Encounter Summary ---
Author Organization [facility] Address [facility] [place] [address] Care Team Providers Care Web Content Executive Name Role Phone Tavo Caruso MD Primary Care Provider [phone] Mario Blankenship DPM Unavailable [phone] Parker Pham MD Unavailable [phone] Encounter Details Date Type Department Care Team (Latest Contact Info) Description 03/03/2025 Results Follow-Up [facility] [place] [id number] Nakia Snowden MA USV CAROTID DUPLEX [place] Social History Tobacco Use Types Packs/Day Years Used Date Smoking Tobacco: Former Cigarettes 1.5 40 1 953 - 1992 Smokeless Tobacco: Former Chew Quit: 1994 Alcohol Use Standard Drinks/Week Comments Not Currently 0 (1 standard drink = 0.6 oz pur e alcohol) [facility] Utilities Answer Date Recorded In the past 12 months has [facility] [employer] gas, oil, or water [employer] threatened to shut off services in your [...] any time in the past 12 m [facility], were you homeless or living in a prison (including now)? No 01/19/2025 Sex and Gender [...] CDT Cydney Willard R N Active * Are you blind or [...] R N Active documented in this encounter Plan of Treatment Upcoming Encounters Date Type Department Care Team (Late st Contact Info) Description 04/12/2025 12:45 PM CDT Office Visit [facility] [place] [address] Parker Pham MD [facility] [address] [address] documented as of this encounter Goals Goal Patient Goal Type Associated Problems Recent Progress Patient-Stated? 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 RN documented as of this encounter Visit Diagnoses Not on filedocumented in this encounter Care Teams Web Content Executive Relationship Specialty Start Date End Date Tavo Caruso MD [address] [place] [address] PCP - General INTERNAL MEDICINE 03/15/17 Mario Blankenship DPM [address] [place] [address] Referring Physician PODIATRY/SURGERY 05/28/21 Parker Pham MD [address] [address] Physician INTERVENTIONAL CARDIOLOGY 10/29/24 documented as of this encounter
--- OUTSIDE RECORDS SUMMARY | 2025-03-14 10:41 | XMS_ITS | Clinical Summary ---
Author Organization [facility] Address [address] [place] [address] Care Team Providers Care Carpenters Name Role Phone Tavo Caruso MD Primary Care Provider [phone] Mario Blankenship DPM Unavailable [phone] Parker Pham MD Unavailable [phone] Allergies Active Allergy Reactions Criticality Noted Date [...] (HFpEF) heart failure with preserved ejection fraction ([facility]),Emphyse ma lung ([facility]) 1 Device by Nasal route continuous. Nasal Cannula. 2L continuous. Portable Oxygen Tanks. Stationary Concentrator. 1 Device 5 Active pantoprazole EC (PROTONIX) 40 MG tablet Take 1 tablet (40 mg total) by mouth 2 (two) times daily before meals. 30 tablet 5 Active Active Problems Problem Noted Date Diagnosed Date GI bleed 01/19/2025 (HFpEF) heart failure with p reserved ejection fraction ([facility]/HCC) 01/19/2025 Acute anemia 01/19/2025 Coronary artery disease invo lving [place] coronary artery of [place] heart without angina pectoris 01/11/2025 Dyspnea, unspecified type 01/11/2025 Carotid artery disease without cerebral infarcti on 11/28/2020 Acute gout of right elbow, unspecified cause Rupture of proximal biceps tendon, right, initia l encounter 08/23/2020 PAD (peripheral artery disease) 03/14/2020 Ulcer of left lower extremit y with fat layer exposed ([facility]/HCC) 03/14/2020 Leg edema 03/14/2020 Essential hypertension 03/14/2020 Mixed hyperlipidemia Encounters Date Type Department Care Team Description 03/03/2025 Results Follow-Up [facility] [id number] [place] [address] Nakia Snowden MA USV CAROTID DUPLEX [place] 03/02/2025 11:59 AM CDT - 03/02/2025 11:59 PM CDT Hospital Encounter [facility] [address] [place] [address] Parker Pham MD Discharge Disposition: Home or Self Care (Routine Discharge) 03/02/2025 Travel 02/24/2025 Telephone [facility] ie [address] [place] [address] Parker Pham MD Reschedule 01/24/2025 Telephone [place] [facility] [address] [place] [address] 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, 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 to [facility] from S/) 01/21/2025 10:45 AM CDT - 01/21/2025 11:18 AM CDT Surgery [facility] Endo/GI [address] [place] [address] Shahzad Kauffman MD EGD 01/21/2025 10:31 AM CDT Anesthesia Event [facility] Endo/GI [address] [place] [address] Nasim Ren MD Bracco, Kendra A, RN 01/19/2025 5:06 PM CDT - 01/25/2025 1:40 PM CDT Hospital Encounter [facility] Medical [address] [place] [address] Tadeo Arensa MD Mahmoud, Anas, MD Rajendran, Nagesan, MD Singanallur, Prashanth M, MD Discharge Disposition: [facility] Facility 01/19/2025 Travel 01/14/2025 3:20 PM CDT - 01/14/2025 11:59 PM CDT Hospital Encounter [facility] [address] [place] [address] Tavo Caruso MD Discharge Disposition: Home or Self Care (Routine Discharge) 01/14/2025 Travel 01/12/2025 Telephone [facility] [address] [place] [address] Parker Pham MD Appointment Request 01/11/2025 1:00 PM CDT Office Visit [facility] [address] [place] [address] Parker Pham MD Heart Problem 01/11/2025 12:34 PM CDT - 01/11/2025 11:59 PM CDT Hospital Encounter [facility] [address] [place] [address] Parker Pham MD Discharge Disposition: Home or Self Care (Routine Discharge) 01/11/2025 Travel 01/11/2025 Abstract [facility] [address] [place] [address] Abstract, Doc Pccl 01/10/2025 Telephone [facility] ie [address] [place] [address] Parker Pham MD Lab Results (BMP, BNP) 01/07/2025 Orders Only [facility] [address] [place] [address] Parker Pham MD 01/05/2025 Telephone [facility] [address] [place] [address] Parker Pham MD Appointment Request 12/21/2024 12:30 PM CDT - 12/21/2024 11:59 PM CDT Hospital Encounter [facility] [address] [place] [address] Bartolome Lynn MD Discharge Disposition: Home or [...] drink = 0.6 oz pur e alcohol) [facility] Utilities Answer Date Recorded In the past 12 months has e [employer], gas, oil, or water [employer] threatened to shut off services in your [...] any time in the past 12 m [facility], were you homeless or living in [...] Description 04/12/2025 12:45 PM CDT Office Visit [facility] [place] [address] Parker Pham MD [address] [place] [address] Health Maintenance Due Date Last Done Comments [...] from hospital Lifestyle Yes Amy Beck RN Procedures Procedure Name Priority Date/Time Associated Diagnosis Comments USV CAROTID DUPLEX [place] Routine 03/02/2025 12:58 PM CDT Carotid artery disease without cerebral infarction 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) ECG 12-LEAD Routine 01/11/2025 12:44 PM CDT Carotid artery disease without cerebral infarction PAD (peripheral artery disease) COMPREHENSIVE METABOLIC PANEL Routine 01/05/2025 BNP Routine 01/05/2025 USV [employer] [place] Routine 12/21/2024 1:30 PM CDT PAD (peripheral artery disease) Mixed hyperlipidemia Leg edema LIPID PANEL Routine 02/23/2009 11:20 AM CDT from Last 3 Months or Most Recently Relevant to Health Maintenance Results * USV CAROTID DUPLEX [place] (03/02/2025 12:58 PM CDT) Anatomical Region Laterality Modality Neck Ultrasound 03/02/2025 12:2 8 PM CDT Narrative 03/03/2025 7:22 AM CDT [facility] Carotid Ultrasound Vascular Report Pat.Name: Ady Fontana Pat.ID: [id number] .Date: 03/02/2025 [facility] 12:28[facility]00 PM Study Type:[facility] CAROTID SCAN BILATERAL Height: 72 in Age: 8 1935,89Y Sex: M Pat. 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 ++++++++++++++++++++++++++++++++++++ FINDINGS: ++++++++++++++++++++++++++++++++++++ Rt ICA: 60-79% stenosis noted in the internal carotid artery. Mild heterogeneous plaque noted. Rt ECA: Patent with antegrade flow noted in the external carotid artery. Rt Vert: Normal antegrade vertebral flow. Lt ICA: 40-59% stenosis noted in the internal carotid artery. Mild/moderate heterogeneous plaque noted. Lt ECA: Patent with antegrade flow noted in the external carotid artery. Lt Vert: Retrograde flow in the left vertebral artery. Carotid Findings: Right Left Verteb.Flw Antegrade Retrograde ++++++++++++++++++++++++++++++++++++ MEASUREMENTS: ++++++++++++++++++++++++++++++++++++ DOPPLER Right Prox CCA Prox CCA PSV 100 cm/s Prox CCA EDV 19 cm/s Right Mid CCA Mid CCA PSV 99 cm/s Mid CCA EDV 18 cm/s Right Dist CCA Dist CCA PSV 118 cm/s Dist CCA EDV 20 cm/s Right Prox ICA Prox ICA PSV 146 cm/s Prox ICA EDV 24 cm/s Right Mid ICA Mid ICA PSV 163 cm/s Mid ICA EDV 34 cm/s Right Dist ICA Dist ICA PSV 167 cm/s Dist ICA EDV 23 cm/s Right Prox ECA Prox ECA PSV 122 cm/s Right Bifurcation Bifurcation PSV 148 cm/s Bifurcation EDV 21 cm/s Right Vertebral Vertebral PSV 73 cm/s Vertebral EDV 20 cm/s Right ICA/CCA RATIO ICA/CCA RATIO P 1.42 Left Prox CCA Prox CCA PSV 81 cm/s Prox CCA EDV 10 cm/s Left Mid CCA Mid CCA PSV 100 cm/s Mid CCA EDV 11 cm/s Left Dist CCA Dist CCA PSV 102 cm/s Dist CCA EDV 13 cm/s Left Prox ICA Prox ICA PSV 136 cm/s Prox ICA EDV 17 cm/s Left Mid ICA Mid ICA PSV 146 cm/s Mid ICA EDV 25 cm/s Left Dist ICA Dist ICA PSV 109 cm/s Dist ICA EDV 4 cm/s Left Prox ECA Prox ECA PSV 188 cm/s Left Bifurcation Bifurcation PSV 94 cm/s Bifurcation EDV 9 cm/s Left ICA/CCA RATIO ICA/CCA RATIO P 1.43 <Electronic Signature> 03/03/2025 07:22 AM Jennifer Bobby M.D. Procedure Note Jennifer Bobby MD - 03/03/2025 Outreach Carotid Ultrasound Vascular Report Pat.Name: Ady Fontana Pat.ID: [id number] .Date: 03/02/2025 Refer.MD: Celestino, [facility] Exam Time: 12:28:00 PM Study Type:OUTREACH CAROTID SCAN BILATERAL Height: 72 in Age: 8 1935,89Y Sex: M Pat. 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 ++++++++++++++++++++++++++++++++++++ FINDINGS: ++++++++++++++++++++++++++++++++++++ Rt ICA: 60-79% stenosis noted in the internal carotid artery. Mild heterogeneous plaque noted. Rt ECA: Patent with antegrade flow noted in the external carotid artery. Rt Vert: Normal antegrade vertebral flow. Lt ICA: 40-59% stenosis noted in the internal carotid artery. Mild/moderate heterogeneous plaque noted. Lt ECA: Patent with antegrade flow noted in the external carotid artery. Lt Vert: Retrograde flow in the left vertebral artery. Carotid Findings: Right Left Verteb.Flw Antegrade Retrograde ++++++++++++++++++++++++++++++++++++ MEASUREMENTS: ++++++++++++++++++++++++++++++++++++ DOPPLER Right Prox CCA Prox CCA PSV 100 cm/s Prox CCA EDV 19 cm/s Right Mid CCA Mid CCA PSV 99 cm/s Mid CCA EDV 18 cm/s Right Dist CCA Dist CCA PSV 118 cm/s Dist CCA EDV 20 cm/s Right Prox ICA Prox ICA PSV 146 cm/s Prox ICA EDV 24 cm/s Right Mid ICA Mid ICA PSV 163 cm/s Mid ICA EDV 34 cm/s Right Dist ICA Dist ICA PSV 167 cm/s Dist ICA EDV 23 cm/s Right Prox ECA Prox ECA PSV 122 cm/s Right Bifurcation Bifurcation PSV 148 cm/s Bifurcation EDV 21 cm/s Right Vertebral Vertebral PSV 73 cm/s Vertebral EDV 20 cm/s Right ICA/CCA RATIO ICA/CCA RATIO P 1.42 Left Prox CCA Prox CCA PSV 81 cm/s Prox CCA EDV 10 cm/s Left Mid CCA Mid CCA PSV 100 cm/s Mid CCA EDV 11 cm/s Left Dist CCA Dist CCA PSV 102 cm/s Dist CCA EDV 13 cm/s Left Prox ICA Prox ICA PSV 136 cm/s Prox ICA EDV 17 cm/s Left Mid ICA Mid ICA PSV 146 cm/s Mid ICA EDV 25 cm/s Left Dist ICA Dist ICA PSV 109 cm/s Dist ICA EDV 4 cm/s Left Prox ECA Prox ECA PSV 188 cm/s Left Bifurcation Bifurcation PSV 94 cm/s Bifurcation EDV 9 cm/s Left ICA/CCA RATIO ICA/CCA RATIO P 1.43 <Electronic Signature> 03/03/2025 07:22 AM Jennifer Bobby M.D. Parker Pham MD [facility] Final Result * (ABNORMAL) BASIC METABOLIC PANEL (01/25/2025 5:44 AM CDT) Only the most recent of4 resultswithin the time period is included. SODIUM S/P/B 142 136 - 145 MMOL/L 01/25/2025 6:35 AM CDT [facility] POTASSIUM S/P/B 3.3(L) 3.5 - 5.1 MMOL/L 01/25/2025 6:35 AM CDT [facility] CHLORIDE S/P/B 103 97 - 115 MMOL/L 01/25/2025 6:35 AM CDT [facility] CO2 32.5(H) 21.0 - 32.0 MMOL/L 01/25/2025 6:35 AM CDT [facility] GLUCOSE 119(H) 74 - 106 MG/DL 01/25/2025 6:35 AM CDT [facility] BUN 29(H) 7 - 18 MG/DL 01/25/2025 6:35 AM CDT [facility] CREATININE S/P/B 1.18 0.70 - 1.30 MG/DL 01/25/2025 6:35 AM CDT [facility] CALCIUM S/P/B 9.2 8.5 - 10.1 MG/DL 01/25/2025 6:35 AM CDT [facility] ANION GAP 6.5 2.0 - 10.0 MMOL/L 01/25/2025 6:35 AM CDT [facility] OSMOLALITY (CALC) 301 MOSM/KG 025 6:35 AM T [facility] Comment:REFERENCE RANGE NOT ESTABLISHED GFR ESTIMATE 59(L) >90 ML/MIN/1. 73 M2 01/25/2025 6:35 AM CDT [facility] GFR NOTES GFR REFERENCE S: 01/25/2025 6:35 AM CDT [facility] Comment: THE ESTIMATED GFR IS CALCULATED [...] CDT Andrew Ariza MD LABORATORY Final Result [facility] [address] [place] [address], [id number] * (ABNORMAL) CBC, AUTO, NO DIFF (01/25/2025 5:44 AM CDT) WBC 7.98 4.00 - 10.80 x10'3/uL 01/25/2025 6:13 AM CDT [facility] RBC 2.50(L) 4.50 - 6.10 x10'6/uL 01/25/2025 6:13 AM CDT [facility] HGB 8.2(L) 13.0 - 18.0 G/DL 01/25/2025 6:13 AM CDT [facility] HCT 25.5(L) 37.0 - 52.0 % 01/25/2025 6:13 AM CDT [facility] MCV 102.0(H) 78.0 - 100.0 FL 01/25/2025 6:13 AM CDT [facility] MCH 32.8(H) 27.0 - 31.0 PG 01/25/2025 6:13 AM CDT [facility] MCHC 32.2(L) 33.0 - 36.0 G/DL 01/25/2025 6:13 AM CDT [facility] RDW 18.0(H) 11.5 - 14.5 % 01/25/2025 6:13 AM CDT [facility] PLT 190 150 - 350 x10'3/uL 01/25/2025 6:13 AM CDT [facility] MPV 10.0 7.4 - 10.4 FL 01/25/2025 6:13 AM CDT [facility] 01/25/2025 5:44 AM CDT us Andrew Ariza MD LABORATORY Final Result Performing Organization Address City/State/[facility] Co de Phone Number [facility] [address] [place] [address], [phone] * (ABNORMAL) URINALYSIS (01/24/2025 10:54 AM CDT) COLOR (U) LIGHT YELLOW 01/24/2025 11:08 AM CDT [facility] TRANSPARENCY CLEAR 01/24/2025 11:08 AM CDT [facility] SPECIFIC GRAVITY (U) 1.008 1.002 - 1.035 01/24/2025 11:08 AM CDT [facility] U PH 5.5 5 - 8 01/24/2025 11:08 AM CDT [facility] PROTEIN RANDOM (U) NEGATIVE NEGATIVE 01/24/2025 11:08 AM CDT [facility] GLUCOSE (U) NEGATIVE NEGATIVE MG/DL 01/24/2025 11:08 AM CDT [facility] KETONES MG/DL (U) NEGATIVE NEGATIVE 01/24/2025 11:08 AM CDT [facility] BILIRUBIN (U) NEGATIVE NEGATIVE 01/24/2025 11:08 AM CDT [facility] BLOOD (U) 3+(A) NEGATIVE 01/24/2025 11:08 AM CDT [facility] NITRITES NEGATIVE NEGATIVE 01/24/2025 11:08 AM CDT [facility] UROBILINOGEN NORMAL 0 - 1 EU/DL 01/24/2025 11:08 AM CDT [facility] LEUKOCYTES (U) NEGATIVE NEGATIVE 01/24/2025 11:08 AM CDT [facility] RBC/HPF 36(H) 0 - 3 /HPF 01/24/2025 11:08 AM CDT [facility] WBC/HPF 1 0 - 6 /HPF 01/24/2025 11:08 AM CDT [facility] BACTERIA (U) NONE /HPF 01/24/2025 11:08 AM CDT [facility] SQUAMOUS EPITHELIALS <1 01/24/2025 11:08 AM CDT [facility] URINE SPECIMEN OBTAINED BY CLEAN CATCH PROCEDURE / Unknown 01/24/2025 10:54 AM CDT us Andrew Ariza MD URINE ORDERABLES Trinity thao Result [facility] [address] [place] [phone], [id number] * (ABNORMAL) COMPREHENSIVE METABOLIC PANEL (01/24/2025 4:36 AM CDT) Only the most recent of3 resultswithin the time period is included. SODIUM S/P/B 142 136 - 145 MMOL/L 01/24/2025 5:34 AM CDT [facility] POTASSIUM S/P/B 3.6 3.5 - 5.1 MMOL/L 01/24/2025 5:34 AM CDT [facility] CHLORIDE S/P/B 105 97 - 115 MMOL/L 01/24/2025 5:34 AM CDT [facility] CO2 32.2(H) 21.0 - 32.0 MMOL/L 01/24/2025 5:34 AM [facility] GLUCOSE 145(H) 74 - 106 MG/DL 01/24/2025 5:34 AM T [facility] BUN 34(H) 7 - 18 MG/DL 01/24/2025 5:34 AM T [facility] CREATININE S/P/B 1.22 0.70 - 1.30 MG/DL 01/24/2025 5:34 AM T [facility] CALCIUM S/P/B 8.9 8.5 - 10.1 MG/DL 01/24/2025 5:34 AM T [facility] BILIRUBIN TOTAL S/P/B 1.1(H) 0.2 - 1.0 MG/DL 01/24/2025 5:34 AM T [facility] ALKALINE PHOSPHATASE S/P/B 58 45 - 115 U/L 01/24/2025 5:34 AM [facility] AST 10(L) 15 - 37 U/L 01/24/2025 5:34 AM [facility] ALT 13(L) 16 - 61 U/L 01/24/2025 5:34 AM [facility] TOTAL PROTEIN S/P/B 5.3(L) 6.4 - 8.2 G/DL 01/24/2025 5:34 AM [facility] ALBUMIN S/P/B 2.7(L) 3.4 - 5.0 G/DL 01/24/2025 5:34 AM [facility] ANION GAP 4.8 2.0 - 10.0 MMOL/L 01/24/2025 5:34 AM T [facility] OSMOLALITY (CALC) 304 MOSM/KG 025 5:34 AM [facility] Comment:REFERENCE RANGE NOT ESTABLISHED GFR ESTIMATE 57(L) >90 ML/MIN/1. 73 M2 01/24/2025 5:34 AM CDT [facility] GFR NOTES GFR REFERENCE S: 01/24/2025 5:34 AM CDT [facility] Comment: THE ESTIMATED GFR IS CALCULATED [...] us Andrew Ariza MD LABORATORY Final Result [facility] [address] [place] [address], [phone] * (ABNORMAL) CBC W/DIFF AUTOMATED (01/24/2025 4:36 AM CDT) Only the most recent of5 resultswithin the time period is included. WBC 5.52 4.00 - 10.80 x10'3/uL 01/24/2025 5:10 AM CDT [facility] RBC 2.47(L) 4.50 - 6.10 x10'6/uL 01/24/2025 5:10 AM CDT [facility] HGB 8.1(L) 13.0 - 18.0 G/DL 01/24/2025 5:10 AM CDT [facility] HCT 25.4(L) 37.0 - 52.0 % 01/24/2025 5:10 AM CDT [facility] MCV 102.8(H) 78.0 - 100.0 FL 01/24/2025 5:10 AM CDT [facility] MCH 32.8(H) 27.0 - 31.0 PG 01/24/2025 5:10 AM CDT [facility] MCHC 31.9(L) 33.0 - 36.0 G/DL 01/24/2025 5:10 AM CDT [facility] RDW 17.6(H) 11.5 - 14.5 % 01/24/2025 5:10 AM CDT [facility] PLT 197 150 - 350 x10'3/uL 01/24/2025 5:10 AM CDT [facility] MPV 10.1 7.4 - 10.4 FL 01/24/2025 5:10 AM CDT [facility] DIFFERENTIAL TYPE AUTOMATED DIFFERENTIAL 01/24/2025 5:10 AM CDT [facility] SEG NEUTROPHILS 77.3 % 5:10 AM CDT [facility] LYMPHOCYTES 12.0 % 01/24/2025 5:10 AM CDT [facility] MONOCYTES 8.3 % 01/24/2025 5:10 AM CDT [facility] EOSINOPHILS 2.2 % 01/24/2025 5:10 AM CDT [facility] BASOPHILS 0.0 % 01/24/2025 5:10 AM CDT [facility] IMMATURE GRANS % 0.2 % 01/25/20 5:10 AM CDT [facility] ABS. NEUTROPHILS 4.27 1.60 - 8.30 x10'3/uL 01/24/2025 5:10 AM CDT [facility] ABS. LYMPHOCYTES 0.66(L) 0.80 - 4.70 x10'3/uL 01/24/2025 5:10 AM CDT [facility] ABS. MONOCYTES 0.46 0.00 - 1.50 x10'3/uL 01/24/2025 5:10 AM CDT [facility] ABS. EOSINOPHILS 0.12 0.00 - 0.40 x10'3/uL 01/24/2025 5:10 AM CDT [facility] ABS. BASOPHILS 0.00 0.00 - 0.20 x10'3/uL 01/24/2025 5:10 AM CDT [facility] ABS. IMMATURE GRANULOCYTES 0.01 0.00 - 0.03 x10'3/uL 01/24/2025 5:10 AM CDT [facility] ABS. NUCLEATED RBC'S 0.00 0.00 - 0.01 x10'3/uL 01/24/2025 5:10 AM CDT [facility] NRBC % 0.0 % 01/24/2025 5:10 AM CDT [facility] 01/24/2025 4:36 AM CDT us Andrew Ariza MD LABORATORY Final Result [facility] [address] [place] [address], [id number] * XR CHEST PORTABLE (01/22/2025 8:28 AM [...] 9:23 AM Narrative 01/22/2025 9:27 AM CDT [facility] [address] [place], [place] [address] Examination: Chest x-ray 1 view Exam date/time: [...] Procedure Note Raz Fink MD - 01/22/2025 [facility] [address] [place], [place] [address] Examination: Chest x-ray 1 view Exam date/time: [...] By: Raz Fink MD, 01/22/2025 9:23 AM Dominick Brown MD GENERAL IMAGING Final Resul t * (ABNORMAL) HEMOGLOBIN AND HEMATOCRIT (01/21/2025 11:50 PM CDT) Only the most recent of8 resultswithin the time period is included. HGB 7.1(L) 13.0 - 18.0 G/DL 01/21/2025 11:55 PM CDT [facility] HCT 21.9(L) 37.0 - 52.0 % 01/21/2025 11:55 PM CDT [facility] 01/21/2025 11:5 0 PM CDT Aditya Cho NP LABORATORY Final Result [facility] [address] [place] [address], [phone] * ENDOSCOPY (SCAN ORDER) (01/21/2025 10:08 AM CDT) us Shahzad Kauffman MD SCANNING Final Result * (ABNORMAL) IRON SATURATION PANEL (FE,IBC,%SAT) (01/21/2025 6:45 AM CDT) IRON 21(L) 65 - 175 MCG/DL 01/21/2025 7:23 AM CDT [facility] IRON BINDING CAPACITY 228(L) 250 - 450 MCG/DL 01/21/2025 7:23 AM CDT [facility] IRON SATURATION 9 % 7:23 AM CDT [facility] Comment:REFERENCE RANGE NOT ESTABLISHED 01/21/2025 6:45 AM CDT Mary Jensen [employer] LABORATORY Final Res ult Performing Organization Address [facility] Co de Phone Number [facility] [address] [place] [address], [phone] * (ABNORMAL) POCT glucose (01/20/2025 4:10 PM CDT) Only the most recent of4 resultswithin the time period is included. GLUCOSE POC 182(H) 70 - 109 01/20/2025 4:18 PM CDT [facility] Comment:Will Repeat Test 01/20/2025 4:10 PM CDT Dominick Brown MD POCT ORDERABLES - DEVICE Fi nal Result Performing Organization Address [facility] de Phone Number [facility] [address] [place] [address], [phone] * USE ECHO [employer] (01/20/2025 1:42 PM CDT) Anatomical Region Laterality Modality Cardiac Echocardiogram 01/20/2025 1:06 PM CDT Narrative 01/21/2025 3:40 PM CDT Echocardiography Report Pat.Name: MARIZOL ADY CUEVAS Pat.ID: [id number] .Date: 01/20/2025 Refer.: [id number] NON-STAFF PROVIDER EWDPROV EWDPROV Exam Time: 1:06:00 PM Study Type:ECHO WITH CARDIAC DOPPLER COMP Height: 72 in Weight: 159 lb BSA: 1.93 m2 Age: 8 1935,89Y Sex: M HR: 61 bpm Sonogrphr: Kadi Clement Pat. Stat.:Inpatient Room: 744 [facility] - 4: [id number] [id number] Reason for Study:Pleural effusion Procedures: 2D, M-mode, [...] Right Ventricle Right Ventricle 4.2 cm Major [place] 7.9 cm Right Ventricul 15.1 cm2/m2 Right Ventricle 3.8 cm Right Ventricul 8.86 cm2/m2 Right Ventricul 41.4 % MMODE TA Tricuspid Annul 3.28 cm DOPPLER TV Regurg Flow TV pkPG 55 mmHg TV pkVel 372 cm/s (30-70)* LV Mass 2D Value 119 g LV Mass [id number] Value 61.7 g/m2 RA Volume Atrial Patterson 5.97 cm Atrial Patterson 22.5 cm2 Atrial Patterson 69 ml <Electronic Signature> 01/21/2025 03:40 PM Chad Dior M.D. Procedure Note Chad Dior MD - 01/21/2025 Echocardiography Report Pat.Name: ADY FONTANA Pat.ID: [id number] .Date: 01/20/2025 Refer.: [id number] NON-STAFF PROVIDER EWDPROV EWDPROV Exam Time: 1:06:00 PM Study Type:ECHO WITH CARDIAC DOPPLER COMP Height: 72 in Weight: 159 lb BSA: 1.93 m2 Age: 8 1935,89Y Sex: M HR: 61 bpm Sonogrphr: Kadi Clement Pat. Stat.:Inpatient Room: 744 CPT - 4: [id number] Reason for Study:Pleural effusion Procedures: 2D, M-mode, [...] Right Ventricle Right Ventricle 4.2 cm Major [place] 7.9 cm Right Ventricul 15.1 cm2/m2 Right Ventricle 3.8 cm Right Ventricul 8.86 cm2/m2 Right Ventricul 41.4 % MMODE TA Tricuspid Annul 3.28 cm DOPPLER TV Regurg Flow TV pkPG 55 mmHg TV pkVel 372 cm/s (30-70)* LV Mass 2D Value 119 g LV Mass [id number] Value 61.7 g/m2 RA Volume Atrial Patterson [...] UNITS ORDERED 1 01/20/2025 12:19 AM CDT [facility] ABO/RH A NEGATIVE 01/20/2025 12:57 AM CDT [facility] ANTIBODY SCREEN NEGATIVE 12:57 AM CDT [facility] SAMPLE EXPIRATION 01/23/2025,2359 01/20/2025 12:19 AM CDT [facility] BLOOD UNIT NUMBER [id number] 01/20/2025 1:16 AM CDT [facility] PRODUCT: PC LEUKOPOOR 01/20/2025 1:16 AM CDT [facility] UNIT DIVISION 00 01/20/2025 1:16 AM CDT [facility] BLOOD UNIT STATUS TRANSFUSED,FINAL 01/21/2025 7:27 AM CDT [facility] ISSUE DATE/TIME [id number] 025 7:27 AM CDT [facility] PRODUCT CODE [id number] 01/21/2025 7:27 AM CDT [facility] ABO/RH Unit A NEG 01/21/2025 7:27 AM CDT [facility] ABO/RH UNIT ISBT CODE 0600 01/21/2025 7:27 AM CDT [facility] BLOOD UNIT EXPIRATION DATE [id number] 01/21/2025 7:27 AM CDT [facility] TRANSFUSION STATUS OK TO TRANSFUSE 01/20/2025 1:16 AM CDT [facility] CROSSMATCH COMPATIBLE-EXM 01/20/2025 1:16 AM CDT [facility] 01/20/2025 Eileen Walton MD BLOOD BANK TEST ORDERABLES Fin al Result Performing Organization Address [facility]/ZIP Co de Phone Number [facility] [address] [place] [address], [id number] * PHOSPHORUS, INORGANIC PHOSPHATE (01/19/2025 10:22 PM CDT) PHOSPHORUS 4.6 2.5 - 4.9 MG/DL 01/19/2025 11:02 PM CDT [facility] 01/19/2025 10:2 2 PM CDT Alysha Quiros MD LABORATORY Final Result Performing Organization Address [facility] Co de Phone Number [facility] [address] [place] [address], [id number] * MAGNESIUM (01/19/2025 10:22 PM CDT) MAGNESIUM 2.2 1.6 - 2.6 MG/DL 01/19/2025 11:02 PM CDT [facility] 01/19/2025 10:2 2 PM CDT Alysha Quiros MD LABORATORY Final Result [facility] [address] [place] [address], [id number] * USE ECHOCARDIOGRAM (01/14/2025 4:38 PM CDT) Anatomical Region Laterality Modality Cardiac Ultrasound 01/14/2025 3:40 PM CDT Narrative 01/19/2025 6:11 AM CDT Echocardiography Report Pat.Name: Marizol Ady cuevas Pat.ID: [id number] .Date: 01/14/2025 Refer.MD: Celestino, [facility] Exam Time: 3:40:00 PM Study Type:[facility] Height: 72 in Weight: 160 lb BSA: 1.94 m2 Age: 8 1935,89Y Sex: M Sonogrphr: Sf Pat. Stat.:Outpatient Reason for Study:Congestive heart failure Procedures: 2D, M-mode, Doppler, Color Flow, Study performed at [facility], [place], [place] and interpreted by [facility]. ++++++++++++++++++++++++++++++++++++ SUMMARY: ++++++++++++++++++++++++++++++++++++ The left [...] 01/19/2025 Echocardiography Report Pat.Name: Ady Fontana Pat.ID: [id number] .Date: 01/14/2025 Refer.MD: Celestino, [facility] Exam Time: 3:40:00 PM Study Type:[facility] Height: 72 in Weight: 160 lb BSA: 1.94 m2 Age: 8 1935,89Y Sex: M Sonogrphr: Pat. Stat.:Outpatient Reason for Study:Congestive heart failure Procedures: 2D, M-mode, Doppler, Color Flow, Study performed at [place], [place] and interpreted by [facility]. ++++++++++++++++++++++++++++++++++++ SUMMARY: ++++++++++++++++++++++++++++++++++++ The left [...] CDT) 01/11/2025 12:4 4 PM CDT Narrative [facility] - 01/12/2025 9:46 AM CDT [address] 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: : 1935 Requested By: PARKER PHAM Order Number: [id number] Reading MD: Parker Phma Measurements Intervals [place] Rate: 57 P: 77 WI: 195 QRS: 93 QRSD: 167 T: -27 QT: 439 QTc: 430 Interpretive Statements SINUS BRADYCARDIA WITH OCCASIONAL VENTRICULAR PREMATURE COMPLEXES RIGHT BUNDLE BRANCH BLOCK [120+ ms QRS DURATION, UPRIGHT V1, 40+ ms SIN I/aVL/V4/V5/V6] us Parker Pham MD ECG ORDERABLES Final Result [facility] * BNP (01/05/2025) B TYPE NATRIURETIC PEPTIDE 5,020 Narrative Resulting Agency Comment [facility] us Tavo Caruso MD LABORATORY Final Result * [facility] [place] (12/21/2024 1:30 PM CDT) Anatomical Region Laterality Modality Extremity Ultrasound 12/21/2024 1:11 PM CDT Narrative 12/26/2024 3:34 PM CDT Outreach Arterial Doppler [facility] Vascular Report Pat.Name: Ady Fontana Pat.ID: [id number] .Date: 12/21/2024 Refer.MD: Celestino, [facility] Exam Time: 1:11:00 PM Study Type:OUTREACH ART DOPPLER - [facility] Height: 72 in Age: 8 1935,89Y Sex: M Sonogrphr: tom Velazquez [facility] Pat. Stat.:Outpatient Reason for Study:PAD (peripheral artery disease), Mixed hyperlipidemia, PVD, Leg edema Procedures: Study performed at [place], [place] and interpreted by [facility]. ++++++++++++++++++++++++++++++++++++ SUMMARY: ++++++++++++++++++++++++++++++++++++ PRINCE Rt: [...] [facility] Vascular Report Pat.Name: Ady Fontana Pat.ID: [id number] [facility] Refer.MD: Celestino, [facility] Exam Time: 1:11:00 PM Study Type:OUTREACH ART DOPPLER - [facility] Height: 72 in Age: 8 1935,89Y Sex: M Sonogrphr: tom Velazquez [facility] Pat. Stat.:Outpatient Reason for Study:PAD (peripheral artery disease), Mixed hyperlipidemia, PVD, Leg edema Procedures: Study performed at [place], [place] and interpreted by [facility]. ++++++++++++++++++++++++++++++++++++ SUMMARY: ++++++++++++++++++++++++++++++++++++ PRINCE Rt: [...] PM Parker Pham M.D. Bartolome Lynn MD [facility] Final Result * (ABNORMAL) LIPID PANEL [...] Recently Relevant to Health Maintenance Insurance MEDICARE [facility] MEDICARE [id number] Advance Directives * DNR (Latest Code Status on File) Date Activated Date Inactivated Comments 01/20/2025 11:38 AM 01/25/2025 3:45 PM * Full Code Date Activated Date Inactivated Comments 01/20/2025 8:29 AM 01/20/2025 11:38 AM Care Teams Carpenters Relationship Specialty Start Date End Date Tavo Caruso MD [address] [place] [phone] PCP - General INTERNAL MEDICINE 03/15/17 Mario Blankenship DPM [address] [place] [phone] Referring Physician PODIATRY/SURGERY 05/28/21 Parker Pham MD [address] [facility] [address] [place] [address] Physician INTERVENTIONAL CARDIOLOGY 10/29/24
[2025-03-14 11:19] LABS: Platelet Count Result 184 k/mm3 (150-375)
[2025-03-14 11:38] LABS: INR 1.3; Prothrombin Time 15.8 Seconds (11.1-14.7)
--- NOTE | 2025-03-14 13:21 | CY_PTH ---
PATIENT: Tom Fontana LOC: [facility] U#:[id number] AGE/SX: 89/M ROOM: RE03/14/[address]: Nova SmithMD : 1935 BED: DIS: 03/14/2025 SPEC #: [id number] RECD: 03/14/25 14:22 STATUS: MITZI REQ #: [id number] ARMANDO: 03/14/25 13:[address]: LuisNova DEPT: [facility] Cytology RECD BY: Angelika Hirsch ENTERED: 03/14/25 14:22 SP TYPE: Cytology OTHR DR: Tavo Caruso MD Tissues: A - Pleural Fluid Procedures: Hematoxylin and Eosin Stain Cell Block Cytopathology Cytospin
--- NOTE | 2025-03-14 13:30 | PM.OP ---
Procedure Note - Brief Procedure Note - Brief Date of procedure: 03/14/25 pleural effusion Post-op diagnosis: Same Procedure performed: US guided R thoracentesis Surgeon: Nova Smith MD Findings: Moderate R sided pleural effusion. No significant L pleural effusion. Description of procedure: sterile technique US guidance Time out performed. 10cm One step catheter 1.6L tea colored fluid evacuated. Estimated blood loss (mL): 0.01 Condition: Stable Disposition: Same day
--- NOTE | 2025-03-14 15:02 | SUR.PHASEII ---
Dr Smith at bedside speaking with patient and son. Per Luis patient okay to d/c now. VORB for OP discharge.
[2025-03-15 13:08] LABS: Albumin, Body Fluid 2.0 g/dL (Not Estab.); Glucose, Body Fluid 102 mg/dL (.); LD, Body Fluid 121 IU/L (.)
[2025-04-15 11:12] LABS: Appearance Pleural Fluid Hazy (Clear); Color Pleural Fluid Yellow (Colorless)
[2025-04-15 11:13] LABS: Lymphocytes Pleural Fluid 99 %
[2025-04-15 11:14] LABS: Neutrophils Pleural Fluid 1 % (0-25)
== END 2025-03-14 15:20 | disposition home or self-care (01) ==
PROVIDERS: PCP Internal Medicine; Referring Provider Physician Assistant; Visit Provider Radiology Diagnostic Radiology
DX: J90 Pleural effusion, not elsewhere classified (principal)
CPT/HCPCS: 32555; 36415; 82042; 82945; 83615; 83986; 84157; 85049; 85610; 87070; 87075; 88108; 88305; 89051

== ENCOUNTER 2025-03-29 14:59 | Outpatient (NON) | payer MEDICARE, OTHER, SELFPAY ==
--- OUTSIDE RECORDS SUMMARY | 2025-03-29 15:05 | XMS_ITS | Encounter Summary ---
Author Organization [facility] Address [facility] [place] [address] Care Team Providers Care Blunger Loader Name Role Phone Tavo Caruso MD Primary Care Provider [phone] Mario Blankenship DPM Unavailable [phone] Parker Pham MD Unavailable [phone] Encounter Details Date Type Department Care Team (Latest Contact Info) Description 03/03/2025 Results Follow-Up [facility] [place] [phone] Nakia Snowden MA [facility] CAROTID [facility]UP[facility] [place] Social History Tobacco Use Types Packs/Day Years Used Date Smoking Tobacco: Former Cigarettes 1.5 40 1 953 - 1992 Smokeless Tobacco: Former Chew Quit: 1994 Alcohol Use Standard Drinks/Week Comments Not Currently 0 (1 standard drink = 0.6 oz pur e alcohol) [facility] Utilities Answer Date Recorded In the past [address] [facility] [employer] gas, oil, or water [employer] threatened to shut off services in your [...] any time in the past 12 m [facility], were you homeless or living in a intermediate (including now)? No 01/19/2025 Sex and Gender [...] Description 04/12/2025 12:45 PM CDT Office Visit [facility] [place] [address] Parker Pham MD [facility] [address] [address] documented as of this encounter Goals Goal Patient Goal Type Associated Problems Recent Progress Patient-Stated? 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 RN documented as of this encounter Visit Diagnoses Not on filedocumented in this encounter Care Teams Blunger Loader Relationship Specialty Start Date End Date aTvo Caruso MD [address] [place] [phone] PCP - General INTERNAL MEDICINE 03/15/17 Mario Blankenship DPM [address] [place] [address] Referring Physician PODIATRY/SURGERY 05/28/21 Parker Pham MD [address] [address] Physician INTERVENTIONAL CARDIOLOGY 10/29/24 documented as of this encounter
--- OUTSIDE RECORDS SUMMARY | 2025-03-29 15:05 | XMS_ITS | Clinical Summary ---
Author Organization [facility] Address [address] [place] [address] Care Team Providers Care Bow Repairer Custom Name Role Phone Tavo Caruso MD Primary Care Provider [phone] Mario Blankenship DPM Unavailable [phone] Parker Pham MD Unavailable [phone] Allergies Active Allergy Reactions Criticality Noted Date [...] (HFpEF) heart failure with preserved ejection fraction ([facility] HHS/HCC),Emphyse ma lung ([facility] HHS/[facility]) 1 Device by Nasal route continuous. Nasal Cannula. 2L continuous. Portable Oxygen Tanks. Stationary Concentrator. 1 Device 5 Active pantoprazole EC (PROTONIX) 40 MG tablet Take 1 tablet (40 mg total) by mouth 2 (two) times daily before meals. 30 tablet 5 Active Active Problems Problem Noted Date Diagnosed Date GI bleed 01/19/2025 (HFpEF) heart failure with p reserved ejection fraction ([facility] HHS/HCC) 01/19/2025 Acute anemia 01/19/2025 Coronary artery disease invo lving hughes coronary artery of hughes heart without angina pectoris 01/11/2025 Dyspnea, unspecified type 01/11/2025 Carotid artery disease without cerebral infarcti on 11/28/2020 Acute gout of right elbow, unspecified cause Rupture of proximal biceps tendon, right, initia l encounter 08/23/2020 PAD (peripheral artery disease) 03/14/2020 Ulcer of left lower extremit y with fat layer exposed ([facility] HHS/HCC) 03/14/2020 Leg edema 03/14/2020 Essential hypertension 03/14/2020 Mixed hyperlipidemia Encounters Date Type Department Care Team Description 03/03/2025 Results Follow-Up [facility] [id number] [place] [address] Nakia Snowden MA USV CAROTID DUPLEX [place] 03/02/2025 11:59 AM CDT - 03/02/2025 11:59 PM CDT Hospital Encounter [facility] [address] [place] [address] Parker Pham MD Discharge Disposition: Home or Self Care (Routine Discharge) 03/02/2025 Travel 02/24/2025 Telephone [facility] ie [address] [place] [address] Parker Pham MD Reschedule 01/24/2025 Telephone [place] [facility] [address] [place] [address] 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, electrician technician (Swing bed referral to [facility] from S/) 01/21/2025 10:45 AM CDT - 01/21/2025 11:18 AM CDT Surgery [facility] Endo/GI [address] [place] [address] Shahzad Kauffman MD EGD 01/21/2025 10:31 AM CDT Anesthesia Event [facility] Endo/GI [address] [place] [address] Nasim Ren MD Bracco, Kendra A, RN 01/19/2025 5:06 PM CDT - 01/25/2025 1:40 PM CDT Hospital Encounter [facility] [address] [place] [address] Tadeo Arenas MD Mahmoud, Anas, MD Rajendran, Nagesan, MD Singanallur, Prashanth M, MD Discharge Disposition: Alf Facility 01/19/2025 Travel 01/14/2025 3:20 PM CDT - 01/14/2025 11:59 PM CDT Hospital Encounter [facility] [address] [place] [address] Tavo Caruso MD Discharge Disposition: Home or Self Care (Routine Discharge) 01/14/2025 Travel 01/12/2025 Telephone [facility] ield [address] [place] [address] Parker Pham MD Appointment Request 01/11/2025 1:00 PM CDT Office Visit [facility] [place] [address] [place] [address] Parker Pham MD Heart Problem 01/11/2025 12:34 PM CDT - 01/11/2025 11:59 PM CDT Hospital Encounter [facility] [address] [place] [address] Parker Pham MD Discharge Disposition: Home or Self Care (Routine Discharge) 01/11/2025 Travel 01/11/2025 Abstract [facility] ie [address] [place] [address] Abstract, Doc Pccl 01/10/2025 Telephone [facility] ie [address] [place] [address] Parker Pham MD Lab Results (BMP, BNP) 01/07/2025 Orders Only [facility] ie [address] [place] [address] Parker Pham MD 01/05/2025 Telephone [facility] ie [address] [place] [address] Parker Pham MD Appointment Request from Last 3 Months Immunizations Immunization Administration [...] drink = 0.6 oz pur e alcohol) [facility] Utilities Answer Date Recorded In the past 12 months has th e electric, gas, oil, or water company threatened [...] any time in the past 12 m [facility], were you homeless or living in a fdc (including now)? No 01/19/2025 Sex and Gender [...] Upcoming Encounters Date Type Department Care Team ([facility] st Contact Info) Description 04/12/2025 12:45 PM CDT Office Visit [facility] [place] [address] Parker Pham MD [address] [facility] [address] [address] Health Maintenance Due Date Last Done Comments ASCVD Statin 1936 DTaP, Tdap and Td Vaccines ( 1 - Tdap) 1955 Zoster Vaccines (1 of 2) 1986 Annual Medicare Wellness Visit 2001 ASCVD LDL 02/23/2010 02/23/2009 RSV Immunization or 60+ Years (1 - 1-dose 75+ series) 2011 Pneumococcal Vaccine: 50+ Years (2 of 2 - PPSV23) 08/10/2018 06/15/2018, 07/31/2015 COVID-19 Vaccine ( - 2023-2 5 season) 2024 Meningococcal B [...] Routine 01/20/2025 4:10 PM CDT USE ECHO [employer] Today 01/20/2025 1: 42 PM CDT [...] 38 PM CDT CHF (congestive heart failure) ([facility]) ECG 12-LEAD Routine 01/11/2025 12:44 PM CDT Carotid artery disease without cerebral infarction PAD (peripheral artery disease) COMPREHENSIVE METABOLIC PANEL Routine 01/05/2025 BNP Routine 01/05/2025 LIPID PANEL Routine 02/23/2009 11:20 AM CDT from Last 3 Months or Most Recently Relevant to Health Maintenance Results * USV CAROTID DUPLEX [place] (03/02/2025 12:58 PM CDT) Anatomical Region Laterality Modality Neck Ultrasound 03/02/2025 12:2 8 PM CDT Narrative 03/03/2025 7:[address] [facility] Carotid Ultrasound Vascular Report Pat.Name: Ady Fontana Pat.ID: [id number] .Date: 03/02/2025 Refer.: Delmis, [facility] Exam Time: 12:28:00 PM Study Type:OUTREACH CAROTID SCAN BILATERAL Height: 72 in Age: 8 1935,89Y Sex: M Pat. Stat.:Outpatient CPT - 4: 32859 Carotid Duplex Reason for Study:Carotid artery disease without cerebral infarction, Occlusion and stenosis of other cerebral arteries Procedures: Study performed at [facility], [place], [place] and interpreted by [facility]. ++++++++++++++++++++++++++++++++++++ FINDINGS: ++++++++++++++++++++++++++++++++++++ Rt ICA: [...] Ultrasound Vascular Report Pat.Name: Ady Fontana Pat.ID: [id number] .Date: 03/02/2025 [facility]: 12:28:00 PM Study Type:OUTREACH CAROTID SCAN BILATERAL Height: 72 in Age: 8 1935,89Y Sex: M Pat. Stat.:Outpatient CPT - 4: 76043 Carotid Duplex Reason for Study:Carotid artery disease without cerebral infarction, Occlusion and stenosis of other cerebral arteries Procedures: Study performed at [place], [place] and interpreted by [facility]. ++++++++++++++++++++++++++++++++++++ FINDINGS: ++++++++++++++++++++++++++++++++++++ Rt ICA: [...] AM Jennifer Bobby M.D. Parker Pham MD [facility] Final Result * (ABNORMAL) BASIC METABOLIC PANEL (01/25/2025 5:44 AM CDT) Only the most recent of4 resultswithin the time period is included. SODIUM S/P/B 142 136 - 145 MMOL/L 01/25/2025 6:35 AM T [facility] POTASSIUM S/P/B 3.3(L) 3.5 - 5.1 MMOL/L 01/25/2025 6:35 AM [facility] CHLORIDE S/P/B 103 97 - 115 MMOL/L 01/25/2025 6:35 AM [facility] CO2 32.5(H) 21.0 - 32.0 MMOL/L 01/25/2025 6:35 AM T [facility] GLUCOSE 119(H) 74 - 106 MG/DL 01/25/2025 6:35 AM [facility] BUN 29(H) 7 - 18 MG/DL 01/25/2025 6:35 AM [facility] CREATININE S/P/B 1.18 0.70 - 1.30 MG/DL 01/25/2025 6:35 AM [facility] CALCIUM S/P/B 9.2 8.5 - 10.1 MG/DL 01/25/2025 6:35 AM T [facility] ANION GAP 6.5 2.0 - 10.0 MMOL/L 01/25/2025 6:35 AM [facility] OSMOLALITY (CALC) 301 MOSM/KG 025 6:35 AM [facility] Comment:REFERENCE RANGE NOT ESTABLISHED GFR ESTIMATE 59(L) >90 ML/MIN/1. 73 M2 01/25/2025 6:35 AM [facility] GFR NOTES GFR REFERENCE S: 01/25/2025 6:35 AM [facility] Comment: THE ESTIMATED GFR IS CALCULATED [...] CDT Andrew Ariza MD LABORATORY Final Result [facility] [address] [place] [address], [place] [phone] * (ABNORMAL) CBC, AUTO, NO DIFF (01/25/2025 5:44 AM CDT) WBC 7.98 4.00 - 10.80 x10'3/uL 01/25/2025 6:13 AM CDT [facility] RBC 2.50(L) 4.50 - 6.10 x10'6/uL 01/25/2025 6:13 AM CDT [facility] HGB 8.2(L) 13.0 - 18.0 G/DL 01/25/2025 6:13 AM CDT [facility] HCT 25.5(L) 37.0 - 52.0 % 01/25/2025 6:13 AM CDT [facility] MCV 102.0(H) 78.0 - 100.0 FL 01/25/2025 6:13 AM CDT [facility] MCH 32.8(H) 27.0 - 31.0 PG 01/25/2025 6:13 AM CDT [facility] MCHC 32.2(L) 33.0 - 36.0 G/DL 01/25/2025 6:13 AM CDT [facility] RDW 18.0(H) 11.5 - 14.5 % 01/25/2025 6:13 AM CDT [facility] PLT 190 150 - 350 x10'3/uL 01/25/2025 6:13 AM CDT [facility] MPV 10.0 7.4 - 10.4 FL 01/25/2025 6:13 AM CDT [facility] 01/25/2025 5:44 AM CDT us Andrew Ariza MD LABORATORY Final Result [facility] [address] [place] [address], [place] [phone] * (ABNORMAL) URINALYSIS (01/24/2025 10:54 AM CDT) COLOR (U) LIGHT YELLOW 01/24/2025 11:08 AM CDT [facility] TRANSPARENCY CLEAR 01/24/2025 11:08 AM CDT [facility] SPECIFIC GRAVITY (U) 1.008 1.002 - 1.035 01/24/2025 11:08 AM CDT [facility] U PH 5.5 5 - 8 01/24/2025 11:08 AM CDT [facility] PROTEIN RANDOM (U) NEGATIVE NEGATIVE 01/24/2025 11:08 AM CDT [facility] GLUCOSE (U) NEGATIVE NEGATIVE MG/DL 01/24/2025 11:08 AM CDT [facility] KETONES MG/DL (U) NEGATIVE NEGATIVE 01/24/2025 11:08 AM CDT [facility] BILIRUBIN (U) NEGATIVE NEGATIVE 01/24/2025 11:08 AM CDT [facility] BLOOD (U) 3+(A) NEGATIVE 01/24/2025 11:08 AM CDT [facility] NITRITES NEGATIVE NEGATIVE 01/24/2025 11:08 AM CDT [facility] UROBILINOGEN NORMAL 0 - 1 EU/DL 01/24/2025 11:08 AM CDT [facility] LEUKOCYTES (U) NEGATIVE NEGATIVE 01/24/2025 11:08 AM CDT [facility] RBC/HPF 36(H) 0 - 3 /HPF 01/24/2025 11:08 AM CDT [facility] WBC/HPF 1 0 - 6 /HPF 01/24/2025 11:08 AM CDT [facility] BACTERIA (U) NONE /HPF 01/24/2025 11:08 AM CDT [facility] SQUAMOUS EPITHELIALS <1 01/24/2025 11:08 AM CDT [facility] URINE SPECIMEN OBTAINED BY CLEAN CATCH PROCEDURE / Unknown 01/24/2025 10:54 AM CDT us Andrew Ariza MD URINE ORDERABLES Trinity thao Result [facility] [address] [place] [address], [phone] * (ABNORMAL) COMPREHENSIVE METABOLIC PANEL (01/24/2025 4:36 AM CDT) Only the most recent of3 resultswithin the time period is included. SODIUM S/P/B 142 136 - 145 MMOL/L 01/24/2025 5:34 AM CDT [facility] POTASSIUM S/P/B 3.6 3.5 - 5.1 MMOL/L 01/24/2025 5:34 AM CDT [facility] CHLORIDE S/P/B 105 97 - 115 MMOL/L 01/24/2025 5:34 AM CDT [facility] CO2 32.2(H) 21.0 - 32.0 MMOL/L 01/24/2025 5:34 AM CDT [facility] GLUCOSE 145(H) 74 - 106 MG/DL 01/24/2025 5:34 AM CDT [facility] BUN 34(H) 7 - 18 MG/DL 01/24/2025 5:34 AM [facility] CREATININE S/P/B 1.22 0.70 - 1.30 MG/DL 01/24/2025 5:34 AM [facility] CALCIUM S/P/B 8.9 8.5 - 10.1 MG/DL 01/24/2025 5:34 AM [facility] BILIRUBIN TOTAL S/P/B 1.1(H) 0.2 - 1.0 MG/DL 01/24/2025 5:34 AM [facility] ALKALINE PHOSPHATASE S/P/B 58 45 - 115 U/L 01/24/2025 5:34 AM [facility] AST 10(L) 15 - 37 U/L 01/24/2025 5:34 AM [facility] ALT 13(L) 16 - 61 U/L 01/24/2025 5:34 AM [facility] TOTAL PROTEIN S/P/B 5.3(L) 6.4 - 8.2 G/DL 01/24/2025 5:34 AM [facility] ALBUMIN S/P/B 2.7(L) 3.4 - 5.0 G/DL 01/24/2025 5:34 AM [facility] ANION GAP 4.8 2.0 - 10.0 MMOL/L 01/24/2025 5:34 AM [facility] OSMOLALITY (CALC) 304 MOSM/KG 025 5:34 AM [facility] Comment:REFERENCE RANGE NOT ESTABLISHED GFR ESTIMATE 57(L) >90 ML/MIN/1. 73 M2 01/24/2025 5:34 AM [facility] GFR NOTES GFR REFERENCE S: 01/24/2025 5:34 AM [facility] Comment: THE ESTIMATED GFR IS CALCULATED [...] us Andrew Ariza MD LABORATORY Final Result [facility] [address] [place] [address], [phone] * (ABNORMAL) CBC W/DIFF AUTOMATED (01/24/2025 4:36 AM CDT) Only the most recent of5 resultswithin the time period is included. WBC 5.52 4.00 - 10.80 x10'3/uL 01/24/2025 5:10 AM CDT [facility] RBC 2.47(L) 4.50 - 6.10 x10'6/uL 01/24/2025 5:10 AM CDT [facility] HGB 8.1(L) 13.0 - 18.0 G/DL 01/24/2025 5:10 AM CDT [facility] HCT 25.4(L) 37.0 - 52.0 % 01/24/2025 5:10 AM CDT [facility] MCV 102.8(H) 78.0 - 100.0 FL 01/24/2025 5:10 AM CDT [facility] MCH 32.8(H) 27.0 - 31.0 PG 01/24/2025 5:10 AM CDT [facility] MCHC 31.9(L) 33.0 - 36.0 G/DL 01/24/2025 5:10 AM CDT [facility] RDW 17.6(H) 11.5 - 14.5 % 01/24/2025 5:10 AM CDT [facility] PLT 197 150 - 350 x10'3/uL 01/24/2025 5:10 AM CDT [facility] MPV 10.1 7.4 - 10.4 FL 01/24/2025 5:10 AM CDT [facility] DIFFERENTIAL TYPE AUTOMATED DIFFERENTIAL 01/24/2025 5:10 AM CDT [facility] SEG NEUTROPHILS 77.3 % 5:10 AM CDT [facility] LYMPHOCYTES 12.0 % 01/24/2025 5:10 AM CDT [facility] MONOCYTES 8.3 % 01/24/2025 5:10 AM CDT [facility] EOSINOPHILS 2.2 % 01/24/2025 5:10 AM CDT [facility] BASOPHILS 0.0 % 01/24/2025 5:10 AM CDT [facility] IMMATURE GRANS % 0.2 % 01/25/20 5:10 AM CDT [facility] ABS. NEUTROPHILS 4.27 1.60 - 8.30 x10'3/uL 01/24/2025 5:10 AM CDT [facility] ABS. LYMPHOCYTES 0.66(L) 0.80 - 4.70 x10'3/uL 01/24/2025 5:10 AM CDT [facility] ABS. MONOCYTES 0.46 0.00 - 1.50 x10'3/uL 01/24/2025 5:10 AM CDT [facility] ABS. EOSINOPHILS 0.12 0.00 - 0.40 x10'3/uL 01/24/2025 5:10 AM CDT [facility] ABS. BASOPHILS 0.00 0.00 - 0.20 x10'3/uL 01/24/2025 5:10 AM CDT [facility] ABS. IMMATURE GRANULOCYTES 0.01 0.00 - 0.03 x10'3/uL 01/24/2025 5:10 AM CDT [facility] ABS. NUCLEATED RBC'S 0.00 0.00 - 0.01 x10'3/uL 01/24/2025 5:10 AM CDT [facility] NRBC % 0.0 % 01/24/2025 5:10 AM CDT [facility] 01/24/2025 4:36 AM CDT Andrew Ariza MD LABORATORY Final Result [facility] [address] [place] [address], [place] [phone] * XR CHEST PORTABLE (01/22/2025 8:28 AM [...] 9:23 AM Narrative 01/22/2025 9:27 AM CDT [facility] [address] [place], [place] [address] Examination: Chest x-ray 1 view Exam date/time: [...] Procedure Note Raz Fink MD - 01/22/2025 [place] [address] Examination: Chest x-ray 1 view Exam date/time: [...] - 18.0 G/DL 01/21/2025 11:55 PM CDT [facility] HCT 21.9(L) 37.0 - 52.0 % 01/21/2025 11:55 PM CDT [facility] 01/21/2025 11:5 0 PM CDT Aditya Cho [facility] Final Result Performing Organization Address [facility] Co de Phone Number [facility] [address] [place] [address], [phone] * ENDOSCOPY (SCAN ORDER) (01/21/2025 10:08 AM CDT) Shahzad Kauffman MD SCANNING Final Result * (ABNORMAL) IRON SATURATION PANEL (FE,IBC,%SAT) (01/21/2025 6:45 AM CDT) IRON 21(L) 65 - 175 MCG/DL 01/21/2025 7:23 AM CDT [facility] IRON BINDING CAPACITY 228(L) 250 - 450 MCG/DL 01/21/2025 7:23 AM CDT [facility] IRON SATURATION 9 % 7:23 AM CDT [facility] Comment:REFERENCE RANGE NOT ESTABLISHED 01/21/2025 6:45 AM CDT Mary Jensen [facility] Final Res ult Performing Organization Address [facility] Co de Phone Number [facility] [address] [place] [address], [place] [phone] * (ABNORMAL) POCT glucose (01/20/2025 4:10 PM CDT) Only the most recent of4 resultswithin the time period is included. GLUCOSE POC 182(H) 70 - 109 01/20/2025 4:18 PM CDT [facility] Comment:Will Repeat Test 01/20/2025 4:10 PM CDT Dominick Brown MD POCT ORDERABLES - DEVICE Fi nal Result [facility] [address] [place] [address], [place] [phone] * USE ECHO [employer] (01/20/2025 1:42 PM CDT) Anatomical Region Laterality Modality Cardiac Echocardiogram 01/20/2025 1:06 PM CDT Narrative 01/21/2025 3:40 PM CDT Echocardiography Report Pat.Name: JADA ADY PARK Pat.ID: [id number] .Date: 01/20/2025 Refer.MD: [id number] NON-STAFF PROVIDER EWNAYANA EWDPROV Exam Time: 1:06:00 PM Study Type:ECHO WITH CARDIAC DOPPLER COMP Height: 72 in Weight: 159 lb BSA: 1.93 m2 Age: 8 1935,89Y Sex: M HR: 61 bpm Sonogrphr: Kadi Clement Pat. Stat.:Inpatient Room: 744 CPT - 4: 58183 [id number] Reason for Study:Pleural effusion Procedures: 2D, M-mode, [...] Right Ventricle Right Ventricle 4.2 cm Major Cadogan 7.9 cm Right Ventricul 15.1 cm2/m2 Right Ventricle 3.8 cm Right Ventricul 8.86 cm2/m2 Right Ventricul 41.4 % MMODE TA Tricuspid Annul 3.28 cm DOPPLER TV Regurg Flow TV pkPG 55 mmHg TV pkVel 372 cm/s (30-70)* LV Mass 2D Value 119 g LV Mass [id number] Value 61.7 g/m2 RA Volume Atrial Patterson 5.97 cm Atrial Patterson 22.5 cm2 Atrial Patterson 69 ml <Electronic Signature> 01/21/2025 03:40 PM Chad Dior M.D. Procedure Note Chda Dior MD - 01/21/2025 Echocardiography Report Pat.Name: ADY FONTANA Pat.ID: [id number] .Date: 01/20/2025 Refer.MD: [id number] NON-STAFF PROVIDER EWDPROV EWDPROV Exam Time: 1:06:00 PM Study Type:ECHO WITH CARDIAC DOPPLER COMP Height: 72 in Weight: 159 lb BSA: 1.93 m2 Age: 8 1935,89Y Sex: M HR: 61 bpm Sonogrphr: Kadi Clement Pat. Stat.:Inpatient Room: [facility] CPT - 4: 50151 [id number] Reason for Study:Pleural effusion Procedures: 2D, M-mode, [...] Right Ventricle Right Ventricle 4.2 cm Major Cadogan 7.9 cm Right Ventricul 15.1 cm2/m2 Right Ventricle 3.8 cm Right Ventricul 8.86 cm2/m2 Right Ventricul 41.4 % MMODE TA Tricuspid Annul 3.28 cm DOPPLER TV Regurg Flow TV pkPG 55 mmHg TV pkVel 372 cm/s (30-70)* LV Mass 2D Value 119 g LV Mass [id number] Value 61.7 g/m2 RA Volume Atrial Patterson [...] UNITS ORDERED 1 01/20/2025 12:19 AM CDT [facility] ABO/RH A NEGATIVE 01/20/2025 12:57 AM CDT [facility] ANTIBODY SCREEN NEGATIVE 12:57 AM CDT [facility] SAMPLE EXPIRATION 01/23/2025,2359 01/20/2025 12:19 AM CDT [facility] BLOOD UNIT NUMBER [id number] 01/20/2025 1:16 AM CDT [facility] PRODUCT: PC LEUKOPOOR 01/20/2025 1:16 AM CDT [facility] UNIT DIVISION 00 01/20/2025 1:16 AM CDT [facility] BLOOD UNIT STATUS TRANSFUSED,FINAL 01/21/2025 7:27 AM CDT [facility] ISSUE DATE/TIME [id number] 025 7:27 AM CDT [facility] PRODUCT CODE [id number] 01/21/2025 7:27 AM CDT [facility] ABO/RH Unit A NEG 01/21/2025 7:27 AM CDT [facility] ABO/RH UNIT ISBT CODE 0600 01/21/2025 7:27 AM CDT [facility] BLOOD UNIT EXPIRATION DATE [id number] 01/21/2025 7:27 AM CDT [facility] TRANSFUSION STATUS OK TO TRANSFUSE 01/20/2025 1:16 AM CDT [facility] CROSSMATCH COMPATIBLE-EXM 01/20/2025 1:16 AM CDT [facility] 01/20/2025 Eileen Walton MD BLOOD BANK TEST ORDERABLES Fin al Result Performing Organization Address [facility] Co de Phone Number [facility] [address] [place] [address], [phone] * PHOSPHORUS, INORGANIC PHOSPHATE (01/19/2025 10:22 PM CDT) PHOSPHORUS 4.6 2.5 - 4.9 MG/DL 01/19/2025 11:02 PM CDT [facility] 01/19/2025 10:2 2 PM CDT Alysha Quiros MD LABORATORY Final Result Performing Organization Address [facility] Co de Phone Number [facility] [address] [place] [address], [phone] * MAGNESIUM (01/19/2025 10:22 PM CDT) MAGNESIUM 2.2 1.6 - 2.6 MG/DL 01/19/2025 11:02 PM CDT [facility] 01/19/2025 10:2 2 PM CDT us Alysha Quiros MD LABORATORY Final Result Performing Organization Address [facility] Co de Phone Number [facility] [address] [place], [place] [address] [phone] * USE ECHOCARDIOGRAM (01/14/2025 4:38 PM CDT) Anatomical Region Laterality Modality Cardiac Ultrasound 01/14/2025 3:40 PM CDT Narrative 01/19/2025 6:11 AM CDT Echocardiography Report Pat.Name: Ady Fontana Pat.ID: [id number] .Date: 01/14/2025 Refer.MD: Outreach, [facility] Exam Time: 3:40:00 PM Study Type:OUTREACH Height: 72 in Weight: 160 lb BSA: 1.94 m2 Age: 8 1935,89Y Sex: M Sonogrphr: Sf Pat. Stat.:Outpatient Reason for Study:Congestive heart failure Procedures: 2D, M-mode, Doppler, Color Flow, Study performed at [place], [place] and interpreted by [facility]. ++++++++++++++++++++++++++++++++++++ SUMMARY: ++++++++++++++++++++++++++++++++++++ The left [...] 01/19/2025 Echocardiography Report Pat.Name: Ady Fontana Pat.ID: [id number] .Date: 01/14/2025 [facility] Time: 3:40:00 PM Study Type:[facility] Height: 72 in Weight: 160 lb BSA: 1.94 m2 Age: 8 1935,89Y Sex: M Sonogrphr: Pat. Stat.:Outpatient Reason for Study:Congestive heart failure Procedures: 2D, M-mode, Doppler, Color Flow, Study performed at [place], [place] and interpreted by [facility]. ++++++++++++++++++++++++++++++++++++ SUMMARY: ++++++++++++++++++++++++++++++++++++ The left [...] CDT) 01/11/2025 12:4 4 PM CDT Narrative [facility] RAD - 01/12/2025 9:46 AM CDT [address] [place] [address] Test Date: 2025-01-11 Pat Name: ADY FONTANA Department: 3 Room: Gender: Male Graphic Manager: : 1935 Requested By: PARKER PHAM Order Number: [id number] Reading MD: Parker Pham Measurements Intervals [place] Rate: 57 P: 77 NC: 195 QRS: 93 QRSD: 167 T: -27 QT: 439 QTc: 430 Interpretive Statements SINUS BRADYCARDIA WITH OCCASIONAL VENTRICULAR PREMATURE COMPLEXES RIGHT BUNDLE BRANCH BLOCK [120+ ms QRS DURATION, UPRIGHT V1, 40+ ms S IN I/aVL/V4/V5/V6] Procedure Note Parker Pham MD - 01/12/[address] [place] [address] Test Date: 2025-01-11 Pat Name: ADY FONTANA Department: 3 Room: Gender: Male Graphic Manager: : 1935 Requested By: PARKER PHAM Order Number: [id number] Reading MD: Parker Pham Measurements Intervals [place] Rate: 57 P: 77 NC: 195 QRS: 93 QRSD: 167 T: -27 QT: 439 QTc: 430 Interpretive Statements SINUS BRADYCARDIA WITH OCCASIONAL VENTRICULAR PREMATURE COMPLEXES RIGHT BUNDLE BRANCH BLOCK [120+ ms QRS DURATION, UPRIGHT V1, 40+ ms SIN I/aVL/V4/V5/V6] us Parker Pham MD ECG ORDERABLES Final Result [facility] * BNP (01/05/2025) B TYPE NATRIURETIC PEPTIDE 5,020 Narrative Resulting Agency Comment Formerly [facility] us Tavo Caruso MD LABORATORY Final Result * (ABNORMAL) LIPID PANEL (02/23/2009 [...] Recently Relevant to Health Maintenance Insurance MEDICARE [facility] MEDICARE [facility] MEDICARE [employer] Advance Directives * DNR (Latest Code Status on File) Date Activated Date Inactivated Comments 01/20/2025 11:38 AM 01/25/2025 3:45 PM * Full Code Date Activated Date Inactivated Comments 01/20/2025 8:29 AM 01/20/2025 11:38 AM Care Teams Bow Repairer Custom Relationship Specialty Start Date End Date Tavo Caruso MD [address] [place] [id number] PCP - General INTERNAL MEDICINE 03/15/17 Mario Blankenship DPM [address] [place] [address] Referring Physician PODIATRY/SURGERY 05/28/21 Parker Pham MD [address] [facility] [address] [place] [address] Physician INTERVENTIONAL CARDIOLOGY 10/29/24
[2025-03-29 15:30] LABS: Anion Gap 2 mmol/L (4-12); Blood Urea Nitrogen 35 mg/dL (9-20); Calcium 9.0 mg/dL (8.4-10.2); Carbon Dioxide 27 mmol/L (22-30); Chloride 106 mmol/L (98-107); Estimated Glomerular Filt Rate 60; Glucose 137 mg/dL (65-110); Osmolality Calculated 290 mOsm/kg (285-295); Potassium 4.8 mmol/L (3.4-5.0); Sodium 135 mmol/L (137-145)
== END 2025-03-29 15:00 | disposition home or self-care (01) ==
LOC: CHSLAB 15:02
PROVIDERS: PCP Internal Medicine; Visit Provider Internal Medicine
DX: I10 Essential (primary) hypertension (principal)
CPT/HCPCS: 36415; 80048

== ENCOUNTER 2025-04-13 14:37 | Outpatient (CLI) | payer MEDICARE, OTHER, SELFPAY ==
--- NOTE | ~2025-04-13 | XR_ITS ---
XR chest 2V 04/13/2025 14:55 Indication: Pleural effusion. Procedure: 2 view chest Comparison: Comparison to multiple prior studies sequentially, with oldest reviewed study dated 11/15/2024. Findings: Chronic moderate right and small left pleural effusions. There is bibasilar infiltrates which are unchanged allowing for differences of technique. There is atherosclerosis. There is cardiomegaly. There is left upper lobe scarring. There is apical pleural thickening. Impression: 1: Chronic bibasilar infiltrates may represent atypical pneumonia, aspiration and/or scarring/fibrosis. 2: Stable chronic bilateral pleural effusions, right greater than left. Reviewed, dictated and finalized at location A. Impression: 1: Chronic bibasilar infiltrates may represent atypical pneumonia, aspiration a nd/or scarring/fibrosis. 2: Stable chronic bilateral pleural effusions, right greater than left.
== END 2025-04-13 14:38 | disposition home or self-care (01) ==
PROVIDERS: PCP Internal Medicine; Visit Provider Physician Assistant
DX: J90 Pleural effusion, not elsewhere classified (principal); R91.8 Other nonspecific abnormal finding of lung field
CPT/HCPCS: 71046

== ENCOUNTER 2025-04-20 09:21 | Inpatient (IN) | payer MEDICARE, OTHER, SELFPAY ==
[2025-04-20] VITALS (32 sets, daily range): BP systolic 104–158; BP diastolic 43–69; PULSE 68–86; RESP 10–25; TEMP 36.6–37.4; O2SAT 74–100; BMI 23.3
--- NOTE | ~2025-04-20 | XR_ITS ---
EXAMINATION: XR chest 1V portable, 04/22/2025 9:45 CDT HISTORY: F/U Pleural effusion COMPARISON: Comparison 04/20/2025. Technique: Single view. Findings: [id number] right basilar infiltrate and effusion. Minimal left basilar infiltrate. No pneumothorax. Mild cardiomegaly. Mediastinal and hilar contours are within normal limits. Bony thorax no acute abnormality. Impression: Bilateral probable bronchopneumonia. The findings appear slightly improved. Reviewed, dictated and finalized at location A. Impression: Bilateral probable bronchopneumonia. The findings appear slightly improved.
--- NOTE | ~2025-04-20 | CT_ITS ---
EXAMINATION: CTA chest PE protocol, 04/20/2025 11:35 CDT HISTORY: respiratory failure with elevated D-dimer COMPARISON: 01/05/2025 TECHNIQUE: CTA examination is obtained with contrast CTA examination technique is performed with arterial phase of contrast-enhancement. 3-D reconstruction with thin MIP axial and MPR coronal imaging is provided Isovue 300, 92cc injected IV. One or more of the following dose reduction techniques were used: automated exposure control, adjustment of the mA and/or kV according to patient size, use of iterative reconstruction technique. FINDINGS: No significant coronary calcification is present ([id number]) LUNGS: Small simple appearing left pleural effusion. Large simple appearing right pleural effusion. Contrast bolus adequate, there is no pulmonary embolism identified. No tracheomalacia. No bronchiectasis. Moderate emphysematous changes. No bullous formation. Mild pulmonary fibrotic changes. No honeycombing identified. Moderate pulmonary venous congestion. Apical scarring noted bilaterally. Within the left upper lobe there is a nodule measuring 8 x 7 mm. Small right lower lung infiltrate. Calcified pleural plaques are noted. HEART AND PERICARDIUM: Mild cardiomegaly. AORTA: Atherosclerotic changes of the aorta without aneurysm.. PULMONARY ARTERIES: No pulmonary embolism ADENOPATHY/MEDIASTINUM: None. LIMITED VIEWS OF THE ABDOMEN: Probable chronic pancreatic changes noted in the visualized abdomen but incompletely assessed. OSSEOUS STRUCTURES: No sclerotic or lytic lesions. No acute rib fractures identified. Moderate loss of vertebral height and disc heights throughout the thoracic spine. OVERLYING SOFT TISSUES: Mild soft tissue anasarca. THYROID: Subcentimeter bilateral thyroid nodules. IMPRESSION: 1. Negative for pulmonary embolism. CHF with probable superimposed right lower lobe bronchopneumonia. 2. Chronic changes detailed above with left upper lobe micronodule which appears new compared to the previous study. Three-month follow-up is recommended Reviewed, dictated and finalized at location A. IMPRESSION: 1. Negative for pulmonary embolism. CHF with probable superimposed right lower lobe bronchopneumonia. 2. Chronic changes detailed above with left upper lobe micronodule which appear s new compared to the previous study. Three-month follow-up is recommended
--- NOTE | ~2025-04-20 | XR_ITS ---
XR chest 1V portable 04/20/2025 10:27 Indication: Shortness of breath and cough Procedure: AP portable chest Comparison: Comparison to multiple prior studies sequentially, with oldest reviewed study dated 12/30/2024. Findings: Chronic bibasilar airspace disease. Small right pleural effusion. No pneumothorax. No acute osseous abnormality. There are are degenerative changes of the acromioclavicular joints. Chronic scarring left upper lobe. Impression: 1: Chronic bibasilar airspace disease which may represent edema or atypical pneumonia. 2: Stable small right pleural effusion. Reviewed, dictated and finalized at location O. Impression: 1: Chronic bibasilar airspace disease which may represent edema or atypical pne umonia. 2: Stable small right pleural effusion.
--- NOTE | 2025-04-20 09:34 | ED.SOB ---
HPI - SOB/Dyspnea General Chief Complaint: Shortness of Breath/Dyspnea Stated Complaint: s.o.b Time Seen by Provider: 04/20/25 09:34 Source: patient Mode of arrival: ambulatory Limitations: no limitations History of Present Illness HPI Narrative: 89-year-old male a history ex smoking, hypertension, dyslipidemia, diabetes mellitus, gout, CKD, AAA 3.3 cm, status post carotid endarterectomy, CVA, arthritis, chronic arthralgia, CAD status post stent in 2008, diastolic CHF recurrent pleural effusion, diabetic foot ulcer, GI bleed secondary to a duodenal ulcer presents to the ED via EMS with -- shortness of breath. The patient was noted to be hypoxic with an oxygen saturation of 61% on room air. The patient received DuoNeb treatments x2 with improvement in oxygenation. patient has chronic shortness of breath and dyspnea on exertion. Patient has had recurrent pleural effusions status post thoracentesis. -- syncopal spell which lasted approximately 2 minutes with spontaneous resolution -- cough which is productive of mucoid sputum. -- worsening leg swelling Patient denied any chest pain. No fever or chills Patient had been on Lasix but developed worsening renal function following which Lasix was discontinued. The patient was also started on Jardiance. S shortness of breath has gotten worse since his Lasix was discontinued MD elicited complaint: shortness of breath and cough Pertinent past history: COPD, congestive heart failure and diabetes Onset (ago): day(s) Severity: severe Exacerbating factors: lying flat, exertion and recent new medication Relieving factors: nothing Known history of: COPD and congestive heart failure Associated symptoms: cough, sputum production and orthopnea Related Data Home oxygen amount: none Home Medications ?Medication ?Instructions ?Recorded ?Confirmed ?Last Taken ?Type allopurinol 100 mg tablet 200 mg PO DAILY 01/08/20 04/13/25 03/14/25 History aspirin 81 mg tablet,delayed 81 mg PO DAILY 01/08/20 04/13/25 03/10/25 History release (Adult Low Dose Aspirin) carvedilol 12.5 mg tablet 12.5 mg PO BID 01/08/20 04/13/25 03/14/25 History enalapril maleate 20 mg tablet 20 mg PO BID 01/08/20 04/13/25 03/14/25 History metformin 500 mg tablet 500 mg PO .AM 01/08/20 04/13/25 03/13/25 History pravastatin 80 mg tablet 80 mg PO HS 01/08/20 04/13/25 03/13/25 History tamsulosin 0.4 mg capsule 0.4 mg PO DAILY 01/08/20 04/13/25 03/14/25 History temazepam 15 mg capsule 15 mg PO HS PRN Sleep 01/08/20 04/13/25 09/14/24 History acetaminophen 650 mg 650 mg PO Q12H 07/29/24 04/13/25 03/14/25 History tablet,extended release (Tylenol Arthritis Pain) cinnamon bark 500 mg capsule 1,000 mg PO BID 07/29/24 04/13/25 03/14/25 History (Cinnamon) omega 2-tnx-yvo-fish oil 1,000 mg 1 cap PO DAILY 09/03/24 04/13/25 03/14/25 History (120 mg-180 mg) capsule (Fish Oil) pantoprazole 40 mg granules 40 mg PO BID 01/25/25 04/13/25 03/14/25 History delayed-release for susp in packet (Protonix) Allergies Allergy/AdvReac Type Severity Reaction Status Date / Time tramadol Allergy Mild Rash Verified 04/20/25 09:23 Review of Systems Review of Systems: All systems reviewed & are unremarkable except as noted in HPI and below Constitutional: Constitutional: Reports as per HPI, Reports no additional constitutional complaints, Reports fatigue and Reports weakness Eyes: Eyes: Reports as per HPI and Reports no additional eye complaints ENT: Reports system reviewed and no additional complaints, except as documented and Reports as per HPI Cardiovascular: Cardiovascular: Reports as per HPI and Reports no additional cardiovascular complaints Respiratory: Respiratory: Reports as per HPI, Reports chest congestion, Reports cough and Reports dyspnea Gastrointestinal: Gastrointestinal: Reports as per HPI and Reports no additional gastrointestinal complaints Genitourinary: Genitourinary: Reports no additional male genitourinary complaints and Reports as per HPI Musculoskeletal: Musculoskeletal: Reports no additional musculoskeletal complaints and Reports as per HPI Integumentary/Breasts: Skin/Breast: Reports system reviewed and no additional complaints, except as docu and Reports as per HPI Neurologic: Reports system reviewed and no additional complaints, except as documented and Reports as per HPI Psychiatric: Psychiatric: Reports no additional psychiatric complaints and Reports as per HPI Endocrine: Endocrine: Reports no additional endocrine complaints and Reports as per HPI Hematologic/Lymphatic: Hematologic/Lymphatic: Reports no additional hematologic/lymphatic complaints and Reports as per HPI Allergic/Immunologic: Allergic/Immunologic: Reports no additional allergic/immunologic complaints and Reports as per HPI [facility] Past Medical History Medical History BPH (benign prostatic hyperplasia) Diabetic ulcer of left foot AAA (abdominal aortic aneurysm) 3.3 cm CAD (coronary artery disease) History of MT (myocardial infarction) Hyperlipidemia Gout CVA (cerebral vascular accident) Diabetes Hypertension Surgical History Surgical History H/O inguinal hernia repair 09/15/24 Laparoscopic left inguinal hernia repair with mesh, da [place] assisted Dr. Bennett History of coronary artery stent placement History of right inguinal hernia repair History of left knee replacement H/O cataract extraction History of carotid endarterectomy History of knee surgery History of cholecystectomy Family History Family History Father Parkinsons disease Mother Cancer Social History Social History Social History: lives alone, . Sons live nearby, check on him regularly. No living will or designated MPOA Smoking packs per day: 1 Smoking cigarettes per day: 20.0 Years smoked: 40 Smoking pack-years: 40.00 Smoking status: Former smoker Tobacco type: cigarettes Second hand tobacco smoke exposure: Yes Smoking end date: 08/25/89 Alcohol intake: former Substance use: never Substance use type: does not use Do You Feel Safe in your Home?: Yes Lack of Transportation: No Lack of Food: Never True Current Housing: I Have Housing Concerned About Future Housing: No Difficulty Paying Gas/Electric Bills: No Difficulty Paying for Meds: Decline to Answer Currently Unemployed: No Education: Decline to Answer Difficulty w/ Childcare or Family Care: Decline to Answer Living arrangements: alone Occupation/Education: retired Gender identity (if verbalized by the patient): Male Spiritual care concerns: No Exam Narrative: vitals are stable. Oxygen saturation of 93% on 4 L of O2 patient is hypoxic without oxygen. Const: General: ill appearing Nutritional Appearance: thin Orientation/consciousness: patient oriented x3 Limitations: no limitations and altered mental status HENMT: Head: normal to inspection Ears: external ears normal Face/Nose/Sinus: Normal external nose present Face and sinus: normal facial exam Mouth: Yes Normal oral and palatal mucosa present Throat: posterior oropharynx normal Eyes: Conjunctivae: conjunctivae normal Pupils: Equal, round and reactive pupils present EOM: EOMs intact bilaterally Direct Ophthalmoscopy: no photophobia Neck: Neck: normal visual inspection, no lymphadenopathy and no meningeal signs Chest: Other: Barrel-shaped chest Resp: Effort & Inspection: tachypneic Auscultation: diminished lung sounds Other: decreased breath sounds and rales at the right base Cardio: Rhythm: regular rhythm GI: GI Palp: Yes Soft to palpation Auscultation: normal bowel sounds Other: no tenderness/ rigidity /rebound. : General: Yes no CVA tenderness Back/Spine/Pelvis: Back: no CVA tenderness Skin: General skin exam: normal color Rashes: no rashes Wounds: no wounds Neuro: General: patient oriented x3, moves all extremities, no meningeal signs, no focal motor deficits and CN's II-XI intact bilaterally Cranial nerves: Yes Nystagmus not present Speech: normal speech Gait exam (Neuro): Normal gait present Extrem: General: normal to inspection and edema Psych: Mental Status: mental status grossly normal Affect: normal affect Attitude: cooperative Course Course Emergency Course: Acute hypoxic respiratory failure secondary to CHF exacerbation, right pleural effusion, COPD. Patient had an ABG of 737/ / 39/49/80 2% on 4 L of O2 . proBNP is noted 11,500. Patient had elevated D-dimer. CTA did not show any evidence of PE. CTA revealed right lower lobe pneumonia but the patient is afebrile with a normal white cell count/ normal active. His sputum looks clear. will get blood cultures and procalcitonin. Will hold off antibiotics for now. patient tested negative for influenza/ RSV /COVID. worsening oxygenation appears to be secondary to discontinuation of Lasix. renal insufficiency/ hyperkalemia. BUN/ creatinine is noted to be 34/1.52 with a potassium of 5.4 microcytic anemia Vital Signs Vital signs: Vital Signs Temperature 37.4 C 04/20/25 09:21 Pulse Rate 77 04/20/25 09:21 Respiratory Rate 22 H 04/20/25 09:21 Blood Pressure 158/63 H 04/20/25 09:21 Pulse Oximetry 96 04/20/25 09:21 Oxygen Delivery Room Air 04/20/25 09:21 Temperature 37.4 C 04/20/25 09:21 Pulse Rate 82 04/20/25 10:25 Respiratory Rate 21 H 04/20/25 09:34 Blood Pressure 158/63 H 04/20/25 09:21 Pulse Oximetry 85 L 04/20/25 10:15 Oxygen Delivery Nasal Cannula 04/20/25 10:15 Oxygen Flow Rate 4 04/20/25 10:15 MDM - SOB/Dyspnea MDM Narrative Medical decision making narrative: acute hypoxic respiratory failure secondary to CHF exacerbation, COPD, right pleural effusion renal insufficiency/hyperkalemia/hypermagnesemia Differential Diagnosis Differential diagnosis: Likely acute exacerbation of chronic obstructive airways disease and community acquired pneumonia Medical Records Attestation: I reviewed the patient's medical records. Lab Data Attestation: I reviewed the patient's lab results. 04/20/25 10:17 04/20/25 10:17 Labs: Lab Results 04/20/25 Range/Units 10:17 WBC 7.7 (4.8-10.8) K/mm3 RBC 3.55 L (4.70-6.10) M/mm3 Hgb 11.4 L (12.4-15.3) g/dL Hct 37.0 (37.0-46.0) % MCV 104.2 H (78.0-102.0) fL MCH 32.1 H (27.0-31.0) pg MCHC 30.8 L (32-36) g/dL RDW 15.1 H (11.6-14.4) % Plt Count 190 (150-420) K/mm3 MPV 8.6 L (8.7-11.0) fl Immature Gran % (Auto) 0.4 H (0.0-0.0) % Neut % (Auto) 89.8 H (50.0-70.0) % Lymph % (Auto) 4.0 L (18.0-42.0) % [place] % (Auto) 5.2 (2.0-11.0) % Eos % (Auto) 0.5 L (1.0-6.0) % Baso % (Auto) 0.1 (0.0-1.0) % Lymph # (Auto) 0.31 L (1.10-4.50) K/mm3 [place] # (Auto) 0.40 (0.10-0.90) K/mm3 Eos # (Auto) 0.04 (0.02-0.50) K/mm3 Baso # (Auto) 0.01 (0.00-0.10) K/mm3 Abs Immat Gran (auto) 0.03 H (0.00-0.00) K/mm3 Absolute Neuts (auto) 6.94 (1.70-7.20) K/mm3 Absolute Nucleated RBC 0.00 (0.00-0.00) K/mm3 Nucleated RBC % 0.0 (0-0.0) % PT 12.9 H (9.50-12.1) Seconds INR 1.2 APTT 28.6 (23.9-30.70) Sec D-Dimer 4.09 H (0.19-0.50) mg/L Sodium 139 (137-145) mmol/L Potassium 5.4 H (3.4-5.0) mmol/L Chloride 105 (98-107) mmol/L Carbon Dioxide 28 (22-30) mmol/L Anion Gap 6 (4-12) mmol/L BUN 34 H (9-20) mg/dL Creatinine 1.52 H (0.7-1.3) mg/dL Estim Creat Clear Calc 30 ml/min Estimated GFR 43 L (59 - ) Glucose 142 H (65-110) mg/dL Calculated Osmolality 297 H (285-295) mOsm/kg Lactic Acid 1.7 (0.4-2.0) mmol/L Calcium 8.7 (8.4-10.2) mg/dL Magnesium 2.4 H (1.6-2.3) mg/dL Total Bilirubin 0.8 (0.2-1.3) mg/dL AST 29 (17-59) U/L ALT 17 (6-50) U/L Alkaline Phosphatase 83 (38-126) U/L Total Creatine Kinase < 20 L (55-170) U/L Troponin I 0.019 (0.000-0.034) ng/mL NT-Pro-B Natriuret Pep 33597 H (19.9-100) pg/mL Total Protein 5.9 L (6.3-8.2) g/dL Albumin 3.3 L (3.5-5.1) g/dL Lipase 16 L (23-300) U/L Procalcitonin Pending Influenza A (RT-PCR) Negative (Negative) Influenza B (RT-PCR) Negative (Negative) RSV (RT-PCR) Negative (Negative) SARS-CoV-2 RNA (RT-PCR) Negative (Negative) ABG Data ABG results: 04/20/25 10:17 Puncture Site Right radial ABG pH 7.37 ABG pCO2 39.3 ABG pO2 48.9 L ABG HCO3 22.4 L ABG O2 Saturation 82.7 L ABG Base Excess -2.6 L Oxyhemoglobin 81.7 L O2 Delivery Device Nasal cannula O2 Liters/Min 4.0 ECG Data EKG #1: ECG completion date: 04/20/25 ECG completion time: 10:29 Interpretation: normal sinus rhythm. Right branch with right posterior hemiblock. new ST depression and T inversion in lateral leads. Critical Care Time Critical Care Time Critical Care Time: Yes Total Critical Care Time: 35 Discharge Plan Discharge Clinical Impression: COPD with chronic bronchitis and emphysema, Acute hypoxemic respiratory failure CHF exacerbation Qualifiers: Heart failure type: diastolic Qualified Code(s): I50.33 - Acute on chronic diastolic (congestive) heart failure Patient Disposition: Acute Care [facility] Condition: Stable Patient Language: [place]serrat[place] Prescriptions: No Action metformin 500 mg Tablet 500 mg PO .AM carvedilol 12.5 mg Tablet 12.5 mg PO BID enalapril maleate 20 mg Tablet 20 mg PO BID allopurinol 100 mg Tablet 200 mg PO DAILY aspirin [Adult Low Dose Aspirin] 81 mg Tablet,Delayed Release (Dr/Ec) 81 mg PO DAILY Patient Comments: Pt told to hold till post Thoracentesis pravastatin 80 mg Tablet 80 mg PO HS temazepam 15 mg Capsule 15 mg PO HS PRN (Reason: Sleep) tamsulosin 0.4 mg Capsule 0.4 mg PO DAILY pantoprazole [Protonix] [address] for susp in packet 40 mg PO BID Rx Instructions: Before meals cyanocobalamin (vitamin B-12) [Vitamin B-12] 1,000 mcg Tablet 1,000 mcg PO QAM Qty: 30 0RF furosemide 20 mg Tablet 20 mg PO DAILY Qty: 30 0RF hydrocodone-acetaminophen 5-325 mg tablet 1 tablet PO Q6H PRN (Reason: pain) Qty: 20 0RF cinnamon bark [Cinnamon] 500 mg capsule 1,000 mg PO BID acetaminophen [Tylenol Arthritis Pain] 650 mg tablet extended release 650 mg PO Q12H omega 1-ghc-cen-fish oil [Fish Oil] 1,000 (120-180) mg capsule 1 cap PO DAILY Follow-up/Referrals: UNKNOWN,DOCTOR [Non-Staff] Time of Disposition: 12:58
--- NOTE | 2025-04-20 10:04 | ECG_ITS ---
Test Date: 2025-04-20 10:29:44 Measurements Intervals [place] Rate: 69 P: 75 MN: 209 QRS: 109 QRSD: 172 T: -28 QT: 415 QTc: 446 Interpretive Statements SINUS RHYTHM WITH SINUS ARRHYTHMIA RIGHT AXIS DEVIATION RIGHT BUNDLE BRANCH BLOCK BORDERLINE ST-T WAVE ABNORMALITY- LATERAL LEADS BASELINE WANDER- I, II, III, AVL, AVF, V1-V6 ABNORMAL ECG Compared to ECG 01/19/2025 13:18:50 NO SIGNIFICANT CHANGE Electronically Signed On 04-20-2025 10:34:26 CDT by Elbert Golden D.O.
[2025-04-20] MEDS: FUROSEMIDE INJ 40 MG/4 ML VIAL IV PUSH ×2 (10:16→17:11)
[2025-04-20 10:25] LABS: HCO3 ABG 22.4 mmol/L (23-29); Oxygen Saturation ABG 82.7 % (95-97); PCO2 ABG 39.3 mmHg (35-45); PO2 ABG 48.9 mmHg (75-85)
[2025-04-20 10:26] LABS: Hematocrit 37.0 % (37.0-46.0); Hemoglobin 11.4 g/dL (12.4-15.3); Immature Granulocyte Percent A 0.4 % (0.0-0.0); Lymphocytes Absolute Auto 0.31 K/mm3 (1.10-4.50); Mean Corpuscular HGB Conc 30.8 g/dL (32-36); Mean Corpuscular Hemoglobin 32.1 pg (27.0-31.0); Mean Corpuscular Volume 104.2 fL (78.0-102.0); Nucleated Red Blood Cells Absolute Auto 0.00 K/mm3 (0.00-0.00); Nucleated Red Blood Cells Perc 0.0 % (0-0.0); Platelet Count Result 190 K/mm3 (150-420); Red Blood Count 3.55 M/mm3 (4.70-6.10); White Blood Count 7.7 K/mm3 (4.8-10.8)
[2025-04-20 10:27] LABS: Liters per Minute 4.0 LPM; Modified Allen's Test Pass; Site Drawn RIGHT RADIAL
[2025-04-20 10:38] LABS: Alanine Aminotransferase 17 U/L (6-50); Albumin Level 3.3 g/dL (3.5-5.1); Alkaline Phosphatase 83 U/L (38-126); Anion Gap 6 mmol/L (4-12); Aspartate Amino Transferase 29 U/L (17-59); Bilirubin,Total 0.8 mg/dL (0.2-1.3); Blood Urea Nitrogen 34 mg/dL (9-20); Calcium 8.7 mg/dL (8.4-10.2); Carbon Dioxide 28 mmol/L (22-30); Chloride 105 mmol/L (98-107); Creatine Kinase < 20 U/L (55-170); Estimated CRCL calculation 30 ml/min; Estimated Glomerular Filt Rate 43; Glucose 142 mg/dL (65-110); Lipase 16 U/L (23-300); Magnesium 2.4 mg/dL (1.6-2.3); Osmolality Calculated 297 mOsm/kg (285-295); Potassium 5.4 mmol/L (3.4-5.0); Sodium 139 mmol/L (137-145); Total Protein 5.9 g/dL (6.3-8.2)
[2025-04-20 10:40] LABS: INR 1.2; Partial Thromboplastin Time 28.6 Sec (23.9-30.70); Prothrombin Time 12.9 Seconds (9.50-12.1)
[2025-04-20 10:50] LABS: NT Pro B Type Natriuretic Pept 11500 pg/mL (19.9-100); Troponin I 0.019 ng/mL (0.000-0.034)
[2025-04-20 11:08] LABS: Influenza A QL RT-PCR Negative (Negative); Influenza B QL RT-PCR Negative (Negative); RSV RNA, RT-PCR Negative (Negative); SARS-CoV-2 RNA PCR Negative (Negative)
[2025-04-20 13:20] LABS: Add Urine Microscopic? YES; Appearance Urine Clear (Clear); Glucose Urine UA 2+ (Negative); Leukocyte Esterase Ur Trace LEU/UL (Negative); Nitrate Urine Negative (Negative); Specific Grav Ur 1.010 (1.010-1.020)
[2025-04-20 13:31] LABS: Procalcitonin 0.1 ng/mL
--- NOTE | 2025-04-20 14:28 | ADMGEN ---
This patient, Tom Fontana, was admitted to 2nd Floor Room 204-2. Patient/family oriented to hospital policies and general routines including ID bracelet, bed and alarms, visiting hours, pain management, procedures, bathroom and other care routines, personal items, smoking policy, room service/diet, and visiting hours. Information on how to activate the Rapid Response Team has been discussed. Patient/Family are encouraged to report perceived risks to care and to ask questions if they do not understand what they are told or what they should do.
[2025-04-20] MEDS: SODIUM ZIRCONIUM CYCLOSILICATE 5 GM POWD.PACK 10 GM PO (16:11)
[2025-04-20] MEDS: PANTOPRAZOLE 40 MG TABLET PO (17:11)
[2025-04-20] MEDS: OMEGA 3 POLYUNSAT FATTY ACIDS 1 GM CAP PO (17:11)
[2025-04-20] MEDS: TAMSULOSIN HCL 0.4 MG CAPSULE 0.8 MG PO (20:49)
[2025-04-20] MEDS: ENALAPRIL MALEATE 5 MG TABLET 20 MG PO (20:49)
[2025-04-20] MEDS: TEMAZEPAM (*CRX) 15 MG CAPSULE PO (20:50)
[2025-04-20] MEDS: PRAVASTATIN SODIUM 20 MG TABLET 80 MG PO (20:50)
[2025-04-20] MEDS: ACETAMINOPHEN 325 MG TABLET 650 MG PO (20:58)
[2025-04-21] VITALS (10 sets, daily range): BP systolic 126–144; BP diastolic 53–60; PULSE 58–77; RESP 16–17; TEMP 36.3–36.7; O2SAT 81–98
[2025-04-21 05:21] LABS: Hematocrit 34.2 % (37.0-46.0); Hemoglobin 10.6 g/dL (12.4-15.3); Immature Granulocyte Percent A 0.2 % (0.0-0.0); Lymphocytes Absolute Auto 0.60 K/mm3 (1.10-4.50); Mean Corpuscular HGB Conc 31.0 g/dL (32-36); Mean Corpuscular Hemoglobin 32.2 pg (27.0-31.0); Mean Corpuscular Volume 104.0 fL (78.0-102.0); Nucleated Red Blood Cells Absolute Auto 0.00 K/mm3 (0.00-0.00); Nucleated Red Blood Cells Perc 0.0 % (0-0.0); Platelet Count Result 162 K/mm3 (150-420); Red Blood Count 3.29 M/mm3 (4.70-6.10); White Blood Count 4.5 K/mm3 (4.8-10.8)
[2025-04-21 05:37] LABS: Alanine Aminotransferase 12 U/L (6-50); Albumin Level 2.8 g/dL (3.5-5.1); Alkaline Phosphatase 73 U/L (38-126); Anion Gap 6 mmol/L (4-12); Aspartate Amino Transferase 16 U/L (17-59); Bilirubin,Total 0.5 mg/dL (0.2-1.3); Blood Urea Nitrogen 37 mg/dL (9-20); Calcium 8.5 mg/dL (8.4-10.2); Carbon Dioxide 31 mmol/L (22-30); Chloride 102 mmol/L (98-107); Estimated CRCL calculation 30 ml/min; Estimated Glomerular Filt Rate 40; Glucose 99 mg/dL (65-110); Magnesium 2.3 mg/dL (1.6-2.3); Osmolality Calculated 296 mOsm/kg (285-295); Potassium 4.7 mmol/L (3.4-5.0); Sodium 139 mmol/L (137-145); Total Protein 5.2 g/dL (6.3-8.2)
--- NOTE | 2025-04-21 09:22 | P.HP_ITS ---
H&P: HPI History of Present Illness Date/Time: 04/21/25 09:22 Chief Complaint: Physically deconditioned/SOB Narrative: Patient is an 89-year-old male with a past medical history diabetic foot ulcer, CHF, BPH, pleural effusions, CKD, AAA, CAD, mi, HLD, gout, CVA, diabetes, and hypertension. Who presented to the emergency department with worsening shortness breath. Patient reports he had a follow-up appointment with his commissioner of internal revenue on 04/13 for follow-up of his bilateral pleural effusions at that time stable he then went and had a follow up appointment with his medical underwriter at which time they discontinued his oral Lasix and initiated Jardiance due to a bump in patient's renal function. patient was transported via EMS and per reports was initially found to be as 74 % oxygen saturation on room air upon their arrival to his home. patient states since switching to Jardiance he has had a decrease in urinary output and worsening BLE edema. patient states his shortness breath is worse with any exertion or activity and has been getting increasingly worse for the last few days. In the ED: upon arrival to the emergency department patient is found to be at 74% on room air placed on 4 L supplemental oxygen with improvement in oxygen saturation above 92% chest x-ray showing bilateral pleural effusions right greater than the left which at this time he was given a dose of IV Lasix with overall improvement to his respiratory status. patient also found to have mild DAVONTE creatinine at 1.52. ABG's showing acute respiratory hypoxia Ph 7.37/PcO2 39.3/pO2 48.9. Patient with elevated D-dimer CTA performed showed no pulmonary embolism did show a large right pleural effusion small left pleural effusion emphysema in new left upper lobe nodule measuring 8 x 7 mm. patient was admitted care unit treatment. Patient is seen following day reports overall shortness a breath had improved with IV Lasix but still short of breath worse with any activity exertion remained on 3 L supplemental oxygen attempted to wean however dropped to 81% on room air. Renal function had mild upward trend creatinine 1.63, plan to continue with IV Lasix today and monitor renal function continues to have an upward trend will lower Lasix. I did spend a great amount of time patient and patient's sons regarding overall prognosis and treatment. at this time they did want to discuss possible discharging home on either palliative or hospice care but 1st would like to continue with current treatment and possible discussion for pleurX drain to be placed prior to returning home for therapeutic comfort have placed a call out to patient's commissioner of internal revenue for further discussion. Review of Systems Review of Systems: All systems reviewed & are unremarkable except as noted in HPI and below PMFSH Past Medical History Medical History BPH (benign prostatic hyperplasia) Diabetic ulcer of left foot AAA (abdominal aortic aneurysm) 3.3 cm CAD (coronary artery disease) History of ID (myocardial infarction) Hyperlipidemia Gout CVA (cerebral vascular accident) Diabetes Hypertension Surgical History Surgical History H/O inguinal hernia repair 09/15/24 Laparoscopic left inguinal hernia repair with mesh, da Francois assisted Dr. Bennett History of coronary artery stent placement History of right inguinal hernia repair History of left knee replacement H/O cataract extraction History of carotid endarterectomy History of knee surgery History of cholecystectomy Family History Family History Father Parkinsons disease Mother Cancer Social History Social History Social History: lives alone, . Sons live nearby, check on him regularly. No living will or designated MPOA Smoking packs per day: 1 Smoking cigarettes per day: 20.0 Years smoked: 40 Smoking pack-years: 40.00 Smoking status: Former smoker Tobacco type: cigarettes Second hand tobacco smoke exposure: No Smoking end date: 08/25/89 Alcohol intake: former Substance use: former Substance use type: does not use Do You Feel Safe in your Home?: Yes Lack of Transportation: No Lack of Food: Never True Current Housing: I Have Housing Concerned About Future Housing: No Difficulty Paying Gas/Electric Bills: No Difficulty Paying for Meds: No Currently Unemployed: No Education: High School Diploma/GED Difficulty w/ Childcare or Family Care: No Living arrangements: alone Occupation/Education: retired Gender identity (if verbalized by the patient): Male Spiritual care concerns: No Meds Home Medications and Allergies Home Medications ?Medication ?Instructions ?Recorded ?Confirmed ?Type allopurinol 100 mg tablet 200 mg PO DAILY 01/08/20 History aspirin 81 mg tablet,delayed 81 mg PO DAILY 01/08/20 0 04/20/25 History release (Adult Low Dose Aspirin) carvedilol 12.5 mg tablet 12.5 mg PO BID 01/08/2003/26 History enalapril maleate 20 mg tablet 20 mg PO BID 01/08/20 0 04/20/25 History metformin 500 mg tablet 500 mg PO .AM 01/08/2004/20 History pravastatin 80 mg tablet 80 mg PO HS 01/08/20 5 History tamsulosin 0.4 mg capsule 0.8 mg PO DAILY 01/08/20 History temazepam 15 mg capsule 15 mg PO HS PRN Sleep 04/20/25 History acetaminophen 650 mg 650 mg PO Q12H 07/29/2403/26 History tablet,extended release (Tylenol Arthritis Pain) cinnamon bark 500 mg capsule 1,000 mg PO BID 07/29/24 04/20/25 History (Cinnamon) omega 1-psw-sqt-fish oil 1,000 mg 1 cap PO BID 5 04/20/25 History (120 mg-180 mg) capsule (Fish Oil) pantoprazole 40 mg granules 40 mg PO BID 01/25/2503/26 History delayed-release for susp in packet (Protonix) cyanocobalamin (vitamin B-12) 1,000 mcg PO QAM #30 tab s 02/11/25 04/20/25 Rx 1,000 mcg tablet (Vitamin B-12) furosemide 20 mg tablet 20 mg PO DAILY #30 tabs 01/2404/20/25 Rx hydrocodone 5 mg-acetaminophen 325 1 tablet PO Q6H PRN pain #20 tabs 02/11/25 04/20/25 Rx mg tablet Allergies Allergy/AdvReac Type Severity Reaction Status Date / Time tramadol Allergy Mild Rash Verified 04/20/25 09:23 Vital Signs Vital Signs - 24 hr 04/20/25 09:34 04/20/25 09:35 04/20/25 09:35 Temperature Pulse Rate 75 75 Respiratory Rate 21 H Blood Pressure Pulse Oximetry 87 L 74 L Oxygen Delivery Room Air Oxygen Flow Rate 04/20/25 09:40 04/20/25 09:45 04/20/25 09:46 Temperature Pulse Rate 73 75 Respiratory Rate 24 H 22 H Blood Pressure 130/52 L Pulse Oximetry 87 L 94 96 Oxygen Delivery Nasal Cannula Oxygen Flow Rate 6 04/20/25 10:00 04/20/25 10:01 04/20/25 10:15 Temperature Pulse Rate 75 73 Respiratory Rate 23 H 23 H Blood Pressure 125/53 L Pulse Oximetry 81 L 82 L 85 L Oxygen Delivery Nasal Cannula Oxygen Flow Rate 4 04/20/25 10:15 04/20/25 10:25 04/20/25 10:30 Temperature Pulse Rate 74 82 69 Respiratory Rate 18 19 Blood Pressure 109/46 L Pulse Oximetry 78 L 97 Oxygen Delivery Oxygen Flow Rate 04/20/25 10:31 04/20/25 10:45 04/20/25 10:46 Temperature Pulse Rate 69 69 68 Respiratory Rate 22 H 17 15 Blood Pressure 105/43 L Pulse Oximetry 96 80 L 80 L Oxygen Delivery Oxygen Flow Rate 04/20/25 11:00 04/20/25 11:01 04/20/25 11:02 Temperature Pulse Rate 69 68 69 Respiratory Rate 17 18 18 Blood Pressure 104/44 L 105/45 L Pulse Oximetry 90 92 91 Oxygen Delivery Oxygen Flow Rate 04/20/25 11:30 04/20/25 12:09 04/20/25 12:15 Temperature Pulse Rate 86 76 81 Respiratory Rate 25 H Blood Pressure Pulse Oximetry Oxygen Delivery Oxygen Flow Rate 04/20/25 12:20 04/20/25 12:30 04/20/25 12:30 Temperature Pulse Rate 74 77 70 Respiratory Rate 21 H 20 Blood Pressure 139/57 L Pulse Oximetry 87 L 95 Oxygen Delivery Oxygen Flow Rate 04/20/25 12:31 04/20/25 12:45 04/20/25 12:46 Temperature Pulse Rate 69 69 70 Respiratory Rate 20 17 12 Blood Pressure 125/69 124/64 Pulse Oximetry 94 99 99 Oxygen Delivery Oxygen Flow Rate 04/20/25 13:00 04/20/25 13:01 04/20/25 13:45 Temperature 98.3 F Pulse Rate 68 68 69 Respiratory Rate 14 10 L 18 Blood Pressure 121/46 L Pulse Oximetry 100 100 93 Oxygen Delivery Nasal Cannula Oxygen Flow Rate 4 04/20/25 14:00 04/20/25 16:00 04/20/25 16:00 Temperature 98 F Pulse Rate 70 74 Respiratory Rate 22 H Blood Pressure 124/48 L Pulse Oximetry 93 92 Oxygen Delivery Nasal Cannula Oxygen Flow Rate 4 4 04/20/25 20:00 04/20/25 20:00 04/20/25 20:49 Temperature 98.3 F Pulse Rate 74 74 74 Respiratory Rate 18 Blood Pressure 131/56 L Pulse Oximetry 91 Oxygen Delivery Nasal Cannula Oxygen Flow Rate 4 04/21/25 00:00 04/21/25 00:00 04/21/25 04:00 Temperature 98.0 F Pulse Rate 60 60 58 L Respiratory Rate 16 Blood Pressure 131/56 L Pulse Oximetry 91 Oxygen Delivery Nasal Cannula Oxygen Flow Rate 4 04/21/25 04:00 04/21/25 07:50 04/21/25 07:52 Temperature 97.9 F 97.3 F L Pulse Rate 58 L 70 Respiratory Rate 16 17 Blood Pressure 126/60 132/57 L Pulse Oximetry 98 97 96 Oxygen Delivery Nasal Cannula Nasal Cannula Nasal Cannula Oxygen Flow Rate 3 3 2 04/21/25 07:55 04/21/25 08:00 Temperature Pulse Rate Respiratory Rate Blood Pressure Pulse Oximetry 81 L 92 Oxygen Delivery Room Air Nasal Cannula Oxygen Flow Rate 3 Exam Const: General: comfortable and no acute distress Other: Frail elderly gentlemen with family at bedside HENMT: Ears: TM's normal bilaterally Face/Nose/Sinus: Normal nares present Mouth: Yes moist mucous membranes Eyes: General: appearance normal, both eyes and all related structures S clera: sclerae normal Pupils: Equal, round and reactive pupils present Neck: Neck: supple and no JVD Resp: Auscultation: diminished lung sounds (Throughout) bilateral Other: R>L on 3L supplemental oxygen Cardio: Rate: regular rate Rhythm: regular rhythm GI: GI Palp: Yes Soft to palpation Auscultation: normal bowel sounds : General: Yes bladder normal to palpation Urinary Catheter: Urinary Catheter: other ( sedimentation) Skin: General skin exam: normal color and no rashes or lesions noted Wounds: no wounds Neuro: Speech: normal speech Motor exam (neuro): Abnormal motor strength present Other: Unsteady gait Extrem: General: edema (R>L) bilateral Psych: Mental Status: mental status grossly normal Affect: normal affect H&P: Results Labs Labs: Short CBC 04/20/25 04/21/25 Range/Units 10:17 05:13 WBC 7.7 4.5 L (4.8-10.8) K/mm3 Hgb 11.4 L 10.6 L (12.4-15.3) g/dL Hct 37.0 34.2 L (37.0-46.0) % Plt Count 190 162 (150-420) K/mm3 BMP 04/20/25 04/21/25 10:17 05:13 Sodium 139 139 Potassium 5.4 H 4.7 Chloride 105 102 Carbon Dioxide 28 31 H BUN 34 H 37 H Creatinine 1.52 H 1.63 H Glucose 142 H 99 Calcium 8.7 8.5 Cardiac Enzymes 04/20/25 Range/Units 10:17 Total Creatine Kinase < 20 L (55-170) U/L Troponin I 0.019 (0.000-0.034) ng/mL Liver Function 04/20/25 04/21/25 Range/Units 10:17 05:13 Total Bilirubin 0.8 0.5 (0.2-1.3) mg/dL AST 29 16 L (17-59) U/L ALT 17 12 (6-50) U/L Alkaline Phosphatase 83 73 (38-126) U/L Albumin 3.3 L 2.8 L (3.5-5.1) g/dL Urine 04/20/25 Range/Units 13:09 Urine Color Light yellow (Yellow) Urine Appearance Clear (Clear) Urine pH 6.0 (5.0-8.0) Ur Specific [place] 1.010 (1.010-1.020) Urine Protein Negative (Negative) Urine Glucose (UA) 2+ H (Negative) Assessment and Plan Assessment and plan (1) Acute respiratory failure with hypoxia: Code(s): J96.01 - Acute respiratory failure with hypoxia Status: Acute Assessment and Plan: patient found to be at 74% oxygen saturation on room air upon arrival to the emergency department was placed on 4 L supplemental oxygen and given a dose of IV Lasix with improvement patient does not currently wear oxygen home likely secondary to patient's reaccumulation of bilateral pleural effusions. continue to wean oxygen as tolerated to maintain 92% -- patient may need home O2 walk study prior to discharge -- continue to treat and diurese -- continue with incentive spirometer while awake (2) Pleural effusion: Code(s): J90 - Pleural effusion, not elsewhere classified Status: Acute Assessment and Plan: 01/19/2025 showed bilateral pleural effusions/US guided thoracentesis on 03/14/25 at [facility] which yielded 1600mL of fluid, Pleural studies detailed below, seems to be transudative effusion from decompensated heart failure. patient had follow up with medical underwriter a few days prior to arrival and was taken off his Lasix started on Jardiance presents today with worsening pleural effusion. patient follows with pulmonology outpatient had recently had an appointment on 04/13. previous pleural studies:Pleural fluid - pH > 7.5, hazy yellow, protein 3.1, albumin 2.0, LDH 121, glucose 102. Lymphocytes 99. Pleural fluid cultures showed no bacterial growth. Pleural fluid cytology showed scattered lymphocytes and red blood cells. Rare mesothelial cells. Negative for malignancy. * fluid reaccumulation may need diagnostic and therapeutic thoracentesis of note on the CTA there is a new left upper nodule measuring 8 x [address] follow-up in 3 months * initiate incentive spirometer * resumed IV Lasix b.i.d. will monitor renal function closely diuresis * Stopped Jardiance will transition back to oral lasix at discharge active long discussion with family and patient regarding long-term treatment they were able to speak hospice/palliative care and provided information dentition plan is to have VATS or PleurX placed for therapeutic comfort and then discharge home to hospice. (3) Physical debility: Code(s): R53.81 - Other malaise Status: Acute Assessment and Plan: swing bed rehab after deconditioned state from hospitalization * PT/OT * encourage mobility and activity with staff * up at a bed with all meals (4) Hypertension: Code(s): I10 - Essential (primary) hypertension Status: Acute Assessment and Plan: * resume patient's carvedilol and Vasotec * BP per unit protocol L (5) CAD (coronary artery disease): Code(s): I25.10 - Atherosclerotic heart disease of [place] coronary artery without angina pectoris Status: Acute Assessment and Plan: patient with history of ID and stent placement * resume patient's statin and ASA (6) Hyperlipidemia: Code(s): E78.5 - Hyperlipidemia, unspecified Status: Acute Assessment and Plan: * continue statin (7) Diabetes: Qualifiers: Diabetes mellitus complication detail: with polyneuropathy Diabetes mellitus complication status: with neurologic complications Diabetes mellitus buttermaker helper insulin use: without senior care use Diabetes mellitus type: type 2 Qualified Code(s): 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thy Code(s): E11.9 - Type 2 diabetes mellitus without complications Status: Acute Assessment and Plan: * resume patient's metformin * Accu-Cheks a.c. HS * low-dose SSI * hypoglycemic protocol * diabetic diet (8) COPD with chronic bronchitis and emphysema: Code(s): J44.9 - Chronic obstructive pulmonary disease, unspecified Status: Acute Assessment and Plan: patient with new supplemental oxygen requirement from previous hospitalization at 2 L nasal cannula * wean if tolerated (9) BPH (benign prostatic hyperplasia): Code(s): N40.0 - Benign prostatic hyperplasia without lower urinary tract symptoms Status: Acute Assessment and Plan: patient with history of BPH * resumed patient's Flomax * bladder scan PRN (10) Anemia: Code(s): D64.9 - Anemia, unspecified Status: Acute Assessment and Plan: Patient with recent hospitalization due to ulceration since has resolved hemoglobin stable at 10.6 today * continue with PPI b.i.d. * trend hemoglobin and monitor for any signs of overt GIB * Transfuse PRBC if Hgb <7.0 Plan Code status: DNR/DNI DVT prophylaxis: SCd's Stress ulcer prophylaxis: Protonix 40 BID PT/OT notes: PT/OT pending Disposition: patient was admitted to the medical unit for further evaluation and treatment of acute respiratory failure with hypoxia secondary to bilateral pleural effusions. will order PT/ OT for evaluation but did speak to family about palliative / hospice care to discharge home on potentially requests to have pleuritic drain placed if needed prior to discharging home on hospice care. Quality VTE Prophylaxis VTE prophylaxis: mechanical ordered -Patient's previous records reviewed on admission -ER notes reviewed in detail on admission -discussed all findings and current treatment plan with patient/Family/POA -Consultations reviewed for recommendations -Patient's disposition for safe discharge discussed with insurance case manager Dictation performed by [employer] direct speech recognition software, therefore logistics associate variants and typographical errors may occur. Hospitalist MIPS Advance Care Plan I have confirmed that the patient's Advanced Care Plan is present, code status i s documented, or surrogate decision maker is listed in patient medical record.: Yes Medication Reconciliation I have utilized all available resources to obtain, update and review the patients current medications (includes all prescriptions, OTC, herbals, cannabis, and nutritional supplements).: Yes The patient is not eligible for med reconciliation; the patient is in a emergent medical situation where delaying treatment would jeopardize the patients health.: No
[2025-04-21] MEDS: ENALAPRIL MALEATE 5 MG TABLET 20 MG PO ×2 (09:41→21:20)
[2025-04-21] MEDS: ASPIRIN 81 MG ENTERIC TABLET PO (09:41)
[2025-04-21] MEDS: FUROSEMIDE INJ 40 MG/4 ML VIAL IV PUSH ×2 (09:41→17:19)
[2025-04-21] MEDS: PANTOPRAZOLE 40 MG TABLET PO ×2 (09:42→17:20)
[2025-04-21] MEDS: CYANOCOBALAMIN 1,000 MCG TABLET 1000 MCG PO (09:42)
[2025-04-21] MEDS: OMEGA 3 POLYUNSAT FATTY ACIDS 1 GM CAP PO ×2 (09:42→17:19)
--- NOTE | 2025-04-21 12:23 | PC.NURSE ---
Patient changed from OBS to inpatient, order to DC telemetry received.
[2025-04-21] MEDS: ACIDOPHILUS/BULGARICUS CHEWABLE TABLET 1 TABLET PO ×3 (14:18→21:23)
--- NOTE | 2025-04-21 20:56 | PC.NURSE ---
Patient in bed with SCDs on. Patient very talkative. SPO2 in low 80s with O2 @3 lpm. O2 increased to 4 LMP after 5 minutes then rechecked saturation. O2 sats at 85%. Patient instructed to take deep breaths through nose and out through mouth. Patient's saturations up to 93%. Patient alert and oriented. Denies pain.
[2025-04-21] MEDS: PRAVASTATIN SODIUM 20 MG TABLET 80 MG PO (21:21)
[2025-04-21] MEDS: TAMSULOSIN HCL 0.4 MG CAPSULE 0.8 MG PO (21:21)
[2025-04-22] VITALS: BP 98/41; PULSE 80; RESP 20; TEMP 37.2; O2SAT 92
--- NOTE | 2025-04-22 00:10 | PC.NURSE ---
Pt resting quietly in bed; SAO2 is 92% with oxygen on at 4 liters per nasal cannula. Pt asked for cottage cheese as a snack which he was given. Pt doesnt voice any c/o shortness of breath.
--- NOTE | 2025-04-22 02:10 | PC.NURSE ---
Pt asleep and no signs of respiratory distress noted.
--- NOTE | 2025-04-22 04:15 | PC.NURSE ---
Pt asleep and oxygen remains at 4 liters per nasal cannula. No signs of respiratory distress noted.
[2025-04-22 05:30] VITALS: O2SAT 92
[2025-04-22 05:35] LABS: Hematocrit 33.8 % (37.0-46.0); Hemoglobin 10.5 g/dL (12.4-15.3); Immature Granulocyte Percent A 0.2 % (0.0-0.0); Lymphocytes Absolute Auto 0.43 K/mm3 (1.10-4.50); Mean Corpuscular HGB Conc 31.1 g/dL (32-36); Mean Corpuscular Hemoglobin 31.6 pg (27.0-31.0); Mean Corpuscular Volume 101.8 fL (78.0-102.0); Nucleated Red Blood Cells Absolute Auto 0.00 K/mm3 (0.00-0.00); Nucleated Red Blood Cells Perc 0.0 % (0-0.0); Platelet Count Result 176 K/mm3 (150-420); Red Blood Count 3.32 M/mm3 (4.70-6.10); White Blood Count 4.7 K/mm3 (4.8-10.8)
[2025-04-22 05:46] LABS: Alanine Aminotransferase 13 U/L (6-50); Albumin Level 3.0 g/dL (3.5-5.1); Alkaline Phosphatase 75 U/L (38-126); Anion Gap 4 mmol/L (4-12); Aspartate Amino Transferase 19 U/L (17-59); Bilirubin,Total 0.6 mg/dL (0.2-1.3); Blood Urea Nitrogen 43 mg/dL (9-20); Calcium 8.6 mg/dL (8.4-10.2); Carbon Dioxide 34 mmol/L (22-30); Chloride 100 mmol/L (98-107); Estimated CRCL calculation 29 ml/min; Estimated Glomerular Filt Rate 38; Glucose 119 mg/dL (65-110); Magnesium 2.0 mg/dL (1.6-2.3); Osmolality Calculated 297 mOsm/kg (285-295); Potassium 4.5 mmol/L (3.4-5.0); Sodium 138 mmol/L (137-145); Total Protein 5.5 g/dL (6.3-8.2)
--- NOTE | 2025-04-22 06:01 | PC.NURSE ---
Pt asleep and no signs of respiratory distress noted.
[2025-04-22 08:00] VITALS: BP 90/38; PULSE 63; RESP 17; TEMP 36.2; O2SAT 100
[2025-04-22 09:12] VITALS: PULSE 67
[2025-04-22] MEDS: ASPIRIN 81 MG ENTERIC TABLET PO (09:12)
[2025-04-22] MEDS: OMEGA 3 POLYUNSAT FATTY ACIDS 1 GM CAP PO ×2 (09:13→17:11)
[2025-04-22] MEDS: PANTOPRAZOLE 40 MG TABLET PO ×2 (09:13→17:11)
[2025-04-22] MEDS: ACIDOPHILUS/BULGARICUS CHEWABLE TABLET 1 TABLET PO ×4 (09:13→21:14)
[2025-04-22] MEDS: FUROSEMIDE INJ 40 MG/4 ML VIAL IV PUSH (09:13)
[2025-04-22] MEDS: CYANOCOBALAMIN 1,000 MCG TABLET 1000 MCG PO (09:13)
[2025-04-22] MEDS: ENALAPRIL MALEATE 5 MG TABLET 20 MG PO ×2 (09:13→21:11)
--- NOTE | 2025-04-22 09:36 | P.PNIM_ITS ---
Progress Note: A&P Assessment and Plan (1) Acute respiratory failure with hypoxia: Code(s): J96.01 - Acute respiratory failure with hypoxia Status: Acute Assessment and Plan: patient found to be at 74% oxygen saturation on room air upon arrival to the emergency department was placed on 4 L supplemental oxygen and given a dose of IV Lasix with improvement patient does not currently wear oxygen home likely secondary to patient's reaccumulation of bilateral pleural effusions. * continue to wean oxygen as tolerated to maintain 92% * patient may need home O2 walk study prior to discharge * continue to treat and diurese decreased to 20mg IVP BID due to renal function trending up * continue with incentive spirometer while awake * added guaifenesin due to productive cough (2) Pleural effusion: Code(s): J90 - Pleural effusion, not elsewhere classified Status: Acute Assessment and Plan: 01/19/2025 showed bilateral pleural effusions/US guided thoracentesis on 03/14/25 at [facility] which yielded 1600mL of fluid, Pleural studies detailed below, seems to be transudative effusion from decompensated heart failure. patient had follow up with drier operator head a few days prior to arrival and was taken off his Lasix started on Jardiance presents today with worsening pleural effusion. patient follows with pulmonology outpatient had recently had an appointment on 04/13. previous pleural studies:Pleural fluid - pH > 7.5, hazy yellow, protein 3.1, albumin 2.0, LDH 121, glucose 102. Lymphocytes 99. Pleural fluid cultures showed no bacterial growth. Pleural fluid cytology showed scattered lymphocytes and red blood cells. Rare mesothelial cells. Negative for malignancy. * fluid reaccumulation may need diagnostic and therapeutic thoracentesis of note on the CTA there is a new left upper nodule measuring 8 x [address] follow-up in 3 months * initiate incentive spirometer * resumed IV Lasix b.i.d. will monitor renal function closely diuresis had to decrease due to slow rising CR. to 20mg BID * Stopped Jardiance will transition back to oral lasix at discharge * F/U CXR today to evaluate any improvement of pleural effusion continue to wean oxygen as tolerated active long discussion with family and patient regarding long-term treatment they were able to speak hospice/palliative care and provided information will attempt to coordinate patient have out patient PleurX drain placed for therapeutic comfort and then likely patient will set up with hospice care at home. (3) Physical debility: Code(s): R53.81 - Other malaise Status: Acute Assessment and Plan: swing bed rehab after deconditioned state from hospitalization * PT/OT * encourage mobility and activity with staff * up at a bed with all meals (4) Hypertension: Code(s): I10 - Essential (primary) hypertension Status: Acute Assessment and Plan: * resume patient's carvedilol and Vasotec * BP per unit protocol (5) CAD (coronary artery disease): Code(s): I25.10 - Atherosclerotic heart disease of [place] coronary artery without angina pectoris Status: Acute Assessment and Plan: patient with history of [place] and stent placement * resume patient's statin and ASA (6) Hyperlipidemia: Code(s): E78.5 - Hyperlipidemia, unspecified Status: Acute Assessment and Plan: * continue statin (7) Diabetes: Qualifiers: Diabetes mellitus type: type 2 Diabetes mellitus terminal make up operator insulin use: without terminal make up operator use Diabetes mellitus complication status: with neurologic complications Diabetes mellitus complication detail: with polyneuropathy Qualified Code(s): 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thy Code(s): E11.9 - Type 2 diabetes mellitus without complications Status: Acute Assessment and Plan: * resume patient's metformin * Accu-Cheks a.c. 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 with quite a bit of secretions productive cough (9) BPH (benign prostatic hyperplasia): Code(s): N40.0 - Benign prostatic hyperplasia without lower urinary tract symptoms Status: Acute Assessment and Plan: patient with history of BPH * resumed patient's Flomax * bladder scan PRN (10) Anemia: Code(s): D64.9 - Anemia, unspecified Status: Acute Assessment and Plan: Patient with recent hospitalization due to ulceration since has resolved hemoglobin stable at 10.6 today * continue with PPI b.i.d. * trend hemoglobin and monitor for any signs of overt GIB * Transfuse PRBC if Hgb <7.0 Plan Code status: DNR/DNI DVT prophylaxis: SCd's Stress ulcer prophylaxis: Protonix 40 BID PT/OT notes: PT/OT pending Disposition: patient was admitted to the medical unit for further evaluation and treatment of acute respiratory failure with hypoxia secondary to bilateral pleural effusions. will order PT/ OT for evaluation but did speak to family about palliative / hospice care to discharge home on potentially requests to have pleurX drain outpatient then transition to home hospice care. Subjective Date/time seen: 04/22/25 09:36 Interval history: patient is an 89-year-old male who was admitted for further evaluation and treatment of acute respiratory failure with hypoxia secondary to pleural effusion. past medical history diabetic foot ulcer, CHF, BPH, pleural effusions, CKD, AAA, CAD, mi, HLD, gout, CVA, diabetes, and hypertension 04/22/2025: Patient up in chair still with productive cough and SOB but feeling his breathing is improving but remains on 3L NS supplemental oxygen. CXR follow- up to evaluate for some improvement. spoke with patient and family regarding discharge plans we will attempt to coordinate for patient to have out patient PleurX drain placed for therapeutic comfort and then plan to transition to hospice care at home. Review of Systems Review of Systems: All systems reviewed & are unremarkable except as noted in HPI and below Exam Const: General: comfortable and no acute distress Other: Frail elderly gentlemen with family at bedside HENMT: Ears: TM's normal bilaterally Face/Nose/Sinus: Normal nares present Mouth: Yes moist mucous membranes Eyes: General: appearance normal, both eyes and all related structures Sclera: sclerae normal Pupils: Equal, round and reactive pupils present Neck: Neck: supple and no JVD Resp: Auscultation: diminished lung sounds (Throughout) bilateral Other: R>L on 3L supplemental oxygen Cardio: Rate: regular rate Rhythm: regular rhythm GI: Auscultation: normal bowel sounds : General: Yes bladder normal to palpation Urinary Catheter: Urinary Catheter: other ( sedimentation) Skin: General skin exam: normal color and no rashes or lesions noted Wounds: no wounds Other: Small healing ulceration to the ball of the Left foot Neuro: Cranial nerves: Yes Equal, round and reactive pupils present Speech: normal speech Motor exam (neuro): Abnormal motor strength present Other: Unsteady gait Extrem: General: normal to inspection and edema (R>L) bilateral Psych: Mental Status: mental status grossly normal Affect: normal affect Objective Data Vital Signs Vital Signs: Vital Signs - 24 hr 04/21/25 09:41 04/21/25 16:00 04/21/25 21:22 Temperature 97.9 F Pulse Rate 70 77 76 Respiratory Rate 17 Blood Pressure 144/53 H Pulse Oximetry 90 Oxygen Delivery Nasal Cannula Oxygen Flow Rate 3 04/22/25 00:00 04/22/25 09:12 Temperature 98.9 F Pulse Rate 80 67 Respiratory Rate 20 Blood Pressure 98/41 L Pulse Oximetry 92 Oxygen Delivery Nasal Cannula Oxygen Flow Rate 4 Intake/Output Intake/Output: Intake & Output 04/19/25 04/20/25 04/21/25 04/22/25 23:59 23:59 23:59 23:59 Intake Total 240 2520 300 Output Total 1025 4250 800 Balance -785 -1009 -960 Meds/Results Medications: Active Medications Generic Name Dose Route Start Last Admin Trade Name Radha PRN Reason Stop Dose Admin Acetaminophen 650 mg 04/20/25 12:59 04/20/25 20:58 Acetaminophen 325 Mg Tablet PO 650 mg Q4H PRN Administration Mild Pain (1-3) or Fever Hydrocodone Bitart/Acetaminophen 1 tab 04/20/25 13:32 Hydrocodone/Acetaminophen (*Crx) 5-325 Mg Tablet PO Q4H PRN Moderate Pain (4-6) Allopurinol 200 mg 04/21/25 09:00 04/22/25 09:12 Allopurinol 100 Mg Tablet PO 200 mg DAILY STELLA Administration Aspirin 81 mg 04/21/25 09:00 04/22/25 09:12 Aspirin 81 Mg Enteric Tablet PO 81 mg DAILY STELLA Administration Carvedilol 12.5 mg 04/20/25 21:00 04/22/25 09:12 Carvedilol 12.5 Mg Tablet PO 12.5 mg Q12HR STELLA Administration Cyanocobalamin 1,000 mcg 04/21/25 09:00 04/22/25 09:13 Cyanocobalamin 1,000 Mcg Tablet PO 1,000 mcg QAM STELLA Administration Dextrose 12.5 gm 04/20/25 13:37 Dextrose 50% 25 Gm/50 Ml Syringe IV PUSH PRN PRN Hypoglycemia Protocol Enalapril Maleate 20 mg 04/20/25 21:00 04/22/25 09:13 Enalapril Maleate 5 Mg Tablet PO 20 mg Q12HR STELLA Administration Fish Oil 1 gm 04/20/25 17:00 04/22/25 09:13 [place] 3 Polyunsat Fatty Acids 1 Gm Cap PO 1 gm BID STELLA Administration Glucagon 1 mg 04/20/25 13:37 Glucagon For Inj 1 Mg Vial IM PRN PRN Hypoglycemia Protocol Glucose 15 gm 04/20/25 13:37 Glucose Oral Gel 15 Gm Of Glucse In 37.5 Gm Tube PO PRN PRN Hypoglycemia Protocol Guaifenesin 1,200 mg 04/22/25 09:35 Guaifenesin 12 Hr 600 Mg Tabcr PO Q12HR STELLA Heparin Sodium (Porcine) 5,000 units 04/20/25 14:00 04/22/25 06:13 Heparin Sodium 5,000 Units/Ml Vial SUB-Q 5,000 units Q8HR STELLA Administration Dextrose 1,000 mls @ 100 mls/hr 04/20/25 13:37 Dextrose 5% 1,000 Ml IVPB PRN PRN Hypoglycemia Protocol Insulin Human Lispro 2 - 5 units 04/20/25 17:00 04/22/25 09:08 Insulin Human Lispro (*Bkc) 1,000 Units/10 Ml Vial SUB-Q Not Given TIDWM STELLA Protocol Lactobacillus Acidophilus 1 tablet 04/21/25 13:00 04/22/25 09:13 Acidophilus/Bulgaricus Chewable Tablet PO 1 tablet QID STELLA Administration Ondansetron HCl 4 mg 04/20/25 13:32 Ondansetron Inj 4 Mg/2 Ml Vial IV PUSH Q6H PRN Nausea And Vomiting Pantoprazole Sodium 40 mg 04/20/25 17:00 04/22/25 09:13 Pantoprazole 40 Mg Tablet PO 40 mg BID STELLA Administration Pravastatin Sodium 80 mg 04/20/25 21:00 04/21/25 21:21 Pravastatin Sodium 20 Mg Tablet PO 80 mg HS STELLA Administration Tamsulosin HCl 0.8 mg 04/20/25 21:00 04/21/25 21:21 Tamsulosin Hcl 0.4 Mg Capsule PO 0.8 mg HS STELLA Administration Temazepam 15 mg 04/20/25 14:28 04/20/25 20:50 Temazepam (*Crx) 15 Mg Capsule PO 15 mg HS PRN Administration Sleep Radiology Results: ITS Impressions Chest X-Ray 04/20/25 10:35 Impression: 1: Chronic bibasilar airspace disease which may represent edema or atypical pneumonia. 2: Stable small right pleural effusion. Chest CTA 04/20/25 12:17 IMPRESSION: 1. Negative for pulmonary embolism. CHF with probable superimposed right lower lobe bronchopneumonia. 2. Chronic changes detailed above with left upper lobe micronodule which appears new compared to the previous study. Three-month follow-up is recommended Labs Labs: Laboratory Results - last 24 hr 04/21/25 04/21/25 04/21/25 11:32 16:38 20:05 WBC RBC Hgb Hct MCV MCH MCHC RDW Plt Count MPV Immature Gran % (Auto) Neut % (Auto) Lymph % (Auto) [place] % (Auto) Eos % (Auto) Baso % (Auto) Lymph # (Auto) [place] # (Auto) Eos # (Auto) Baso # (Auto) Abs Immat Gran (auto) Absolute Neuts (auto) Absolute Nucleated RBC Nucleated RBC % Sodium Potassium Chloride Carbon Dioxide Anion Gap BUN Creatinine Estim Creat Clear Calc Estimated GFR Glucose POC Capillary Glucose 158 H 134 H 151 H Calculated Osmolality Calcium Magnesium Total Bilirubin AST ALT Alkaline Phosphatase Total Protein Albumin 04/22/25 05:25 WBC 4.7 L RBC 3.32 L Hgb 10.5 L Hct 33.8 L MCV 101.8 MCH 31.6 H MCHC 31.1 L RDW 14.9 H Plt Count 176 MPV 9.0 Immature Gran % (Auto) 0.2 H Neut % (Auto) 78.0 H Lymph % (Auto) 9.2 L [place] % (Auto) 9.4 Eos % (Auto) 3.2 Baso % (Auto) 0.0 Lymph # (Auto) 0.43 L [place] # (Auto) 0.44 Eos # (Auto) 0.15 Baso # (Auto) 0.00 Abs Immat Gran (auto) 0.01 H Absolute Neuts (auto) 3.65 Absolute Nucleated RBC 0.00 Nucleated RBC % 0.0 Sodium 138 Potassium 4.5 Chloride 100 Carbon Dioxide 34 H Anion Gap 4 BUN 43 H Creatinine 1.69 H Estim Creat Clear Calc 29 Estimated GFR 38 L Glucose 119 H POC Capillary Glucose Calculated Osmolality 297 H Calcium 8.6 Magnesium 2.0 Total Bilirubin 0.6 AST 19 ALT 13 Alkaline Phosphatase 75 Total Protein 5.5 L Albumin 3.0 L Quality VTE Prophylaxis VTE prophylaxis: mechanical ordered -Patient's previous records reviewed on admission -ER notes reviewed in detail on admission -discussed all findings and current treatment plan with patient/Family/POA -Consultations reviewed for recommendations -Patient's disposition for safe discharge discussed with complex case manager Dictation performed by [employer] direct speech recognition software, therefore dish technician variants and typographical errors may occur. Hospitalist MIPS Advance Care Plan I have confirmed that the patient's Advanced Care Plan is present, code status is documented, or surrogate decision maker is listed in patient medical record.: Yes Medication Reconciliation I have utilized all available resources to obtain, update and review the patients current medications (includes all prescriptions, OTC, herbals, cannabis, and nutritional supplements).: Yes The patient is not eligible for med reconciliation; the patient is in a emergent medical situation where delaying treatment would jeopardize the patients health.: No
[2025-04-22] MEDS: guaiFENesin 12 HR 600 MG TABCR 1200 MG PO ×2 (11:07→21:12)
--- NOTE | 2025-04-22 13:30 | PC.NURSE ---
Pt found sitting in chair with nasal cannula resting on his forehead. Spot check O2 saturation was 71%. Pt educated about importance of wearing oxygen and consequences of not wearing it with his health condition. Pt verbalized understanding and nasal cannula was put back in place.
[2025-04-22] MEDS: AZITHROMYCIN 250 MG TABLET 500 MG PO (14:32)
--- NOTE | 2025-04-22 14:50 | PC.NURSE ---
Pt again found sitting in his chair with nasal cannula on forehead. O2 saturation ranging between 71-74%. Pt was educated about consequences of not wearing oxygen. Pt was told that low oxygen levels could lead to respiratory distress and even . Pt stated, if that happens put in me in a box. Pt continues to refuse oxygen at this time. Pt's sons were both at bedside for this interaction and education.
[2025-04-22 16:00] VITALS: BP 120/50; PULSE 58; RESP 17; TEMP 36.6; O2SAT 99
[2025-04-22] MEDS: FUROSEMIDE INJ 40 MG/4 ML VIAL 20 MG IV PUSH (17:11)
[2025-04-22] MEDS: TAMSULOSIN HCL 0.4 MG CAPSULE 0.8 MG PO (21:11)
[2025-04-22 21:13] VITALS: PULSE 67
[2025-04-22] MEDS: PRAVASTATIN SODIUM 20 MG TABLET 80 MG PO (21:13)
[2025-04-22] MEDS: TEMAZEPAM (*CRX) 15 MG CAPSULE PO (21:37)
--- NOTE | 2025-04-22 23:26 | PC.NURSE ---
Patient wore his oxygen from 7p to 11p.
[2025-04-23] VITALS (7 sets, daily range): BP systolic 119–132; BP diastolic 54–58; PULSE 64–88; RESP 18–20; TEMP 36.3–36.6; O2SAT 91–93
[2025-04-23 05:53] LABS: Hematocrit 34.7 % (37.0-46.0); Hemoglobin 10.6 g/dL (12.4-15.3); Immature Granulocyte Percent A 0.2 % (0.0-0.0); Lymphocytes Absolute Auto 0.52 K/mm3 (1.10-4.50); Mean Corpuscular HGB Conc 30.5 g/dL (32-36); Mean Corpuscular Hemoglobin 31.4 pg (27.0-31.0); Mean Corpuscular Volume 102.7 fL (78.0-102.0); Nucleated Red Blood Cells Absolute Auto 0.00 K/mm3 (0.00-0.00); Nucleated Red Blood Cells Perc 0.0 % (0-0.0); Platelet Count Result 171 K/mm3 (150-420); Red Blood Count 3.38 M/mm3 (4.70-6.10); White Blood Count 4.4 K/mm3 (4.8-10.8)
[2025-04-23 06:02] LABS: Alanine Aminotransferase 14 U/L (6-50); Albumin Level 3.1 g/dL (3.5-5.1); Alkaline Phosphatase 75 U/L (38-126); Anion Gap 3 mmol/L (4-12); Aspartate Amino Transferase 26 U/L (17-59); Bilirubin,Total 0.6 mg/dL (0.2-1.3); Blood Urea Nitrogen 45 mg/dL (9-20); Calcium 8.6 mg/dL (8.4-10.2); Carbon Dioxide 36 mmol/L (22-30); Chloride 99 mmol/L (98-107); Estimated CRCL calculation 30 ml/min; Estimated Glomerular Filt Rate 39; Glucose 107 mg/dL (65-110); Magnesium 2.0 mg/dL (1.6-2.3); Osmolality Calculated 297 mOsm/kg (285-295); Potassium 4.0 mmol/L (3.4-5.0); Sodium 138 mmol/L (137-145); Total Protein 5.8 g/dL (6.3-8.2)
[2025-04-23] MEDS: ACIDOPHILUS/BULGARICUS CHEWABLE TABLET 1 TABLET PO ×4 (09:28→21:40)
[2025-04-23] MEDS: ASPIRIN 81 MG ENTERIC TABLET PO (09:28)
[2025-04-23] MEDS: AZITHROMYCIN 250 MG TABLET 500 MG PO (09:28)
[2025-04-23] MEDS: PANTOPRAZOLE 40 MG TABLET PO ×2 (09:28→17:42)
[2025-04-23] MEDS: ENALAPRIL MALEATE 5 MG TABLET 20 MG PO ×2 (09:28→21:40)
[2025-04-23] MEDS: CYANOCOBALAMIN 1,000 MCG TABLET 1000 MCG PO (09:28)
[2025-04-23] MEDS: OMEGA 3 POLYUNSAT FATTY ACIDS 1 GM CAP PO ×2 (09:28→17:42)
[2025-04-23] MEDS: guaiFENesin 12 HR 600 MG TABCR 1200 MG PO ×2 (09:29→21:41)
[2025-04-23] MEDS: HYDROcodone/acetaminophen (*CRX) 5-325 MG TABLET 1 TAB PO (09:29)
[2025-04-23] MEDS: FUROSEMIDE INJ 40 MG/4 ML VIAL 20 MG IV PUSH ×2 (09:30→17:00)
--- NOTE | 2025-04-23 10:16 | P.PNIM_ITS ---
Progress Note: A&P Assessment and Plan (1) Bronchopneumonia: Code(s): J18.0 - Bronchopneumonia, unspecified organism Status: Acute Assessment and Plan: CXR showing bronchopneumonia with productive cough * Started on Augmentin and azithromycin * Mucinex b.i.d. * continue incentive spirometer (2) Acute respiratory failure with hypoxia: Code(s): J96.01 - Acute respiratory failure with hypoxia Status: Acute Assessment and Plan: patient found to be at 74% oxygen saturation on room air upon arrival to the emergency department was placed on 4 L supplemental oxygen and given a dose of IV Lasix with improvement patient does not currently wear oxygen home likely secondary to patient's reaccumulation of bilateral pleural effusions. * continue to wean oxygen as tolerated to maintain 92% * patient may need home O2 walk study prior to discharge * continue to treat and diurese decreased to 20mg IVP BID plan to transition to oral Lasix tomorrow * continue with incentive spirometer while awake * added guaifenesin due to productive cough (3) Pleural effusion: Code(s): J90 - Pleural effusion, not elsewhere classified Status: Acute Assessment and Plan: 01/19/2025 showed bilateral pleural effusions/US guided thoracentesis on 03/14/25 at [facility] which yielded 1600mL of fluid, Pleural studies detailed below, seems to be transudative effusion from decompensated heart failure. patient had follow up with senior air director a few days prior to arrival and was taken off his Lasix started on Jardiance presents today with worsening pleural effusion. patient follows with pulmonology outpatient had recently had an appointment on 04/13. previous pleural studies:Pleural fluid - pH > 7.5, hazy yellow, protein 3.1, albumin 2.0, LDH 121, glucose 102. Lymphocytes 99. Pleural fluid cultures showed no bacterial growth. Pleural fluid cytology showed scattered lymphocytes and red blood cells. Rare mesothelial cells. Negative for malignancy. * fluid reaccumulation may need diagnostic and therapeutic thoracentesis of note on the CTA there is a new left upper nodule measuring 8 x [address] follow-up in 3 months * initiate incentive spirometer * IV Lasix b.i.d. will monitor renal function closely diuresis had to decrease due to slow rising CR. to 20mg BID renal function stable today after decreased dose will likely transitioned to oral Lasix tomorrow * Stopped Jardiance will transition back to oral lasix at discharge * F/U CXR today to evaluate small bilateral pleural effusion but did show some bronchopneumonia active long discussion with family and patient regarding long-term treatment they were able to speak hospice/palliative care and provided information will attempt to coordinate patient have out patient PleurX drain placed for therapeutic comfort and then likely patient will set up with hospice care at home. (4) Physical debility: Code(s): R53.81 - Other malaise Status: Acute Assessment and Plan: swing bed rehab after deconditioned state from hospitalization * PT/OT * encourage mobility and activity with staff * up at a bed with all meals (5) Hypertension: Code(s): I10 - Essential (primary) hypertension Status: Acute Assessment and Plan: * resume patient's carvedilol and Vasotec * BP per unit protocol (6) CAD (coronary artery disease): Code(s): I25.10 - Atherosclerotic heart disease of [place] coronary artery without angina pectoris Status: Acute Assessment and Plan: patient with history of OR and stent placement * resume patient's statin and ASA (7) Hyperlipidemia: Code(s): E78.5 - Hyperlipidemia, unspecified Status: Acute Assessment and Plan: * continue statin (8) Diabetes: Qualifiers: Diabetes mellitus complication detail: with polyneuropathy Diabetes mellitus complication status: with neurologic complications Diabetes mellitus prison insulin use: without prison use Diabetes mellitus type: type 2 Qualified Code(s): 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thy Code(s): E11.9 - Type 2 diabetes mellitus without complications Status: Acute Assessment and Plan: * resume patient's metformin * Accu-Cheks a.c. 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 with quite a bit of secretions productive cough (10) BPH (benign prostatic hyperplasia): Code(s): N40.0 - Benign prostatic hyperplasia without lower urinary tract symptoms Status: Acute Assessment and Plan: patient with history of BPH * resumed patient's Flomax * bladder scan PRN (11) Anemia: Code(s): D64.9 - Anemia, unspecified Status: Acute Assessment and Plan: Patient with recent hospitalization due to ulceration since has resolved hemoglobin stable at 10.6 today * continue with PPI b.i.d. * trend hemoglobin and monitor for any signs of overt GIB * Transfuse PRBC if Hgb <7.0 Plan Code status: DNR/DNI DVT prophylaxis: SCd's Stress ulcer prophylaxis: Protonix 40 BID PT/OT notes: PT/OT pending Disposition: patient was admitted to the medical unit for further evaluation and treatment of acute respiratory failure with hypoxia secondary to bilateral pleural effusions. will order PT/ OT for evaluation but did speak to family about palliative / hospice care to discharge home on potentially requests to have pleurX drain outpatient then transition to home hospice care. Time Spent With Patient Time with patient: 15 - 25 minutes Subjective Date/time seen: 04/23/25 10:16 Interval history: patient is an 89-year-old male who was admitted for further evaluation and treatment of acute respiratory failure with hypoxia secondary to pleural effusion. past medical history diabetic foot ulcer, CHF, BPH, pleural effusions, CKD, AAA, CAD, mi, HLD, gout, CVA, diabetes, and hypertension 04/23/2025: Overnight patient refused to wear supplemental oxygen several times stating that it irritated his nose. Patient was offered the option wearing supplemental oxygen with mask as opposed to nasal cannula but refused and stated he will continue to wear nasal cannula. Spoke with patient about plans to arrange for PleurX drain placement prior to transitioning to hospice care and he continues to be agreeable with the plan. Patient still with productive cough and SOB, denied CP, N/V, or difficulty voiding. Review of Systems Review of Systems: All systems reviewed & are unremarkable except as noted in HPI and below Constitutional: Constitutional: Reports weakness Eyes: Eyes: Reports no additional eye complaints ENT: Reports system reviewed and no additional complaints, except as documented Cardiovascular: Cardiovascular: Reports no additional cardiovascular complaints Respiratory: Respiratory: Reports dyspnea on exertion Gastrointestinal: Gastrointestinal: Reports no additional gastrointestinal complaints Genitourinary: Genitourinary: Reports no additional male genitourinary complaints Musculoskeletal: Musculoskeletal: Reports no additional musculoskeletal complaints Integumentary/Breasts: Skin/Breast: Reports system reviewed and no additional complaints, except as docu Neurologic: Reports system reviewed and no additional complaints, except as documented Psychiatric: Psychiatric: Reports no additional psychiatric complaints Exam Const: General: comfortable and no acute distress Other: Frail elderly gentlemen with family at bedside HENMT: Ears: TM's normal bilaterally Face/Nose/Sinus: Normal nares present Mouth: Yes moist mucous membranes Eyes: General: appearance normal, both eyes and all related structures Sclera: sclerae normal Pupils: Equal, round and reactive pupils present Neck: Neck: supple and no JVD Resp: Auscultation: diminished lung sounds (Throughout) bilateral Other: R>L on 3L supplemental oxygen Cardio: Rate: regular rate Rhythm: regular rhythm GI: GI Palp: Yes Soft to palpation Auscultation: normal bowel sounds : General: Yes bladder normal to palpation Urinary Catheter: Urinary Catheter: other ( sedimentation) Skin: General skin exam: normal color and no rashes or lesions noted Wounds: no wounds Other: Small healing ulceration to the ball of the Left foot Neuro: Cranial nerves: Yes Equal, round and reactive pupils present Speech: normal speech Motor exam (neuro): Abnormal motor strength present Other: Unsteady gait Extrem: General: normal to inspection and edema (R>L) bilateral Psych: Mental Status: mental status grossly normal Affect: normal affect Objective Data Vital Signs Vital Signs: Vital Signs - 24 hr 04/22/25 16:00 04/22/25 21:13 04/23/25 00:00 Temperature 97.9 F 97.9 F Pulse Rate 58 L 67 67 Respiratory Rate 17 18 Blood Pressure 120/50 L 132/54 L Pulse Oximetry 99 91 Oxygen Delivery Nasal Cannula Nasal Cannula Oxygen Flow Rate 3 3 04/23/25 08:00 04/23/25 09:28 Temperature 97.3 F L Pulse Rate 64 84 Respiratory Rate 18 Blood Pressure 127/54 L Pulse Oximetry 91 Oxygen Delivery Nasal Cannula Oxygen Flow Rate 3 Intake/Output Intake/Output: Intake & Output 04/20/25 04/21/25 04/22/25 04/23/25 23:59 23:59 23:59 23:59 Intake Total 240 2520 1950 320 Output Total 1025 4250 3150 350 [facility] -785 [phone] -1200 -30 Meds/Results Medications: Active Medications Generic Name Dose Route Start Last Admin Trade Name Freq PRN Reason Stop Dose Admin Acetaminophen 650 mg 04/20/25 12:59 04/20/25 20:58 Acetaminophen 325 Mg Tablet PO 650 mg Q4H PRN Administration Mild Pain (1-3) or Fever Hydrocodone Bitart/Acetaminophen 1 tab 04/20/25 13:32 04/23/25 09:29 Hydrocodone/Acetaminophen (*Crx) 5-325 Mg Tablet PO 1 tab Q4H PRN Administration Moderate Pain (4-6) Allopurinol 200 mg 04/21/25 09:00 04/23/25 09:30 Allopurinol 100 Mg Tablet PO 200 mg DAILY STELLA Administration Amoxicillin/Clavulanate Potassium 1 tablet 04/22/25 21:00 04/23/25 09:27 Amoxicillin/Clavulanate K 875-125 Mg Tab PO 1 tablet Q12HR STELLA Administration Aspirin 81 mg 04/21/25 09:00 04/23/25 09:28 Aspirin 81 Mg Enteric Tablet PO 81 mg DAILY STELLA Administration Azithromycin 500 mg 04/22/25 12:55 04/23/25 09:28 Azithromycin 250 Mg Tablet PO 500 mg DAILY STELLA Administration Carvedilol 12.5 mg 04/20/25 21:00 04/23/25 09:28 Carvedilol 12.5 Mg Tablet PO 12.5 mg Q12HR STELLA Administration Cyanocobalamin 1,000 mcg 04/21/25 09:00 04/23/25 09:28 Cyanocobalamin 1,000 Mcg Tablet PO 1,000 mcg QAM STELLA Administration Dextrose 12.5 gm 04/20/25 13:37 Dextrose 50% 25 Gm/50 Ml Syringe IV PUSH PRN PRN Hypoglycemia Protocol Enalapril Maleate 20 mg 04/20/25 21:00 04/23/25 09:28 Enalapril Maleate 5 Mg Tablet PO 20 mg Q12HR STELLA Administration Fish Oil 1 gm 04/20/25 17:00 04/23/25 09:28 [place] 3 Polyunsat Fatty Acids 1 Gm Cap PO 1 gm BID STELLA Administration Furosemide 20 mg 04/22/25 17:00 04/23/25 09:30 Furosemide Inj 40 Mg/4 Ml Vial IV PUSH 20 mg BID STELLA Administration Glucagon 1 mg 04/20/25 13:37 Glucagon For Inj 1 Mg Vial IM PRN PRN Hypoglycemia Protocol Glucose 15 gm 04/20/25 13:37 Glucose Oral Gel 15 Gm Of Glucse In 37.5 Gm Tube PO PRN PRN Hypoglycemia Protocol Guaifenesin 1,200 mg 04/22/25 09:35 04/23/25 09:29 Guaifenesin 12 Hr 600 Mg Tabcr PO 1,200 mg Q12HR STELLA Administration Heparin Sodium (Porcine) 5,000 units 04/20/25 14:00 04/23/25 05:57 Heparin Sodium 5,000 Units/Ml Vial SUB-Q 5,000 units Q8HR STELLA Administration Dextrose 1,000 mls @ 100 mls/hr 04/20/25 13:37 Dextrose 5% 1,000 Ml IVPB PRN PRN Hypoglycemia Protocol Insulin Human Lispro 2 - 5 units 04/20/25 17:00 04/23/25 08:00 Insulin Human Lispro (*Bkc) 1,000 Units/10 Ml Vial SUB-Q Not Given TIDWM STELLA Protocol Lactobacillus Acidophilus 1 tablet 04/21/25 13:00 04/23/25 09:28 Acidophilus/Bulgaricus Chewable Tablet PO 1 tablet QID STELLA Administration Ondansetron HCl 4 mg 04/20/25 13:32 Ondansetron Inj 4 Mg/2 Ml Vial IV PUSH Q6H PRN Nausea And Vomiting Pantoprazole Sodium 40 mg 04/20/25 17:00 04/23/25 09:28 Pantoprazole 40 Mg Tablet PO 40 mg BID STELLA Administration Pravastatin Sodium 80 mg 04/20/25 21:00 04/22/25 21:13 Pravastatin Sodium 20 Mg Tablet PO 80 mg HS STELLA Administration Tamsulosin HCl 0.8 mg 04/20/25 21:00 04/22/25 21:11 Tamsulosin Hcl 0.4 Mg Capsule PO 0.8 mg HS STELLA Administration Temazepam 15 mg 04/20/25 14:28 04/22/25 21:37 Temazepam (*Crx) 15 Mg Capsule PO 15 mg HS PRN Administration Sleep Radiology Results: ITS Impressions Chest CTA 04/20/25 12:17 IMPRESSION: 1. Negative for pulmonary embolism. CHF with probable superimposed right lower lobe bronchopneumonia. 2. Chronic changes detailed above with left upper lobe micronodule which appears new compared to the previous study. Three-month follow-up is recommended Chest X-Ray 04/22/25 09:56 Impression: Bilateral probable bronchopneumonia. The findings appear slightly improved. Labs Labs: Laboratory Results - last 24 hr 04/22/25 04/22/25 04/22/25 12:16 17:00 21:07 WBC RBC Hgb Hct MCV MCH MCHC RDW Plt Count MPV Immature Gran % (Auto) Neut % (Auto) Lymph % (Auto) [place] % (Auto) Eos % (Auto) Baso % (Auto) Lymph # (Auto) [place] # (Auto) Eos # (Auto) Baso # (Auto) Abs Immat Gran (auto) Absolute Neuts (auto) Absolute Nucleated RBC Nucleated RBC % Sodium Potassium Chloride Carbon Dioxide Anion Gap BUN Creatinine Estim Creat Clear Calc Estimated GFR Glucose POC Capillary Glucose 141 H 134 H 114 H Calculated Osmolality Calcium Magnesium Total Bilirubin AST ALT Alkaline Phosphatase Total Protein Albumin 04/23/25 05:43 WBC 4.4 L RBC 3.38 L Hgb 10.6 L Hct 34.7 L MCV 102.7 H MCH 31.4 H MCHC 30.5 L RDW 15.0 H Plt Count 171 MPV 9.5 Immature Gran % (Auto) 0.2 H Neut % (Auto) 71.3 H Lymph % (Auto) 11.8 L [place] % (Auto) 11.1 H Eos % (Auto) 5.4 Baso % (Auto) 0.2 Lymph # (Auto) 0.52 L [place] # (Auto) 0.49 Eos # (Auto) 0.24 Baso # (Auto) 0.01 Abs Immat Gran (auto) 0.01 H Absolute Neuts (auto) 3.14 Absolute Nucleated RBC 0.00 Nucleated RBC % 0.0 Sodium 138 Potassium 4.0 Chloride 99 Carbon Dioxide 36 H Anion Gap 3 L BUN 45 H Creatinine 1.67 H Estim Creat Clear Calc 30 Estimated GFR 39 L Glucose 107 POC Capillary Glucose Calculated Osmolality 297 H Calcium 8.6 Magnesium 2.0 Total Bilirubin 0.6 AST 26 ALT 14 Alkaline Phosphatase 75 Total Protein 5.8 L Albumin 3.1 L Quality VTE Prophylaxis VTE prophylaxis: mechanical ordered -Patient's previous records reviewed on admission -ER notes reviewed in detail on admission -discussed all findings and current treatment plan with patient/Family/POA -Consultations reviewed for recommendations -Patient's disposition for safe discharge discussed with correctional counselor/case manager Dictation performed by [employer] direct speech recognition software, therefore retention representative variants and typographical errors may occur. Hospitalist MIPS Advance Care Plan I have confirmed that the patient's Advanced Care Plan is present, code status is documented, or surrogate decision maker is listed in patient medical record.: Yes Medication Reconciliation I have utilized all available resources to obtain, update and review the patients current medications (includes all prescriptions, OTC, herbals, cannabis, and nutritional supplements).: Yes The patient is not eligible for med reconciliation; the patient is in a emergent medical situation where delaying treatment would jeopardize the patients health.: No
[2025-04-23] MEDS: TAMSULOSIN HCL 0.4 MG CAPSULE 0.8 MG PO (21:40)
[2025-04-23] MEDS: PRAVASTATIN SODIUM 20 MG TABLET 80 MG PO (21:41)
--- NOTE | 2025-04-23 22:01 | PC.NURSE ---
Patient requests Tamsulosin be given at 8pm from now on, does not like getting HS meds after 9pm. Tamsulosin order administration time changed per patient request.
[2025-04-23] MEDS: TEMAZEPAM (*CRX) 15 MG CAPSULE PO (22:11)
[2025-04-24] VITALS: BP 151/47; PULSE 79; RESP 18; TEMP 36.6; O2SAT 90
[2025-04-24 05:30] VITALS: O2SAT 90
[2025-04-24 06:20] LABS: Hematocrit 35.3 % (37.0-46.0); Hemoglobin 11.0 g/dL (12.4-15.3); Immature Granulocyte Percent A 0.5 % (0.0-0.0); Lymphocytes Absolute Auto 0.43 K/mm3 (1.10-4.50); Mean Corpuscular HGB Conc 31.2 g/dL (32-36); Mean Corpuscular Hemoglobin 32.1 pg (27.0-31.0); Mean Corpuscular Volume 102.9 fL (78.0-102.0); Nucleated Red Blood Cells Absolute Auto 0.00 K/mm3 (0.00-0.00); Nucleated Red Blood Cells Perc 0.0 % (0-0.0); Platelet Count Result 186 K/mm3 (150-420); Red Blood Count 3.43 M/mm3 (4.70-6.10); White Blood Count 4.0 K/mm3 (4.8-10.8)
[2025-04-24 06:27] LABS: Alanine Aminotransferase 15 U/L (6-50); Albumin Level 3.1 g/dL (3.5-5.1); Alkaline Phosphatase 72 U/L (38-126); Anion Gap 5 mmol/L (4-12); Aspartate Amino Transferase 24 U/L (17-59); Bilirubin,Total 0.6 mg/dL (0.2-1.3); Blood Urea Nitrogen 50 mg/dL (9-20); Calcium 8.6 mg/dL (8.4-10.2); Carbon Dioxide 36 mmol/L (22-30); Chloride 98 mmol/L (98-107); Estimated CRCL calculation 32 ml/min; Estimated Glomerular Filt Rate 42; Glucose 106 mg/dL (65-110); Magnesium 1.9 mg/dL (1.6-2.3); Osmolality Calculated 301 mOsm/kg (285-295); Potassium 4.3 mmol/L (3.4-5.0); Sodium 139 mmol/L (137-145); Total Protein 5.7 g/dL (6.3-8.2)
[2025-04-24 08:00] VITALS: BP 143/53; PULSE 76; RESP 18; TEMP 36.6; O2SAT 95
[2025-04-24 08:57] VITALS: PULSE 76
[2025-04-24] MEDS: FUROSEMIDE INJ 40 MG/4 ML VIAL 20 MG IV PUSH (08:57)
[2025-04-24] MEDS: PANTOPRAZOLE 40 MG TABLET PO (08:57)
[2025-04-24] MEDS: ASPIRIN 81 MG ENTERIC TABLET PO (08:57)
[2025-04-24] MEDS: ENALAPRIL MALEATE 5 MG TABLET 20 MG PO (08:57)
[2025-04-24] MEDS: AZITHROMYCIN 250 MG TABLET 500 MG PO (08:57)
[2025-04-24] MEDS: OMEGA 3 POLYUNSAT FATTY ACIDS 1 GM CAP PO (08:57)
[2025-04-24] MEDS: CYANOCOBALAMIN 1,000 MCG TABLET 1000 MCG PO (08:58)
[2025-04-24] MEDS: ACIDOPHILUS/BULGARICUS CHEWABLE TABLET 1 TABLET PO (08:58)
[2025-04-24] MEDS: HYDROcodone/acetaminophen (*CRX) 5-325 MG TABLET 1 TAB PO (08:58)
[2025-04-24] MEDS: guaiFENesin 12 HR 600 MG TABCR 1200 MG PO (08:58)
--- NOTE | 2025-04-24 09:38 | P.DS_ITS ---
DS: Admitting Diagnosis Discharge Date 04/24/2025 Admitting Diagnosis Acute on chronic respiratory failure with hypoxia secondary to pleural effusions and bronchopneumonia DS: Discharge Diagnosis Discharge Diagnosis (1) Acute respiratory failure with hypoxia: Code(s): J96.01 - Acute respiratory failure with hypoxia Status: Acute (2) Pleural effusion: Code(s): J90 - Pleural effusion, not elsewhere classified Status: Acute (3) Physical debility: Code(s): R53.81 - Other malaise Status: Acute (4) Hypertension: Code(s): I10 - Essential (primary) hypertension Status: Acute (5) CAD (coronary artery disease): Code(s): I25.10 - Atherosclerotic heart disease of [place] coronary artery without angina pectoris Status: Acute (6) Hyperlipidemia: Code(s): E78.5 - Hyperlipidemia, unspecified Status: Acute (7) Diabetes: Qualifiers: Diabetes mellitus type: type 2 Diabetes mellitus usp insulin use: without manager terminal use Diabetes mellitus complication status: with neurologic complications Diabetes mellitus complication detail: with polyneuropathy Qualified Code(s): 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 Code(s): E11.9 - Type 2 diabetes mellitus without complications Status: Acute (8) COPD with chronic bronchitis and emphysema: Code(s): J44.9 - Chronic obstructive pulmonary disease, unspecified Status: Acute (9) BPH (benign prostatic hyperplasia): Code(s): N40.0 - Benign prostatic hyperplasia without lower urinary tract symptoms Status: Acute (10) Anemia: Code(s): D64.9 - Anemia, unspecified Status: Acute DS: Summary Hospital Course Reason for hospitalization: Acute on chronic respiratory failure with hypoxia secondary to pleural effusions and bronchopneumonia Hospital Course: Admission: Patient is an 89-year-old male with a past medical history diabetic foot ulcer, CHF, BPH, pleural effusions, CKD, AAA, CAD, mi, HLD, gout, CVA, diabetes, and hypertension. Who presented to the emergency department with worsening shortness breath. 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 patient was transported via EMS and per reports was initially found to be as 74 % oxygen saturation on room air upon their arrival to his home. patient states since switching to Jardiance he has had a decrease in urinary output and worsening BLE edema. patient states his shortness breath is worse with any exertion or activity and has been getting increasingly worse for the last few days. In the ED: upon arrival to the emergency department patient is found to be at 74% on room air placed on 4 L supplemental oxygen with improvement in oxygen saturation above 92% chest x-ray showing bilateral pleural effusions right greater than the left which at this time he was given a dose of IV Lasix with overall improvement to his respiratory status. patient also found to have mild DAVONTE creatinine at 1.52. ABG's showing acute respiratory hypoxia Ph 7.37/PcO2 39.3/pO2 48.9. Patient with elevated D-dimer CTA performed showed no pulmonary embolism did show a large right pleural effusion small left pleural effusion emphysema in new left upper lobe nodule measuring 8 x 7 mm. patient was admitted care unit treatment. Hospital course Patient admitted to the medical unit with for treatment of acute respiratory failure with hypoxia secondary to reaccumulated pleural effusion. patient found to be at 74% oxygen saturation on room air upon arrival to the emergency department was placed on 4 L supplemental oxygen and given a dose of IV Lasix with improvement patient does not currently wear oxygen home likely secondary to patient's reaccumulation of bilateral pleural effusions. Patient was started IV lasix, incentive spirometer and supplemental oxygen. Overall shortness a breath had improved with IV Lasix but still short of breath worse with any activity exertion remained on 3 L supplemental oxygen attempted to wean however dropped to 81% on room air. Renal function had mild upward trend creatinine 1.63, plan to continue with IV Lasix and monitor renal function which continued to have an upward trend at which time I lowered IV Lasix dose to 20 mg b.i.d. with improvement to renal function. I did spend a great amount of time patient and patient's sons regarding overall prognosis and treatment. at this time they did want to discuss possible discharging home on either palliative or hospice care but 1st would like to continue with current treatment and possible discussion for pleurX drain to be placed prior to returning home for therapeutic comfort, and was able to speak with patient's prison guard supervisor who agreed with potential plan. patient would like to discharge after rehab home and eventually be placed on hospice care. patient will be discharged to a swing bed for rehab during that time we will try to coordinate for outpatient PleurX drain to be placed after discharge from swing bed. patient had overall improvement to his breathing and symptoms however follow-up chest x-ray did show broncho pneumonia and he was initiated on oral antibiotic therapy. patient is still requiring 3 L nasal cannula will likely need supplemental oxygen when discharge to home. Status at Discharge Functional status at discharge: uses cane/walker Overall status at discharge: patient is progressing back to baseline Time Spent with Patient Time attestation: Total time spent providing and/or coordinating discharge services: Time spent: Greater than 30 minutes Exam Const: General: comfortable and no acute distress Other: Frail elderly gentlemen with family at bedside HENMT: Ears: TM's normal bilaterally Face/Nose/Sinus: Normal nares present Mouth: Yes moist mucous membranes Eyes: General: appearance normal, both eyes and all related structures Sclera: sclerae normal Pupils: Equal, round and reactive pupils present Neck: Neck: supple and no JVD Resp: Auscultation: crackles (scant) bilateral and diminished lung sounds (Throughout) bilateral Other: On 3L supplemental oxygen overall breathing has improved Cardio: Rate: regular rate Rhythm: regular rhythm GI: Auscultation: normal bowel sounds : General: Yes bladder normal to palpation Urinary Catheter: Urinary Catheter: other ( sedimentation) Skin: General skin exam: normal color and no rashes or lesions noted Wounds: no wounds Neuro: Cranial nerves: Yes Equal, round and reactive pupils present Speech: normal speech Motor exam (neuro): Abnormal motor strength present Other: Unsteady gait Extrem: General: normal to inspection and edema (R>L) bilateral Psych: Mental Status: mental status grossly normal Affect: normal affect DS: Data Data Completed and Pending Labs on day of discharge: Labs from last 24 hours 04/24/25 04/23/25 04/23/25 06:01 21:13 16:59 WBC 4.0 L RBC 3.43 L Hgb 11.0 L Hct 35.3 L MCV 102.9 H MCH 32.1 H MCHC 31.2 L RDW 14.6 H Plt Count 186 MPV 9.6 Immature Gran % (Auto) 0.5 H Neut % (Auto) 70.9 H Lymph % (Auto) 10.6 L [place] % (Auto) 11.4 H Eos % (Auto) 6.4 H Baso % (Auto) 0.2 Lymph # (Auto) 0.43 L [place] # (Auto) 0.46 Eos # (Auto) 0.26 Baso # (Auto) 0.01 Abs Immat Gran (auto) 0.02 H Absolute Neuts (auto) 2.86 Absolute Nucleated RBC 0.00 Nucleated RBC % 0.0 Sodium 139 Potassium 4.3 Chloride 98 Carbon Dioxide 36 H Anion Gap 5 BUN 50 H Creatinine 1.56 H Estim Creat Clear Calc 32 Estimated GFR 42 L Glucose 106 POC Capillary Glucose 137 H 133 H Calculated Osmolality 301 H Calcium 8.6 Magnesium 1.9 Total Bilirubin 0.6 AST 24 ALT 15 Alkaline Phosphatase 72 Total Protein 5.7 L Albumin 3.1 L 04/23/25 11:24 WBC RBC Hgb Hct MCV MCH MCHC RDW Plt Count MPV Immature Gran % (Auto) Neut % (Auto) Lymph % (Auto) [place] % (Auto) Eos % (Auto) Baso % (Auto) Lymph # (Auto) [place] # (Auto) Eos # (Auto) Baso # (Auto) Abs Immat Gran (auto) Absolute Neuts (auto) Absolute Nucleated RBC Nucleated RBC % Sodium Potassium Chloride Carbon Dioxide Anion Gap BUN Creatinine Estim Creat Clear Calc Estimated GFR Glucose POC Capillary Glucose 153 H Calculated Osmolality Calcium Magnesium Total Bilirubin AST ALT Alkaline Phosphatase Total Protein Albumin Preliminary micro results at discharge 04/20/25 13:15 Blood Culture - Preliminary Blood 04/20/25 13:15 Blood Culture - Preliminary Blood Imaging Radiologist's impression: Radiology Results: ITS Impressions Chest CTA 04/20/25 12:17 IMPRESSION: 1. Negative for pulmonary embolism. CHF with probable superimposed right lower lobe bronchopneumonia. 2. Chronic changes detailed above with left upper lobe micronodule which appears new compared to the previous study. Three-month follow-up is recommended Chest X-Ray 04/22/25 09:56 Impression: Bilateral probable bronchopneumonia. The findings appear slightly improved. Discharge Plan Discharge Attending physician on discharge: Donald Philippe Consulting providers: Leyla Rebolledo Discharging Clinician: Leyla Rebolledo Anticipated Discharge Date/Time: 04/24/25 09:46 Patient Disposition: Hospital Swing Bed Activity: may shower and as tolerated Diet: diabetic and low sodium Discharge Instructions: 1). CHF/Pleural effusions * continue Lasix 40 mg b.i.d. * continue incentive spirometer * 3 L supplemental oxygen nasal cannula may wean as tolerated * plan to schedule outpatient pleurX 2). unsteady gait * discharged to swing bed for physical and occupational therapy 3). BPH * continue Flomax * bladder scan as needed 4). bronchopneumonia * continue oral antibiotics as indicated * continue Mucinex * continue incentive spirometer while awake Patient Instructions: Antibiotic Form, Pleural Effusion (DC) Patient Language: Kinyarwanda Stand Alone Forms: General Discharge Information Follow-up/Referrals: Tavo Caruso MD [Primary Care Provider, Internal Medicine] - 2 weeks Discharge Medications: No Action metformin 500 mg Tablet 500 mg PO .AM carvedilol 12.5 mg Tablet 12.5 mg PO BID enalapril maleate 20 mg Tablet 20 mg PO BID allopurinol 100 mg Tablet 200 mg PO DAILY aspirin [Adult Low Dose Aspirin] 81 mg Tablet,Delayed Release (Dr/Ec) 81 mg PO DAILY Patient Comments: Pt told to hold till post Thoracentesis pravastatin 80 mg Tablet 80 mg PO HS temazepam 15 mg Capsule 15 mg PO HS PRN (Reason: Sleep) tamsulosin 0.4 mg Capsule 0.8 mg PO DAILY pantoprazole [Protonix] [address] for susp in packet 40 mg PO BID Rx Instructions: Before meals cyanocobalamin (vitamin B-12) [Vitamin B-12] 1,000 mcg Tablet 1,000 mcg PO QAM Qty: 30 0RF furosemide 20 mg Tablet 20 mg PO DAILY Qty: 30 0RF hydrocodone-acetaminophen 5-325 mg tablet 1 tablet PO Q6H PRN (Reason: pain) Qty: 20 0RF cinnamon bark [Cinnamon] 500 mg capsule 1,000 mg PO BID acetaminophen [Tylenol Arthritis Pain] 650 mg tablet extended release 650 mg PO Q12H omega 4-enf-fss-fish oil [Fish Oil] 1,000 (120-180) mg capsule 1 cap PO BID Date of admission: 04/21/25 12:23 Primary Care Provider: Tavo Caruso Admitting Provider: Donald Philippe Attending physician on admission: Donald Philippe Condition: Stable Quality VTE Prophylaxis VTE prophylaxis: mechanical ordered -Patient's previous records reviewed on admission -ER notes reviewed in detail on admission -discussed all findings and current treatment plan with patient/Family/POA -Consultations reviewed for recommendations -Patient's disposition for safe discharge discussed with spring encaser Dictation performed by [employer] direct speech recognition software, therefore hairpiece stylist variants and typographical errors may occur. Hospitalist MIPS Heart Failure (Exclusion) Patient has history of Heart Transplant or Left Ventricular Assistive Device?: No IF YES, STOP HERE Heart Failure (Qualifier) Patient has current or prior documentation of LVEF less than or equal to 40%, or mod/servere depressed LVSF?: No IF NO, STOP HERE
== END 2025-04-24 09:49 | disposition swing bed (61) | DRG 189 ==
LOC: CHSED 12:58 → CHS2ND 13:08
PROVIDERS: Nurse Practitioner Family; Admitting Provider Internal Medicine; Emergency Provider Internal Medicine Critical Care Medicine; PCP Internal Medicine; Visit Provider Internal Medicine
DX: J96.21 Acute and chronic respiratory failure with hypoxia (principal); I50.33 Acute on chronic diastolic (congestive) heart failure; J18.0 Bronchopneumonia, unspecified organism; N17.9 Acute kidney failure, unspecified; J90 Pleural effusion, not elsewhere classified; I11.0 Hypertensive heart disease with heart failure; D64.9 Anemia, unspecified; E11.22 Type 2 diabetes mellitus with diabetic chronic kidney disease; E11.42 Type 2 diabetes mellitus with diabetic polyneuropathy; E78.5 Hyperlipidemia, unspecified; I71.40 Abdominal aortic aneurysm, without rupture, unspecified; I25.10 Atherosclerotic heart disease of native coronary artery without angina pectoris; I25.2 Old myocardial infarction; J43.9 Emphysema, unspecified; M10.9 Gout, unspecified; N40.0 Benign prostatic hyperplasia without lower urinary tract symptoms; R53.81 Other malaise; Z66 Do not resuscitate; Z86.73 Personal history of transient ischemic attack (TIA), and cerebral infarction without residual deficits; Z90.49 Acquired absence of other specified parts of digestive tract; Z96.652 Presence of left artificial knee joint; Z87.891 Personal history of nicotine dependence; Z79.82 Long term (current) use of aspirin; Z79.84 Long term (current) use of oral hypoglycemic drugs
CPT/HCPCS: 36415; 36600; 71045; 71275; 80053; 81001; 82550; 82805; 82948; 83605; 83690; 83735; 83880; 84145; 84484; 85025; 85380; 85610; 85730; 87040; 87637; 93005; 96374; 96375; 96376; 97110; 97161; 97165; 97530; 99291; A9270; G0378; J1644; J1938; Q9967

== ENCOUNTER 2025-04-24 09:50 | Inpatient (IN) | payer MEDICARE, OTHER, SELFPAY ==
--- NOTE | ~2025-04-24 | XR_ITS ---
Examination: XR chest 1V portable Clinical History: shortness of breath Comparison: 04/22/2025 Technique: Portable AP Findings: Heart size normal. Right pleural effusion and basilar opacity. Left basilar opacity. No acute bony abnormality. IMPRESSION: 1. No significant change or worsening from prior study. 2. Bibasilar atelectasis and/or airspace disease, with right pleural effusion. Reviewed, dictated and finalized at location R.
--- NOTE | 2025-04-24 09:50 | ADMGEN ---
This patient, Tom Fontana, was admitted to 2nd Floor Room 204-1. Patient/family oriented to hospital policies and general routines including ID bracelet, bed and alarms, visiting hours, pain management, procedures, bathroom and other care routines, personal items, smoking policy, room service/diet, and visiting hours. Information on how to activate the Rapid Response Team has been discussed. Patient/Family are encouraged to report perceived risks to care and to ask questions if they do not understand what they are told or what they should do.
[2025-04-24 10:00] VITALS: O2SAT 90
[2025-04-24 10:23] VITALS: BMI 23.3
[2025-04-24 10:38] VITALS: PULSE 76; RESP 18; O2SAT 95
[2025-04-24 16:00] VITALS: BP 113/50; PULSE 72; RESP 20; TEMP 36.4; O2SAT 93
[2025-04-24 17:49] VITALS: PULSE 84
[2025-04-24] MEDS: FUROSEMIDE 40 MG TABLET PO (17:49)
[2025-04-24] MEDS: OMEGA 3 POLYUNSAT FATTY ACIDS 1 GM CAP PO (17:49)
[2025-04-24 20:00] VITALS: PULSE 77; RESP 20; O2SAT 90
--- NOTE | 2025-04-24 20:04 | PC.NURSE ---
Patient requesting Tamsulosin be changed back to 8pm, pharmacy able to comply with that request.
[2025-04-24] MEDS: TEMAZEPAM (*CRX) 15 MG CAPSULE PO (20:06)
[2025-04-24] MEDS: guaiFENesin 12 HR 600 MG TABCR 1200 MG PO (20:08)
[2025-04-24] MEDS: TAMSULOSIN HCL 0.4 MG CAPSULE 0.8 MG PO (20:08)
[2025-04-24] MEDS: PANTOPRAZOLE 40 MG TABLET PO (20:09)
[2025-04-24] MEDS: ENALAPRIL MALEATE 5 MG TABLET 20 MG PO (20:11)
[2025-04-24] MEDS: PRAVASTATIN SODIUM 20 MG TABLET 80 MG PO (20:13)
[2025-04-24] MEDS: ACETAMINOPHEN 325 MG TABLET 650 MG PO (20:17)
[2025-04-25] VITALS (7 sets, daily range): BP systolic 107–135; BP diastolic 50–63; PULSE 73–80; RESP 18–20; TEMP 36.4–36.9; O2SAT 90–93
[2025-04-25] MEDS: ASPIRIN 81 MG ENTERIC TABLET PO (09:01)
[2025-04-25] MEDS: ENALAPRIL MALEATE 5 MG TABLET 20 MG PO ×2 (09:02→20:09)
[2025-04-25] MEDS: HYDROcodone/acetaminophen (*CRX) 5-325 MG TABLET 1 TAB PO ×2 (09:02→20:08)
[2025-04-25] MEDS: OMEGA 3 POLYUNSAT FATTY ACIDS 1 GM CAP PO ×2 (09:02→17:55)
[2025-04-25] MEDS: guaiFENesin 12 HR 600 MG TABCR 1200 MG PO ×2 (09:03→20:06)
[2025-04-25] MEDS: AZITHROMYCIN 250 MG TABLET 500 MG PO (09:03)
[2025-04-25] MEDS: PANTOPRAZOLE 40 MG TABLET PO ×2 (09:04→20:07)
[2025-04-25] MEDS: FUROSEMIDE 40 MG TABLET PO ×2 (09:04→17:55)
[2025-04-25] MEDS: CYANOCOBALAMIN 1,000 MCG TABLET 1000 MCG PO (09:04)
--- NOTE | 2025-04-25 12:25 | P.HP_ITS ---
H&P: HPI History of Present Illness Date/Time: 04/25/25 12:25 Chief Complaint: Physically deconditioned/REHAB Narrative: Patient is an 89-year-old male with a past medical history diabetic foot ulcer, CHF, BPH, pleural effusions, CKD, AAA, CAD, mi, HLD, gout, CVA, diabetes, and hypertension. Who was admitted to [facility] for rehab after he presented to the emergency department with worsening shortness breath. Patient reports he had a follow-up appointment with his store team member on 04/13 for follow-up of his bilateral pleural effusions at that time stable he then went and had a follow up appointment with his claim rep at which time they discontinued his oral Lasix and initiated Jardiance due to a bump in patient's renal function. Patient was treated with IV lasix with improvement to pleural effusion but still requiring supplemental oxygen. Had a long discussion with family and patient regarding long-term treatment they were able to speak hospice/palliative care and provided information will attempt to coordinate patient have out patient PleurX drain placed for therapeutic comfort and then likely patient will set up with hospice care at home. Was also able to discuss plan with patient store team member Shante Cha regarding plan and she is in agreement with plan will assist if needed. Review of Systems Review of Systems: All systems reviewed & are unremarkable except as noted in HPI and below PMFSH Past Medical History Medical History BPH (benign prostatic hyperplasia) Diabetic ulcer of left foot AAA (abdominal aortic aneurysm) 3.3 cm CAD (coronary artery disease) History of KS (myocardial infarction) Hyperlipidemia Gout CVA (cerebral vascular accident) Diabetes Hypertension Surgical History Surgical History H/O inguinal hernia repair 09/15/24 Laparoscopic left inguinal hernia repair with mesh, da Francois assisted Dr. Bennett History of coronary artery stent placement History of right inguinal hernia repair History of left knee replacement H/O cataract extraction History of carotid endarterectomy History of knee surgery History of cholecystectomy Family History Family History Father Parkinsons disease Mother Cancer Social History Social History Social History: lives alone, . Sons live nearby, check on him regularly. No living will or designated MPOA Smoking packs per day: 1 Smoking cigarettes per day: 20.0 Years smoked: 40 Smoking pack-years: 40.00 Smoking status: Former smoker Tobacco type: cigarettes Second hand tobacco smoke exposure: No Smoking end date: 08/25/89 Alcohol intake: never Substance use: never Substance use type: does not use Do You Feel Safe in your Home?: Yes Lack of Transportation: No Lack of Food: Never True Current Housing: I Have Housing Concerned About Future Housing: No Difficulty Paying Gas/Electric Bills: No Difficulty Paying for Meds: No Currently Unemployed: No Education: High School Diploma/GED Difficulty w/ Childcare or Family Care: No Living arrangements: alone Occupation/Education: retired Gender identity (if verbalized by the patient): Male Spiritual care concerns: No Meds Home Medications and Allergies Home Medications ?Medication ?Instructions ?Recorded ?Confirmed ?Type allopurinol 100 mg tablet 200 mg PO DAILY 01/08/20 History aspirin 81 mg tablet,delayed 81 mg PO DAILY 01/08/20 0 04/24/25 History release (Adult Low Dose Aspirin) carvedilol 12.5 mg tablet 12.5 mg PO BID 01/08/2003/27 History enalapril maleate 20 mg tablet 20 mg PO BID 01/08/20 0 04/24/25 History metformin 500 mg tablet 500 mg PO .AM 01/08/2004/24 History pravastatin 80 mg tablet 80 mg PO HS 01/08/20 5 History tamsulosin 0.4 mg capsule 0.8 mg PO DAILY 01/08/20 History temazepam 15 mg capsule 15 mg PO HS PRN Sleep 04/24/25 History acetaminophen 650 mg 650 mg PO Q12H 07/29/2403/27 History tablet,extended release (Tylenol Arthritis Pain) cinnamon bark 500 mg capsule 1,000 mg PO BID 07/29/24 04/24/25 History (Cinnamon) omega 5-jxm-rhv-fish oil 1,000 mg 1 cap PO BID 5 04/24/25 History (120 mg-180 mg) capsule (Fish Oil) pantoprazole 40 mg granules 40 mg PO BID 01/25/2503/27 History delayed-release for susp in packet (Protonix) cyanocobalamin (vitamin B-12) 1,000 mcg PO QAM #30 tab s 02/11/25 04/24/25 Rx 1,000 mcg tablet (Vitamin B-12) hydrocodone 5 mg-acetaminophen 325 1 tablet PO Q6H PRN pain #20 tabs 02/11/25 04/24/25 Rx mg tablet amoxicillin 875 mg-potassium 1 tablet PO Q12H #6 tabs 04/24/25 04/24/25 Rx clavulanate 125 mg tablet azithromycin 250 mg tablet 500 mg (2 x 250 mg) PO TAYLA Y #2 04/24/25 04/24/25 Rx (Zithromax) tabs furosemide 20 mg tablet 40 mg (2 x 20 mg) PO BID #30 tabs 04/24/25 04/24/25 Rx guaifenesin 600 mg tablet, 1,200 mg (2 x 600 mg) PO Q1 2HR #1 04/24/25 04/24/25 Rx extended release 12 hr (Mucus tablet Relief ER) Allergies Allergy/AdvReac Type Severity Reaction Status Date / Time tramadol Allergy Mild Rash Verified 04/22/25 15:40 Vital Signs Vital Signs - 24 hr 04/24/25 16:00 04/24/25 17:49 04/24/25 20:00 Temperature 97.5 F L Pulse Rate 72 84 77 Respiratory Rate 20 20 Blood Pressure 113/50 L Pulse Oximetry 93 90 Oxygen Delivery Nasal Cannula Nasal Cannula Oxygen Flow Rate 3 3 04/25/25 00:00 04/25/25 08:00 04/25/25 09:01 Temperature 98.5 F 97.5 F L Pulse Rate 73 73 73 Respiratory Rate 18 18 Blood Pressure 135/56 L 129/63 Pulse Oximetry 90 93 Oxygen Delivery Nasal Cannula Nasal Cannula Oxygen Flow Rate 3 3 Exam Const: General: comfortable and no acute distress Other: Frail elderly gentlemen with family at bedside HENMT: Ears: TM's normal bilaterally Face/Nose/Sinus: Normal nares present Mouth: Yes moist mucous membranes Eyes: General: appearance normal, both eyes and all related structures Sclera: sclerae normal Pupils: Equal, round and reactive pupils present Neck: Neck: supple and no JVD Resp: Auscultation: diminished lung sounds (Throughout) bilateral Other: R>L on 3L supplemental oxygen Cardio: Rate: regular rate Rhythm: regular rhythm GI: GI Palp: Yes Soft to palpation Auscultation: normal bowel sounds : General: Yes bladder normal to palpation Urinary Catheter: Urinary Catheter: other ( sedimentation) Skin: General skin exam: normal color and no rashes or lesions noted Wounds: no wounds Neuro: Speech: normal speech Motor exam (neuro): Abnormal motor strength present Other: Unsteady gait Extrem: General: edema (R>L) bilateral Psych: Mental Status: mental status grossly normal Affect: normal affect H&P: Results Labs Labs: Short CBC 04/20/25 04/21/25 Range/Units 10:17 05:13 WBC 7.7 4.5 L (4.8-10.8) K/mm3 Hgb 11.4 L 10.6 L (12.4-15.3) g/dL Hct 37.0 34.2 L (37.0-46.0) % Plt Count 190 162 (150-420) K/mm3 BMP 04/20/25 04/21/25 10:17 05:13 Sodium 139 139 Potassium 5.4 H 4.7 Chloride 105 102 Carbon Dioxide 28 31 H BUN 34 H 37 H Creatinine 1.52 H 1.63 H Glucose 142 H 99 Calcium 8.7 8.5 Cardiac Enzymes 04/20/25 Range/Units 10:17 Total Creatine Kinase < 20 L (55-170) U/L Troponin I 0.019 (0.000-0.034) ng/mL Liver Function 04/20/25 04/21/25 Range/Units 10:17 05:13 Total Bilirubin 0.8 0.5 (0.2-1.3) mg/dL AST 29 16 L (17-59) U/L ALT 17 12 (6-50) U/L Alkaline Phosphatase 83 73 (38-126) U/L Albumin 3.3 L 2.8 L (3.5-5.1) g/dL Urine 04/20/25 Range/Units 13:09 Urine Color Light yellow (Yellow) Urine Appearance Clear (Clear) Urine pH 6.0 (5.0-8.0) Ur Specific [place] 1.010 (1.010-1.020) Urine Protein Negative (Negative) Urine Glucose (UA) 2+ H (Negative) Assessment and Plan Assessment and plan (1) Acute respiratory failure with hypoxia: Code(s): J96.01 - Acute respiratory failure with hypoxia Status: Acute Assessment and Plan: Patient still requiring 3 L supplemental oxygen patient does not currently wear oxygen home likely secondary to patient's reaccumulation of bilateral pleural effusions. * continue to wean oxygen as tolerated to maintain 92% * patient may need home O2 walk study prior to discharge * continue to treat and diurese with oral Lasix 40mg BID * continue with incentive spirometer while awake (2) Pleural effusion: Code(s): J90 - Pleural effusion, not elsewhere classified Status: Acute Assessment and Plan: 01/19/2025 showed bilateral pleural effusions/US guided thoracentesis on 03/14/25 at [facility] which yielded 1600mL of fluid, Pleural studies detailed below, seems to be transudative effusion from decompensated heart failure. patient had follow up with claim rep a few days prior to arrival and was taken off his Lasix started on Jardiance presents today with worsening pleural effusion. patient follows with pulmonology outpatient had recently had an appointment on 04/13. previous pleural studies:Pleural fluid - pH > 7.5, hazy yellow, protein 3.1, albumin 2.0, LDH 121, glucose 102. Lymphocytes 99. Pleural fluid cultures showed no bacterial growth. Pleural fluid cytology showed scattered lymphocytes and red blood cells. Rare mesothelial cells. Negative for malignancy. * fluid reaccumulation may need diagnostic and therapeutic thoracentesis of note on the CTA there is a new left upper nodule measuring 8 x [address] follow-up in 3 months * initiate incentive spirometer * resumed IV Lasix b.i.d. will monitor renal function closely diuresis * Stopped Jardiance will transition back to oral lasix at discharge Plan to try and coordinate outpatient PleurX drain placement for comfort and th erapeutic purposes then discharge to home on hospice once placed. (3) Physical debility: Code(s): R53.81 - Other malaise Status: Acute Assessment and Plan: swing bed rehab after deconditioned state from hospitalization * PT/OT * encourage mobility and activity with staff * up at a bed with all meals (4) Hypertension: Code(s): I10 - Essential (primary) hypertension Status: Acute Assessment and Plan: * resume patient's carvedilol and Vasotec * BP per unit protocol (5) CAD (coronary artery disease): Code(s): I25.10 - Atherosclerotic heart disease of [place] coronary artery without angina pectoris Status: Acute Assessment and Plan: patient with history of KS and stent placement * resume patient's statin and ASA (6) Hyperlipidemia: Code(s): E78.5 - Hyperlipidemia, unspecified Status: Acute Assessment and Plan: * continue statin (7) Diabetes: Qualifiers: Diabetes mellitus complication detail: with polyneuropathy Diabetes mellitus complication status: with neurologic complications Diabetes mellitus longwall shearer operator insulin use: without longwall shearer operator use Diabetes mellitus type: type 2 Qualified Code(s): 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 thy Code(s): E11.9 - Type 2 diabetes mellitus without complications Status: Acute Assessment and Plan: * holding metformin would like to D/C due to renal function * Accu-Cheks a.cKimberly HS * low-dose SSI * hypoglycemic protocol * diabetic diet (8) COPD with chronic bronchitis and emphysema: Code(s): J44.9 - Chronic obstructive pulmonary disease, unspecified Status: Acute Assessment and Plan: patient with new supplemental oxygen requirement from previous hospitalization at 3 L nasal cannula * wean if tolerated (9) BPH (benign prostatic hyperplasia): Code(s): N40.0 - Benign prostatic hyperplasia without lower urinary tract symptoms Status: Acute Assessment and Plan: patient with history of BPH * resumed patient's Flomax * bladder scan PRN L (10) Anemia: Code(s): D64.9 - Anemia, unspecified Status: Acute Assessment and Plan: Patient with recent hospitalization due to ulceration since has resolved hemoglobin stable at 10.6 today * continue with PPI b.i.d. * trend hemoglobin and monitor for any signs of overt GIB * Transfuse PRBC if Hgb <7.0 Plan Code status: DNR/DNI DVT prophylaxis: SCd's Stress ulcer prophylaxis: Protonix 40 BID PT/OT notes: Swing BED rehab Disposition: Swing bed rehab discharge plan per above. May need to set-up home oxygen at discharge if unable to start hospice care at discharge. Quality VTE Prophylaxis VTE prophylaxis: mechanical ordered -Patient's previous records reviewed on admission -ER notes reviewed in detail on admission -discussed all findings and current treatment plan with patient/Family/POA -Consultations reviewed for recommendations -Patient's disposition for safe discharge discussed with corrections caseworker Dictation performed by [employer] direct speech recognition software, therefore feather drying machine operator variants and typographical errors may occur. Hospitalist MIPS Advance Care Plan I have confirmed that the patient's Advanced Care Plan is present, code status is documented, or surrogate decision maker is listed in patient medical record.: Yes Medication Reconciliation I have utilized all available resources to obtain, update and review the patients current medications (includes all prescriptions, OTC, herbals, cannabis, and nutritional supplements).: Yes The patient is not eligible for med reconciliation; the patient is in a emergent medical situation where delaying treatment would jeopardize the patients health.: No
[2025-04-25] MEDS: ACIDOPHILUS/BULGARICUS CHEWABLE TABLET 1 TABLET PO ×3 (13:24→20:04)
[2025-04-25] MEDS: TAMSULOSIN HCL 0.4 MG CAPSULE 0.8 MG PO (20:03)
[2025-04-25] MEDS: PRAVASTATIN SODIUM 20 MG TABLET 80 MG PO (20:05)
[2025-04-25] MEDS: TEMAZEPAM (*CRX) 15 MG CAPSULE PO (20:11)
[2025-04-26] VITALS (7 sets, daily range): BP systolic 103–131; BP diastolic 43–55; PULSE 67–82; RESP 17–21; TEMP 36.4–36.8; O2SAT 89–92
[2025-04-26] MEDS: OMEGA 3 POLYUNSAT FATTY ACIDS 1 GM CAP PO ×2 (09:14→17:35)
[2025-04-26] MEDS: ASPIRIN 81 MG ENTERIC TABLET PO (09:16)
[2025-04-26] MEDS: CYANOCOBALAMIN 1,000 MCG TABLET 1000 MCG PO (09:16)
[2025-04-26] MEDS: AZITHROMYCIN 250 MG TABLET 500 MG PO (09:16)
[2025-04-26] MEDS: ENALAPRIL MALEATE 5 MG TABLET 20 MG PO ×2 (09:16→20:41)
[2025-04-26] MEDS: ACIDOPHILUS/BULGARICUS CHEWABLE TABLET 1 TABLET PO ×4 (09:16→20:42)
[2025-04-26] MEDS: guaiFENesin 12 HR 600 MG TABCR 1200 MG PO ×2 (09:16→20:41)
[2025-04-26] MEDS: FUROSEMIDE 40 MG TABLET PO ×2 (09:16→17:35)
[2025-04-26] MEDS: PANTOPRAZOLE 40 MG TABLET PO ×2 (09:17→20:41)
--- OUTSIDE RECORDS SUMMARY | 2025-04-26 13:45 | XMS_ITS | Clinical Summary ---
Author Organization [facility] Address [address] [place] [address] Care Team Providers Care Sewing Machine Attachment Tester Name Role Phone Tavo Caruso MD Primary Care Provider [phone] Mario Blankenship DPM Unavailable [phone] Parker Pham MD Unavailable [phone] Allergies Active Allergy Reactions Criticality Noted Date Comments Tramadol Angioedema 03/13/2020 Medications ASPIRIN 81 OR Take 81 mg by mouth daily. 10/12/19 05 Active enalapril 20 MG tablet Take 1 tablet (20 mg total) by mouth 2 (two) times daily. 10/11/19 10 Active HYDROcodone-acet aminophen 5-325 MG tablet Take 1 tablet by mouth every 6 (six) hours as needed. 02/29/20 20 Active metFORMIN 500 MG tablet Take 1 tablet (500 mg total) by mouth 2 (two) times daily. 04/29/20 07 Active temazepam 15 MG capsule Take 1 capsule (15 mg total) by mouth nightly as needed. 01/26/20 20 Active allopurinol 100 MG tablet Take 2 [...] Compresson stocking Dx I83.893 1 Container 6 03/14/20 20 Active carvedilol 12.5 MG tablet Take 1 tablet (12.5 mg total) by mouth 2 (two) times daily. Active acetaminophen 325 MG tablet Take 2 tablets (650 mg total) by mouth every 6 (six) hours as needed for Pain. Active COMPRESSION STOCKINGS 15-20 MMHg Compression Stocking Knee High open or closed toe Dx I83.893 1 Container 6 05/29/20 Active OXYGEN CONCENTRATOR SUPPLY, DME,Indications: (HFpEF) heart failure with preserved ejection fraction (CMS/HCC HHS/HCC),Emphyse ma lung (CMS/[facility] HHS/HCC) 1 Device by Nasal route continuous. Nasal Cannula. 2L continuous. Portable Oxygen Tanks. Stationary Concentrator. 1 Device 01/25/20 25 Active pantoprazole EC (PROTONIX) 40 MG tablet Take 1 tablet (40 mg total) by mouth 2 (two) times daily before meals. 30 tablet 01/26/20 25 Active empagliflozin (JARDIANCE) 10 MG tablet Take 1 tablet (10 mg total) by mouth daily. 90 tablet 3 04/12/20 25 Active clopidogrel (PLAVIX) 75 MG tablet Take 1 tablet (75 mg total) by mouth daily. 10/14/19 04 025 Discontin ued(Side effects) Active Problems Problem Noted Date Diagnosed Date GI bleed 01/19/2025 (HFpEF) heart failure with p reserved ejection fraction ([facility] HHS/HCC) 01/19/2025 Acute anemia 01/19/2025 Coronary artery disease invo lving tejon coronary artery of tejon heart without angina pectoris 01/11/2025 Dyspnea, unspecified type 01/11/2025 Carotid artery disease without cerebral infarcti on 11/28/2020 Acute gout of right elbow, unspecified cause Rupture of proximal biceps tendon, right, initia l encounter 08/23/2020 PAD (peripheral artery disease) 03/14/2020 Ulcer of left lower extremit y with fat layer exposed ([facility] HHS/HCC) 03/14/2020 Leg edema 03/14/2020 Essential hypertension 03/14/2020 Mixed hyperlipidemia Encounters Date Type Department Care Team Description 04/21/2025 Telephone [facility] [address] [place] [address] Parker Pham MD Schedule Test 04/13/2025 Telephone [facility] [address] [place] [address] Parker Pham MD Record Request 04/12/2025 12:45 PM CDT Office Visit [facility] [id number] [place] [address] Parker Pham MD Heart Problem 04/12/2025 Travel 04/11/2025 3:34 PM CDT - 04/11/2025 11:59 PM CDT Hospital Encounter [facility] [address] [place] [address] [place] [address] Tavo Caruso MD Discharge Disposition: Home or Self Care (Routine Discharge) 04/11/2025 Orders Only [facility] [address] [place] [address] [place] [address] Tavo Caruso MD 04/11/2025 Telephone [facility] [address] [place] [address] Parker Pham MD Appointment Reminder 03/03/2025 Results Follow-Up [address] [place] [address] Nakia Snowden MA USV CAROTID DUPLEX [place] 03/02/2025 11:59 AM CDT - 03/02/2025 11:59 PM CDT Hospital Encounter [facility] [address] [place] [address] Parker Pham MD Discharge Disposition: Home or Self Care (Routine Discharge) 03/02/2025 Travel 02/24/2025 Telephone [facility] [address] [place] [address] Praker Pham MD Reschedule 01/24/[address] [facility] Care Management [facility] [facility] [address] [address] Patterson, Nakia M, inventory accountant (Swing bed referral to SFL from S/) 01/19/2025 5:06 PM CDT - 01/25/2025 1:40 PM CDT Hospital Encounter [place] [address] [place] [address] Tadeo Arenas MD Mahmoud, Anas, MD Rajendran, Nagesan, MD Singanallur, Prashanth M, MD Discharge Disposition: Care Home Facility from Last 3 Months Immunizations Immunization Administration [...] drink = 0.6 oz pur e alcohol) [facility] Utilities Answer Date Recorded In the past 12 months has e [employer], gas, oil, or water [employer] threatened to shut off services in your [...] any time in the past 12 m [facility], were you homeless or living [...] Sign Reading Time Taken Comments Blood Pressure 103/46 04/12/2025 12:41 PM CDT Pulse 63 04/12/2025 12:41 PM CDT Temperature 36.7 C (98.1 F) 01/25/2025 11:32 AM CDT Respiratory Rate 18 04/12/2025 12:4 1 PM CDT Oxygen Saturation 96% 04/12/2025 12: 41 PM CDT Inhaled Oxygen Concentration - - Weight 74.8 kg (164 lb 12.8 oz) 025 12:41 PM CDT Height 182.9 cm (6') 04/12/2025 12:41 PM CDT Body Mass Index 22.35 04/12/2025 12:41 PM CDT Plan of Treatment Upcoming Encounters Date Type Department Care Team (Late st Contact Info) Description 07/05/2025 3:00 PM ART EDUCATOR Office Visit [facility] [place] [address] Parker Pham MD [address] [facility] [address] [place] [address] Health Maintenance Due Date Last Done Comments [...] discharge from hospital Lifestyle Yes Amy Beck, gauge maker Procedure Name Priority Date/Time Associated Diagnosis Comments CBC W/DIFF AUTOMATED Routine 04/11/2025 2:00 PM CDT Heart failure ([facility]) Edema COMPREHENSIVE METABOLIC PANEL Routine 04/11/2025 2:00 PM CDT Heart failure ([facility]) Edema PRO-BRAIN NATRIURETIC PEPTIDE Routine 04/11/2025 2:00 PM CDT Heart failure ([facility]) Edema USV CAROTID DUPLEX [place] Routine 03/02/2025 12:58 [...] W/DIFF AUTOMATED Routine 01/24/2025 4:36 AM CDT LIPID PANEL Routine 02/23/2009 11:20 AM CDT from Last 3 Months or Most Recently Relevant to Health Maintenance Results * (ABNORMAL) PRO-BRAIN NATRIURETIC PEPTIDE (04/11/2025 2:00 PM CDT) PRO-B TYPE NATRIURETIC PEPTIDE 6,601(H) <450 PG/ML 04/11/2025 4:24 PM CDT [facility] Comment: CUT POINTS ESTABLISHED BY [employer] ON NT PROBNP (ICON) STUDY (2006). AGE INDEPENDENT: <300 PG/ML HAS A 99% NEGATIVE PREDICTIVE VALUE FOR EXCLUDING ACUTE CHF <50 YEARS: >450 PG/ML IS CONSISTENT WITH ACUTE CHF 50-75 YEARS: >900 PG/ML IS CONSISTENT WITH ACUTE CHF >75 YEARS: >1800 PG/ML IS CONSISTENT WITH ACUTE CHF IN PATIENTS WITH RENAL INSUFFICIENCY (GFR <60), >1200 PG/ML YIELDS A DIAGNOSTIC SENSITIVITY AND SPECIFICITY OF 89% AND 72% FOR ACUTE CHF. 04/11/2025 2:00 PM CDT us Tavo Caruso MD LABORATORY Final Result [facility] [address] [id number], * (ABNORMAL) COMPREHENSIVE METABOLIC PANEL (04/11/2025 2:00 PM CDT) Only the most recent of2 resultswithin the time period is included. SODIUM S/P/B 143 136 - 145 MMOL/L 04/11/2025 4:24 PM CDT [facility] POTASSIUM S/P/B 4.8 3.5 - 5.1 MMOL/L 04/11/2025 4:24 PM CDT [facility] CHLORIDE S/P/B 105 98 - 107 MMOL/L 04/11/2025 4:24 PM CDT [facility] CO2 31.9 21.0 - 32.0 MMOL/L 04/11/2025 4:24 PM CDT [facility] GLUCOSE 104(H) 70 - 99 MG/DL 04/11/2025 4:24 PM CDT [facility] Comment: FASTING GLUCOSE 100 TO 125 MG/DL IS CONSISTENT WITH IMPAIRED FASTING GLUCOSE. FASTING GLUCOSE >125 MG/DL IS CONSISTENT WITH DIABETES. RANDOM GLUCOSE >200 MG/DL WITH HYPERGLYCEMIC SYMPTOMS IS CONSISTENT WITH DIABETES. PER ADA GUIDELINES BUN 35(H) 6 - 24 MG/DL 04/11/2025 4:24 PM CDT [facility] CREATININE S/P/B 1.53(H) 0.70 - 1.30 MG/DL 04/11/2025 4:24 PM CDT [facility] CALCIUM S/P/B 9.2 8.4 - 10.5 MG/DL 04/11/2025 4:24 PM CDT [facility] BILIRUBIN TOTAL S/P/B 0.4 0.2 - 1.0 MG/DL 04/11/2025 4:24 PM CDT [facility] Comment: THIS ASSAY IS NOT RECOMMENDED FOR PATIENTS UNDERGOING TREATMENT WITH ELTROMBOPAG DUE TO THE POTENTIAL FOR FALSELY ELEVATED RESULTS. ALKALINE PHOSPHATASE S/P/B 87 45 - 115 U/L 04/11/2025 4:24 PM CDT [facility] AST 10(L) 15 - 37 U/L 04/11/2025 4:24 PM CDT [facility] ALT 13(L) 16 - 63 U/L 04/11/2025 4:24 PM CDT [facility] TOTAL PROTEIN S/P/B 6.5 6.4 - 8.2 G/DL 04/11/2025 4:24 PM CDT [facility] ALBUMIN S/P/B 2.9(L) 3.4 - 5.0 G/DL 04/11/2025 4:24 PM CDT [facility] ANION GAP 6.1 5.0 - 15.0 MMOL/L 04/11/2025 4:24 PM CDT [facility] OSMOLALITY (CALC) 304 MOSM/KG 025 4:24 PM CDT [facility] Comment:REFERENCE RANGE NOT ESTABLISHED GFR ESTIMATE 43(L) >89 ML/MIN/1. 73 M2 04/11/2025 4:24 PM CDT [facility] GFR NOTES GFR REFERENCE S: 04/11/2025 4:24 PM CDT [facility] Comment: THE ESTIMATED GFR [...] ml/min/1.73 m2 G5,KIDNEY FAILURE: <15 ml/min/1.73 m2 04/11/2025 2:00 PM CDT us Tavo Caruso MD LABORATORY Final Result [facility] [address] [place] [address], * (ABNORMAL) CBC W/DIFF AUTOMATED (04/11/2025 2:00 PM CDT) Only the most recent of2 resultswithin the time period is included. WBC 4.41 4.00 - 10.80 x10'3/uL 04/11/2025 3:43 PM CDT [facility] RBC 3.45(L) 4.50 - 6.10 x10'6/uL 04/11/2025 3:43 PM CDT [facility] HGB 11.2(L) 13.0 - 18.0 G/DL 04/11/2025 3:43 PM CDT [facility] HCT 35.0(L) 37.0 - 52.0 % 04/11/2025 3:43 PM CDT [facility] MCV 101.4(H) 78.0 - 100.0 FL 04/11/2025 3:43 PM CDT [facility] MCH 32.5(H) 27.0 - 31.0 PG 04/11/2025 3:43 PM CDT [facility] MCHC 32.0(L) 33.0 - 36.0 G/DL 04/11/2025 3:43 PM CDT [facility] RDW 15.2(H) 11.5 - 14.5 % 04/11/2025 3:43 PM CDT [facility] PLT 193 150 - 350 x10'3/uL 04/11/2025 3:43 PM CDT [facility] MPV 9.5 7.4 - 10.4 FL 04/11/2025 3:43 PM CDT [facility] CBC COMMENT NORMAL REFERENCE RANGE NOT ESTABLISHED FOR THE PROPORTIONAL LEUKOCYTE DIFFERENTIAL. 04/11/2025 3:43 PM CDT [facility] NEUTROPHILS % 66.0 % 04/11/2025 3:43 PM CDT [facility] LYMPHOCYTES % 17.7 % 04/11/2025 3:43 PM CDT [facility] MONOCYTES % 12.0 % 04/11/2025 3:43 PM CDT [facility] EOSINOPHILS % 3.6 % 04/11/2025 3:43 PM CDT [facility] BASOPHILS % 0.2 % 04/11/2025 3:43 PM CDT [facility] IMMATURE GRANS % 0.5 % 04/11/20 3:43 PM CDT [facility] NRBC % 0.0 % 04/11/2025 3:43 PM CDT [facility] ABS. NEUTROPHILS 2.91 1.60 - 8.30 x10'3/uL 04/11/2025 3:43 PM CDT [facility] ABS. LYMPHOCYTES 0.78(L) 0.80 - 4.70 x10'3/uL 04/11/2025 3:43 PM CDT [facility] ABS. MONOCYTES 0.53 0.00 - 1.50 x10'3/uL 04/11/2025 3:43 PM CDT [facility] ABS. EOSINOPHILS 0.16 0.00 - 0.40 x10'3/uL 04/11/2025 3:43 PM CDT [facility] ABS. BASOPHILS 0.01 0.00 - 0.20 x10'3/uL 04/11/2025 3:43 PM CDT [facility] ABS. IMMATURE GRANULOCYTES 0.02 0.00 - 0.03 x10'3/uL 04/11/2025 3:43 PM CDT [facility] ABS. NUCLEATED RBC'S 0.00 0.00 - 0.01 x10'3/uL 04/11/2025 3:43 PM CDT [facility] 04/11/2025 2:00 PM CDT us Tavo Caruso MD LABORATORY Final Result [facility] [address] [place] [address], * USV CAROTID DUPLEX [place] (03/02/2025 12:58 PM CDT) Anatomical Region Laterality Modality Neck Ultrasound 03/02/2025 12:2 8 PM CDT Narrative 03/03/2025 7:22 AM CDT [facility] Carotid Ultrasound Vascular Report Pat.Name: Tom Fontana Pat.ID: [id number] .Date: 03/02/2025 Refer.MD: Delmis, [facility] Exam Time: 12:28:00 PM Study Type:OUTREACH CAROTID SCAN BILATERAL Height: 72 in Age: 8 1935,89Y Sex: M Pat. 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 [...] 03/03/2025 Outreach Carotid Ultrasound Vascular Report Pat.Name: Tom Fontana Pat.ID: [id number] .Date: 03/02/2025 Refer.MD: Delmis, [facility] Exam Time: 12:28:00 PM Study Type:OUTREACH CAROTID SCAN BILATERAL Height: 72 in Age: 8 1935,89Y Sex: M Pat. 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 ++++++++++++++++++++++++++++++++++++ FINDINGS: ++++++++++++++++++++++++++++++++++++ Rt ICA: [...] AM Jennifer Bobby M.D. Parker Pham MD [facility] Final Result * (ABNORMAL) BASIC METABOLIC PANEL (01/25/2025 5:44 AM CDT) Pathologist [facility] SODIUM S/P/B 142 136 - 145 MMOL/L 01/25/2025 6:35 AM CDT [facility] POTASSIUM S/P/B 3.3(L) 3.5 - 5.1 MMOL/L 01/25/2025 6:35 AM CDT [facility] CHLORIDE S/P/B 103 97 - 115 MMOL/L 01/25/2025 6:35 AM CDT [facility] CO2 32.5(H) 21.0 - 32.0 MMOL/L 01/25/2025 6:35 AM CDT [facility] GLUCOSE 119(H) 74 - 106 MG/DL 01/25/2025 6:35 AM CDT [facility] BUN 29(H) 7 - 18 MG/DL 01/25/2025 6:35 AM CDT [facility] CREATININE S/P/B 1.18 0.70 - 1.30 MG/DL 01/25/2025 6:35 AM CDT [facility] CALCIUM S/P/B 9.2 8.5 - 10.1 MG/DL 01/25/2025 6:35 AM CDT [facility] ANION GAP 6.5 2.0 - 10.0 MMOL/L 01/25/2025 6:35 AM CDT [facility] OSMOLALITY (CALC) 301 MOSM/KG 025 6:35 AM CDT [facility] Comment:REFERENCE RANGE NOT ESTABLISHED GFR ESTIMATE 59(L) >90 ML/MIN/1. 73 M2 01/25/2025 6:35 AM CDT [facility] GFR NOTES GFR REFERENCE S: 01/25/2025 6:35 AM CDT [facility] Comment: THE ESTIMATED GFR IS [...] CDT Andrew Ariza MD LABORATORY Final Result [facility] [address] [place] [address], [id number] * (ABNORMAL) CBC, AUTO, NO DIFF (01/25/2025 5:44 AM CDT) WBC 7.98 4.00 - 10.80 x10'3/uL 01/25/2025 6:13 AM CDT [facility] RBC 2.50(L) 4.50 - 6.10 x10'6/uL 01/25/2025 6:13 AM CDT [facility] HGB 8.2(L) 13.0 - 18.0 G/DL 01/25/2025 6:13 AM CDT [facility] HCT 25.5(L) 37.0 - 52.0 % 01/25/2025 6:13 AM CDT [facility] MCV 102.0(H) 78.0 - 100.0 FL 01/25/2025 6:13 AM CDT [facility] MCH 32.8(H) 27.0 - 31.0 PG 01/25/2025 6:13 AM CDT [facility] MCHC 32.2(L) 33.0 - 36.0 G/DL 01/25/2025 6:13 AM CDT [facility] RDW 18.0(H) 11.5 - 14.5 % 01/25/2025 6:13 AM CDT [facility] PLT 190 150 - 350 x10'3/uL 01/25/2025 6:13 AM CDT [facility] MPV 10.0 7.4 - 10.4 FL 01/25/2025 6:13 AM CDT [facility] 01/25/2025 5:44 AM CDT Andrew Ariza MD LABORATORY Final Result [facility] [address] [place] [address], [id number] * (ABNORMAL) URINALYSIS (01/24/2025 10:54 AM CDT) COLOR (U) LIGHT YELLOW 01/24/2025 11:08 AM CDT [facility] TRANSPARENCY CLEAR 01/24/2025 11:08 AM CDT [facility] SPECIFIC GRAVITY (U) 1.008 1.002 - 1.035 01/24/2025 11:08 AM CDT [facility] U PH 5.5 5 - 8 01/24/2025 11:08 AM CDT [facility] PROTEIN RANDOM (U) NEGATIVE NEGATIVE 01/24/2025 11:08 AM CDT [facility] GLUCOSE (U) NEGATIVE NEGATIVE MG/DL 01/24/2025 11:08 AM CDT [facility] KETONES MG/DL (U) NEGATIVE NEGATIVE 01/24/2025 11:08 AM CDT [facility] BILIRUBIN (U) NEGATIVE NEGATIVE 01/24/2025 11:08 AM CDT [facility] BLOOD (U) 3+(A) NEGATIVE 01/24/2025 11:08 AM CDT [facility] NITRITES NEGATIVE NEGATIVE 01/24/2025 11:08 AM CDT [facility] UROBILINOGEN NORMAL 0 - 1 EU/DL 01/24/2025 11:08 AM CDT [facility] LEUKOCYTES (U) NEGATIVE NEGATIVE 01/24/2025 11:08 AM CDT [facility] RBC/HPF 36(H) 0 - 3 /HPF 01/24/2025 11:08 AM CDT [facility] WBC/HPF 1 0 - 6 /HPF 01/24/2025 11:08 AM CDT [facility] BACTERIA (U) NONE /HPF 01/24/2025 11:08 AM CDT [facility] SQUAMOUS EPITHELIALS <1 01/24/2025 11:08 AM CDT [facility] URINE SPECIMEN OBTAINED BY CLEAN CATCH PROCEDURE / Unknown 01/24/2025 10:54 AM CDT us Andrew Ariza MD URINE ORDERABLES Trinity thao Result [facility] [address] [place] [address], [id number] * (ABNORMAL) LIPID PANEL (02/23/2009 11:20 AM [...] Recently Relevant to Health Maintenance Insurance [facility] AET [employer]OB[employer] MEDICARE AETNA [facility] Advance Directives * DNR (Latest Code Status on File) Date Activated Date Inactivated Comments 01/20/2025 11:38 AM 01/25/2025 3:45 PM * Full Code Date Activated Date Inactivated Comments 01/20/2025 8:29 AM 01/20/2025 11:38 AM Care Teams Sewing Machine Attachment Tester Relationship Specialty Start Date End Date Tavo Caruso MD [address] [place] [phone] PCP - General INTERNAL MEDICINE 03/15/17 Mario Blankenship DPM [address] [place] [id number] Referring Physician PODIATRY/SURGERY 05/28/21 Parker Pham MD [address] [address] Physician INTERVENTIONAL CARDIOLOGY 10/29/24
--- OUTSIDE RECORDS SUMMARY | 2025-04-26 13:45 | XMS_ITS | Encounter Summary ---
Author Organization [facility] Address [facility] [place] [address] Care Team Providers Care Industrial Therapist Name Role Phone Tavo Caruso MD Primary Care Provider [phone] Mario Blankenship DPM Unavailable [phone] Parker Pham MD Unavailable [phone] Encounter Details Date Type Department Care Team (Latest Contact Info) Description 03/03/2025 Results Follow-Up [facility] [place] [phone] Nakia Snowden MA USV CAROTID DUPLEX [place] Social History Tobacco Use Types Packs/Day Years Used Date Smoking Tobacco: Former Cigarettes 1.5 40 1 953 - 1992 Smokeless Tobacco: Former Chew Quit: 1994 Alcohol Use Standard Drinks/Week Comments Not Currently 0 (1 standard drink = 0.6 oz pur e alcohol) [facility] Utilities Answer Date Recorded In the past 12 months has [facility] [employer] gas, oil, or water [employer] threatened to shut off services in your [...] any time in the past 12 m [facility], were you homeless or living in a chcf (including now)? No 01/19/2025 Sex and Gender [...] st Contact Info) Description 07/05/2025 3:00 PM GOVERNMENT RELATIONS ANALYST Office Visit [facility] [place] [address] Parker Pham MD [address] [place] [phone] documented as of this encounter Goals Goal Patient Goal Type Associated Problems Recent Progress Patient-Stated? 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 RN documented as of this encounter Visit Diagnoses Not on filedocumented in this encounter Care Teams Industrial Therapist Relationship Specialty Start Date End Date Tavo Caruso MD [address] [place] [address] PCP - General INTERNAL MEDICINE 03/15/17 Mario Blankenship DPM [address] [place] [address] Referring Physician PODIATRY/SURGERY 05/28/21 Parker Pham MD [address] [address] Physician INTERVENTIONAL CARDIOLOGY 10/29/24 documented as of this encounter
[2025-04-26] MEDS: PRAVASTATIN SODIUM 20 MG TABLET 80 MG PO (20:41)
[2025-04-26] MEDS: TEMAZEPAM (*CRX) 15 MG CAPSULE PO (20:42)
[2025-04-26] MEDS: TAMSULOSIN HCL 0.4 MG CAPSULE 0.8 MG PO (20:42)
[2025-04-26] MEDS: HYDROcodone/acetaminophen (*CRX) 5-325 MG TABLET 1 TAB PO (20:51)
[2025-04-27 05:30] VITALS: O2SAT 90
[2025-04-27 08:00] VITALS: BP 112/52; PULSE 68; RESP 17; TEMP 36.6; O2SAT 92
[2025-04-27] MEDS: ASPIRIN 81 MG ENTERIC TABLET PO (10:14)
[2025-04-27] MEDS: ENALAPRIL MALEATE 5 MG TABLET 20 MG PO ×2 (10:14→20:06)
[2025-04-27] MEDS: ACIDOPHILUS/BULGARICUS CHEWABLE TABLET 1 TABLET PO ×3 (10:14→20:06)
[2025-04-27] MEDS: OMEGA 3 POLYUNSAT FATTY ACIDS 1 GM CAP PO ×2 (10:15→16:51)
[2025-04-27] MEDS: FUROSEMIDE 40 MG TABLET PO ×2 (10:15→16:51)
[2025-04-27] MEDS: guaiFENesin 12 HR 600 MG TABCR 1200 MG PO ×2 (10:15→20:06)
[2025-04-27] MEDS: PANTOPRAZOLE 40 MG TABLET PO ×2 (10:15→20:06)
[2025-04-27] MEDS: CYANOCOBALAMIN 1,000 MCG TABLET 1000 MCG PO (10:15)
[2025-04-27 10:16] VITALS: PULSE 68
[2025-04-27 16:00] VITALS: BP 126/61; PULSE 76; RESP 17; TEMP 36.8; O2SAT 90
[2025-04-27 16:51] VITALS: PULSE 72
[2025-04-27 20:00] VITALS: PULSE 72; RESP 17; O2SAT 90
[2025-04-27] MEDS: PRAVASTATIN SODIUM 20 MG TABLET 80 MG PO (20:05)
[2025-04-27] MEDS: TAMSULOSIN HCL 0.4 MG CAPSULE 0.8 MG PO (20:06)
[2025-04-27] MEDS: TEMAZEPAM (*CRX) 15 MG CAPSULE PO (20:20)
[2025-04-27] MEDS: HYDROcodone/acetaminophen (*CRX) 5-325 MG TABLET 1 TAB PO (20:20)
[2025-04-28] VITALS: BP 117/44; PULSE 74; RESP 18; TEMP 36.6; O2SAT 89
[2025-04-28 05:30] VITALS: O2SAT 90
[2025-04-28 08:00] VITALS: BP 90/40; PULSE 64; RESP 16; TEMP 36.4; O2SAT 97
[2025-04-28] MEDS: OMEGA 3 POLYUNSAT FATTY ACIDS 1 GM CAP PO ×2 (13:06→17:48)
[2025-04-28] MEDS: guaiFENesin 12 HR 600 MG TABCR 1200 MG PO ×2 (13:07→20:16)
[2025-04-28] MEDS: ACIDOPHILUS/BULGARICUS CHEWABLE TABLET 1 TABLET PO ×3 (13:08→20:18)
[2025-04-28] MEDS: PANTOPRAZOLE 40 MG TABLET PO ×2 (13:08→20:16)
[2025-04-28] MEDS: ASPIRIN 81 MG ENTERIC TABLET PO (13:09)
[2025-04-28] MEDS: CYANOCOBALAMIN 1,000 MCG TABLET 1000 MCG PO (13:09)
[2025-04-28] MEDS: HYDROcodone/acetaminophen (*CRX) 5-325 MG TABLET 1 TAB PO ×2 (13:10→20:17)
[2025-04-28 16:00] VITALS: BP 110/44; PULSE 88; RESP 20; TEMP 36.6; O2SAT 93
[2025-04-28] MEDS: FUROSEMIDE 40 MG TABLET PO (17:48)
[2025-04-28 20:00] VITALS: PULSE 80; RESP 20; O2SAT 90
[2025-04-28] MEDS: ENALAPRIL MALEATE 5 MG TABLET 20 MG PO (20:12)
[2025-04-28] MEDS: TAMSULOSIN HCL 0.4 MG CAPSULE 0.8 MG PO (20:14)
[2025-04-28] MEDS: PRAVASTATIN SODIUM 20 MG TABLET 80 MG PO (20:15)
[2025-04-28] MEDS: TEMAZEPAM (*CRX) 15 MG CAPSULE PO (20:18)
[2025-04-29] VITALS (7 sets, daily range): BP systolic 87–128; BP diastolic 38–55; PULSE 65–88; RESP 16–20; TEMP 36.4–36.9; O2SAT 88–95
[2025-04-29] MEDS: CYANOCOBALAMIN 1,000 MCG TABLET 1000 MCG PO (08:25)
[2025-04-29] MEDS: ENALAPRIL MALEATE 5 MG TABLET 20 MG PO (08:26)
[2025-04-29] MEDS: ASPIRIN 81 MG ENTERIC TABLET PO (08:26)
[2025-04-29] MEDS: FUROSEMIDE 40 MG TABLET PO ×2 (08:27→18:13)
[2025-04-29] MEDS: OMEGA 3 POLYUNSAT FATTY ACIDS 1 GM CAP PO ×2 (08:27→18:13)
[2025-04-29] MEDS: ACIDOPHILUS/BULGARICUS CHEWABLE TABLET 1 TABLET PO ×3 (08:27→20:25)
[2025-04-29] MEDS: PANTOPRAZOLE 40 MG TABLET PO ×2 (08:27→20:24)
[2025-04-29] MEDS: guaiFENesin 12 HR 600 MG TABCR 1200 MG PO ×2 (08:27→20:24)
[2025-04-29] MEDS: HYDROcodone/acetaminophen (*CRX) 5-325 MG TABLET 1 TAB PO ×2 (08:36→20:31)
--- NOTE | 2025-04-29 09:59 | PM.IMPN ---
Progress Note: A&P Assessment and Plan (1) Acute respiratory failure with hypoxia: Code(s): J96.01 - Acute respiratory failure with hypoxia Status: Acute Assessment and Plan: Patient still requiring 3 L supplemental oxygen. Patient does not currently wear oxygen at home Hypoxia likely secondary to patient's reaccumulation of bilateral R>L pleural effusions. Continue to wean oxygen as tolerated to maintain 92% Patient may need home O2 walk study prior to discharge Continue to treat and diurese with oral Lasix 40mg BID Continue with incentive spirometer while awake (2) Pleural effusion: Code(s): J90 - Pleural effusion, not elsewhere classified Status: Acute Assessment and Plan: 01/19/2025 showed bilateral pleural effusions/US guided thoracentesis on 03/14/25 at [facility] which yielded 1600mL of fluid Pleural studies mixed with Pl/Serum protein >0.5 but Serum alb-Pl alb >1.1. LDH low but no serum LDH to compare. Pathology negative for malignancy Suspect transudative from decompensated heart failure. Saw Traveler Changer a few days prior to arrival and was taken off his Lasix and started on Jardiance Continue Lasix. Son is trying to contact Pulmonary for repeat thoracentesis. They want to hold off on PleurX catheter. (3) CHF (congestive heart failure): Code(s): I50.9 - Heart failure, unspecified Status: Acute Assessment and Plan: Echo 01/14 showing normal LV systolic fxn with EF 55-60%, abnormal diastolic dysfunction, no aortic stenosis. BNP 64078 on last admission which is much higher than baseline. I/Os even since this admission. Order daily weight. Consider metolazone. Check BMP (4) Physical debility: Code(s): R53.81 - Other malaise Status: Acute Assessment and Plan: Debility related to recent hospitalizations. Continue PT/OT Encourage mobility and activity with staff Up at a bed with all meals (5) Hypertension: Code(s): I10 - Essential (primary) hypertension Status: Acute Assessment and Plan: Patient's blood pressure was reviewed on 04/29 Blood pressure remains well controlled. Will continue to monitor (6) CAD (coronary artery disease): Code(s): I25.10 - Atherosclerotic heart disease of [place] coronary artery without angina pectoris Status: Acute Assessment and Plan: CAD with history of AR and stent placement Continue Coreg, statin, ASA (7) Diabetes: Qualifiers: Diabetes mellitus type: type 2 Diabetes mellitus alf insulin use: without alf use Diabetes mellitus complication status: with neurologic complications Diabetes mellitus complication detail: with polyneuropathy Qualified Code(s): 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thy Code(s): E11.9 - Type 2 diabetes mellitus without complications Status: Acute Assessment and Plan: A1c 5.55 in December. Holding metformin would like to D/C due to renal function Accu-Cheks a.c. HS. 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 No wheezing appreciated. Follows with pulmonology. Wean O2 if tolerated (9) BPH (benign prostatic hyperplasia): Code(s): N40.0 - Benign prostatic hyperplasia without lower urinary tract symptoms Status: Acute Assessment and Plan: No symptoms of urine retention. Continue Flomax Bladder scan prn (10) Anemia: Code(s): D64.9 - Anemia, unspecified Status: Acute Assessment and Plan: Patient with recent hospitalization due to ulceration since has resolved hemoglobin stable in the 10-11 range Continue with PPI b.i.d. Trend hemoglobin periodically and monitor for any signs of overt GIB Transfuse PRBC if Hgb <7.0 Plan Code status: DNR/DNI DVT prophylaxis: SCD's Disposition: PT/OT. Swing bed rehab discharge plan per above. May need to set-up home oxygen at discharge if unable to start hospice care at discharge. Subjective Date/time seen: 04/29/25 09:59 Interval history: 89yo male with DM with diabetic foot ulcer, CHF, BPH, pleural effusions, CKD, AAA, CAD, HLD, gout, CVA, and HTN admitted to [facility] for rehab after he was hospitalized for acute respiratory failure and rt pleural effusion. Assuming care. Chart reviewed. Slept okay. Some positional back pain disrupted his sleep. Denies shortness of breath at rest. He does have dyspnea on exertion when working with therapy. He is up walking the halls. He does not have oxygen at home. He denies chest pain. Last bowel movement was 2 days ago. He has decreased appetite. Exam Narrative: AF 97.6 126/54 75 20 88% 3L Gen - thin male in NARD sitting up in chair Chest - decreased BS in the right base that is dull to percussion. left base crackles. CV - RRR S1/S2 Abd - Soft, scaphoid. +BS. bladder does not feel distended Ext - 1+ bilateral pedal edema Psych - Nml mood and affect Skin - Warm and dry Objective Data Vital Signs Vital Signs: Vital Signs - 24 hr 04/28/25 16:00 04/28/25 20:00 04/29/25 00:00 Temperature 97.8 F 98.4 F Pulse Rate 88 80 67 Respiratory Rate 20 20 16 Blood Pressure 110/44 L 116/53 L Pulse Oximetry 93 90 90 Oxygen Delivery Nasal Cannula Nasal Cannula Nasal Cannula Oxygen Flow Rate 3 3 3 04/29/25 07:58 04/29/25 08:25 Temperature 97.6 F Pulse Rate 75 75 Respiratory Rate 20 Blood Pressure 126/54 L Pulse Oximetry 88 L Oxygen Delivery Nasal Cannula Oxygen Flow Rate 3 Intake/Output Intake/Output: Intake & Output 04/26/25 04/27/25 04/28/25 04/29/25 23:59 23:59 23:59 23:59 Intake Total 1700 1750 1910 860 Output Total 1700 2100 1900 1325 Balance 0 -350 10 -465 Meds/Results Medications: Active Medications Generic Name Dose Route Start Last Admin Trade Name Freq PRN Reason Stop Dose Admin Acetaminophen 650 mg 04/24/25 10:38 04/24/25 20:17 Acetaminophen 325 Mg Tablet PO 650 mg Q6H PRN Administration Mild Pain (1-3) or Fever Hydrocodone Bitart/Acetaminophen 1 tab 04/24/25 10:37 04/29/25 08:36 Hydrocodone/Acetaminophen (*Crx) 5-325 Mg Tablet PO 1 tab Q6H PRN Administration Pain 4-6 Allopurinol 200 mg 04/25/25 09:00 04/29/25 08:27 Allopurinol 100 Mg Tablet PO 200 mg DAILY STELLA Administration Aspirin 81 mg 04/25/25 09:00 04/29/25 08:26 Aspirin 81 Mg Enteric Tablet PO 81 mg DAILY STELLA Administration Carvedilol 12.5 mg 04/24/25 17:00 04/29/25 08:25 Carvedilol 12.5 Mg Tablet PO 12.5 mg BID STELLA Administration Cyanocobalamin 1,000 mcg 04/25/25 09:00 04/29/25 08:25 Cyanocobalamin 1,000 Mcg Tablet PO 1,000 mcg QAM STELLA Administration Dextrose 12.5 gm 04/24/25 10:38 Dextrose 50% 25 Gm/50 Ml Syringe IV PUSH PRN PRN Hypoglycemia Protocol Enalapril Maleate 20 mg 04/24/25 21:00 04/29/25 08:26 Enalapril Maleate 5 Mg Tablet PO 20 mg Q12HR STELLA Administration Fish Oil 1 gm 04/24/25 17:00 04/29/25 08:27 [place] 3 Polyunsat Fatty Acids 1 Gm Cap PO 1 gm BID STELLA Administration Furosemide 40 mg 04/24/25 17:00 04/29/25 08:27 Furosemide 40 Mg Tablet PO 40 mg BID STELLA Administration Glucagon 1 mg 04/24/25 10:38 Glucagon For Inj 1 Mg Vial IM PRN PRN Hypoglycemia Protocol Glucose 15 gm 04/24/25 10:38 Glucose Oral Gel 15 Gm Of Glucse In 37.5 Gm Tube PO PRN PRN Hypoglycemia Protocol Guaifenesin 1,200 mg 04/24/25 21:00 04/29/25 08:27 Guaifenesin 12 Hr 600 Mg Tabcr PO 1,200 mg Q12HR STELLA Administration Dextrose 1,000 mls @ 100 mls/hr 04/24/25 10:38 Dextrose 5% 1,000 Ml IVPB PRN PRN Hypoglycemia Protocol Insulin Human Lispro 2 - 5 units 04/24/25 12:00 04/29/25 08:23 Insulin Human Lispro (*Bkc) 1,000 Units/10 Ml Vial SUB-Q Not Given TIDWM STELLA Protocol Lactobacillus Acidophilus 1 tablet 04/25/25 13:00 04/29/25 08:27 Acidophilus/Bulgaricus Chewable Tablet PO 1 tablet QID STELLA Administration Ondansetron HCl 4 mg 04/24/25 10:38 Ondansetron Hcl Odt 4 Mg Tablet PO Q6H PRN Nausea And Vomiting Pantoprazole Sodium 40 mg 04/24/25 21:00 04/29/25 08:27 Pantoprazole 40 Mg Tablet PO 40 mg Q12HR STELLA Administration Pravastatin Sodium 80 mg 04/24/25 21:00 04/28/25 20:15 Pravastatin Sodium 20 Mg Tablet PO 80 mg HS STELLA Administration Tamsulosin HCl 0.8 mg 04/24/25 20:00 04/28/25 20:14 Tamsulosin Hcl 0.4 Mg Capsule PO 0.8 mg Q24H STELLA Administration Temazepam 15 mg 04/24/25 10:37 04/28/25 20:18 Temazepam (*Crx) 15 Mg Capsule PO 15 mg HS PRN Administration Sleep Labs Labs: Laboratory Results - last 24 hr 04/28/25 04/28/25 04/28/25 12:23 16:30 20:23 POC Capillary Glucose 155 H 135 H 125 H 04/29/25 07:42 POC Capillary Glucose 106 H
[2025-04-29] MEDS: MELATONIN 5 MG TABLET PO (20:24)
[2025-04-29] MEDS: TAMSULOSIN HCL 0.4 MG CAPSULE 0.8 MG PO (20:24)
[2025-04-29] MEDS: PRAVASTATIN SODIUM 20 MG TABLET 80 MG PO (20:24)
[2025-04-30 05:30] VITALS: O2SAT 91
[2025-04-30 06:51] LABS: Anion Gap 7 mmol/L (4-12); Blood Urea Nitrogen 60 mg/dL (9-20); Calcium 9.1 mg/dL (8.4-10.2); Carbon Dioxide 35 mmol/L (22-30); Chloride 98 mmol/L (98-107); Estimated CRCL calculation 31 ml/min; Estimated Glomerular Filt Rate 43; Glucose 111 mg/dL (65-110); Osmolality Calculated 307 mOsm/kg (285-295); Potassium 3.9 mmol/L (3.4-5.0); Sodium 140 mmol/L (137-145)
[2025-04-30 08:00] VITALS: BP 109/37; PULSE 61; RESP 18; TEMP 36.5; O2SAT 91
[2025-04-30] MEDS: guaiFENesin 12 HR 600 MG TABCR 1200 MG PO ×2 (09:59→21:02)
[2025-04-30] MEDS: ACIDOPHILUS/BULGARICUS CHEWABLE TABLET 1 TABLET PO ×4 (10:00→21:02)
[2025-04-30 10:01] VITALS: PULSE 61
[2025-04-30] MEDS: FUROSEMIDE 40 MG TABLET PO ×2 (10:01→17:59)
[2025-04-30] MEDS: OMEGA 3 POLYUNSAT FATTY ACIDS 1 GM CAP PO ×2 (10:01→17:59)
[2025-04-30] MEDS: CYANOCOBALAMIN 1,000 MCG TABLET 1000 MCG PO (10:02)
[2025-04-30] MEDS: ASPIRIN 81 MG ENTERIC TABLET PO (10:02)
[2025-04-30] MEDS: PANTOPRAZOLE 40 MG TABLET PO ×2 (10:02→21:02)
[2025-04-30] MEDS: metOLazone 1.25 MG TABLET PO (10:04)
[2025-04-30] MEDS: ENALAPRIL MALEATE 5 MG TABLET 20 MG PO (10:13)
[2025-04-30 16:40] VITALS: BP 112/46; PULSE 69; RESP 18; TEMP 36.8; O2SAT 91
[2025-04-30 17:59] VITALS: PULSE 69
[2025-04-30] MEDS: TAMSULOSIN HCL 0.4 MG CAPSULE 0.8 MG PO (20:58)
[2025-04-30] MEDS: ENALAPRIL MALEATE 5 MG TABLET 10 MG PO (21:01)
[2025-04-30] MEDS: PRAVASTATIN SODIUM 20 MG TABLET 80 MG PO (21:01)
[2025-04-30] MEDS: HYDROcodone/acetaminophen (*CRX) 5-325 MG TABLET 1 TAB PO (21:01)
[2025-04-30] MEDS: MELATONIN 5 MG TABLET 10 MG PO (21:02)
[2025-05-01] VITALS (7 sets, daily range): BP systolic 101–124; BP diastolic 41–55; PULSE 60–80; RESP 18; TEMP 36.3–36.6; O2SAT 92–94
--- NOTE | 2025-05-01 07:30 | P.PNIM_ITS ---
Progress Note: A&P Assessment and Plan (1) Acute respiratory failure with hypoxia: Code(s): J96.01 - Acute respiratory failure with hypoxia Status: Acute Assessment and Plan: Patient still requiring 3 L supplemental oxygen. Patient does not currently wear oxygen at home Hypoxia likely secondary to patient's reaccumulation of bilateral R>L pleural effusions. Continue to wean oxygen as tolerated to maintain 92% Patient will home O2 walk study prior to discharge Continue to treat and diurese with oral Lasix 40mg BID Continue with incentive spirometer while awake add metolazone repeat CXR on Friday (2) Pleural effusion: Code(s): J90 - Pleural effusion, not elsewhere classified Status: Acute Assessment and Plan: 01/19/2025 showed bilateral pleural effusions/US guided thoracentesis on 03/14/25 at [facility] which yielded 1600mL of fluid Pleural studies mixed with Pl/Serum protein >0.5 but Serum alb-Pl alb >1.1. LDH low but no serum LDH to compare. Pathology negative for malignancy Suspect transudative from decompensated heart failure. Saw Crimper Assembler a few days prior to arrival and was taken off his Lasix and started on Jardiance Continue Lasix, add metolazone Son is trying to contact Pulmonary for repeat thoracentesis. They want to hold off on PleurX catheter. Repeat CXR ordered for Friday (3) CHF (congestive heart failure): Code(s): I50.9 - Heart failure, unspecified Status: Acute Assessment and Plan: Echo 01/14 showing normal LV systolic fxn with EF 55-60%, abnormal diastolic dysfunction, no aortic stenosis. BNP 84363 on last admission which is much higher than baseline. I/Os even since this admission. continue daily weights continue PO furosemide started on PO metolazone BMP ordered for Friday (4) Physical debility: Code(s): R53.81 - Other malaise Status: Acute Assessment and Plan: Debility related to recent hospitalizations. Continue PT/OT Encourage mobility and activity with staff Up at a bed with all meals (5) Hypertension: Code(s): I10 - Essential (primary) hypertension Status: Acute Assessment and Plan: Patient's blood pressure was reviewed on 04/29 Blood pressure remains well controlled. Will continue to monitor (6) CAD (coronary artery disease): Code(s): I25.10 - Atherosclerotic heart disease of [place] coronary artery without angina pectoris Status: Acute Assessment and Plan: CAD with history of LA and stent placement Continue Coreg, statin, ASA (7) Diabetes: Qualifiers: Diabetes mellitus complication detail: with polyneuropathy Diabetes mellitus complication status: with neurologic complications Diabetes mellitus snf insulin use: without snf use Diabetes mellitus type: type 2 Qualified Code(s): 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thy Code(s): E11.9 - Type 2 diabetes mellitus without complications Status: Acute Assessment and Plan: A1c 5.55 in December. Holding metformin would like to D/C due to renal function Accu-Cheks a.c. HS. 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 No wheezing appreciated. Follows with pulmonology. Wean O2 if tolerated (9) BPH (benign prostatic hyperplasia): Code(s): N40.0 - Benign prostatic hyperplasia without lower urinary tract symptoms Status: Acute Assessment and Plan: No symptoms of urine retention. Continue Flomax Bladder scan prn (10) Anemia: Code(s): D64.9 - Anemia, unspecified Status: Acute Assessment and Plan: Patient with recent hospitalization due to ulceration since has resolved hemoglobin stable in the 10-11 range Continue with PPI b.i.d. Trend hemoglobin periodically and monitor for any signs of overt GIB Transfuse PRBC if Hgb <7.0 Plan Code status: DNR/DNI DVT prophylaxis: SCD's Disposition: PT/OT. Swing bed rehab discharge plan per above. May need to set-up home oxygen at discharge if unable to start hospice care at discharge. Subjective Date/time seen: 05/01/25 07:30 Interval history: 89yo male with DM with diabetic foot ulcer, CHF, BPH, pleural effusions, CKD, AAA, CAD, HLD, gout, CVA, and HTN admitted to [facility] for rehab after he was hospitalized for acute respiratory failure and rt pleural effusion. Patient seen for follow up visit. Patient seen in his room, sitting up in bed, in no acute distress. Patient was started on PO metolazone yesterday for additional diuresis. BMP ordered for Friday and repeat CXR ordered for Friday. Patient denies acute pain. Patient asking for home milk of magnesia as he does not like the one they carry in the pharmacy. Nurse will have home medication verified by pharmacy. Plan discussed with patient's son yesterday at bedside. P osman is for patient to discharge home on Friday per son. Patient will need a walking o2 study prior to discharge. Review of Systems Review of Systems: All systems reviewed & are unremarkable except as noted in HPI and below Exam Narrative: AF 97.6 126/54 75 20 88% 3L Gen - thin male in NARD sitting up in chair Chest - decreased BS in the right base, left base crackles. CV - RRR S1/S2 Abd - Soft, scaphoid. +BS. bladder does not feel distended Ext - 1+ bilateral pedal edema Psych - Nml mood and affect Skin - Warm and dry Objective Data Vital Signs Vital Signs: Vital Signs - 24 hr 04/30/25 08:00 04/30/25 10:01 04/30/25 16:40 Temperature 97.7 F 98.2 F Pulse Rate 61 61 69 Respiratory Rate 18 18 Blood Pressure 109/37 L 112/46 L Pulse Oximetry 91 91 Oxygen Delivery Nasal Cannula Nasal Cannula Oxygen Flow Rate 4 3 04/30/25 17:59 05/01/25 00:00 Temperature 98 F Pulse Rate 69 80 Respiratory Rate 18 Blood Pressure 124/55 L Pulse Oximetry 92 Oxygen Delivery Nasal Cannula Oxygen Flow Rate 3 Intake/Output Intake/Output: Intake & Output 04/28/25 04/29/25 04/30/25 05/01/25 23:59 23:59 23:59 23:59 Intake Total 1910 1670 1560 Output Total 1900 2150 1475 Balance 10 -480 85 Meds/Results Medications: Active Medications Generic Name Dose Route Start Last Admin Trade Name Freq PRN Reason Stop Dose Admin Acetaminophen 650 mg 04/24/25 10:38 04/24/25 20:17 Acetaminophen 325 Mg Tablet PO 650 mg Q6H PRN Administration Mild Pain (1-3) or Fever Hydrocodone Bitart/Acetaminophen 1 tab 04/24/25 10:37 04/30/25 21:01 Hydrocodone/Acetaminophen (*Crx) 5-325 Mg Tablet PO 1 tab Q6H PRN Administration Pain 4-6 Allopurinol 200 mg 04/25/25 09:00 04/30/25 09:59 Allopurinol 100 Mg Tablet PO 200 mg DAILY STELLA Administration Aspirin 81 mg 04/25/25 09:00 04/30/25 10:02 Aspirin 81 Mg Enteric Tablet PO 81 mg DAILY STELLA Administration Carvedilol 12.5 mg 04/24/25 17:00 04/30/25 17:59 Carvedilol 12.5 Mg Tablet PO 12.5 mg BID STELLA Administration Cyanocobalamin 1,000 mcg 04/25/25 09:00 04/30/25 10:02 Cyanocobalamin 1,000 Mcg Tablet PO 1,000 mcg QAM STELLA Administration Dextrose 12.5 gm 04/24/25 10:38 Dextrose 50% 25 Gm/50 Ml Syringe IV PUSH PRN PRN Hypoglycemia Protocol Enalapril Maleate 10 mg 04/24/25 21:00 04/30/25 21:01 Enalapril Maleate 5 Mg Tablet PO 10 mg Q12HR STELLA Administration Fish Oil 1 gm 04/24/25 17:00 04/30/25 17:59 [place] 3 Polyunsat Fatty Acids 1 Gm Cap PO 1 gm BID STELLA Administration Furosemide 40 mg 04/24/25 17:00 04/30/25 17:59 Furosemide 40 Mg Tablet PO 40 mg BID STELLA Administration Glucagon 1 mg 04/24/25 10:38 Glucagon For Inj 1 Mg Vial IM PRN PRN Hypoglycemia Protocol Glucose 15 gm 04/24/25 10:38 Glucose Oral Gel 15 Gm Of Glucse In 37.5 Gm Tube PO PRN PRN Hypoglycemia Protocol Guaifenesin 1,200 mg 04/24/25 21:00 04/30/25 21:02 Guaifenesin 12 Hr 600 Mg Tabcr PO 1,200 mg Q12HR STELLA Administration Dextrose 1,000 mls @ 100 mls/hr 04/24/25 10:38 Dextrose 5% 1,000 Ml IVPB PRN PRN Hypoglycemia Protocol Insulin Human Lispro 2 - 5 units 04/24/25 12:00 04/30/25 17:05 Insulin Human Lispro (*Bkc) 1,000 Units/10 Ml Vial SUB-Q Not Given TIDWM STELLA Protocol Lactobacillus Acidophilus 1 tablet 04/25/25 13:00 04/30/25 21:02 Acidophilus/Bulgar[place] Chewable Tablet PO 1 tablet QID STELLA Administration Melatonin 10 mg 04/30/25 21:00 04/30/25 21:02 Melatonin 5 Mg Tablet PO 10 mg HS STELLA Administration Metolazone 1.25 mg 04/30/25 10:00 04/30/25 10:04 Metolazone 1.25 Mg Tablet PO 1.25 mg QAM STELLA Administration Ondansetron HCl 4 mg 04/24/25 10:38 Ondansetron Hcl Odt 4 Mg Tablet PO Q6H PRN Nausea And Vomiting Pantoprazole Sodium 40 mg 04/24/25 21:00 04/30/25 21:02 Pantoprazole 40 Mg Tablet PO 40 mg Q12HR STELLA Administration Pravastatin Sodium 80 mg 04/24/25 21:00 04/30/25 21:01 Pravastatin Sodium 20 Mg Tablet PO 80 mg HS STELLA Administration Tamsulosin HCl 0.8 mg 04/24/25 20:00 04/30/25 20:58 Tamsulosin Hcl 0.4 Mg Capsule PO 0.8 mg Q24H STELLA Administration Labs Labs: Laboratory Results - last 24 hr 04/30/25 04/30/25 04/30/25 07:44 11:58 16:40 POC Capillary Glucose 114 H 142 H 160 H 04/30/25 21:09 POC Capillary Glucose 127 H Quality VTE Prophylaxis VTE prophylaxis: mechanical ordered
[2025-05-01] MEDS: ASPIRIN 81 MG ENTERIC TABLET PO (09:09)
[2025-05-01] MEDS: guaiFENesin 12 HR 600 MG TABCR 1200 MG PO ×2 (09:09→22:11)
[2025-05-01] MEDS: CYANOCOBALAMIN 1,000 MCG TABLET 1000 MCG PO (09:09)
[2025-05-01] MEDS: OMEGA 3 POLYUNSAT FATTY ACIDS 1 GM CAP PO ×2 (09:09→16:56)
[2025-05-01] MEDS: FUROSEMIDE 40 MG TABLET PO ×2 (09:09→16:56)
[2025-05-01] MEDS: ACIDOPHILUS/BULGARICUS CHEWABLE TABLET 1 TABLET PO ×4 (09:09→22:12)
[2025-05-01] MEDS: PANTOPRAZOLE 40 MG TABLET PO ×2 (09:10→22:12)
[2025-05-01] MEDS: metOLazone 1.25 MG TABLET PO (09:12)
[2025-05-01] MEDS: PRAVASTATIN SODIUM 20 MG TABLET 80 MG PO (22:10)
[2025-05-01] MEDS: ENALAPRIL MALEATE 5 MG TABLET 10 MG PO (22:11)
[2025-05-01] MEDS: TAMSULOSIN HCL 0.4 MG CAPSULE 0.8 MG PO (22:11)
[2025-05-01] MEDS: MELATONIN 5 MG TABLET 10 MG PO (22:11)
[2025-05-01] MEDS: HYDROcodone/acetaminophen (*CRX) 5-325 MG TABLET 1 TAB PO (22:12)
--- NOTE | 2025-05-01 23:10 | PC.NURSE ---
Pt had multiple bouts of incontinent stool and one of continent stool. This RN and Ashli Multani RN assisted w/cleaning the pt and the bed linens each time pt called due to incontinence. Call light w/in reach, side railsx2, and bed alarm on.
[2025-05-02] VITALS (7 sets, daily range): BP systolic 116–129; BP diastolic 43–57; PULSE 62–77; RESP 19–20; TEMP 36.4–36.9; O2SAT 90–91
[2025-05-02 06:43] LABS: Anion Gap 6 mmol/L (4-12); Blood Urea Nitrogen 70 mg/dL (9-20); Calcium 9.3 mg/dL (8.4-10.2); Carbon Dioxide 38 mmol/L (22-30); Chloride 94 mmol/L (98-107); Estimated CRCL calculation 31 ml/min; Estimated Glomerular Filt Rate 45; Glucose 136 mg/dL (65-110); Osmolality Calculated 308 mOsm/kg (285-295); Potassium 4.2 mmol/L (3.4-5.0); Sodium 138 mmol/L (137-145)
[2025-05-02] MEDS: metOLazone 1.25 MG TABLET PO (08:53)
[2025-05-02] MEDS: ASPIRIN 81 MG ENTERIC TABLET PO (08:53)
[2025-05-02] MEDS: ENALAPRIL MALEATE 5 MG TABLET 10 MG PO ×2 (08:53→20:06)
[2025-05-02] MEDS: HYDROcodone/acetaminophen (*CRX) 5-325 MG TABLET 1 TAB PO ×2 (08:54→20:07)
[2025-05-02] MEDS: FUROSEMIDE 40 MG TABLET PO ×2 (08:54→17:59)
[2025-05-02] MEDS: guaiFENesin 12 HR 600 MG TABCR 1200 MG PO ×2 (08:54→20:07)
[2025-05-02] MEDS: PANTOPRAZOLE 40 MG TABLET PO ×2 (08:54→20:07)
[2025-05-02] MEDS: CYANOCOBALAMIN 1,000 MCG TABLET 1000 MCG PO (08:54)
[2025-05-02] MEDS: ACIDOPHILUS/BULGARICUS CHEWABLE TABLET 1 TABLET PO ×4 (08:54→20:07)
[2025-05-02] MEDS: OMEGA 3 POLYUNSAT FATTY ACIDS 1 GM CAP PO ×2 (08:54→17:59)
[2025-05-02] MEDS: PRAVASTATIN SODIUM 20 MG TABLET 80 MG PO (20:06)
[2025-05-02] MEDS: TAMSULOSIN HCL 0.4 MG CAPSULE 0.8 MG PO (20:07)
[2025-05-02] MEDS: TEMAZEPAM (*CRX) 15 MG CAPSULE PO (20:07)
[2025-05-03] VITALS (10 sets, daily range): BP systolic 95–116; BP diastolic 40–58; PULSE 64–72; RESP 18–20; TEMP 36.1–36.7; O2SAT 87–96
--- NOTE | 2025-05-03 02:20 | PC.NURSE ---
Patient noted sitting on floor on buttocks with legs in front of him, in room in front of bathroom door, urine noted on floor from bed to patient, bed also noted to be wet and have smear of BM on it. Bed alarm not sounding. Patient placed in standing position with gait belt and 3 nurses (ticket writer, Sydnie, and Jess). Patient able to walk back to bed, 3 skin tears noted to posterior left arm (chele 1cmx 1cm, 2nd 1cmx 1cm, 3rd 2cm x 0.25cm), likely scraped on sink in room. Patient unable to give details of fall, is confused at this time, O2 off with SPO2 at 67%.O2 reapplied and recovered to 87% on 4L/NC. Skin tears cleaned, edges reapproximated, and steri-strips applied. No other injuries or deformities noted, patient denies any pain at this time. See VS.
--- NOTE | 2025-05-03 03:02 | PC.NURSE ---
Patient began to desat while lying in bed down to 67%, O2 increased to 5L then to 6L with SPO2 ranging from 67%-82%, patient placed on non-rebreather at 10L which increased O2 up to 100%. Decreased O2 to 6L and SPO2 remained at 100%. Nasal canula replaced and O2 now at 4L with SPO2 remaining at 100%.
[2025-05-03] MEDS: HYDROcodone/acetaminophen (*CRX) 5-325 MG TABLET 1 TAB PO ×2 (05:27→20:05)
[2025-05-03] MEDS: metOLazone 1.25 MG TABLET PO (09:36)
[2025-05-03] MEDS: ACIDOPHILUS/BULGARICUS CHEWABLE TABLET 1 TABLET PO ×4 (09:36→20:05)
[2025-05-03] MEDS: PANTOPRAZOLE 40 MG TABLET PO ×2 (09:36→20:05)
[2025-05-03] MEDS: OMEGA 3 POLYUNSAT FATTY ACIDS 1 GM CAP PO ×2 (09:38→17:05)
[2025-05-03] MEDS: ASPIRIN 81 MG ENTERIC TABLET PO (09:38)
[2025-05-03] MEDS: guaiFENesin 12 HR 600 MG TABCR 1200 MG PO ×2 (09:38→20:06)
[2025-05-03] MEDS: CYANOCOBALAMIN 1,000 MCG TABLET 1000 MCG PO (09:38)
[2025-05-03] MEDS: ENALAPRIL MALEATE 5 MG TABLET 10 MG PO ×2 (09:39→20:05)
[2025-05-03] MEDS: FUROSEMIDE 40 MG TABLET PO ×2 (09:39→17:13)
--- NOTE | 2025-05-03 10:10 | WPDPN ---
Progress Note: A&P Assessment and Plan (1) Acute respiratory failure with hypoxia: Code(s): J96.01 - Acute respiratory failure with hypoxia Status: Acute Assessment and Plan: Patient still requiring 3 L supplemental oxygen. Patient does not currently wear oxygen at home Hypoxia likely secondary to patient's reaccumulation of bilateral R>L pleural effusions. Continue to wean oxygen as tolerated to maintain 92% Patient will home O2 walk study prior to discharge Continue to treat and diurese with oral Lasix 40mg BID Continue with incentive spirometer while awake add metolazone repeat CXR shows no worsening (2) Pleural effusion: Code(s): J90 - Pleural effusion, not elsewhere classified Status: Acute Assessment and Plan: 01/19/2025 showed bilateral pleural effusions/US guided thoracentesis on 03/14/25 at [facility] which yielded 1600mL of fluid Pleural studies mixed with Pl/Serum protein >0.5 but Serum alb-Pl alb >1.1. LDH low but no serum LDH to compare. Pathology negative for malignancy Suspect transudative from decompensated heart failure. Saw Doctor Chiropractic a few days prior to arrival and was taken off his Lasix and started on Jardiance Continue Lasix, add metolazone Son is trying to contact Pulmonary for repeat thoracentesis. They want to hold off on PleurX catheter. (3) CHF (congestive heart failure): Code(s): I50.9 - Heart failure, unspecified Status: Acute Assessment and Plan: Echo 01/14 showing normal LV systolic fxn with EF 55-60%, abnormal diastolic dysfunction, no aortic stenosis. BNP 68884 on last admission which is much higher than baseline. I/Os even since this admission. continue daily weights continue PO furosemide started on PO metolazone (4) Physical debility: Code(s): R53.81 - Other malaise Status: Acute Assessment and Plan: Debility related to recent hospitalizations. Continue PT/OT Encourage mobility and activity with staff Up at a bed with all meals (5) Hypertension: Code(s): I10 - Essential (primary) hypertension Status: Acute Assessment and Plan: Patient's blood pressure was reviewed on 04/29 Blood pressure remains well controlled. Will continue to monitor (6) CAD (coronary artery disease): Code(s): I25.10 - Atherosclerotic heart disease of [place] coronary artery without angina pectoris Status: Acute Assessment and Plan: CAD with history of OR and stent placement Continue Coreg, statin, ASA (7) Diabetes: Qualifiers: Diabetes mellitus type: type 2 Diabetes mellitus keno terminal operator insulin use: without keno terminal operator use Diabetes mellitus complication status: with neurologic complications Diabetes mellitus complication detail: with polyneuropathy Qualified Code(s): 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thy Code(s): E11.9 - Type 2 diabetes mellitus without complications Status: Acute Assessment and Plan: A1c 5.55 in December. Holding metformin would like to D/C due to renal function Accu-Cheks a.c. HS. 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 No wheezing appreciated. Follows with pulmonology. Wean O2 if tolerated (9) BPH (benign prostatic hyperplasia): Code(s): N40.0 - Benign prostatic hyperplasia without lower urinary tract symptoms Status: Acute Assessment and Plan: No symptoms of urine retention. Continue Flomax Bladder scan prn (10) Anemia: Code(s): D64.9 - Anemia, unspecified Status: Acute Assessment and Plan: Patient with recent hospitalization due to ulceration since has resolved hemoglobin stable in the 10-11 range Continue with PPI b.i.d. Trend hemoglobin periodically and monitor for any signs of overt GIB Transfuse PRBC if Hgb <7.0 Plan Code status: DNR/DNI DVT prophylaxis: SCD's Disposition: PT/OT. Swing bed rehab discharge plan per above. May need to set-up home oxygen at discharge if unable to start hospice care at discharge. Subjective Date/time seen: 05/03/25 10:10 Interval history: Patient had a fall last night not sure what he was doing . Patient has a skin tear on the left arm that has steri strips on there well approximated. Patient continue to deny pain he has denies hitting his head or losing conciousness . I felt on his head and there was not abnormal bumps or bruising noted. He will discharge in am on hospice. Objective Data Vital Signs Vital Signs: Vital Signs - 24 hr 05/02/25 16:00 05/02/25 17:59 05/02/25 20:00 Temperature 98.5 F Pulse Rate 62 62 62 Respiratory Rate 20 20 Blood Pressure 116/49 L Pulse Oximetry 91 91 Oxygen Delivery Nasal Cannula Nasal Cannula Oxygen Flow Rate 3 3 05/03/25 00:00 05/03/25 02:20 05/03/25 02:51 Temperature 98.1 F 97.1 F L 97.1 F L Pulse Rate 66 65 65 Respiratory Rate 18 20 20 Blood Pressure 116/42 L 115/40 L 107/41 L Pulse Oximetry 89 L 87 L 87 L Oxygen Delivery Nasal Cannula Nasal Cannula Nasal Cannula Oxygen Flow Rate 3 5 4 05/03/25 03:27 05/03/25 08:00 05/03/25 08:00 Temperature 97.2 F L Pulse Rate 65 68 68 Respiratory Rate 20 18 18 Blood Pressure 95/45 L Pulse Oximetry 96 90 90 Oxygen Delivery Nasal Cannula Nasal Cannula Nasal Cannula Oxygen Flow Rate 3.5 4 3 05/03/25 09:36 Temperature Pulse Rate 68 Respiratory Rate Blood Pressure Pulse Oximetry Oxygen Delivery Oxygen Flow Rate Intake/Output Intake/Output: Intake & Output 04/30/25 05/01/25 05/02/25 05/03/25 23:59 23:59 23:59 23:59 Intake Total 1560 1480 1390 490 Output Total 8130 465 3031 500 Balance 85 1130 140 -10 Meds/Results Medications: Active Medications Generic Name Dose Route Start Last Admin Trade Name Freq PRN Reason Stop Dose Admin Acetaminophen 650 mg 04/24/25 10:38 04/24/25 20:17 Acetaminophen 325 Mg Tablet PO 650 mg Q6H PRN Administration Mild Pain (1-3) or Fever Hydrocodone Bitart/Acetaminophen 1 tab 04/24/25 10:37 05/03/25 05:27 Hydrocodone/Acetaminophen (*Crx) 5-325 Mg Tablet PO 1 tab Q6H PRN Administration Pain 4-6 Allopurinol 200 mg 04/25/25 09:00 05/03/25 09:38 Allopurinol 100 Mg Tablet PO 200 mg DAILY STELLA Administration Aspirin 81 mg 04/25/25 09:00 05/03/25 09:38 Aspirin 81 Mg Enteric Tablet PO 81 mg DAILY STELLA Administration Carvedilol 12.5 mg 04/24/25 17:00 05/03/25 09:36 Carvedilol 12.5 Mg Tablet PO 12.5 mg BID STELLA Administration Cyanocobalamin 1,000 mcg 04/25/25 09:00 05/03/25 09:38 Cyanocobalamin 1,000 Mcg Tablet PO 1,000 mcg QAM STELLA Administration Dextrose 12.5 gm 04/24/25 10:38 Dextrose 50% 25 Gm/50 Ml Syringe IV PUSH PRN PRN Hypoglycemia Protocol Enalapril Maleate 10 mg 04/24/25 21:00 05/03/25 09:39 Enalapril Maleate 5 Mg Tablet PO 10 mg Q12HR STELLA Administration Fish Oil 1 gm 04/24/25 17:00 05/03/25 09:38 [place] 3 Polyunsat Fatty Acids 1 Gm Cap PO 1 gm BID STELLA Administration Furosemide 40 mg 04/24/25 17:00 05/03/25 09:39 Furosemide 40 Mg Tablet PO 40 mg BID STELLA Administration Glucagon 1 mg 04/24/25 10:38 Glucagon For Inj 1 Mg Vial IM PRN PRN Hypoglycemia Protocol Glucose 15 gm 04/24/25 10:38 Glucose Oral Gel 15 Gm Of Glucse In 37.5 Gm Tube PO PRN PRN Hypoglycemia Protocol Guaifenesin 1,200 mg 04/24/25 21:00 05/03/25 09:38 Guaifenesin 12 Hr 600 Mg Tabcr PO 1,200 mg Q12HR STELLA Administration Dextrose 1,000 mls @ 100 mls/hr 04/24/25 10:38 Dextrose 5% 1,000 Ml IVPB PRN PRN Hypoglycemia Protocol Insulin Human Lispro 2 - 5 units 04/24/25 12:00 05/03/25 08:30 Insulin Human Lispro (*Bkc) 1,000 Units/10 Ml Vial SUB-Q Not Given TIDWM [facility] Protocol Lactobacillus Acidophilus 1 tablet 04/25/25 13:00 05/03/25 09:36 Acidophilus/Bulgaricus Chewable Tablet PO 1 tablet QID STELLA Administration Magnesium Hydroxide 30 ml 05/01/25 09:40 Magnesium Hydroxide Susp 30 Ml Udc PO DAILY PRN Constipation Metolazone 1.25 mg 04/30/25 10:00 05/03/25 09:36 Metolazone 1.25 Mg Tablet PO 1.25 mg QAM STELLA Administration Ondansetron HCl 4 mg 08/31/25 10:38 Ondansetron Hcl Odt 4 Mg Tablet PO Q6H PRN Nausea And Vomiting Pantoprazole Sodium 40 mg 04/24/25 21:00 05/03/25 09:36 Pantoprazole 40 Mg Tablet PO 40 mg Q12HR STELLA Administration Phenyleph/Shark Oil/Min Oil/Petrol 1 applic 05/01/25 18:48 Phenyleph/Shark Oil/Mo/Petrol Cream 26 Gm RECTAL TID PRN Hemorrhoids Pravastatin Sodium 80 mg 04/24/25 21:00 05/02/25 20:06 Pravastatin Sodium 20 Mg Tablet PO 80 mg HS STELLA Administration Tamsulosin HCl 0.8 mg 04/24/25 20:00 05/02/25 20:07 Tamsulosin Hcl 0.4 Mg Capsule PO 0.8 mg Q24H STELLA Administration Temazepam 15 mg 05/02/25 11:05 05/02/25 20:07 Temazepam (*Crx) 15 Mg Capsule PO 15 mg HS PRN Administration Insomnia Radiology Results: ITS Impressions Chest X-Ray 05/03/25 08:42 IMPRESSION: 1. No significant change or worsening from prior study. 2. Bibasilar atelectasis and/or airspace disease, with right pleural effusion. Labs Labs: Laboratory Results - last 24 hr 05/02/25 05/02/25 05/02/25 12:38 17:02 20:14 POC Capillary Glucose 133 H 156 H 118 H 05/03/25 08:45 POC Capillary Glucose 120 H
--- NOTE | 2025-05-03 10:54 | PC.NURSE ---
Pt sitting in chair currently sleeping. Even and unlabored respirations. Call light within pt's reach.
--- NOTE | 2025-05-03 12:33 | PC.NURSE ---
This RN assisted pt back into bed with water and gait belt. Pt's meal tray has been delivered. Bed alarm turned on. POC B
[2025-05-03] MEDS: PRAVASTATIN SODIUM 20 MG TABLET 80 MG PO (20:05)
[2025-05-03] MEDS: TEMAZEPAM (*CRX) 15 MG CAPSULE PO (20:05)
[2025-05-03] MEDS: TAMSULOSIN HCL 0.4 MG CAPSULE 0.8 MG PO (20:06)
[2025-05-04] VITALS: BP 108/54; PULSE 77; RESP 20; TEMP 36.4; O2SAT 88
[2025-05-04 05:30] VITALS: O2SAT 90
[2025-05-04 08:00] VITALS: BP 103/45; PULSE 63; RESP 18; TEMP 36.4; O2SAT 95
[2025-05-04 09:58] VITALS: PULSE 63
[2025-05-04] MEDS: metOLazone 1.25 MG TABLET PO (09:58)
[2025-05-04] MEDS: ASPIRIN 81 MG ENTERIC TABLET PO (09:58)
[2025-05-04] MEDS: OMEGA 3 POLYUNSAT FATTY ACIDS 1 GM CAP PO (09:58)
[2025-05-04] MEDS: ENALAPRIL MALEATE 5 MG TABLET 10 MG PO (09:58)
[2025-05-04] MEDS: CYANOCOBALAMIN 1,000 MCG TABLET 1000 MCG PO (09:58)
[2025-05-04] MEDS: guaiFENesin 12 HR 600 MG TABCR 1200 MG PO (09:58)
[2025-05-04] MEDS: FUROSEMIDE 40 MG TABLET PO (09:58)
[2025-05-04] MEDS: PANTOPRAZOLE 40 MG TABLET PO (09:58)
[2025-05-04] MEDS: HYDROcodone/acetaminophen (*CRX) 5-325 MG TABLET 1 TAB PO (09:58)
[2025-05-04] MEDS: ACIDOPHILUS/BULGARICUS CHEWABLE TABLET 1 TABLET PO (09:58)
--- NOTE | 2025-05-04 10:54 | PM.DS ---
DS: Admitting Diagnosis Discharge Date 05/04/2025 Admitting Diagnosis Rehab DS: Discharge Diagnosis Discharge Diagnosis (1) Acute respiratory failure with hypoxia: Code(s): J96.01 - Acute respiratory failure with hypoxia Status: Acute Assessment and Plan: Patient still requiring 3 L supplemental oxygen. Patient does not currently wear oxygen at home Hypoxia likely secondary to patient's reaccumulation of bilateral R>L pleural effusions. Continue to wean oxygen as tolerated to maintain 92% Patient will home O2 walk study prior to discharge Continue to treat and diurese with oral Lasix 40mg BID Continue with incentive spirometer while awake add metolazone repeat CXR shows no worsening (2) Pleural effusion: Code(s): J90 - Pleural effusion, not elsewhere classified Status: Acute Assessment and Plan: 01/19/2025 showed bilateral pleural effusions/US guided thoracentesis on 03/14/25 at [facility] which yielded 1600mL of fluid Pleural studies mixed with Pl/Serum protein >0.5 but Serum alb-Pl alb >1.1. LDH low but no serum LDH to compare. Pathology negative for malignancy Suspect transudative from decompensated heart failure. Saw Air Compressor Mechanic a few days prior to arrival and was taken off his Lasix and started on Jardiance Continue Lasix, add metolazone Son is trying to contact Pulmonary for repeat thoracentesis. They want to hold off on PleurX catheter. (3) CHF (congestive heart failure): Code(s): I50.9 - Heart failure, unspecified Status: Acute Assessment and Plan: Echo 01/14 showing normal LV systolic fxn with EF 55-60%, abnormal diastolic dysfunction, no aortic stenosis. BNP 49922 on last admission which is much higher than baseline. I/Os even since this admission. continue daily weights continue PO furosemide started on PO metolazone (4) Physical debility: Code(s): R53.81 - Other malaise Status: Acute Assessment and Plan: Debility related to recent hospitalizations. Continue PT/OT Encourage mobility and activity with staff Up at a bed with all meals (5) Hypertension: Code(s): I10 - Essential (primary) hypertension Status: Acute Assessment and Plan: Patient's blood pressure was reviewed on 04/29 Blood pressure remains well controlled. Will continue to monitor (6) CAD (coronary artery disease): Code(s): I25.10 - Atherosclerotic heart disease of [place] coronary artery without angina pectoris Status: Acute Assessment and Plan: CAD with history of SD and stent placement Continue Coreg, statin, ASA (7) Diabetes: Qualifiers: Diabetes mellitus type: type 2 Diabetes mellitus hide handler insulin use: without senior living use Diabetes mellitus complication status: with neurologic complications Diabetes mellitus complication detail: with polyneuropathy Qualified Code(s): 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thy Code(s): E11.9 - Type 2 diabetes mellitus without complications Status: Acute Assessment and Plan: A1c 5.55 in December. Holding metformin would like to D/C due to renal function Accu-Cheks a.c. HS. 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 No wheezing appreciated. Follows with pulmonology. Wean O2 if tolerated (9) BPH (benign prostatic hyperplasia): Code(s): N40.0 - Benign prostatic hyperplasia without lower urinary tract symptoms Status: Acute Assessment and Plan: No symptoms of urine retention. Continue Flomax Bladder scan prn (10) Anemia: Code(s): D64.9 - Anemia, unspecified Status: Acute Assessment and Plan: Patient with recent hospitalization due to ulceration since has resolved hemoglobin stable in the 10-11 range Continue with PPI b.i.d. Trend hemoglobin periodically and monitor for any signs of overt GIB Transfuse PRBC if Hgb <7.0 Plan Code status: DNR/DNI DVT prophylaxis: SCD's Disposition: PT/OT. Swing bed rehab discharge plan per above. May need to set-up home oxygen at discharge if unable to start hospice care at discharge. DS: Summary Hospital Course Reason for hospitalization: rehab Hospital Course: Admission: Patient is an 89-year-old male with a past medical history diabetic foot ulcer, CHF, BPH, pleural effusions, CKD, AAA, CAD, mi, HLD, gout, CVA, diabetes, and hypertension. Who was admitted to [facility] for rehab after he presented to the emergency department with worsening shortness breath. Patient reports he had a follow-up appointment with his seed cone picker on 04/13 for follow-up of his bilateral pleural effusions at that time stable he then went and had a follow up appointment with his promotional advertising assistant at which time they discontinued his oral Lasix and initiated Jardiance due to a bump in patient's renal function. Patient was treated with IV lasix with improvement to pleural effusion but still requiring supplemental oxygen. Had a long discussion with family and patient regarding long-term treatment they were able to speak hospice/palliative care and provided information will attempt to coordinate patient have out patient PleurX drain placed for therapeutic comfort and then likely patient will set up with hospice care at home. Was also able to discuss plan with patient seed cone picker Shante Cha regarding plan and she is in agreement with plan will assist if needed. Hospital course: Patient work with physical and occupational therapy during hospital stay with goal to rehab to return home with hospice care. Patient to discharge home with hospice care after being set up with hospital bed, oxygen, and hospice services with [facility]. Patient and family declined PleurX drain placement prior to discharge to hospice. Patient is seen at time of discharge in no acute distress. [place] hospice services to assume care at home. Time spent discussing smoking cessation with patient: 3 to 10 minutes Status at Discharge Functional status at discharge: uses cane/walker Overall status at discharge: patient is not back to baseline Time Spent with Patient Time attestation: Total time spent providing and/or coordinating discharge services: Time spent: Greater than 30 minutes Exam Const: General: comfortable and no acute distress Other: Frail elderly gentlemen with family at bedside HENMT: Ears: TM's normal bilaterally Face/Nose/Sinus: Normal nares present Mouth: Yes moist mucous membranes Eyes: General: appearance normal, both eyes and all related structures Sclera: sclerae normal Pupils: Equal, round and reactive pupils present Neck: Neck: supple and no JVD Resp: Auscultation: diminished lung sounds (Throughout) bilateral Other: R>L on 3L supplemental oxygen Cardio: Rate: regular rate Rhythm: regular rhythm GI: Auscultation: normal bowel sounds : General: Yes bladder normal to palpation Urinary Catheter: Urinary Catheter: other ( sedimentation) Skin: General skin exam: normal color and no rashes or lesions noted Wounds: no wounds Neuro: Cranial nerves: Yes Equal, round and reactive pupils present Speech: normal speech Motor exam (neuro): Abnormal motor strength present Other: Unsteady gait Extrem: General: edema (R>L) bilateral Psych: Mental Status: mental status grossly normal Affect: normal affect DS: Data Data Completed and Pending Labs on day of discharge: Labs from last 24 hours 05/04/25 05/03/25 05/03/25 08:15 20:07 17:13 POC Capillary Glucose 134 H 162 H 152 H Discharge Plan Discharge Attending physician on discharge: Donald Philippe Consulting providers: Leyla Rebolledo; Jeanette Mcgrath Discharging Clinician: Leyla Rebolledo Anticipated Discharge Date/Time: 05/04/25 10:59 Patient Disposition: Hospice - Home Activity: as tolerated Diet: as tolerated Discharge Instructions: 1). pleural effusions Low-sodium diet recommended Supplemental oxygen as needed Continue oral Lasix May follow-up with seed cone picker outpatient if needed 2). hospice care [facility] hospice to assume hospice nursing home Patient Instructions: Pleural Effusion (DC) Patient Language: [place] Stand Alone Forms: General Discharge Information Follow-up/Referrals: Tavo Caruso MD [Primary Care Provider, Internal Medicine] - 2 weeks Discharge Medications: New metolazone 2.5 mg Tablet 1.25 mg PO QAM Qty: 30 0RF Continued metformin 500 mg Tablet 500 mg PO .AM carvedilol 12.5 mg Tablet 12.5 mg PO BID enalapril maleate 20 mg Tablet 20 mg PO BID allopurinol 100 mg Tablet 200 mg PO DAILY aspirin [Adult Low Dose Aspirin] 81 mg Tablet,Delayed Release (Dr/Ec) 81 mg PO DAILY Patient Comments: Pt told to hold till post Thoracentesis pravastatin 80 mg Tablet 80 mg PO HS temazepam 15 mg Capsule 15 mg PO HS PRN (Reason: Sleep) tamsulosin 0.4 mg Capsule 0.8 mg PO DAILY pantoprazole [Protonix] [address] for susp in packet 40 mg PO BID Rx Instructions: Before meals cyanocobalamin (vitamin B-12) [Vitamin B-12] 1,000 mcg Tablet 1,000 mcg PO QAM Qty: 30 0RF hydrocodone-acetaminophen 5-325 mg tablet 1 tablet PO Q6H PRN (Reason: pain) Qty: 20 0RF guaifenesin [Mucus Relief ER] 600 mg Tablet Extended Release 12hr 1,200 mg PO Q12HR Qty: 1 0RF Patient Comments: take for 1 more day furosemide 20 mg Tablet 40 mg PO BID Qty: 30 0RF cinnamon bark [Cinnamon] 500 mg capsule 1,000 mg PO BID acetaminophen [Tylenol Arthritis Pain] 650 mg tablet extended release 650 mg PO Q12H omega 5-dnu-doz-fish oil [Fish Oil] 1,000 (120-180) mg capsule 1 cap PO BID Discontinued amoxicillin-pot clavulanate 875-125 mg tablet 1 tablet PO Q12H Qty: 6 0RF Patient Comments: for 3 days more azithromycin [Zithromax] 250 mg Tablet 500 mg PO DAILY Qty: 2 0RF Patient Comments: take for 1 more day Date of admission: 04/24/25 09:50 Primary Care Provider: Tavo Caruso Admitting Provider: Donald Philippe Attending physician on admission: Donald Philippe Condition: Guarded Prognosis Quality VTE Prophylaxis VTE prophylaxis: mechanical ordered Hospitalist MIPS Heart Failure (Exclusion) Patient has history of Heart Transplant or Left Ventricular Assistive Device?: No IF YES, STOP HERE Heart Failure (Qualifier) Patient has current or prior documentation of LVEF less than or equal to 40%, or mod/servere depressed LVSF?: No IF NO, STOP HERE
--- NOTE | 2025-05-04 12:20 | PC.NURSE ---
Discharge instructions reviewed with patient and family. Verbalized understanding. Patient assisted to wheelchair with portable oxygen tank. Taken off floor per wheelchair and assisted into vehicle.
--- NOTE | 2025-05-10 08:43 | PC.NURSE ---
Spoke with electrician radio and doing well, phone listed is disconnected.
== END 2025-05-04 12:25 | disposition hospice, home (50) | DRG 947 ==
PROVIDERS: Nurse Practitioner Adult Health; Admitting Provider Internal Medicine; PCP Internal Medicine; Visit Provider Internal Medicine
DX: R53.81 Other malaise (principal); J96.01 Acute respiratory failure with hypoxia; J90 Pleural effusion, not elsewhere classified; I13.0 Hypertensive heart and chronic kidney disease with heart failure and stage 1 through stage 4 chronic kidney disease, or unspecified chronic kidney disease; S40.812A Abrasion of left upper arm, initial encounter; W19.XXXA Unspecified fall, initial encounter; D63.1 Anemia in chronic kidney disease; E78.5 Hyperlipidemia, unspecified; E11.42 Type 2 diabetes mellitus with diabetic polyneuropathy; E11.22 Type 2 diabetes mellitus with diabetic chronic kidney disease; I25.10 Atherosclerotic heart disease of native coronary artery without angina pectoris; I25.2 Old myocardial infarction; I50.9 Heart failure, unspecified; I71.40 Abdominal aortic aneurysm, without rupture, unspecified; J42 Unspecified chronic bronchitis; J43.9 Emphysema, unspecified; M10.9 Gout, unspecified; N18.9 Chronic kidney disease, unspecified; N40.0 Benign prostatic hyperplasia without lower urinary tract symptoms; Z86.73 Personal history of transient ischemic attack (TIA), and cerebral infarction without residual deficits; Z95.5 Presence of coronary angioplasty implant and graft; Z96.652 Presence of left artificial knee joint; Z90.49 Acquired absence of other specified parts of digestive tract; Z87.891 Personal history of nicotine dependence; Z79.82 Long term (current) use of aspirin; Z79.84 Long term (current) use of oral hypoglycemic drugs; Z66 Do not resuscitate
CPT/HCPCS: 36415; 71045; 80048; 82948; 97110; 97161; 97165; 97530; 97535; A9270